=== PATIENT | female | born 1930 | race Caucasian/White ===

== ENCOUNTER 2016-12-21 14:38 | Inpatient (IN) | payer MEDICARE, BC ==
[2016-12-21] VITALS (8 sets, daily range): BP systolic 132–168; BP diastolic 68–88; PULSE 98–115; RESP 18–38; TEMP 98.6; O2SAT 89–97
[~2016-12-21] VITALS: Ht 168.9 cm; Wt 52.0 kg
[~2016-12-21 14:38] MED LIST: ACYC-1 PO; ADVI200T PO; ALBU0.086 INH; ALBU8I INH; ALPR.25 PO; ASPI81CH5 PO; BACT800T5 PO; CLIN1CAP5 PO; FURO20 PO; IPRAAER INH; KCL20 PO; PRED10 PO; PRED50TA PO; REST0.05 EACH EYE; VITA10002 PO
[2016-12-21] MEDS ORDERED: methylPREDNISolone SOD SUCC 125 MG/2 ML VIAL IVP ONE (15:00)
[2016-12-21] MEDS ORDERED: SODIUM CHLORIDE 0.9% FLUSH 5 ML FLUSH IVF PRN (15:00)
--- NOTE | 2016-12-21 15:12 | PD ---
HPI Chief Complaint: COPD Exacerbation Time Seen by Provider: 14:57 Travel History International Travel<30 days: No Contact w/Intl Traveler<30days: No History of Present Illness HPI Patient is an 86-year-old female with history of COPD who uses 2 L of oxygen at all times, since the emergency room with complaints of COPD exacerbation. Patient reports that for the past 2 days, she has had increased cough, congestion, wheezing. Patient reports that she cannot seem to catch her breath and has been using neb treatments without any relief of symptoms. Patient denies any sick contacts. She denies any fevers or chills. Patient denies any chest pain at this time. PFSH Past Medical History Arthritis: Yes (RHEUMATOID ARTHRITIS; HX KNEE EFFUSIONS) Asthma: Yes Atrial Fibrillation: Yes Blood Disorders: No Anxiety: Yes (R/T SOB) Depression: No Heart Rhythm Problems: Yes (HX A FIB) Cancer: Yes (RT BREAST CA;THROAT CA NON-HODGKINS LYMPHOMA STAGE III) Cardiovascular Problems: Yes (PACEMAKER) High Cholesterol: No Chemotherapy: No Chest Pain: No Congestive Heart Failure: No COPD: Yes Cerebrovascular Accident: No Diabetes: No Diminished Hearing: No Endocrine: Yes Gastrointestinal Disorders: Yes GERD: No Glaucoma: No Genitourinary: No Headaches: No Hepatitis: No Hiatal Hernia: No Hypertension: No Immune Disorder: Yes (NON-HODGKINS LYMPHOMA STAGE III) Kidney Stones: No Musculoskeletal: Yes (FELTY'S SYNDROME) Neurologic: No Psychiatric: No Reproductive: Yes (OVARIAN MASS) Respiratory: Yes Migraines: No Myocardial Infarction: No Radiation Therapy: No Renal Failure: No Seizures: No Sickle Cell Disease: No Sleep Apnea: No Thyroid Disease: Yes (THYROID NODULE) Ulcer: No Menopausal: Yes Past Surgical History Abdominal Surgery: Yes (SPLENECTOMY; CHOLECYSTECTOMY) AICD: No Appendectomy: No Arteriovenous Shunt: No Cardiac Surgery: No Cholecystectomy: Yes Ear Surgery: No Endocrine Surgery: Yes (PARTIAL THYROIDECTOMY) Eye Surgery: Yes (TREMAYNE LENS IMPLANTS) Genitourinary Surgery: No Gynecologic Surgery: Yes (HX OVARIAN MASS) Insulin Pump: No Joint Replacement: No Mastectomy: Yes (RT) Oral Surgery: No Pacemaker: Yes Thoracic Surgery: Yes (RT MASTECTOMY) Other Surgery: Yes (LYMPH NODE DISSECTION) Social History Alcohol Use: Yes (VODKA HELPS THE COUGHING) Tobacco Use: No Substance Use: No Allergies-Medications (Allergen,Severity, Reaction): Coded Allergies: Beef (Verified Allergy, Severe, 12/21/16) Benadryl (Verified Allergy, Severe, Rash and hot all over, 12/21/16) Biaxin (Verified Allergy, Severe, Rash, 12/21/16) Iodine (Verified Allergy, Severe, 12/21/16) Iopamidol (ISOVUE) (Verified Allergy, Severe, DO NOT PREMEDICATE-PT HAS ANAPHLYXIS, 12/21/16) Keflex (Verified Allergy, Severe, 12/21/16) Levaquin (Verified Allergy, Severe, SEVERE ITCHING, 12/21/16) Oxycontin (Verified Allergy, Severe, Itching, 12/21/16) Penicillin (Verified Allergy, Severe, 12/21/16) Pork (Verified Allergy, Severe, 12/21/16) Potassium Iodide (Verified Allergy, Severe, 12/21/16) Pulmicort (Verified Allergy, Severe, Anaphylaxis, 12/21/16) Symbicort (Verified Allergy, Severe, Anaphylaxis, 12/21/16) White Fish (Verified Allergy, Severe, 12/21/16) Advair (Verified Allergy, Intermediate, Edema-SPOKE TO YONATHAN HILLIARD SAID PT TAKE NO PROBLEM, 12/21/16) Zithromax (Verified Allergy, Unknown, 12/21/16) Uncoded Allergies: FISH, PORK, BEEF, SEAFOOD (Allergy, Unknown, 11/04/05) Reported Meds & Prescriptions Reported Meds & Active Scripts Active Reported Prednisone 10 Mg Tab 10 Mg PO DAILY Lasix (Furosemide) 20 Mg Tab 20 Mg PO BID Potassium Chloride ER (Potassium Chloride) 10 Meq Cap 10 Meq PO BID Review of Systems General / Constitutional: No: Fever Eyes: No: Visual changes HENT: No: Headaches Cardiovascular: Positive: Irregular Rhythm, No: Chest Pain or Discomfort Respiratory: Positive: Cough, Shortness of Breath, Wheezing Gastrointestinal: No: Abdominal Pain Genitourinary: No: Dysuria Musculoskeletal: No: Pain Skin: No Rash Neurologic: No: Weakness Psychiatric: No: Depression Endocrine: No: Polydipsia Hematologic/Lymphatic: No: Easy Bruising Physical Exam Narrative GENERAL: Moderate distress SKIN: Warm and dry. HEAD: Atraumatic. Normocephalic. EYES: Pupils equal and round. No scleral icterus. No injection or drainage. ENT: No nasal bleeding or discharge. Mucous membranes pink and moist. NECK: Trachea midline. No JVD. CARDIOVASCULAR: Tachycardic. No murmur appreciated. RESPIRATORY: Patient with accessory muscle use. Scattered wheezing throughout upper and lower lobes of lungs GASTROINTESTINAL: Abdomen soft, non-tender, nondistended. Hepatic and splenic margins not palpable. MUSCULOSKELETAL: No obvious deformities. No clubbing. No cyanosis. No edema. NEUROLOGICAL: Awake and alert. No obvious cranial nerve deficits. Motor grossly within normal limits. Normal speech. PSYCHIATRIC: Appropriate mood and affect; insight and judgment normal. Data Data Last Documented VS Vital Signs Date Time Temp Pulse Resp B/P Pulse Ox O2 Delivery O2 Flow Rate FiO2 12/21/16 17:00 98 30 132/70 97 BiPAP 40 12/21/16 15:00 15 12/21/16 14:50 98.6 Orders Complete Blood Count With Diff (12/21/16 14:59) Comprehensive Metabolic Panel (12/21/16 14:59) B-Type Natriuretic Peptide (12/21/16 14:59) Act Partial Throm Time (Ptt) (12/21/16 14:59) Prothrombin Time / Inr (Pt) (12/21/16 14:59) Magnesium (Mg) (12/21/16 14:59) Ckmb (Isoenzyme) Profile (12/21/16 14:59) Troponin I (12/21/16 14:59) Arterial Blood Gas (Abg) (12/21/16 14:59) Urinalysis - C+S If Indicated (12/21/16 14:59) Influenzae A/B Antigen (12/21/16 14:59) Blood Culture (12/21/16 14:59) Iv Access Insert/Monitor (12/21/16 14:59) Electrocardiogram (12/21/16 14:59) Ecg Monitoring (12/21/16 14:59) Oximetry (12/21/16 14:59) Oxygen Administration (12/21/16 14:59) Chest, Single Ap (12/21/16 14:59) Sodium Chloride 0.9% Flush (Ns Flush) (12/21/16 15:00) Methylprednisolone So Succ Inj (Solumedr (12/21/16 15:00) Albuterol-Ipratropium Neb (Duoneb Neb) (12/21/16 15:00) Magnesium Sulfate 1 Gm Premix (Magnesium (12/21/16 15:00) Admit Order (Ed Use Only) (12/21/16 17:08) Labs Laboratory Tests Test 12/21/16 12/21/16 15:00 15:30 Prothrombin Time 11.1 SEC Prothromb Time International 1.0 RATIO Ratio Activated Partial 22.9 SEC Thromboplast Time Sodium Level 145 MEQ/L Potassium Level 4.5 MEQ/L Chloride Level 106 MEQ/L Carbon Dioxide Level 30.3 MEQ/L Anion Gap 9 MEQ/L Blood Urea Nitrogen 19 MG/DL Creatinine 0.86 MG/DL Estimat Glomerular Filtration 63 ML/MIN Rate Random Glucose 86 MG/DL Calcium Level 8.8 MG/DL Magnesium Level 2.0 MG/DL Total Bilirubin 0.4 MG/DL Aspartate Amino Transf 39 U/L (AST/SGOT) Alanine Aminotransferase 24 U/L (ALT/SGPT) Alkaline Phosphatase 91 U/L Total Creatine Kinase 95 U/L Troponin I LESS THAN 0.02 NG/ML B-Type Natriuretic Peptide 170 PG/ML Total Protein 6.6 GM/DL Albumin 3.7 GM/DL White Blood Count 14.7 TH/MM3 Red Blood Count 4.51 MIL/MM3 Hemoglobin 14.6 GM/DL Hematocrit 44.1 % Mean Corpuscular Volume 97.9 FL Mean Corpuscular Hemoglobin 32.4 PG Mean Corpuscular Hemoglobin 33.1 % Concent Red Cell Distribution Width 17.0 % Platelet Count 178 TH/MM3 Mean Platelet Volume 8.9 FL Neutrophils (%) (Auto) 50.1 % Lymphocytes (%) (Auto) 28.2 % Monocytes (%) (Auto) 11.4 % Eosinophils (%) (Auto) 9.7 % Basophils (%) (Auto) 0.6 % Neutrophils # (Auto) 7.3 TH/MM3 Lymphocytes # (Auto) 4.1 TH/MM3 Monocytes # (Auto) 1.7 TH/MM3 Eosinophils # (Auto) 1.4 TH/MM3 Basophils # (Auto) 0.1 TH/MM3 CBC Comment DIFF FINAL Differential Comment Blood Gas Puncture Site LT RADIAL Blood Gas Patient Temperature 98.6 Blood Gas HCO3 30 mmol/L Blood Gas Base Excess 4.9 mmol/L Blood Gas Oxygen Saturation 97 % Arterial Blood pH 7.35 Arterial Blood Partial 57 mmHg Pressure CO2 Arterial Blood Partial 132 mmHg Pressure O2 Arterial Blood Oxygen Content 20.1 Vol % Arterial Blood 0.9 % Carboxyhemoglobin Arterial Blood Methemoglobin 0.8 % Blood Gas Hemoglobin 14.6 G/DL Oxygen Delivery Device BiPAP Blood Gas Ventilator Setting [id number] Blood Gas Inspired Oxygen 50 % MDM Medical Decision Making Medical Screen Exam Complete: Yes Emergency Medical Condition: Yes Interpretation(s) EKG at 1532: A. fib at 95 beats a minute, QT/QTc 350/402 Vital Signs Date Time Temp Pulse Resp B/P Pulse Ox O2 Delivery O2 Flow Rate FiO2 12/21/16 15:30 103 26 163/81 97 BiPAP 50 12/21/16 15:20 97 BiPAP 50 12/21/16 15:10 96 BiPAP 50 12/21/16 15:10 96 50 12/21/16 15:00 106 38 90 Room Air 15 12/21/16 14:50 98.6 115 38 168/87 89 CBC & BMP Diagram 12/21/16 15:00 Differential Diagnosis COPD exacerbation, A. fib with RVR, pneumonia, influenza, arrhythmia, pneumothorax Narrative Course Patient is an 86-year-old female who presents to emergency room with COPD exacerbation. Patient reports that she has been having increased cough, wheezing and shortness of breath for the past 2 days, reports that her symptoms have been unrelieved with neb treatments. As per EMS, pt was in afib with RVR with respiratory distress upon arrival to the emergency room. patient was given cardizem 10mg upon arrival to ER - reports from EMS was that her HR did improve with cardizem patient was not given steroids or nebs prior to arrival to ER Patient was placed on carbide tool die maker upon arrival to emergency room. Steroids as well as neb treatment ordered. Patient will be placed on BiPAP case reviewed with dr burch who accepts pt to service Diagnosis Primary Impression: COPD exacerbation Bridgette Atkinson DO Dec 21, 2016 15:12
[2016-12-21] MEDS: RESP: ALBUTEROL 2.5 MG/IPRATROPIUM 0.5 MG NEB (SCH) INH ×4 (15:15→18:45)
[2016-12-21] MEDS: MAGNESIUM SULFATE 1 GM PREMIX 100 ML IV SCH ×2 (15:27→16:54)
[2016-12-21 15:41] LABS: AUTOMATED NEUTROPHIL # 7.3 TH/MM3 (1.8-7.7); BASOPHIL # 0.1 TH/MM3 (0-0.2); BASOPHIL % 0.6 % (0.0-2.0); EOSINOPHIL # 1.4 TH/MM3 (0-0.4); EOSINOPHIL % 9.7 % (0.0-4.0); HEMATOCRIT 44.1 % (35.0-46.0); HEMO FLAGS DIFF FINAL; LYMPH % 28.2 % (9.0-44.0); LYMPHOCYTE # 4.1 TH/MM3 (1.0-4.8); MEAN CELL VOLUME 97.9 FL (80.0-100.0); MEAN CORPUSCULAR HEMOGLOBIN 32.4 PG (27.0-34.0); MEAN CORPUSCULAR HGB CONC 33.1 % (32.0-36.0); MONO % 11.4 % (0.0-8.0); NEUT % 50.1 % (16.0-70.0); PLATELET COUNT 178 TH/MM3 (150-450); RED BLOOD COUNT 4.51 MIL/MM3 (4.00-5.30); WHITE BLOOD COUNT 14.7 TH/MM3 (4.0-11.0)
[2016-12-21] MEDS ORDERED: FURO1TAB62 PO (15:41)
[2016-12-21] MEDS ORDERED: POTA10CA PO (15:41)
[2016-12-21] MEDS ORDERED: PRED10 PO (15:41)
[2016-12-21 15:43] LABS: APTT (PATIENT) 22.9 SEC (24.3-30.1); PROTHROMBIN TIME - PATIENT 11.1 SEC (9.8-11.6)
[2016-12-21 15:45] LABS: BLOOD GAS BASE EXCESS 4.9 mmol/L (-2-2); BLOOD GAS CARBOXYHEMOGLOBIN 0.9 % (0-4); BLOOD GAS HCO3 30 mmol/L (22-26); BLOOD GAS METHEMOGLOBIN 0.8 % (0-2); BLOOD GAS O2 HGB SATURATION 97 % (90-100); BLOOD GAS OXYGEN CONTENT 20.1 Vol % (12.0-20.0); BLOOD GAS PCO2 57 mmHg (38-42); BLOOD GAS PO2 132 mmHg (61-120); BLOOD GAS TOTAL HGB 14.6 G/DL (12.0-16.0); TEMP CORR TO 98.6
[2016-12-21 15:46] LABS: CRITICAL VALUE YES; DRAW SITE LT RADIAL; FIO2 50 %; NUMBER OF ARTERIAL PUNCTURES 1; OXYGEN DEVICE BiPAP; STAT YES; ULNAR PULSE PRESENT; VENT SETTINGS IPAP10EPAP5
[2016-12-21 15:57] LABS: ALKALINE PHOSPHATASE 91 U/L (45-117); ALT (GPT) 24 U/L (10-53); ANION GAP 9 MEQ/L (5-15); AST (GOT) 39 U/L (15-37); BICARBONATE 30.3 MEQ/L (21.0-32.0); BLOOD UREA NITROGEN 19 MG/DL (7-18); CHLORIDE 106 MEQ/L (98-107); GLOMERULAR FILTRATION RATE 63 ML/MIN (>89); SODIUM (NA) 145 MEQ/L (136-145); TOTAL BILIRUBIN ADULT 0.4 MG/DL (0.2-1.0)
[2016-12-21 15:58] LABS: CREATINE KINASE 95 U/L (26-192); POTASSIUM 4.5 MEQ/L (3.5-5.1)
--- NOTE | 2016-12-21 17:01 | RADRPT ---
EXAM DATE/TIME: 12/21/2016 16:53 [facility] COMPARISON: CHEST SINGLE AP, July 15, 2014, 10:13. INDICATIONS : Short of breath. MEDICAL HISTORY : Chronic obstructive pulmonary disease. Congestive heart failure. Myocardial infarction. Lymphoma. SURGICAL HISTORY : Pacemaker. CABG. ENCOUNTER: Initial ACUITY: 2 days PAIN SCORE: 0/10 LOCATION: Bilateral chest FINDINGS: The cardiac silhouette is enlarged in transverse diameter. There is prominence of the aortic knob is with calcification characteristic of atherosclerotic vascular disease. A bipolar pacemaker is in plac e via a left sided approach. The lungs are hyperinflated. The lungs are free of acute parenchymal opa city. No effusions are identified. CONCLUSION: 1. Cardiomegaly. No acute pulmonary disease. Driss Freitas MD on December 21, 2016 at 16:59 Board Certified Radiologist. This report was verified electronically.
--- NOTE | 2016-12-21 18:18 | HHI.HP ---
cc: Manjit Hook MD [facility] Manjit Hook MD Admission Diagnosis COPD Exacerbation on BIPAP Diagnoses: Chief Complaint: Shortness of breath, cough Travel History International Travel<30 Days: No Contact w/Intl Traveler <30 Da: No Traveled to Known Affected Are: No Sepsis Criteria SIRS Criteria (2 or more): Heart rate over 90, WBC > 28285, < 4000 or > 10% bands Sepsis Criteria (SIRS+source): Infect source susp/known Criteria Outcome: Meets SIRS criteria, Meets sepsis criteria History of Present Illness Patient is a pleasant 86-year-old white female with primary medical history of COPD O2 use at home, A. fib, rheumatoid arthritis, anxiety, non-Hodgkin's stage III who came in to the hospital with complaints of increasing shortness of breath worsening in 2-3 days and she feels that the medication is not helping her. She takes prednisone 10 mg daily and do nebulizer treatments 3 times a day. But in the last 2 days, she has been waking up at night choking, with difficulty breathing. Last night she woke up choking, and did her nebulization , coughs up what she described as "ball of white blob." She feels she is not getting better that she went to the hospital for further evaluation. PCP is Dr. Vizcarra, rod mill operator Dr. Victor. Patient is not seeing any barrer and tacker. Patient denies any sick contacts. Complaints of left shoulder pain started yesterday, intermittent, aggravated by cough, relieved with rest. Denies chest pain, palpitations, headaches, dizziness. Denies fevers, chills, n/ v/d. Patient was started on BiPAP in the ED, Solu-Medrol was given as well as nebulizer treatment. Patient states increased amount of prednisone caused her to have cancer. But spoke with patient's family member at the bedside and states that she's been getting prednisone without any adverse effect although she has multiple allergies to different medications. Labs reviewed WBC 14.7. CMP no acute abnormality elevated BUN 19, EGFR 63, AST 39. Troponin less than 0.02. BNP 170. ABG PCO2 57, PO2 132, HCO3 30 on BiPAP IPAP 10 EPAP 550% inspired Chest x-ray showed cardiomegaly. No acute pulmonary disease. Review of Systems Except as stated in HPI: all other systems reviewed are Neg Past Family Social History Past Medical History COPD - O2 dependent, use A. fib Rheumatoid arthritis Right breast cancer Anxiety Non-Hodgkin's stage III Thyroid nodule Past Surgical History PPM Splenectomy Cholecystectomy Partial thyroidectomy Bilateral lens implant Right mastectomy Lymph node resection Reported Medications Prednisone 10 Mg Tab 10 Mg PO DAILY Lasix (Furosemide) 20 Mg Tab 20 Mg PO BID Potassium Chloride ER (Potassium Chloride) 10 Meq Cap 10 Meq PO BID Allergies: Coded Allergies: Beef (Verified Allergy, Severe, 12/21/16) Benadryl (Verified Allergy, Severe, Rash and hot all over, 12/21/16) Biaxin (Verified Allergy, Severe, Rash, 12/21/16) Iodine (Verified Allergy, Severe, 12/21/16) Iopamidol (ISOVUE) (Verified Allergy, Severe, DO NOT PREMEDICATE-PT HAS ANAPHLYXIS, 12/21/16) Keflex (Verified Allergy, Severe, 12/21/16) Levaquin (Verified Allergy, Severe, SEVERE ITCHING, 12/21/16) Oxycontin (Verified Allergy, Severe, Itching, 12/21/16) Penicillin (Verified Allergy, Severe, 12/21/16) Pork (Verified Allergy, Severe, 12/21/16) Potassium Iodide (Verified Allergy, Severe, 12/21/16) Pulmicort (Verified Allergy, Severe, Anaphylaxis, 12/21/16) Symbicort (Verified Allergy, Severe, Anaphylaxis, 12/21/16) White Fish (Verified Allergy, Severe, 12/21/16) Advair (Verified Allergy, Intermediate, Edema-SPOKE TO YONATHAN HILLIARD SAID PT TAKE NO PROBLEM, 12/21/16) Zithromax (Verified Allergy, Unknown, 12/21/16) Uncoded Allergies: FISH, PORK, BEEF, SEAFOOD (Allergy, Unknown, 11/04/05) Active Ordered Medications Current Medications Medications (Trade) Dose Ordered Sig/Madeleine Route Start Time Stop Time Status Last Admin (NS Flush) 2 ml UNSCH PRN IVF 12/21/16 15:00 (NS Flush) 2 ml BID IVF 12/21/16 21:00 (NS Flush) 2 ml UNSCH PRN IVF 12/21/16 17:45 (SoluMEDROL INJ) 60 mg Q6H IVP 12/21/16 21:00 Family History Mother's side has heart problems, father side patient states no known significant medical history Social History Alcohol use vodka every day "helps to relieve her cough" Denies tobacco use Denies illicit drug use Physical Exam Vital Signs Vital Signs Date Time Temp Pulse Resp B/P Pulse Ox O2 Delivery O2 Flow Rate FiO2 12/21/16 17:00 98 30 132/70 97 BiPAP 40 12/21/16 15:30 103 26 163/81 97 BiPAP 50 12/21/16 15:20 97 BiPAP 50 12/21/16 15:10 96 BiPAP 50 12/21/16 15:10 96 50 12/21/16 15:00 106 38 90 Room Air 15 12/21/16 14:50 98.6 115 38 168/87 89 Physical Exam GENERAL: This is a thinly appearing, elderly patient, short of breath/ dyspneic. SKIN: Warm and dry. Bilateral lower extremities again is dry. HEAD: Atraumatic. Normocephalic. No temporal or scalp tenderness. EYES: Pupils equal round and reactive. Extraocular motions intact. No scleral icterus. No injection or drainage. ENT: Nose without bleeding. Throat without erythema. Uvula midline. Airway patent. Oral mucosa dry NECK: Trachea midline. No JVD. CARDIOVASCULAR: Regular rate and rhythm without murmurs, gallops, or rubs. RESPIRATORY: Distant lung sounds, minimal air movement. GASTROINTESTINAL: Abdomen soft, non-tender, nondistended. Bowel sounds active 4. MUSCULOSKELETAL: Extremities without clubbing, cyanosis, bilateral +1 pedal edema. Bilateral hand contractures. NEUROLOGICAL: Awake and alert. No focal neuro deficit. Motor and sensory grossly within normal limits. Normal speech. Hoarse voice. Laboratory Laboratory Tests Test 12/21/16 12/21/16 15:00 15:30 White Blood Count 14.7 Red Blood Count 4.51 Hemoglobin 14.6 Hematocrit 44.1 Mean Corpuscular Volume 97.9 Mean Corpuscular Hemoglobin 32.4 Mean Corpuscular Hemoglobin 33.1 Concent Red Cell Distribution Width 17.0 Platelet Count 178 Mean Platelet Volume 8.9 Neutrophils (%) (Auto) 50.1 Lymphocytes (%) (Auto) 28.2 Monocytes (%) (Auto) 11.4 Eosinophils (%) (Auto) 9.7 Basophils (%) (Auto) 0.6 Neutrophils # (Auto) 7.3 Lymphocytes # (Auto) 4.1 Monocytes # (Auto) 1.7 Eosinophils # (Auto) 1.4 Basophils # (Auto) 0.1 CBC Comment DIFF FINAL Differential Comment Prothrombin Time 11.1 Prothromb Time International 1.0 Ratio Activated Partial 22.9 Thromboplast Time Sodium Level 145 Potassium Level 4.5 Chloride Level 106 Carbon Dioxide Level 30.3 Anion Gap 9 Blood Urea Nitrogen 19 Creatinine 0.86 Estimat Glomerular Filtration 63 Rate Random Glucose 86 Calcium Level 8.8 Magnesium Level 2.0 Total Bilirubin 0.4 Aspartate Amino Transf 39 (AST/SGOT) Alanine Aminotransferase 24 (ALT/SGPT) Alkaline Phosphatase 91 Total Creatine Kinase 95 Troponin I LESS THAN 0.02 B-Type Natriuretic Peptide 170 Total Protein 6.6 Albumin 3.7 Blood Gas Puncture Site LT RADIAL Blood Gas Patient Temperature 98.6 Blood Gas HCO3 30 Blood Gas Base Excess 4.9 Blood Gas Oxygen Saturation 97 Arterial Blood pH 7.35 Arterial Blood Partial 57 Pressure CO2 Arterial Blood Partial 132 Pressure O2 Arterial Blood Oxygen Content 20.1 Arterial Blood 0.9 Carboxyhemoglobin Arterial Blood Methemoglobin 0.8 Blood Gas Hemoglobin 14.6 Oxygen Delivery Device BiPAP Blood Gas Ventilator Setting [id number] Blood Gas Inspired Oxygen 50 Date/Time Procedure Status Source Growth 12/21/16 15:13 Influenza Types A,B Antigen (DEBBIE) - Final Complete Nasal Aspirate NEGATIVE FOR FLU A AND B ANTIGEN.... 12/21/16 14:55 Aerobic Blood Culture Received Blood Peripheral Pending 12/21/16 14:55 Anaerobic Blood Culture Received Blood Peripheral Pending Result Diagram: 12/21/16 1500 12/21/16 1500 Imaging Last Impressions Chest X-Ray 12/21/16 1459 Signed Impressions: Service Date/Time: December 16:53 - CONCLUSION: 1. Cardiomegaly. No acute pulmonary disease. Driss Freitas MD Assessment and Plan Problem List: (1) COPD exacerbation ICD Code: J44.1 Status: Acute (2) Sepsis ICD Code: A41.9 Status: Acute (3) A-fib ICD Code: I48.91 Status: Chronic Assessment and Plan Patient is a pleasant 86-year-old white female with primary medical history of COPD O2 use at home, A. fib, rheumatoid arthritis, anxiety, non-Hodgkin's stage III who came in to the hospital with complaints of increasing shortness of breath worsening in 2-3 days and she feels that the medication is not helping her. She takes prednisone 10 mg daily and do nebulizer treatments 3 times a day. But in the last 2 days, she has been waking up at night choking, with difficulty breathing. Last night she woke up choking, and did her nebulization , coughs up what she described as "ball of white blob." She feels she is not getting better that she went to the hospital for further evaluation. PCP is Dr. Vizcarra, rod mill operator Dr. Victor. Patient is not seeing any barrer and tacker. Patient denies any sick contacts. Complaints of left shoulder pain started yesterday, intermittent, aggravated by cough, relieved with rest. Denies chest pain, palpitations, headaches, dizziness. Denies fevers, chills, n/ v/d. Patient was started on BiPAP in the ED, Solu-Medrol was given as well as nebulizer treatment. Sepsis - WBC 14.7, heart rate 115, respiratory rate 38 - suspect source pulmonary - Blood cultures will follow up results - Lactic acid follow-up results - Influenza negative COPD acute exacerbation - Patient was given Solu-Medrol in the ED. continue with Solu-Medrol IV - Continue BiPAP for now. Wean off if tolerated. - Nebulizer treatments scheduled, and when necessary - IV antibiotics - Consult pulmonology input appreciated Atrial fibrillation - not on any anticoagulants. [id number] score 3 (gender, age), 3.2% per year. - Patient was given diltiazem in the ED - Cardizem for rate control DVT prop SCDs, Written by Jackie Ferro, acting as scribe for Dr. Méndez on 12/21/16 at 18: 31. The documentation accurately reflects the work performed [id number] by me on at 1831. Code Status Full code Discussed Condition With Patient, family members, ED attending Physician Certification 2 Midnight Certification Type: Admission for Inpatient Services Order for Inpatient Services The services are ordered in accordance with Medicare regulations or non- Medicare payer requirements, as applicable. In the case of services not specified as inpatient-only, they are appropriately provided as inpatient services in accordance with the 2-midnight benchmark. Estimated LOS (days): 2 days is the estimated time the patient will need to remain in the hospital, assuming treatment plan goals are met and no additional complications. Post-Hospital Plan: Not yet determined Jackie Cid Dec 21, 2016 18:18 Sabas Méndez MD Dec 21, 2016 19:05
[2016-12-21] MEDS: SODIUM CHLORIDE 0.9% FLUSH 5 ML FLUSH IVF SCH (20:24)
[2016-12-21] MEDS ORDERED: methylPREDNISolone SOD SUCC 125 MG/2 ML VIAL IVP SCH (21:00)
[2016-12-22] VITALS (8 sets, daily range): BP systolic 122–164; BP diastolic 66–85; PULSE 84–136; RESP 20–31; TEMP 97.8–98.7; O2SAT 94–97
[2016-12-22] MEDS: RESP: ALBUTEROL 2.5 MG/3 ML NEB (PRN) INH (02:44)
[2016-12-22] MEDS: SODIUM CHLORIDE 0.9% FLUSH 5 ML FLUSH IVF SCH ×2 (07:23→20:06)
[2016-12-22 07:50] LABS: AUTOMATED NEUTROPHIL # 3.3 TH/MM3 (1.8-7.7); BASOPHIL % 0.4 % (0.0-2.0); HEMATOCRIT 41.3 % (35.0-46.0); LYMPHOCYTE # 0.7 TH/MM3 (1.0-4.8); MEAN CELL VOLUME 97.1 FL (80.0-100.0); MEAN CORPUSCULAR HEMOGLOBIN 32.9 PG (27.0-34.0); MEAN CORPUSCULAR HGB CONC 33.9 % (32.0-36.0); MONO % 3.1 % (0.0-8.0); NEUT % 80.5 % (16.0-70.0); PLATELET COUNT 176 TH/MM3 (150-450); RED BLOOD COUNT 4.25 MIL/MM3 (4.00-5.30); RED CELL DISTRIBUTION WIDTH 16.8 % (11.6-17.2); WHITE BLOOD COUNT 4.1 TH/MM3 (4.0-11.0)
[2016-12-22] MEDS: RESP: ALBUTEROL 2.5 MG/IPRATROPIUM 0.5 MG NEB (SCH) INH ×4 (07:50→19:32)
[2016-12-22 08:12] LABS: BICARBONATE 29.8 MEQ/L (21.0-32.0); POTASSIUM 3.8 MEQ/L (3.5-5.1)
[2016-12-22 08:40] LABS: HEMO FLAGS AUTO DIFF
[2016-12-22 08:42] LABS: PLATELET ESTIMATE SMEAR NORMAL (NORMAL); PLATELET MORPHOLOGY NORMAL (NORMAL); SCAN/DIFF AUTO DIFF CONFIRMED
[2016-12-22] MEDS ORDERED: LORazepam 2 MG TAB PO PRN (11:30)
[2016-12-22] MEDS ORDERED: LORazepam 2 MG/ML VIAL IV PUSH PRN ×4 (11:30)
[2016-12-22] MEDS ORDERED: FLUMAZENIL 0.5 MG/5 ML VIAL IV PUSH PRN (11:30)
[2016-12-22] MEDS ORDERED: LORazepam 1 MG TAB PO PRN (11:30)
[2016-12-22] MEDS: DILTIAZEM INJ 125 MG in SODIUM CHLORIDE 0.9% INJ 100 ML IV SCH (11:59)
--- NOTE | 2016-12-22 14:10 | HHI.PR ---
Subjective Remarks Follow-up respiratory failure, atrial fibrillation. The patient states that she is feeling better today. Less shortness of breath. No chest pain at this time. She did develop sustained tachycardia in the 120s to 130s. Control is better now that she is on Cardizem drip. Objective Vitals Vital Signs Date Time Temp Pulse Resp B/P Pulse Ox O2 Delivery O2 Flow Rate FiO2 12/22/16 12:00 98.4 136 24 127/77 96 12/22/16 08:00 97.9 108 24 135/83 97 12/22/16 07:51 96 Nasal Cannula 3.00 12/22/16 02:15 98.7 115 31 164/85 95 12/22/16 02:00 Nasal Cannula 3.00 12/22/16 01:37 104 18 149/66 97 Nasal Cannula 4 12/21/16 23:28 101 18 144/88 97 Nasal Cannula 12/21/16 19:44 110 22 140/68 95 Nasal Cannula 4 12/21/16 19:18 97 Nasal Cannula 4.00 12/21/16 18:45 96 40 12/21/16 17:00 98 30 132/70 97 BiPAP 40 12/21/16 15:30 103 26 163/81 97 BiPAP 50 12/21/16 15:20 97 BiPAP 50 12/21/16 15:10 96 BiPAP 50 12/21/16 15:10 96 50 12/21/16 15:00 106 38 90 Room Air 15 12/21/16 14:50 98.6 115 38 168/87 89 I/O 12/21/16 12/21/16 12/21/16 12/22/16 12/22/16 12/22/16 07:00 15:00 23:00 07:00 15:00 23:00 Intake Total 240 ml Balance 240 ml Intake Oral 240 ml # Voids 1 # Bowel Movements 1 Result Diagram: 12/22/16 0657 12/22/16 0657 Imaging Last Impressions Chest X-Ray 12/21/16 1459 Signed Impressions: Service Date/Time: December 16:53 - CONCLUSION: 1. Cardiomegaly. No acute pulmonary disease. Driss Freitas MD Objective Remarks General: Thin, elderly female in no acute distress. Heart: Tachycardic, irregular.. No murmur. Lungs: Scattered wheeze. Breathing is nonlabored. Abdomen: Soft, nontender, nondistended. Extremities: No lower extremity edema. Psych: Alert and oriented. Procedures None Urinary Catheter: No Vascular Central Line Catheter: No A/P Problem List: (1) COPD exacerbation ICD Code: J44.1 Status: Acute (2) Sepsis ICD Code: A41.9 Status: Acute (3) Acute respiratory failure ICD Code: J96.00 Status: Acute (4) Leukocytosis ICD Code: D72.829 Status: Acute (5) Alcohol withdrawal ICD Code: F10.239 Status: Acute (6) Atrial fibrillation with RVR ICD Code: I48.91 Status: Acute (7) Acute kidney injury ICD Code: N17.9 Status: Acute Assessment and Plan 1. Acute respiratory failure, COPD exacerbation: Has required BiPAP. Pulmonology consult pending. Continue supplemental oxygen, bronchodilators. Patient does not want steroids at this time. Continue IV antibiotics. Clinically improving. 2. Atrial fibrillation with RVR: On Cardizem drip. Not on anticoagulation. Cardiology consultation requested. Patient sees Dr. Victor. 3. Sepsis secondary to pulmonary source: Blood cultures are pending. Patient presented with leukocytosis, tachycardia, tachypnea. Continue antibiotics. Leukocytosis has resolved. 4. Acute kidney injury: BUN and creatinine are increasing. Start gentle IV fluid hydration. Recheck labs in the morning. 5. Alcohol use, withdrawal: Patient reported drinking 3 small vodka drinks per day, but her family states that she drinks considerably more than that on a regular basis. She appears to be experiencing some withdrawal symptoms, and this may be contributing to her tachycardia. Continue CIWA protocol. Supplement thiamine, folate, multiple vitamin. 6. DVT prophylaxis: SCDs. Sabas Méndez MD Dec 22, 2016 14:10
[2016-12-22] MEDS: MULTIVITAMIN TAB PO SCH (15:23)
[2016-12-22] MEDS: FOLIC ACID 1 MG TAB PO SCH (15:23)
[2016-12-22] MEDS: NS + KCL 20 MEQ INJ 1,000 ML IV SCH (16:16)
[2016-12-22] MEDS: THIAMINE INJ 100 MG in SODIUM CHLORIDE 0.9% INJ 100 ML IV SCH (17:46)
[2016-12-22] MEDS ORDERED: DILTIAZEM HCL 60 MG TAB PO ONE (19:00)
[2016-12-22] MEDS: ENOXAPARIN SODIUM 40 MG/0.4 ML SYRINGE SQ SCH (20:05)
--- NOTE | 2016-12-22 23:16 | MB ---
cc: CHRISTY VICTOR MD, RYAN R. M.D. MAREN,ASJRAF DATE OF CONSULTATION 12/22/[address] Victor. REASON FOR CONSULTATION Atrial fibrillation with rapid ventricular response. HISTORY OF PRESENT ILLNESS Ms. Blood is a pleasant 86-year-old lady with history of COPD on home O2, history of rheumatoid arthritis and anxiety, history of chronic atrial fibrillation, sick sinus syndrome, status post permanent pacemaker placement who comes in with progressive shortness of breath, wheezing and cough with productive whitish sputum over the past few days with PND relieved by nebulizer used. She sleeps on one pillow otherwise. She has had chronic lower extremity edema on and off and lately has been better with dietary restrictions and the use of diuretics. Denies chest pain per se. Admits to palpitations that happens more over the last 2-3 weeks. She has episodes of palpitations about two to three times a week. She used to be on Cardizem, but she ran out of her medications a few months ago and was not taking it. She also drinks two to three drinks of vodka on a daily basis because she feels it helps her breathing and her cough. She mixes that with honey. Denies dizziness or syncope. PAST MEDICAL AND SURGICAL HISTORY Dose as mentioned above. 1. History of hypertension. 2. Chronic atrial fibrillation not on anticoagulation because she has refused it in the past and still does. 3. History of breast cancer. 4. History of non-Hodgkin lymphoma stage III. FAMILY HISTORY There is no immediate family history of coronary artery disease, cancer, diabetes or hypertension according to her. SOCIAL HISTORY Drinks vodka as mentioned above. Denies history of smoking. She used to smoke up until she was 27 years old. However, she was exposed to secondhand smoking. Denies recreational drug use. PAST SURGICAL HISTORY 1. Permanent pacemaker. 2. Splenectomy. 3. Cholecystectomy. 4. Partial hysterectomy. 5. Lymph node resection 6. Right mastectomy. 7. Cataract surgery bilaterally. MEDICATIONS At home, 1. Prednisone 10 mg by mouth daily. 2. Lasix 20 mg by mouth b.i.d. 3. Lottie Ciel 10 mEq p.o. b.i.d. ALLERGIES She quotes multiple allergies including BENADRYL BIAXIN "BEEF" IODINE KEFLEX LEVAQUIN OXY CONTIN PENICILLIN PORK POTASSIUM IODINE PULMICORT SYMBICORT ADVAIR INHALERS ZITHROMAX CONTRAST ALLERGIES SEAFOOD ALLERGIES REVIEW OF SYSTEMS 12-point system review was unremarkable except what is mentioned in the history of present illness. She denies fever. She does not follow with pulmonary. PHYSICAL EXAMINATION GENERAL: An 86-year-old lady lying in bed not in distress, alert and oriented x3. Answers questions appropriately. VITAL SIGNS: Blood pressure is 143/67 mmHg, pulse of 102 beats per minute irregular irregular, respiration 20 per minute, afebrile. HEENT: Head is normocephalic. Pupils equal, reactive. Throat is within normal limits. NECK: Supple. No carotid bruit. No thyromegaly, borderline jugular venous distension at 45 degree angle. LUNGS: Diminished air entry bilaterally with occasional expiratory rhonchi and wheezing. Few creps at the bases. CARDIOVASCULAR: S1, S2 are variable in intensity with an S4 gallop. No rubs or murmurs. ABDOMEN: Lax, nontender. Normoactive bowel sounds. No organomegaly or masses felt. EXTREMITIES: Lower extremities shows trace indurated pitting edema lower ankles bilaterally. Pulses 2+ bilaterally. Dorsalis pedis pulse is barely felt. NEUROLOGIC: Grossly intact. RECTAL: Exam deferred. CARDIOLOGY STUDIES EKG shows atrial fibrillation with right bundle-branch block with ventricular response rate around 100 beats per minute. He right bundle is old. LABORATORY DATA Sodium 141, potassium 3.8, BUN of 23, creatinine 1.12, glucose of 142. Troponin I is normal and BNP nonspecific elevation of 170. Magnesium of 2.0. Coags were within normal limits. CBC shows initially she came with a white count of 14.7, is down to 4.1, hemoglobin of 14 and a platelet count of 176. IMAGING STUDIES Chest x-ray shows borderline cardiomegaly and no pulmonary congestion. ASSESSMENT 1. Atrial fibrillation with rapid ventricle response likely secondary to her COPD exacerbation and also noncompliance with medications. She used to be on Cardizem, but she is not taking it anymore and this will be introduced back at 60 mg q 6 hours to wean off IV Cardizem. Phosphorous level as well as a TSH and free T4 levels will be checked. She is refusing anticoagulation and understands the increased risks of CVA associated with atrial fibrillation (CHADS vas score of 3 based on age and hypertension). 2. Possible sepsis/COPD exacerbation per the medical team. 3. ETOH withdrawal. She is already on multivitamins and folic acid and thiamine which is a good idea. She is getting Ativan p.r.n. She has had cardiac workup with Dr. Victor and I will order no further workup at this point until we get her office records. She does seem to be stable from the cardiovascular standpoint with no clinical signs of congestive heart failure at present. She will be placed on low-dose Lovenox for DVT prophylaxis (refuses full dose anticoagulation). Thank you for the consultation. MD ALLY Sarkar/ /6:22 PM /10:48 PM
--- NOTE | 2016-12-22 23:30 | EKG ---
Date Performed: 12/21/2016 Time Performed: 15:32:19 PTAGE: 86 years EKG: ATRIAL FIBRILLATION RIGHT BUNDLE BRANCH BLOCK ABNORMAL ECG PREVIOUS TRACING : 07/15/2014 09.51 DOCTOR: Nadine Trevino Interpretating Date/Time 12/22/2016 23:27:38
[2016-12-23] VITALS (10 sets, daily range): BP systolic 130–156; BP diastolic 63–86; PULSE 69–94; RESP 18–24; TEMP 97.7–99.1; O2SAT 93–97
[2016-12-23] MEDS: DILTIAZEM HCL 60 MG TAB PO SCH ×4 (00:40→18:23)
[2016-12-23] MEDS: DILTIAZEM INJ 125 MG in SODIUM CHLORIDE 0.9% INJ 100 ML IV SCH (01:31)
[2016-12-23] MEDS: RESP: ALBUTEROL 2.5 MG/3 ML NEB (PRN) INH ×2 (03:37→06:30)
--- NOTE | 2016-12-23 06:52 | MB ---
cc: SRIKANTH DUKE M.D. DATE OF CONSULTATION: 12/22/2016 REASON FOR CONSULTATION: Chronic obstructive pulmonary disease exacerbation. HISTORY OF PRESENT ILLNESS Mrs. Blood is a 86-year-old female with severe end-stage COPD, chronic respiratory failure on oxygen therapy at home. Severe rheumatoid arthritis with x-ray with severe contractures of both hands. The patient has history of increasing shortness of breath [id number] days prior to her hospitalization, occasional she does have a cough, with expectoration of clear mucoid whitish secretion. No fevers, no chills, no hemoptysis. The patient comes to the emergency room after COPD exacerbation. She is noted to be in atrial fibrillation with rapid ventricular response. She was seen by cardiology and placed on a Cardizem drip, initial respiratory failure required BiPap therapy. Now she is off BiPap on oxygen by nasal cannula and seems to be improved. PAST MEDICAL HISTORY: 1. Past medical history is that of chronic obstructive pulmonary disease. 2. Chronic respiratory failure on oxygen therapy. 3. Atrial fibrillation 4. Severe rheumatoid arthritis. 5. History of breast cancer 6. Non-Hodgkin lymphoma, stage III. 7. History of thyroid nodule. PAST SURGICAL HISTORY: 1. Had a previous splenectomy 2. Cholecystectomy 3. partial thyroidectomy 4. cataract surgery 5. Right mastectomy MEDICATIONS medications at home include 1. Lasix. 2. Potassium. 3. Prednisone nebulized the cyst. 4. Albuterol. ALLERGIES ADVAIR SYMBICORT ZITHROMAX BENADRYL BIAXIN IODINE LIPIODOL KEFLEX LEVAQUIN OXYCONTIN PENICILLIN PORK BEES SEAFOOD FISH ALL ANIMAL PRODUCTS FAMILY HISTORY Noncontributory. REVIEW OF SYSTEMS 12-point review of systems as per HPI and past history otherwise negative. PHYSICAL EXAMINATION: VITAL SIGNS: On exam the patient is alert. Temperature 98.5, respirations 18, blood pressure 160/80, pulse is 98. HEAD, EYES, EARS, NOSE, AND THROAT: Exam unremarkable. Eyes without icterus. NECK: Without adenopathy. Thyroid enlargement. Central trachea. CHEST: Without dullness to percussion. Few scattered rhonchi auscultation. CARDIOVASCULAR SYSTEM: Cardiac exam PMI distant. S1-S2 audible. Cardiac exam PMI distant. Irregularity noted. ABDOMEN: Lax bowel sounds audible. EXTREMITIES: No clubbing, cyanosis or edema. LABORATORY DATA The white count 4.1, was 14 upon presentation, hemoglobin 14, hematocrit 41, platelets 176,000, sodium 141, potassium 3.8, BUN 23, creatinine 1.1, INR of 1.0. ABG pH 735, pCO2 57, pO2 132-150% inspired oxygen fraction. RADIOLOGIC: Chest x-ray Cardiomegaly, no acute infiltrate. IMPRESSION 1. COPD exacerbation 2. Chronic respiratory failure 3. Atrial fibrillation. 4. Severe rheumatoid arthritis. PLAN The patient will be maintained on oxygen therapy as needed. Bronchodilator therapy will be given. She has been given steroid therapy intravenously upon presentation now on steroids and she does not want to use any steroids. She believes she is allergic to them and have a lot of side effects. We will follow her course along with you and depending on progress proceed further. She is followed by rheumatology and has been on methotrexate in the past. I do thank you for asking me to partake in Mrs. Jeremi bentley. Srikanth Duke MD WWW/socorro /7:18 PM /6:34 AM
[2016-12-23 07:15] LABS: AUTOMATED NEUTROPHIL # 9.6 TH/MM3 (1.8-7.7); BASOPHIL # 0.1 TH/MM3 (0-0.2); BASOPHIL % 0.4 % (0.0-2.0); HEMATOCRIT 38.7 % (35.0-46.0); HEMO FLAGS DIFF FINAL; LYMPH % 12.1 % (9.0-44.0); LYMPHOCYTE # 1.5 TH/MM3 (1.0-4.8); MEAN CORPUSCULAR HEMOGLOBIN 32.2 PG (27.0-34.0); MEAN CORPUSCULAR HGB CONC 33.2 % (32.0-36.0); MONO % 11.6 % (0.0-8.0); NEUT % 75.9 % (16.0-70.0); PLATELET COUNT 173 TH/MM3 (150-450); RED BLOOD COUNT 3.99 MIL/MM3 (4.00-5.30); RED CELL DISTRIBUTION WIDTH 16.8 % (11.6-17.2); WHITE BLOOD COUNT 12.6 TH/MM3 (4.0-11.0)
[2016-12-23 07:18] LABS: BICARBONATE 28.7 MEQ/L (21.0-32.0); MAGNESIUM 2.1 MG/DL (1.5-2.5); POTASSIUM 4.2 MEQ/L (3.5-5.1)
[2016-12-23] MEDS: RESP: ALBUTEROL 2.5 MG/IPRATROPIUM 0.5 MG NEB (SCH) INH ×4 (08:07→21:20)
[2016-12-23] MEDS: FOLIC ACID 1 MG TAB PO SCH (08:08)
[2016-12-23] MEDS: MULTIVITAMIN TAB PO SCH (08:08)
[2016-12-23] MEDS: THIAMINE INJ 100 MG in SODIUM CHLORIDE 0.9% INJ 100 ML IV SCH (08:08)
[2016-12-23] MEDS: SODIUM CHLORIDE 0.9% FLUSH 5 ML FLUSH IVF SCH ×2 (08:08→20:46)
[2016-12-23 11:32] LABS: BACTERIA, URINE RARE /hpf; BLOOD, URINE NEG (NEG); GLUCOSE,URINE NEG (NEG); HYALINE CAST, URINE 4 /lpf (RARE); KETONE, URINE NEG (NEG); MUCUS URINE FEW /lpf (OCC); NITRITE,URINE NEG (NEG); PH, URINE 5.5 (5.0-8.5); TRANSITIONAL EPI CELLS, URINE <1 /hpf; URINE COLOR YELLOW (YELLW/STRAW)
[2016-12-23 11:33] LABS: COMMENT (UR) CULTURE INDICATED; CULTURE IF INDICATED CULTURE INDICATED
--- NOTE | 2016-12-23 13:11 | HHI.PR ---
Subjective Remarks Follow-up respiratory failure, atrial fibrillation. Patient reports ongoing shortness of breath and cough. States that she was up all night coughing last night. No chest pain. Objective Vitals Vital Signs Date Time Temp Pulse Resp B/P Pulse Ox O2 Delivery O2 Flow Rate FiO2 12/23/16 08:09 95 Nasal Cannula 3.00 12/23/16 08:00 98.4 75 20 148/86 97 12/23/16 04:00 97.7 73 24 130/63 96 12/23/16 03:58 85 12/23/16 03:37 Nasal Cannula 3.00 12/23/16 00:00 69 12/23/16 00:00 98.3 75 24 140/63 97 12/22/16 20:00 98.2 84 20 122/66 96 12/22/16 20:00 Nasal Cannula 3.00 12/22/16 16:00 97.8 105 20 143/67 97 12/22/16 15:15 94 Nasal Cannula 3.00 I/O 12/22/16 12/22/16 12/22/16 12/23/16 12/23/16 12/23/16 07:00 15:00 23:00 07:00 15:00 23:00 Intake Total 240 ml 240 ml Balance 240 ml 240 ml Intake Oral 240 ml 240 ml # Voids 1 2 # Bowel Movements 1 0 Result Diagram: 12/23/16 0605 12/23/16 0605 Imaging Last Impressions Chest X-Ray 12/21/16 1459 Signed Impressions: Service Date/Time: December 16:53 - CONCLUSION: 1. Cardiomegaly. No acute pulmonary disease. Driss Freitas MD Objective Remarks General: Thin, elderly female in no acute distress. Heart: Irregular rhythm. No murmur. Lungs: Scattered wheeze. Breathing is nonlabored. Abdomen: Soft, nontender, nondistended. Extremities: No lower extremity edema. Psych: Alert and oriented. Procedures None Urinary Catheter: No Vascular Central Line Catheter: No A/P Problem List: (1) COPD exacerbation ICD Code: J44.1 Status: Acute (2) Sepsis ICD Code: A41.9 Status: Acute (3) Acute respiratory failure ICD Code: J96.00 Status: Acute (4) Leukocytosis ICD Code: D72.829 Status: Acute (5) Alcohol withdrawal ICD Code: F10.239 Status: Acute (6) Atrial fibrillation with RVR ICD Code: I48.91 Status: Acute (7) Acute kidney injury ICD Code: N17.9 Status: Acute Assessment and Plan 1. Acute respiratory failure, COPD exacerbation: Did not require BiPAP overnight. Appreciate pulmonology recommendations. Continue supplemental oxygen , bronchodilators. Patient does not want steroids at this time. Continue IV antibiotics. 2. Atrial fibrillation with RVR: Wean off Cardizem drip. Not on anticoagulation. Appreciate cardiology recommendations. Discussed with Dr. Zaragoza. 3. Sepsis secondary to pulmonary source: Blood cultures are pending. Patient presented with leukocytosis, tachycardia, tachypnea. Continue antibiotics. Leukocytosis has resolved. 4. Acute kidney injury: BUN and creatinine are increasing. Continue gentle IV fluid hydration. Monitor labs. 5. Alcohol use, withdrawal: She has been counseled. Patient reported drinking 3 small vodka drinks per day, but her family states that she drinks considerably more than that on a regular basis. She appears to be experiencing some withdrawal symptoms, and this may be contributing to her tachycardia. Continue CIWA protocol. Supplement thiamine, folate, multivitamin. 6. DVT prophylaxis: SCDs. Sabas Méndez MD Dec 23, 2016 13:11
[2016-12-23] MEDS: ENOXAPARIN SODIUM 40 MG/0.4 ML SYRINGE SQ SCH (20:47)
[2016-12-23] MEDS: NS + KCL 20 MEQ INJ 1,000 ML IV SCH (20:50)
[2016-12-24] VITALS (11 sets, daily range): BP systolic 121–154; BP diastolic 60–78; PULSE 77–98; RESP 18–24; TEMP 97.3–98.7; O2SAT 92–97
[2016-12-24 00:10] LABS: FREE T4 0.83 NG/DL (0.76-1.46)
[2016-12-24] MEDS: DILTIAZEM HCL 60 MG TAB PO SCH ×4 (00:48→17:30)
[2016-12-24] MEDS: RESP: ALBUTEROL 2.5 MG/3 ML NEB (PRN) INH ×3 (00:58→23:20)
[2016-12-24] MEDS: FOLIC ACID 1 MG TAB PO SCH (08:45)
[2016-12-24] MEDS: MULTIVITAMIN TAB PO SCH (08:45)
[2016-12-24] MEDS: SODIUM CHLORIDE 0.9% FLUSH 5 ML FLUSH IVF SCH ×2 (08:46→20:41)
[2016-12-24] MEDS: THIAMINE HCL 100 MG TAB PO SCH (08:46)
[2016-12-24] MEDS: RESP: ALBUTEROL 2.5 MG/IPRATROPIUM 0.5 MG NEB (SCH) INH ×4 (08:51→19:42)
[2016-12-24 09:04] LABS: BASOPHIL # 0.1 TH/MM3 (0-0.2); BASOPHIL % 0.8 % (0.0-2.0); EOSINOPHIL # 0.1 TH/MM3 (0-0.4); EOSINOPHIL % 0.8 % (0.0-4.0); HEMATOCRIT 40.3 % (35.0-46.0); HEMO FLAGS DIFF FINAL; LYMPH % 17.2 % (9.0-44.0); MEAN CELL VOLUME 98.4 FL (80.0-100.0); MEAN CORPUSCULAR HEMOGLOBIN 32.2 PG (27.0-34.0); MEAN CORPUSCULAR HGB CONC 32.7 % (32.0-36.0); MONO % 12.4 % (0.0-8.0); NEUT % 68.8 % (16.0-70.0); PLATELET COUNT 153 TH/MM3 (150-450); RED BLOOD COUNT 4.09 MIL/MM3 (4.00-5.30); RED CELL DISTRIBUTION WIDTH 16.7 % (11.6-17.2); WHITE BLOOD COUNT 11.6 TH/MM3 (4.0-11.0)
[2016-12-24 09:17] LABS: BICARBONATE 27.7 MEQ/L (21.0-32.0)
[2016-12-24] MEDS ORDERED: guaiFENesin/DEXTROMETHORPHAN 200 MG/20 MG/10 ML CUP PO PRN (12:00)
--- NOTE | 2016-12-24 12:01 | HHI.PR ---
Subjective Remarks Follow-up respiratory failure, atrial fibrillation. Heart rate control has been good overnight. Patient reports that she was up all night coughing. She feels short of breath still. Objective Vitals Vital Signs Date Time Temp Pulse Resp B/P Pulse Ox O2 Delivery O2 Flow Rate FiO2 12/24/16 08:52 94 Nasal Cannula 3.00 12/24/16 08:40 Nasal Cannula 4.00 12/24/16 08:00 98.2 79 24 137/69 96 12/24/16 04:00 97.3 77 20 154/71 95 12/24/16 03:40 96 Nasal Cannula 3.00 12/24/16 00:59 97 Nasal Cannula 3.00 12/24/16 00:00 98.2 84 20 151/78 96 12/23/16 21:21 96 Nasal Cannula 3.00 12/23/16 20:24 94 12/23/16 20:00 97.7 85 18 150/70 97 12/23/16 19:30 Nasal Cannula 3.00 12/23/16 16:00 99.1 93 20 156/80 93 12/23/16 12:00 98.1 72 20 132/65 96 I/O 12/23/16 12/23/16 12/23/16 12/24/16 12/24/16 12/24/16 07:00 15:00 23:00 07:00 15:00 23:00 Intake Total 480 ml 800 ml 800 ml Balance 480 ml 800 ml 800 ml Intake Oral 480 ml 480 ml 480 ml IV Total 320 ml 320 ml # Voids 3 2 2 # Bowel Movements 0 0 Result Diagram: 12/24/16 0810 12/24/16 0810 Imaging Last Impressions Chest X-Ray 12/21/16 1459 Signed Impressions: Service Date/Time: December 16:53 - CONCLUSION: 1. Cardiomegaly. No acute pulmonary disease. Driss Freitas MD Objective Remarks General: Thin, elderly female in no acute distress. Heart: Irregular rhythm. No murmur. Lungs: Scattered wheeze. Breathing is somewhat labored when she is speaking, but nonlabored when she is at rest. Abdomen: Soft, nontender, nondistended. Extremities: No lower extremity edema. Psych: Alert and oriented. Procedures None Urinary Catheter: No Vascular Central Line Catheter: No A/P Problem List: (1) COPD exacerbation ICD Code: J44.1 Status: Acute (2) Sepsis ICD Code: A41.9 Status: Acute (3) Acute respiratory failure ICD Code: J96.00 Status: Acute (4) Leukocytosis ICD Code: D72.829 Status: Acute (5) Alcohol withdrawal ICD Code: F10.239 Status: Acute (6) Atrial fibrillation with RVR ICD Code: I48.91 Status: Acute (7) Acute kidney injury ICD Code: N17.9 Status: Acute Assessment and Plan 1. Acute respiratory failure, COPD exacerbation: Did not require BiPAP overnight. Appreciate pulmonology recommendations. Continue supplemental oxygen , bronchodilators. Patient does not want steroids at this time. Add Robitussin for cough. 2. Atrial fibrillation with RVR: Now off Cardizem drip. Continue oral Cardizem. Switch to long-acting. Not on anticoagulation. Appreciate cardiology recommendations. Discussed with Dr. Zaragoza. 3. Sepsis secondary to pulmonary source: Blood cultures are pending. Patient presented with leukocytosis, tachycardia, tachypnea. Continue antibiotics. Leukocytosis has resolved. 4. Acute kidney injury: BUN and creatinine are increasing. Continue gentle IV fluid hydration. Monitor labs. 5. Alcohol use, withdrawal: She has been counseled. Patient reported drinking 3 small vodka drinks per day, but her family states that she drinks considerably more than that on a regular basis. She appears to be experiencing some withdrawal symptoms, and this may be contributing to her tachycardia. Continue CIWA protocol. Supplement thiamine, folate, multivitamin. 6. DVT prophylaxis: SCDs. Sabas Méndez MD Dec 24, 2016 12:01
[2016-12-24] MEDS: methylPREDNISolone SOD SUCC 125 MG/2 ML VIAL IV PUSH SCH ×2 (12:46→20:44)
[2016-12-24] MEDS: RESP: ACETYLCYSTEINE 10% 30 ML NEB NEB SCH ×2 (16:09→19:42)
[2016-12-24] MEDS: guaiFENesin/DEXTROMETHORPHAN 200 MG/20 MG/10 ML CUP PO PRN (17:30)
[2016-12-24] MEDS: ENOXAPARIN SODIUM 40 MG/0.4 ML SYRINGE SQ SCH (20:41)
[2016-12-25] VITALS (10 sets, daily range): BP systolic 121–165; BP diastolic 62–70; PULSE 77–100; RESP 16–22; TEMP 97.7–98.8; O2SAT 94–98
[2016-12-25] MEDS: DILTIAZEM HCL 60 MG TAB PO SCH ×2 (00:19→05:46)
[2016-12-25] MEDS: RESP: ALBUTEROL 2.5 MG/IPRATROPIUM 0.5 MG NEB (SCH) INH ×5 (02:40→19:36)
[2016-12-25] MEDS: methylPREDNISolone SOD SUCC 125 MG/2 ML VIAL IV PUSH SCH ×3 (05:47→22:31)
[2016-12-25 07:40] LABS: BICARBONATE 27.4 MEQ/L (21.0-32.0); POTASSIUM 4.2 MEQ/L (3.5-5.1)
[2016-12-25] MEDS: MULTIVITAMIN TAB PO SCH (07:59)
[2016-12-25] MEDS: DILTIAZEM-CD 240 MG CAP ER PO SCH (07:59)
[2016-12-25] MEDS: THIAMINE HCL 100 MG TAB PO SCH (07:59)
[2016-12-25] MEDS: FOLIC ACID 1 MG TAB PO SCH (07:59)
[2016-12-25] MEDS: SODIUM CHLORIDE 0.9% FLUSH 5 ML FLUSH IVF SCH ×2 (08:00→22:31)
[2016-12-25] MEDS: RESP: ACETYLCYSTEINE 10% 30 ML NEB NEB SCH ×2 (08:04→16:10)
--- NOTE | 2016-12-25 12:47 | HHI.PR ---
Subjective Remarks Follow up COPD exacerbation, UTI. The patient states that the cough medicine did help. Still having dyspnea with exertion, even going to bedside commode. Objective Vitals Vital Signs Date Time Temp Pulse Resp B/P Pulse Ox O2 Delivery O2 Flow Rate FiO2 12/25/16 12:00 98.5 88 20 149/63 95 12/25/16 09:25 Nasal Cannula 4.00 12/25/16 08:06 96 Nasal Cannula 3.00 12/25/16 08:00 97.9 80 16 133/62 95 12/25/16 08:00 81 12/25/16 04:47 97.7 77 20 121/65 97 12/25/16 00:00 98.0 85 22 128/65 96 12/24/16 20:21 87 12/24/16 20:00 Nasal Cannula 3.00 12/24/16 20:00 98.1 88 18 121/60 96 12/24/16 19:42 95 Nasal Cannula 3.00 12/24/16 16:00 97.7 98 24 139/65 95 I/O 12/24/16 12/24/16 12/24/16 12/25/16 12/25/16 12/25/16 07:00 15:00 23:00 07:00 15:00 23:00 Intake Total 800 ml 600 ml 440 ml Output Total 625 ml Balance 800 ml -25 ml 440 ml Intake Oral 480 ml 600 ml 440 ml IV Total 320 ml Output Urine Total 625 ml # Voids 2 3 1 # Bowel Movements 0 0 0 Result Diagram: 12/24/16 0810 12/25/16 0619 Imaging Last Impressions Chest X-Ray 12/21/16 1459 Signed Impressions: Service Date/Time: December 16:53 - CONCLUSION: 1. Cardiomegaly. No acute pulmonary disease. Driss Freitas MD Objective Remarks General: Thin, elderly female in no acute distress. Heart: Irregular rhythm. No murmur. Lungs: Scattered wheeze. Breathing nonlabored. Abdomen: Soft, nontender, nondistended. Extremities: No lower extremity edema. Psych: Alert and oriented. Procedures None Urinary Catheter: No Vascular Central Line Catheter: No A/P Problem List: (1) COPD exacerbation ICD Code: J44.1 Status: Acute (2) Sepsis ICD Code: A41.9 Status: Acute (3) Acute respiratory failure ICD Code: J96.00 Status: Acute (4) Leukocytosis ICD Code: D72.829 Status: Acute (5) Alcohol withdrawal ICD Code: F10.239 Status: Acute (6) Atrial fibrillation with RVR ICD Code: I48.91 Status: Acute (7) Acute kidney injury ICD Code: N17.9 Status: Acute (8) UTI (urinary tract infection) ICD Code: N39.0 Status: Acute Assessment and Plan 1. Acute respiratory failure, COPD exacerbation: Did not require BiPAP overnight. Appreciate pulmonology recommendations. Continue supplemental oxygen , bronchodilators and Solu-Medrol. Continue Robitussin for cough. Patient feels some improvement since starting steroids. 2. Atrial fibrillation with RVR: Now off Cardizem drip. Continue oral Cardizem. Not on anticoagulation. Appreciate cardiology recommendations. 3. Sepsis secondary to pulmonary source: Blood cultures are pending. Patient presented with leukocytosis, tachycardia, tachypnea. Continue antibiotics. Leukocytosis has resolved. 4. Acute kidney injury: BUN and creatinine are improving. Monitor labs. 5. Alcohol use, withdrawal: She has been counseled. Patient reported drinking 3 small vodka drinks per day, but her family states that she drinks considerably more than that on a regular basis. Withdrawal symptoms improved. Continue CIWA protocol. Not currently requiring lorazepam. Supplement thiamine, folate, multivitamin. 6. DVT prophylaxis: SCDs. 7. UTI: Culture growing Escherichia coli. Add Bactrim. Patient has multiple reported antibiotic allergies. Sabas Méndez MD Dec 25, 2016 12:47
--- NOTE | 2016-12-25 16:34 | HHI.PR ---
Subjective Remarks on O2 LESS SOB COUGH , THICK WHITE SPUTUM Objective Vital Signs Date Time Temp Pulse Resp B/P Pulse Ox O2 Delivery O2 Flow Rate FiO2 12/25/16 12:00 98.5 88 20 149/63 95 12/25/16 09:25 Nasal Cannula 4.00 12/25/16 08:06 96 Nasal Cannula 3.00 12/25/16 08:00 97.9 80 16 133/62 95 12/25/16 08:00 81 12/25/16 04:47 97.7 77 20 121/65 97 12/25/16 00:00 98.0 85 22 128/65 96 12/24/16 20:21 87 12/24/16 20:00 Nasal Cannula 3.00 12/24/16 20:00 98.1 88 18 121/60 96 12/24/16 19:42 95 Nasal Cannula 3.00 I/O 12/24/16 12/24/16 12/24/16 12/25/16 12/25/16 12/25/16 07:00 15:00 23:00 07:00 15:00 23:00 Intake Total 800 ml 600 ml 440 ml Output Total 625 ml Balance 800 ml -25 ml 440 ml Intake Oral 480 ml 600 ml 440 ml IV Total 320 ml Output Urine Total 625 ml # Voids 2 3 1 # Bowel Movements 0 0 0 Result Diagram: 12/24/16 0810 12/25/16 0619 Assessment and Plan Assessment and Plan IMPRESSION : COPD EX. RESPIRATORY FAILURE PLAN O2 ANTIBIOTICS BRONCHODILATORS INCREASE ACTIVITY Srikanth Duke MD Dec 25, 2016 16:34
[2016-12-25] MEDS: guaiFENesin/DEXTROMETHORPHAN 200 MG/20 MG/10 ML CUP PO PRN (18:53)
[2016-12-25] MEDS: ENOXAPARIN SODIUM 40 MG/0.4 ML SYRINGE SQ SCH (22:31)
[2016-12-25] MEDS: SULFAMETHOXAZOLE-TRIMETHOPRIM DS 800-160 MG TAB PO SCH (22:31)
[2016-12-26] VITALS (11 sets, daily range): BP systolic 109–164; BP diastolic 54–70; PULSE 82–96; RESP 18–24; TEMP 97.6–98.5; O2SAT 93–98
[2016-12-26] MEDS: RESP: ALBUTEROL 2.5 MG/IPRATROPIUM 0.5 MG NEB (SCH) INH ×5 (00:08→15:51)
[2016-12-26] MEDS: RESP: ACETYLCYSTEINE 10% 30 ML NEB NEB SCH ×3 (00:09→15:51)
[2016-12-26] MEDS: SODIUM CHLORIDE 0.9% FLUSH 5 ML FLUSH IVF PRN (06:08)
[2016-12-26] MEDS: methylPREDNISolone SOD SUCC 125 MG/2 ML VIAL IV PUSH SCH ×3 (06:08→22:31)
[2016-12-26] MEDS: SULFAMETHOXAZOLE-TRIMETHOPRIM DS 800-160 MG TAB PO SCH ×2 (08:21→22:29)
[2016-12-26] MEDS: MULTIVITAMIN TAB PO SCH (08:21)
[2016-12-26] MEDS: FOLIC ACID 1 MG TAB PO SCH (08:21)
[2016-12-26] MEDS: DILTIAZEM-CD 240 MG CAP ER PO SCH (08:21)
[2016-12-26] MEDS: THIAMINE HCL 100 MG TAB PO SCH (08:21)
[2016-12-26] MEDS: SODIUM CHLORIDE 0.9% FLUSH 5 ML FLUSH IVF SCH ×2 (08:22→22:29)
--- NOTE | 2016-12-26 12:50 | HHI.PR ---
Subjective Remarks Follow-up COPD exacerbation, UTI. The patient states that she feels slightly better today. Still with significant shortness of breath. Still coughing. States that she is still not getting much sleep, but had a little bit better night last night. Objective Vitals Vital Signs Date Time Temp Pulse Resp B/P Pulse Ox O2 Delivery O2 Flow Rate FiO2 12/26/16 11:37 97.6 82 18 148/70 96 12/26/16 09:11 Nasal Cannula 3.00 40 12/26/16 08:32 97 Nasal Cannula 3.00 12/26/16 08:00 98.4 94 24 151/67 95 12/26/16 03:57 98.5 92 22 109/54 96 12/26/16 03:38 95 Nasal Cannula 3.00 12/26/16 01:00 152/70 12/26/16 00:11 98 Nasal Cannula 3.00 12/25/16 23:25 98.8 93 20 162/69 95 12/25/16 21:25 98.5 97 18 165/70 97 12/25/16 21:00 95 12/25/16 20:00 Nasal Cannula 4.00 12/25/16 19:36 98 Nasal Cannula 3.00 12/25/16 16:00 97.9 100 20 152/62 94 I/O 12/25/16 12/25/16 12/25/16 12/26/16 12/26/16 12/26/16 07:00 15:00 23:00 07:00 15:00 23:00 Intake Total 480 ml 2403 ml 240 ml Output Total 900 ml Balance -420 ml 2403 ml 240 ml Intake Oral 480 ml 2403 ml 240 ml Output Urine Total 900 ml # Voids 1 1 1 # Bowel Movements 0 0 0 1 Result Diagram: 12/24/16 0810 12/25/16 0619 Imaging Last Impressions Chest X-Ray 12/21/16 1459 Signed Impressions: Service Date/Time: December 16:53 - CONCLUSION: 1. Cardiomegaly. No acute pulmonary disease. Driss Freitas MD Objective Remarks General: Thin, elderly female in no acute distress. Heart: Irregular rhythm. No murmur. Lungs: Diffuse wheeze. Breathing nonlabored. Abdomen: Soft, nontender, nondistended. Extremities: No lower extremity edema. Psych: Alert and oriented. Procedures None Urinary Catheter: No Vascular Central Line Catheter: No A/P Problem List: (1) COPD exacerbation ICD Code: J44.1 Status: Acute (2) Sepsis ICD Code: A41.9 Status: Acute (3) Acute respiratory failure ICD Code: J96.00 Status: Acute (4) Leukocytosis ICD Code: D72.829 Status: Acute (5) Alcohol withdrawal ICD Code: F10.239 Status: Acute (6) Atrial fibrillation with RVR ICD Code: I48.91 Status: Acute (7) Acute kidney injury ICD Code: N17.9 Status: Acute (8) UTI (urinary tract infection) ICD Code: N39.0 Status: Acute Assessment and Plan 1. Acute respiratory failure, COPD exacerbation: Did not require BiPAP overnight. Appreciate pulmonology recommendations. Continue supplemental oxygen , bronchodilators and Solu-Medrol. Continue Robitussin for cough. Improving clinically. Still requiring 3 L of oxygen per nasal cannula. 2. Atrial fibrillation with RVR: Now off Cardizem drip. Continue oral Cardizem. Not on anticoagulation. Appreciate cardiology recommendations. 3. Sepsis secondary to pulmonary source: Blood cultures are growing staph epidermidis in one bottle. Possibly contaminant. Patient presented with leukocytosis, tachycardia, tachypnea. Continue antibiotics. Leukocytosis has resolved. Consult infectious disease. 4. Acute kidney injury: BUN and creatinine are improving. Monitor labs. 5. Alcohol use, withdrawal: She has been counseled. Patient reported drinking 3 small vodka drinks per day, but her family states that she drinks considerably more than that on a regular basis. Withdrawal symptoms improved. Continue CIWA protocol. Not currently requiring lorazepam. Supplement thiamine, folate, multivitamin. 6. DVT prophylaxis: SCDs. 7. UTI: Culture growing Escherichia coli. Continue Bactrim. Patient has multiple reported antibiotic allergies. Sabas Méndez MD Dec 26, 2016 12:50
--- NOTE | 2016-12-26 14:02 | RSPPFT ---
DATE OF PROCEDURE: 12/25/16 COMMENTS: Spirometry with FVC of 0.6, FEV1 of 0.3, and FEV1/FVC ratio at 55%. Non-significant response to acutely inhaled bronchodilator. IMPRESSION: 1. Very severe airways obstruction. 2. Non-significant response to acutely inhaled bronchodilator.
--- NOTE | 2016-12-26 15:52 | HHI.PR ---
Subjective Remarks on O2 LESS SOB COUGH , THICK WHITE SPUTUM Objective Vital Signs Date Time Temp Pulse Resp B/P Pulse Ox O2 Delivery O2 Flow Rate FiO2 12/26/16 11:37 97.6 82 18 148/70 96 12/26/16 09:11 Nasal Cannula 3.00 40 12/26/16 08:32 97 Nasal Cannula 3.00 12/26/16 08:00 98.4 94 24 151/67 95 12/26/16 03:57 98.5 92 22 109/54 96 12/26/16 03:38 95 Nasal Cannula 3.00 12/26/16 01:00 152/70 12/26/16 00:11 98 Nasal Cannula 3.00 12/25/16 23:25 98.8 93 20 162/69 95 12/25/16 21:25 98.5 97 18 165/70 97 12/25/16 21:00 95 12/25/16 20:00 Nasal Cannula 4.00 12/25/16 19:36 98 Nasal Cannula 3.00 12/25/16 16:00 97.9 100 20 152/62 94 I/O 12/25/16 12/25/16 12/25/16 12/26/16 12/26/16 12/26/16 07:00 15:00 23:00 07:00 15:00 23:00 Intake Total 480 ml 2403 ml 240 ml Output Total 900 ml Balance -420 ml 2403 ml 240 ml Intake Oral 480 ml 2403 ml 240 ml Output Urine Total 900 ml # Voids 1 1 1 # Bowel Movements 0 0 0 1 Result Diagram: 12/24/16 0810 12/25/16 0619 Objective Remarks GENERAL: SKIN: Warm and dry. HEAD: Atraumatic. Normocephalic. EYES: Pupils equal and round. No scleral icterus. No injection or drainage. ENT: No nasal bleeding or discharge. Mucous membranes pink and moist. NECK: Trachea midline. No JVD. CARDIOVASCULAR: Regular rate and rhythm. RESPIRATORY: No accessory muscle use. Clear to auscultation. Breath sounds equal bilaterally. GASTROINTESTINAL: Abdomen soft, non-tender, nondistended. Hepatic and splenic margins not palpable. MUSCULOSKELETAL: Extremities without clubbing, cyanosis, or edema. No obvious deformities. NEUROLOGICAL: Awake and alert. No obvious cranial nerve deficits. Motor grossly within normal limits. Five out of 5 muscle strength in the arms and legs. Normal speech. PSYCHIATRIC: Appropriate mood and affect; insight and judgment normal. Assessment and Plan Assessment and Plan IMPRESSION : COPD EX. RESPIRATORY FAILURE PLAN O2 ANTIBIOTICS BRONCHODILATORS INCREASE ACTIVITY Srikanth Duke MD Dec 26, 2016 15:52
--- NOTE | 2016-12-26 18:52 | PD.CONS ---
History of Present Illness Service Infectious disease Consult Requested By Dr Cathy Méndez Reason for Consult Evaluate patient with bacteremia Primary Care Physician Manjit Hook MD Diagnoses: History of Present Illness Patient seen and examined. Records reviewed. Patient is an 86-year-old female, lives at home, oxygen dependent COPD, admitted to the hospital complaining of 2-3 day history of worsening shortness of breath. He has some coughing and occasionally will bring up some phlegm. She's had some choking spells is how she describes it when her shortness of breath gets really bad. No fever or chills. She has not had any nausea or vomiting. He was brought into the hospital, and since admission she has not had any fever. Her chest x-ray is normal. Cultures done in the emergency room , and one blood culture had staph epidermidis. The urinalysis showed some very mild pyuria, and urine culture had Escherichia coli. She denies any dysuria, incontinence, or any urgency or hesitancy. Her WBC is mildly elevated. Pulmonary has been following the patient. She is on steroids for her COPD exacerbation. Pulmonary function tests show severe airway obstruction with no improvement after bronchodilator treatment. On admission she also had atrial fibrillation with rapid ventricular response. Her rate is in better control. Infectious disease consultation has been requested to make recommendation regarding the poitive blood culture. Review of Systems Constitutional: COMPLAINS OF: Fatigue, Change in appetite, DENIES: Fever, Chills Eyes: DENIES: Eye pain Ears, nose, mouth, throat: DENIES: Nasal discharge, Oral lesions, Throat pain, Ear Pain, Sinus Pain Respiratory: COMPLAINS OF: Cough, Wheezing, Sputum production, Shortness of breath Cardiovascular: COMPLAINS OF: Palpitations, Dyspnea on Exertion, DENIES: Chest pain, Syncope Gastrointestinal: COMPLAINS OF: Constipation, DENIES: Abdominal pain, Diarrhea , Nausea, Vomiting, Difficulty Swallowing Genitourinary: DENIES: Urinary frequency, Urinary incontinence, Urgency, Dysuria Musculoskeletal: COMPLAINS OF: Joint pain Integumentary: DENIES: Rash Immunologic/allergic: DENIES: Urticaria Neurologic: DENIES: Headache Psychiatric: DENIES: Confusion, Hallucinations Past Family Social History Allergies: Coded Allergies: Beef (Verified Allergy, Severe, 12/21/16) Benadryl (Verified Allergy, Severe, Rash and hot all over, 12/21/16) Biaxin (Verified Allergy, Severe, Rash, 12/21/16) Iodine (Verified Allergy, Severe, 12/21/16) Iopamidol (ISOVUE) (Verified Allergy, Severe, DO NOT PREMEDICATE-PT HAS ANAPHLYXIS, 12/21/16) Keflex (Verified Allergy, Severe, 12/21/16) Levaquin (Verified Allergy, Severe, SEVERE ITCHING, 12/21/16) Oxycontin (Verified Allergy, Severe, Itching, 12/21/16) Penicillin (Verified Allergy, Severe, 12/21/16) Pork (Verified Allergy, Severe, 12/21/16) Potassium Iodide (Verified Allergy, Severe, 12/21/16) Pulmicort (Verified Allergy, Severe, Anaphylaxis, 12/21/16) Symbicort (Verified Allergy, Severe, Anaphylaxis, 12/21/16) White Fish (Verified Allergy, Severe, 12/21/16) Advair (Verified Allergy, Intermediate, Edema-SPOKE TO YONATHAN HILLIARD SAID PT TAKE NO PROBLEM, 12/21/16) Zithromax (Verified Allergy, Unknown, 12/21/16) Uncoded Allergies: FISH, PORK, BEEF, SEAFOOD (Allergy, Unknown, 11/04/05) Past Medical History COPD - O2 dependent, use A. fib Rheumatoid arthritis Right breast cancer Anxiety Non-Hodgkin's stage III Thyroid nodule Past Surgical History PPM Splenectomy Cholecystectomy Partial thyroidectomy Bilateral lens implant Right mastectomy Lymph node resection Active Ordered Medications Mucomyst Albuterol Cardizem Lovenox Romazicon Folic acid Robitussin-DM Ativan Solu-Medrol MVI Thiamine Bactrim Social History Alcohol use vodka every day "helps to relieve her cough" Denies tobacco use Denies illicit drug use Physical Exam Vital Signs Vital Signs Date Time Temp Pulse Resp B/P Pulse Ox O2 Delivery O2 Flow Rate FiO2 12/26/16 16:00 97.7 94 20 137/64 94 12/26/16 11:37 97.6 82 18 148/70 96 12/26/16 09:11 Nasal Cannula 3.00 40 12/26/16 08:32 97 Nasal Cannula 3.00 12/26/16 08:00 98.4 94 24 151/67 95 12/26/16 03:57 98.5 92 22 109/54 96 12/26/16 03:38 95 Nasal Cannula 3.00 12/26/16 01:00 152/70 12/26/16 00:11 98 Nasal Cannula 3.00 12/25/16 23:25 98.8 93 20 162/69 95 12/25/16 21:25 98.5 97 18 165/70 97 12/25/16 21:00 95 12/25/16 20:00 Nasal Cannula 4.00 12/25/16 19:36 98 Nasal Cannula 3.00 Physical Exam GENERAL: This is a thin, elderly, well-developed female, awake and alert, she looks dyspneic at rest SKIN: Cool and dry, has decreased turgor, no generalized rash or ecchymosis. HEAD: Atraumatic. Normocephalic. No temporal or scalp tenderness. EYES: Yonah conjunctivae. Pupils equal round and reactive. Extraocular motions intact. No scleral icterus. No injection or drainage. ENT: Nose without bleeding, or purulent drainage. Moist oral mucosa. No oral thrush. Throat without erythema, or exudate. Uvula midline. Airway patent. NECK: Trachea midline. No JVD or lymphadenopathy. Supple, nontender, no meningeal signs. CARDIOVASCULAR: Irregular rate and rhythm without murmurs, gallops, or rubs. RESPIRATORY: Decreased breath sounds throughout both lung alba, with some wheezing in the upper lung alba. GASTROINTESTINAL: Abdomen soft, non-tender, mildly distended. Bowel sounds are present. No organomegaly. No guarding. MUSCULOSKELETAL: Extremities without clubbing, cyanosis, or edema. Has deformities of all her fingers in both hands. No calf tenderness. No calf tenderness. Negative Homans sign bilaterally. NEUROLOGICAL: Awake and alert. Cranial nerves II through XII intact. Motor and sensory grossly within normal limits. Five out of 5 muscle strength in all muscle groups. Normal speech. PSYCH: Appropriate affect, calm and cooperative LINE: PIV no evidence of infection Laboratory Date/Time Procedure Status Source Growth 12/26/16 14:20 Aerobic Blood Culture Received Blood Peripheral Pending 12/26/16 14:20 Anaerobic Blood Culture Received Blood Peripheral Pending 12/23/16 11:10 Urine Culture - Final Complete Urine Clean Catch Escherichia Coli Result Diagram: 12/24/16 0810 12/25/16 0619 Imaging RADIOLOGY STUDIES/FILMS REVIEWED Last Impressions Chest X-Ray 12/21/16 7535 Signed Impressions: Service Date/Time: December 16:53 - CONCLUSION: 1. Cardiomegaly. No acute pulmonary disease. Driss Freitas MD Assessment and Plan Assessment and Plan IMPRESSION One (+) BC with Staph epi C/W contamination COPD exacerbation, patient O2 dependent (+) UC, no symptoms, C/W asymptomatic bacteriuria RA Multiple Abx allergy RECOMMENDATION 3 days Bactrim No need to Rx the (+) BC Pulmonary managing her COPD exacerbation I will be available prn Please reconsult if with any new ID issue or question Thank you for this consultation Discussed Condition With Explained recommendation to the patient Peggy Infante MD Dec 26, 2016 18:52
[2016-12-26] MEDS: RESP: ALBUTEROL 2.5 MG/3 ML NEB (PRN) INH (19:15)
[2016-12-26] MEDS: ENOXAPARIN SODIUM 40 MG/0.4 ML SYRINGE SQ SCH (22:31)
[2016-12-27] VITALS (8 sets, daily range): BP systolic 121–168; BP diastolic 63–89; PULSE 95–105; RESP 20–22; TEMP 97.4–98.6; O2SAT 93–96
[2016-12-27] MEDS: RESP: ALBUTEROL 2.5 MG/IPRATROPIUM 0.5 MG NEB (SCH) INH ×6 (00:44→19:45)
[2016-12-27] MEDS: RESP: ACETYLCYSTEINE 10% 30 ML NEB NEB SCH ×3 (00:44→15:14)
[2016-12-27] MEDS: guaiFENesin/DEXTROMETHORPHAN 200 MG/20 MG/10 ML CUP PO PRN (04:33)
[2016-12-27] MEDS: methylPREDNISolone SOD SUCC 125 MG/2 ML VIAL IV PUSH SCH ×3 (04:35→22:03)
[2016-12-27] MEDS: SODIUM CHLORIDE 0.9% FLUSH 5 ML FLUSH IVF PRN (04:35)
[2016-12-27 07:35] LABS: AUTOMATED NEUTROPHIL # 11.2 TH/MM3 (1.8-7.7); BASOPHIL % 0.4 % (0.0-2.0); HEMATOCRIT 37.5 % (35.0-46.0); HEMO FLAGS DIFF FINAL; LYMPH % 1.8 % (9.0-44.0); LYMPHOCYTE # 0.2 TH/MM3 (1.0-4.8); MEAN CELL VOLUME 96.5 FL (80.0-100.0); MEAN CORPUSCULAR HEMOGLOBIN 32.5 PG (27.0-34.0); MEAN CORPUSCULAR HGB CONC 33.6 % (32.0-36.0); MONO % 6.2 % (0.0-8.0); NEUT % 91.6 % (16.0-70.0); PLATELET COUNT 192 TH/MM3 (150-450); RED BLOOD COUNT 3.89 MIL/MM3 (4.00-5.30); WHITE BLOOD COUNT 12.3 TH/MM3 (4.0-11.0)
[2016-12-27 07:58] LABS: BICARBONATE 29.4 MEQ/L (21.0-32.0); POTASSIUM 4.3 MEQ/L (3.5-5.1)
[2016-12-27] MEDS: FOLIC ACID 1 MG TAB PO SCH (08:32)
[2016-12-27] MEDS: DILTIAZEM-CD 240 MG CAP ER PO SCH (08:32)
[2016-12-27] MEDS: MULTIVITAMIN TAB PO SCH (08:32)
[2016-12-27] MEDS: THIAMINE HCL 100 MG TAB PO SCH (08:32)
[2016-12-27] MEDS: SULFAMETHOXAZOLE-TRIMETHOPRIM DS 800-160 MG TAB PO SCH ×2 (08:32→22:02)
[2016-12-27] MEDS: SODIUM CHLORIDE 0.9% FLUSH 5 ML FLUSH IVF SCH ×2 (08:33→22:03)
--- NOTE | 2016-12-27 12:44 | HHI.PR ---
Subjective Remarks feels better baseline- short of breath with minimal exertion caregiver-"do everything with her" telemetry- a fib- rate 90s to low 100s Objective Vitals Vital Signs Date Time Temp Pulse Resp B/P Pulse Ox O2 Delivery O2 Flow Rate FiO2 12/27/16 09:03 Nasal Cannula 3.00 40 12/27/16 08:05 93 Nasal Cannula 3.00 12/27/16 08:00 97.4 100 22 161/76 93 12/27/16 04:00 98.6 102 20 141/63 95 12/27/16 00:27 97.9 105 21 121/66 95 12/26/16 20:30 92 12/26/16 20:00 Nasal Cannula 4.00 12/26/16 20:00 97.9 96 22 164/66 94 12/26/16 19:15 93 Nasal Cannula 3.00 12/26/16 16:00 97.7 94 20 137/64 94 I/O 12/26/16 12/26/16 12/26/16 12/27/16 12/27/16 12/27/16 07:00 15:00 23:00 07:00 15:00 23:00 Intake Total 240 ml 360 ml 360 ml 1100 ml Output Total 1200 ml Balance 240 ml 360 ml 360 ml -100 ml Intake Oral 240 ml 360 ml 360 ml 1100 ml Output Urine Total 1200 ml # Voids 1 2 2 # Bowel Movements 1 0 0 0 Result Diagram: 12/27/16 0645 12/27/16 0645 Imaging Last Impressions Chest X-Ray 12/21/16 1459 Signed Impressions: Service Date/Time: December 16:53 - CONCLUSION: 1. Cardiomegaly. No acute pulmonary disease. Driss Freitas MD Objective Remarks awake alert anicteric lungs decreased breath sounds, no rales irregularly irregular rhyth, abdomen soft, nontender extremities no edema neuro exam- unremarkable Procedures None A/P Problem List: (1) COPD exacerbation ICD Code: J44.1 Status: Acute (2) Sepsis ICD Code: A41.9 Status: Acute (3) Acute respiratory failure ICD Code: J96.00 Status: Acute (4) Leukocytosis ICD Code: D72.829 Status: Acute (5) Alcohol withdrawal ICD Code: F10.239 Status: Acute (6) Atrial fibrillation with RVR ICD Code: I48.91 Status: Acute (7) Acute kidney injury ICD Code: N17.9 Status: Acute (8) UTI (urinary tract infection) ICD Code: N39.0 Status: Acute Assessment and Plan 86 years old female 1. Acute respiratory failure, COPD exacerbation: Bi PAP at hs. Appreciate pulmonology recommendations. Continue supplemental oxygen, bronchodilators and Solu-Medrol. Continue Robitussin for cough. Improving clinically. Still requiring 3 L of oxygen per nasal cannula. 2. Atrial fibrillation- rate 80s - 106. off Cardizem drip.on po CArdizem CD 240 mg daily. . Monitor - consider increase to 360 as BP tolerates. Appreciate cardiology recommendations. refused anticoagulation 3. Sepsis secondary to pulmonary source: Blood cultures are growing staph epidermidis in one bottle. Possibly contaminant. Patient presented with leukocytosis, tachycardia, tachypnea. Continue antibiotics. Leukocytosis has resolved. Infectious disease consulted 4. Acute kidney injury: BUN and creatinine are improving. Monitor labs. 5. Alcohol use, withdrawal: She has been counseled. Patient reported drinking 3 small vodka drinks per day, but her family states that she drinks considerably more than that on a regular basis. Withdrawal symptoms improved. Continue CIWA protocol. Not currently requiring lorazepam. Supplement thiamine, folate, multivitamin. 6. DVT prophylaxis: Lovenox 40 mg SQ daily 7. E coli UTI: on Bactrim. Patient has multiple reported antibiotic allergies. Rakesh Ulloa MD Dec 27, 2016 12:44
--- NOTE | 2016-12-27 18:24 | HHI.PR ---
Subjective Remarks on O2 LESS SOB COUGH , THICK WHITE SPUTUM Objective Vital Signs Date Time Temp Pulse Resp B/P Pulse Ox O2 Delivery O2 Flow Rate FiO2 12/27/16 15:13 96 Nasal Cannula 3.00 12/27/16 12:00 97.6 95 20 156/70 96 12/27/16 09:03 Nasal Cannula 3.00 40 12/27/16 08:05 93 Nasal Cannula 3.00 12/27/16 08:00 97.4 100 22 161/76 93 12/27/16 04:00 98.6 102 20 141/63 95 12/27/16 00:27 97.9 105 21 121/66 95 12/26/16 20:30 92 12/26/16 20:00 Nasal Cannula 4.00 12/26/16 20:00 97.9 96 22 164/66 94 12/26/16 19:15 93 Nasal Cannula 3.00 I/O 12/26/16 12/26/16 12/26/16 12/27/16 12/27/16 12/27/16 07:00 15:00 23:00 07:00 15:00 23:00 Intake Total 240 ml 360 ml 360 ml 1100 ml Output Total 1200 ml Balance 240 ml 360 ml 360 ml -100 ml Intake Oral 240 ml 360 ml 360 ml 1100 ml Output Urine Total 1200 ml # Voids 1 2 2 # Bowel Movements 1 0 0 0 Result Diagram: 12/27/16 0645 12/27/16 0645 Objective Remarks GENERAL: SKIN: Warm and dry. HEAD: Atraumatic. Normocephalic. EYES: Pupils equal and round. No scleral icterus. No injection or drainage. ENT: No nasal bleeding or discharge. Mucous membranes pink and moist. NECK: Trachea midline. No JVD. CARDIOVASCULAR: Regular rate and rhythm. RESPIRATORY: No accessory muscle use. Clear to auscultation. Breath sounds equal bilaterally. GASTROINTESTINAL: Abdomen soft, non-tender, nondistended. Hepatic and splenic margins not palpable. MUSCULOSKELETAL: Extremities without clubbing, cyanosis, or edema. No obvious deformities. NEUROLOGICAL: Awake and alert. No obvious cranial nerve deficits. Motor grossly within normal limits. Five out of 5 muscle strength in the arms and legs. Normal speech. PSYCHIATRIC: Appropriate mood and affect; insight and judgment normal. Assessment and Plan Assessment and Plan IMPRESSION : COPD EX. RESPIRATORY FAILURE improved PLAN O2 ANTIBIOTICS BRONCHODILATORS INCREASE ACTIVITY Srikanth,Srikanth Wadie MD Dec 27, 2016 18:24
[2016-12-27] MEDS: ENOXAPARIN SODIUM 40 MG/0.4 ML SYRINGE SQ SCH (22:02)
[2016-12-28] VITALS (11 sets, daily range): BP systolic 152–185; BP diastolic 72–92; PULSE 88–107; RESP 16–22; TEMP 97.5–98.7; O2SAT 93–97
[2016-12-28] MEDS: RESP: ACETYLCYSTEINE 10% 30 ML NEB NEB SCH ×2 (00:45→07:59)
[2016-12-28] MEDS: RESP: ALBUTEROL 2.5 MG/IPRATROPIUM 0.5 MG NEB (SCH) INH ×4 (00:46→12:00)
[2016-12-28] MEDS: methylPREDNISolone SOD SUCC 125 MG/2 ML VIAL IV PUSH SCH ×2 (05:03→21:01)
[2016-12-28] MEDS: SODIUM CHLORIDE 0.9% FLUSH 5 ML FLUSH IVF SCH ×2 (08:57→21:01)
[2016-12-28] MEDS: THIAMINE HCL 100 MG TAB PO SCH (08:58)
[2016-12-28] MEDS: MULTIVITAMIN TAB PO SCH (08:58)
[2016-12-28] MEDS: FOLIC ACID 1 MG TAB PO SCH (08:58)
[2016-12-28] MEDS: DILTIAZEM-CD 240 MG CAP ER PO SCH (08:58)
--- NOTE | 2016-12-28 13:02 | HHI.PR ---
Subjective Remarks cough dry feels less short of breath feels abdominal distention Objective Vitals Vital Signs Date Time Temp Pulse Resp B/P Pulse Ox O2 Delivery O2 Flow Rate FiO2 12/28/16 12:08 97.5 107 16 161/74 95 12/28/16 08:50 Nasal Cannula 3.00 40 12/28/16 08:10 106 12/28/16 08:08 98.1 101 16 161/72 95 12/28/16 08:02 93 Nasal Cannula 3.00 12/28/16 04:01 95 Nasal Cannula 3.00 12/28/16 04:00 98.7 100 22 162/75 97 12/28/16 00:50 97.6 95 20 152/73 95 12/28/16 00:47 96 Nasal Cannula 3.00 12/27/16 20:15 Nasal Cannula 3.00 12/27/16 20:00 98.4 105 20 166/89 95 12/27/16 20:00 105 12/27/16 16:00 98.3 99 22 168/74 94 12/27/16 15:13 96 Nasal Cannula 3.00 I/O 12/27/16 12/27/16 12/27/16 12/28/16 12/28/16 12/28/16 07:00 15:00 23:00 07:00 15:00 23:00 Intake Total 1100 ml 480 ml 800 ml 650 ml Output Total 1200 ml 450 ml Balance -100 ml 480 ml 800 ml 200 ml Intake Oral 1100 ml 480 ml 800 ml 650 ml IV Total 0 ml Output Urine Total 1200 ml 450 ml # Voids 4 6 # Bowel Movements 0 0 1 Result Diagram: 12/27/16 0645 12/27/16 0645 Imaging Last Impressions Chest X-Ray 12/21/16 1459 Signed Impressions: Service Date/Time: December 16:53 - CONCLUSION: 1. Cardiomegaly. No acute pulmonary disease. Driss Freitas MD Objective Remarks awake alert anicteric lungs decreased breath sounds, no rales irregularly irregular rhythm abdomen soft, nontender, slight distended ? fluid extremities no edema neuro exam- unremarkable Procedures None A/P Problem List: (1) COPD exacerbation ICD Code: J44.1 Status: Acute (2) Sepsis ICD Code: A41.9 Status: Acute (3) Acute respiratory failure ICD Code: J96.00 Status: Acute (4) Leukocytosis ICD Code: D72.829 Status: Acute (5) Alcohol withdrawal ICD Code: F10.239 Status: Acute (6) Atrial fibrillation with RVR ICD Code: I48.91 Status: Acute (7) Acute kidney injury ICD Code: N17.9 Status: Acute (8) UTI (urinary tract infection) ICD Code: N39.0 Status: Acute Assessment and Plan 86 years old female 1. Acute respiratory failure, COPD exacerbation: Bi PAP at hs. Appreciate pulmonology recommendations. Continue supplemental oxygen, bronchodilators decrease - Solu-Medrol to q 12. Continue Robitussin for cough. Improving clinically. Still requiring 3 L of oxygen per nasal cannula. 2. Atrial fibrillation- rate variable low 100s.Increase CArdizem CD 360 mg daily. Appreciate cardiology recommendations. Hypertension- CCB increase. Restart Lasix at 20 mg po daily- at home on bid 3. Sepsis secondary to pulmonary source: Blood cultures are growing staph epidermidis in one bottle. Possibly contaminant. Patient presented with leukocytosis, tachycardia, tachypnea. Continue antibiotics. Leukocytosis has resolvedLikely contaminant 4. Acute kidney injury: BUN and creatinine are improving. Monitor labs. 5. Alcohol use, withdrawal: She has been counseled. Patient reported drinking 3 small vodka drinks per day, but her family states that she drinks considerably more than that on a regular basis. Withdrawal symptoms improved. Continue CIWA protocol. Not currently requiring lorazepam. Supplement thiamine, folate, multivitamin. get US of abdomen- check for ascites- 6. DVT prophylaxis: Lovenox 40 mg SQ daily 7. E coli UTI: S/P Bactrim course today. Patient has multiple reported antibiotic allergies. PT daily CM DC planning Rakesh Ulloa MD Dec 28, 2016 13:02
[2016-12-28] MEDS ORDERED: DILTIAZEM-CD 120 MG CAP ER PO ONE (13:45)
--- NOTE | 2016-12-28 16:52 | HHI.PR ---
Subjective Remarks on O2 LESS SOB COUGH , THICK WHITE SPUTUM Objective Vital Signs Date Time Temp Pulse Resp B/P Pulse Ox O2 Delivery O2 Flow Rate FiO2 12/28/16 12:08 97.5 107 16 161/74 95 12/28/16 08:50 Nasal Cannula 3.00 40 12/28/16 08:10 106 12/28/16 08:08 98.1 101 16 161/72 95 12/28/16 08:02 93 Nasal Cannula 3.00 12/28/16 04:01 95 Nasal Cannula 3.00 12/28/16 04:00 98.7 100 22 162/75 97 12/28/16 00:50 97.6 95 20 152/73 95 12/28/16 00:47 96 Nasal Cannula 3.00 12/27/16 20:15 Nasal Cannula 3.00 12/27/16 20:00 98.4 105 20 166/89 95 12/27/16 20:00 105 I/O 12/27/16 12/27/16 12/27/16 12/28/16 12/28/16 12/28/16 07:00 15:00 23:00 07:00 15:00 23:00 Intake Total 1100 ml 480 ml 800 ml 650 ml 2 ml Output Total 1200 ml 450 ml Balance -100 ml 480 ml 800 ml 200 ml 2 ml Intake Oral 1100 ml 480 ml 800 ml 650 ml IV Total 0 ml 2 ml Output Urine Total 1200 ml 450 ml # Voids 4 6 # Bowel Movements 0 0 1 Result Diagram: 12/27/16 0645 12/27/16 0645 Objective Remarks GENERAL: SKIN: Warm and dry. HEAD: Atraumatic. Normocephalic. EYES: Pupils equal and round. No scleral icterus. No injection or drainage. ENT: No nasal bleeding or discharge. Mucous membranes pink and moist. NECK: Trachea midline. No JVD. CARDIOVASCULAR: Regular rate and rhythm. RESPIRATORY: No accessory muscle use. Clear to auscultation. Breath sounds equal bilaterally. GASTROINTESTINAL: Abdomen soft, non-tender, nondistended. Hepatic and splenic margins not palpable. MUSCULOSKELETAL: Extremities without clubbing, cyanosis, or edema. No obvious deformities. NEUROLOGICAL: Awake and alert. No obvious cranial nerve deficits. Motor grossly within normal limits. Five out of 5 muscle strength in the arms and legs. Normal speech. PSYCHIATRIC: Appropriate mood and affect; insight and judgment normal. Assessment and Plan Assessment and Plan IMPRESSION : COPD EX. RESPIRATORY FAILURE improved PLAN O2 ANTIBIOTICS BRONCHODILATORS INCREASE ACTIVITY home am if stable Srikanth Duke MD Dec 28, 2016 16:52
--- NOTE | 2016-12-28 17:34 | RADRPT ---
EXAM DATE/TIME: 12/28/2016 14:18 [place] COMPARISON: CT ABDOMEN & PELVIS W/O CONTRAST, July 15, 2014, 12:06. INDICATIONS : Ascites. MEDICAL HISTORY : Emphysema. Rheumatoid arthritis. Carcinoma, breast. Thyroid nodule. Afib. COPD. Asthma. Dyspnea. Ovar brandi mass. Felty's syndrome. knee effustions. kyphoscoliosis. anxiety. non-hodgkins lymphoma stage iii . SURGICAL HISTORY : Pacemaker. Mastectomy, right. Cholecystectomy. Bilateral cataract surgery with lens implants. Splenec jewell. Partial thyroidectomy. Lymph node dissection. Blood transfusions. ENCOUNTER: Initial ACUITY: 1 day PAIN SCORE: 0/10 LOCATION: Bilateral Abdomen. AREA EVALUATED: Quadrants. FINDINGS: Imaging of the abdomen and pelvis was performed to evaluate for ascites for possible paracentesis. N o free fluid is identified within the abdomen or pelvis. CONCLUSION: No ascites is visualized. Kirt Anderson MD on December 28, 2016 at 17:31 Board Certified Radiologist. This report was verified electronically.
[2016-12-28] MEDS: ENOXAPARIN SODIUM 40 MG/0.4 ML SYRINGE SQ SCH (21:01)
[2016-12-28 21:36] LABS: BICARBONATE 26.7 MEQ/L (21.0-32.0)
[2016-12-29] VITALS (8 sets, daily range): BP systolic 156–182; BP diastolic 74–85; PULSE 71–88; RESP 18–20; TEMP 97.3–97.9; O2SAT 94–97
[2016-12-29] MEDS: RESP: ALBUTEROL 2.5 MG/3 ML NEB (PRN) INH (05:52)
[2016-12-29] MEDS: FUROSEMIDE 20 MG TAB PO SCH ×2 (06:11→08:55)
[2016-12-29] MEDS: methylPREDNISolone SOD SUCC 125 MG/2 ML VIAL IV PUSH SCH ×2 (08:54→20:33)
[2016-12-29] MEDS: THIAMINE HCL 100 MG TAB PO SCH (08:55)
[2016-12-29] MEDS: SODIUM CHLORIDE 0.9% FLUSH 5 ML FLUSH IVF SCH ×2 (08:55→20:34)
[2016-12-29] MEDS: FOLIC ACID 1 MG TAB PO SCH (08:55)
[2016-12-29] MEDS: DILTIAZEM-CD 180 MG CAP ER PO SCH (08:55)
[2016-12-29] MEDS: MULTIVITAMIN TAB PO SCH (08:55)
[2016-12-29] MEDS ORDERED: FUROSEMIDE 20 MG TAB PO SCH (09:00)
--- NOTE | 2016-12-29 13:39 | HHI.PR ---
Subjective Remarks complains of shortness of breath with minimal activity- discussed with her that she should pace herself cough minimal Objective Vitals Vital Signs Date Time Temp Pulse Resp B/P Pulse Ox O2 Delivery O2 Flow Rate FiO2 12/29/16 12:00 97.6 88 18 162/77 95 12/29/16 08:00 97.4 81 18 156/74 95 12/29/16 07:52 96 Nasal Cannula 2.00 12/29/16 07:15 Nasal Cannula 4.00 12/29/16 04:00 97.8 86 18 182/85 97 12/29/16 00:00 97.7 88 18 177/76 94 12/28/16 20:01 96 Nasal Cannula 3.00 12/28/16 20:00 98 12/28/16 20:00 98.5 88 20 185/86 96 12/28/16 19:30 Nasal Cannula 3.00 12/28/16 16:07 97.9 95 16 167/92 93 I/O 12/28/16 12/28/16 12/28/16 12/29/16 12/29/16 12/29/16 07:00 15:00 23:00 07:00 15:00 23:00 Intake Total 650 ml 722 ml 240 ml 240 ml Output Total 450 ml Balance 200 ml 722 ml 240 ml 240 ml Intake Oral 650 ml 720 ml 240 ml 240 ml IV Total 2 ml 0 ml Output Urine Total 450 ml # Voids 5 5 1 # Bowel Movements 0 0 2 Result Diagram: 12/27/16 0645 12/28/16 1727 Imaging Last Impressions Abdomen Ultrasound 12/28/16 0000 Signed Impressions: Service Date/Time: December 14:18 - CONCLUSION: No ascites is visualized. Kirt Anderson MD Chest X-Ray 12/21/16 1459 Signed Impressions: Service Date/Time: December 16:53 - CONCLUSION: 1. Cardiomegaly. No acute pulmonary disease. Driss Freitas MD Objective Remarks awake alert anicteric lungs decreased breath sounds, no rales irregularly irregular rhythm abdomen soft, nontender, good bowel sounds extremities no edema neuro exam- unremarkable Procedures None A/P Problem List: (1) COPD exacerbation ICD Code: J44.1 Status: Acute (2) Sepsis ICD Code: A41.9 Status: Acute (3) Acute respiratory failure ICD Code: J96.00 Status: Acute (4) Leukocytosis ICD Code: D72.829 Status: Acute (5) Alcohol withdrawal ICD Code: F10.239 Status: Acute (6) Atrial fibrillation with RVR ICD Code: I48.91 Status: Acute (7) Acute kidney injury ICD Code: N17.9 Status: Acute (8) UTI (urinary tract infection) ICD Code: N39.0 Status: Acute Assessment and Plan 86 years old female 1. Acute respiratory failure, COPD exacerbation:- baseline 02 requiring. Bi PAP at hs. Appreciate pulmonology recommendations. Continue supplemental oxygen , bronchodilators decrease- gradual taper - Solu-Medrol to q 12. Continue Robitussin for cough. requiring 3 L of oxygen per nasal cannula.- patient states she has home 02 2. Atrial fibrillation- rate variable low 100s.Increase CArdizem CD 360 mg daily. Appreciate cardiology recommendations. check Echo- EF. ? CMP from alcohol Hypertension- CCB increase. Restart Lasix at 20 mg po daily- at home on bid FF BMP. start Hydralazine 10 mg po q 8 3. Sepsis secondary to pulmonary source: Blood cultures are growing staph epidermidis in one bottle. Possibly contaminant. Patient presented with leukocytosis, tachycardia, tachypnea. Continue antibiotics. Leukocytosis has resolved. Likely contaminant 4. Acute kidney injury: BUN and creatinine are improving. Monitor labs. 5. Alcohol use, withdrawal: She has been counseled. Patient reported drinking 3 small vodka drinks per day, but her family states that she drinks considerably more than that on a regular basis. Withdrawal symptoms improved. Continue CIWA protocol. Not currently requiring lorazepam. Supplement thiamine, folate, multivitamin. US negative for ascites 6. DVT prophylaxis: Lovenox 40 mg SQ daily 7. E coli UTI: S/P Bactrim course . Patient has multiple reported antibiotic allergies. PT daily CM DC planning will benefit from [facility] Rakesh Ulloa MD Dec 29, 2016 13:39
[2016-12-29] MEDS: hydrALAZINE HCL 10 MG TAB PO SCH ×2 (14:45→20:34)
--- NOTE | 2016-12-29 15:51 | HHI.PR ---
Subjective Remarks on O2 LESS SOB COUGH , THICK WHITE SPUTUM Objective Vital Signs Date Time Temp Pulse Resp B/P Pulse Ox O2 Delivery O2 Flow Rate FiO2 12/29/16 12:00 97.6 88 18 162/77 95 12/29/16 08:15 77 12/29/16 08:00 97.4 81 18 156/74 95 12/29/16 07:52 96 Nasal Cannula 2.00 12/29/16 07:15 Nasal Cannula 4.00 12/29/16 04:00 97.8 86 18 182/85 97 12/29/16 00:00 97.7 88 18 177/76 94 12/28/16 20:01 96 Nasal Cannula 3.00 12/28/16 20:00 98 12/28/16 20:00 98.5 88 20 185/86 96 12/28/16 19:30 Nasal Cannula 3.00 12/28/16 16:07 97.9 95 16 167/92 93 I/O 12/28/16 12/28/16 12/28/16 12/29/16 12/29/16 12/29/16 07:00 15:00 23:00 07:00 15:00 23:00 Intake Total 650 ml 722 ml 240 ml 240 ml Output Total 450 ml Balance 200 ml 722 ml 240 ml 240 ml Intake Oral 650 ml 720 ml 240 ml 240 ml IV Total 2 ml 0 ml Output Urine Total 450 ml # Voids 5 5 1 # Bowel Movements 0 0 2 Result Diagram: 12/27/16 0645 12/28/16 1727 Objective Remarks GENERAL: SKIN: Warm and dry. HEAD: Atraumatic. Normocephalic. EYES: Pupils equal and round. No scleral icterus. No injection or drainage. ENT: No nasal bleeding or discharge. Mucous membranes pink and moist. NECK: Trachea midline. No JVD. CARDIOVASCULAR: Regular rate and rhythm. RESPIRATORY: No accessory muscle use. Clear to auscultation. Breath sounds equal bilaterally. GASTROINTESTINAL: Abdomen soft, non-tender, nondistended. Hepatic and splenic margins not palpable. MUSCULOSKELETAL: Extremities without clubbing, cyanosis, or edema. No obvious deformities. NEUROLOGICAL: Awake and alert. No obvious cranial nerve deficits. Motor grossly within normal limits. Five out of 5 muscle strength in the arms and legs. Normal speech. PSYCHIATRIC: Appropriate mood and affect; insight and judgment normal. Assessment and Plan Assessment and Plan IMPRESSION : COPD EX. RESPIRATORY FAILURE improved PLAN O2 ANTIBIOTICS BRONCHODILATORS INCREASE ACTIVITY home am if stable Srikanth Duke MD Dec 29, 2016 15:51
[2016-12-29] MEDS: cloNIDine HCL 0.1 MG TAB PO PRN (17:50)
--- NOTE | 2016-12-29 19:01 | EC ---
Study Study Date:12/29/2016 STUDY CONCLUSIONS SUMMARY - Left ventricle: The cavity size was normal. Wall thickness was normal. Systolic function was normal. The estimated ejection fraction was in the range of 50% to 55%. Wall motion was normal; there were no regional wall motion abnormalities. - Aortic valve: Valve area: 2.29cm^2 (Vmax). - Left atrium: The atrium was mildly dilated. - Pulmonary arteries: PA peak pressure: 49mm Hg (S). If LV function is below 40, please consider prescribing an ACEI or ARB or document rationale for non-use. PROCEDURE DATA STUDY STATUS: Elective. Procedure: Transthoracic echocardiography. Image quality was good. Scanning was performed from the parasternal, apical, and subcostal acoustic windows. Study completion: The patient tolerated the procedure well. Transthoracic echocardiography. M-mode, complete 2D, complete spectral Doppler, and color Doppler. Height: Height: 66in. Weight: Weight: 110.8lb. Body mass index: BMI: 17.9kg/m^2. Body surface area: BSA: 1.56m^2. Patient status: Inpatient. CARDIAC ANATOMY LEFT VENTRICLE: The cavity size was normal. Wall thickness was normal. Systolic function was normal. The estimated ejection fraction was in the range of 50% to 55%. Wall motion was normal; there were no regional wall motion abnormalities. AORTIC VALVE: Trileaflet; normal thickness leaflets. Doppler: Transvalvular velocity was within the normal range. There was no stenosis. No regurgitation. Valve area: 2.29cm^2 (Vmax). Indexed valve area: 1.47cm^2/m^2 (Vmax). AORTA: Aortic root: The aortic root was normal in size. MITRAL VALVE: Structurally normal valve. Doppler: Transvalvular velocity was within the normal range. There was no evidence for stenosis. No regurgitation. LEFT ATRIUM: The atrium was mildly dilated. RIGHT VENTRICLE: The cavity size was normal. Wall thickness was normal. PULMONIC VALVE: Doppler: Transvalvular velocity was within the normal range. There was no evidence for stenosis. No regurgitation. TRICUSPID VALVE: Structurally normal valve. Doppler: Transvalvular velocity was within the normal range. No regurgitation. PULMONARY ARTERY: The main pulmonary artery was normal-sized. Systolic pressure was within the normal range. RIGHT ATRIUM: The atrium was normal in size. PERICARDIUM: There was no pericardial effusion. SYSTEMIC VEINS: Inferior vena cava: The vessel was normal in size. Patient weight: 110.8lb _Ejection fraction:_ 65-75% _Fractional shortening:_ 32% up to 5Kg 5-11.5Kg 11.6-22.9Kg 23-45Kg 45-57Kg Aortic Root 7-13 <17 13-22 17-27 17-27 LA diam 6-13 <23 24-38 33-47 37-40 RVID 10-17 7-15 7-15 7-18 8-17 LVIDd 12-22 <32 24-38 33-47 37-40 LVPW 2-4 3-6 5-7 6-8 7-8 IVS 2-4 3-6 5-7 6-8 7-8 BASIC MEASUREMENTS ADULT NORMAL Left ventricle LV internal dimension, ED, chordal *36.3 mm 43-52 level, PLAX LV internal dimension, ES, chordal 28.8 mm 23-38 level, PLAX Fractional shortening, chordal level, *21 % >29 PLAX LV posterior wall thickness, ED 7.38 mm IVS/LVPW ratio, ED 1.12 <1.3 Ventricular septum Septal thickness, ED 8.3 mm Aortic valve Leaflet separation 20 mm 15-26 Left atrium Anterior-posterior dimension 46 mm Anterior-posterior dimension index *2.95 cm/m^2 <2.2 BASIC MEASUREMENTS ADULT NORMAL Aortic valve Leaflet separation 20 mm 15-26 Aorta Root diameter, ED 24 mm 20-37 Left atrium Anterior-posterior dimension, ES *43 mm 19-40 Anterior-posterior dimension index, ES *2.76 cm/m^2 <2.2 LA/aortic root ratio 1.79 DOPPLER MEASUREMENTS ADULT NORMAL Main pulmonary artery Pressure, S *49 mm Hg =30 Aortic valve Peak velocity, S 120 cm/s Valve area, Vmax 2.29 cm^2 Valve area index, Vmax 1.47 cm^2/m^2 Mitral valve Maximal regurgitant velocity 454 cm/s Tricuspid valve Regurgitant peak velocity 322 cm/s Peak RV-RA gradient, S 41 mm Hg Maximal regurgitant velocity 322 cm/s Systemic veins Estimated CVP 10 mm Hg Right ventricle RV pressure, S *51 mm Hg <30 Pulmonic valve Peak velocity, S 68.5 cm/s LEGEND: Mean values are shown as u=mean value. Asterisk (*) hinton values outside specified normal range. Prepared and signed by Feliciano Yin [id number]
[2016-12-29] MEDS: ENOXAPARIN SODIUM 40 MG/0.4 ML SYRINGE SQ SCH ×2 (20:00→20:33)
[2016-12-30] VITALS (9 sets, daily range): BP systolic 145–174; BP diastolic 68–79; PULSE 74–92; RESP 20–24; TEMP 97.1–97.9; O2SAT 93–98
[2016-12-30] MEDS: cloNIDine HCL 0.1 MG TAB PO PRN (04:16)
[2016-12-30] MEDS: hydrALAZINE HCL 10 MG TAB PO SCH ×3 (05:58→22:34)
[2016-12-30] MEDS: methylPREDNISolone SOD SUCC 125 MG/2 ML VIAL IV PUSH SCH (08:48)
[2016-12-30] MEDS: SODIUM CHLORIDE 0.9% FLUSH 5 ML FLUSH IVF SCH ×2 (08:48→22:34)
[2016-12-30] MEDS: DILTIAZEM-CD 180 MG CAP ER PO SCH (08:48)
[2016-12-30] MEDS: THIAMINE HCL 100 MG TAB PO SCH (08:49)
[2016-12-30] MEDS: FUROSEMIDE 20 MG TAB PO SCH (08:49)
[2016-12-30] MEDS: MULTIVITAMIN TAB PO SCH (08:49)
[2016-12-30] MEDS: FOLIC ACID 1 MG TAB PO SCH (08:49)
--- NOTE | 2016-12-30 10:56 | HHI.PR ---
Subjective Remarks liquid stools- frequent in small amounts- brown - no hematochezia or melena no abdominal pain, nausea or vomiting states high dose steroids- makes her feel loopy Objective Vitals Vital Signs Date Time Temp Pulse Resp B/P Pulse Ox O2 Delivery O2 Flow Rate FiO2 12/30/16 10:03 94 Nasal Cannula 2.00 12/30/16 09:00 74 12/30/16 08:00 97.5 81 24 157/74 96 12/30/16 08:00 Nasal Cannula 4.00 12/30/16 05:30 163/74 12/30/16 04:00 97.7 87 20 174/79 98 12/30/16 00:14 97.5 92 20 145/69 93 12/29/16 20:00 97.9 79 20 166/76 94 12/29/16 20:00 82 12/29/16 20:00 Nasal Cannula 4.00 12/29/16 16:00 97.3 71 19 170/84 94 12/29/16 12:00 97.6 88 18 162/77 95 I/O 12/29/16 12/29/16 12/29/16 12/30/16 12/30/16 12/30/16 07:00 15:00 23:00 07:00 15:00 23:00 Intake Total 240 ml 720 ml 240 ml 360 ml Output Total 850 ml Balance 240 ml -130 ml 240 ml 360 ml Intake Oral 240 ml 720 ml 240 ml 360 ml Output Urine Total 850 ml # Voids 1 1 7 # Bowel Movements 2 1 1 7 Result Diagram: 12/27/16 0645 12/28/16 1727 Imaging Last Impressions Abdomen Ultrasound 12/28/16 0000 Signed Impressions: Service Date/Time: December 14:18 - CONCLUSION: No ascites is visualized. Kirt Anderson MD Chest X-Ray 12/21/16 1459 Signed Impressions: Service Date/Time: December 16:53 - CONCLUSION: 1. Cardiomegaly. No acute pulmonary disease. Driss Freitas MD Objective Remarks awake alert anicteric lungs decreased breath sounds, no rales irregularly irregular rhythm abdomen soft, nontender, good bowel sounds extremities no edema neuro exam- unremarkable Procedures None A/P Problem List: (1) COPD exacerbation ICD Code: J44.1 Status: Acute (2) Sepsis ICD Code: A41.9 Status: Acute (3) Acute respiratory failure ICD Code: J96.00 Status: Acute (4) Leukocytosis ICD Code: D72.829 Status: Acute (5) Alcohol withdrawal ICD Code: F10.239 Status: Acute (6) Atrial fibrillation with RVR ICD Code: I48.91 Status: Acute (7) Acute kidney injury ICD Code: N17.9 Status: Acute (8) UTI (urinary tract infection) ICD Code: N39.0 Status: Acute Assessment and Plan 86 years old female 1. Acute respiratory failure, COPD exacerbation:- baseline 02 dependent Bi PAP at hs. Appreciate pulmonology recommendations. Continue supplemental oxygen , bronchodilators decrease- gradual taper - change to po Prednisone requiring 3 L of oxygen per nasal cannula.- patient states she has home 02 2. Atrial fibrillation- CArdizem CD 360 mg daily 12/29 - better controlled . Appreciate cardiology recommendations. check Echo- EF. 55-60%. refused anticoagulation Hypertension- better readings Lasix at 20 mg po daily- at home on bid FF BMP- hold with pre renal injury- from diarrhea- gentle hydration. Hydralazine 10 mg po q 8 continue to monitor and adjust 3. Sepsis secondary to pulmonary source: Blood cultures are growing staph epidermidis in one bottle. Possibly contaminant. Patient presented with leukocytosis, tachycardia, tachypnea. Continue antibiotics. Leukocytosis has resolved. Likely contaminant 4. Acute kidney injury: BUN and creatinine- pre renal with diarrhea gentle hydration. HOld lasix. Monitor labs. 5. Alcohol use, withdrawal: She has been counseled. Patient reported drinking 3 small vodka drinks per day, but her family states that she drinks considerably more than that on a regular basis. Withdrawal symptoms improved. Continue CIWA protocol. Not currently requiring lorazepam. Supplement thiamine, folate, multivitamin. US negative for ascites 6. DVT prophylaxis: Lovenox 40 mg SQ daily 7. E coli UTI: S/P Bactrim course . Patient has multiple reported antibiotic allergies. 8. Glucose intolerance- steroid induced- steroid change to po bid lower dose will check BS bid and record for now- with sliding scale . check hemoglobin A1C. change to ADA diet Diarrhea- all night check stool studies check BMP today PT daily CM DC planning will benefit from [facility] Rakesh Ulloa MD Dec 30, 2016 10:56
[2016-12-30 13:01] LABS: AUTOMATED NEUTROPHIL # 9.7 TH/MM3 (1.8-7.7); BASOPHIL % 0.5 % (0.0-2.0); HEMATOCRIT 41.8 % (35.0-46.0); HEMO FLAGS DIFF FINAL; LYMPHOCYTE # 0.1 TH/MM3 (1.0-4.8); MEAN CELL VOLUME 97.8 FL (80.0-100.0); MEAN CORPUSCULAR HEMOGLOBIN 32.3 PG (27.0-34.0); MONO % 4.7 % (0.0-8.0); NEUT % 93.8 % (16.0-70.0); PLATELET COUNT 191 TH/MM3 (150-450); RED BLOOD COUNT 4.27 MIL/MM3 (4.00-5.30); RED CELL DISTRIBUTION WIDTH 16.9 % (11.6-17.2); WHITE BLOOD COUNT 10.4 TH/MM3 (4.0-11.0)
[2016-12-30 13:35] LABS: BICARBONATE 31.9 MEQ/L (21.0-32.0); POTASSIUM 4.4 MEQ/L (3.5-5.1)
[2016-12-30] MEDS: RESP: ALBUTEROL 2.5 MG/3 ML NEB (PRN) INH (13:45)
[2016-12-30] MEDS ORDERED: GLUCAGON 1 MG/ML VIAL OTHER PRN (14:45)
[2016-12-30] MEDS ORDERED: DEXTROSE 50% IN WATER 50 ML VIAL(D50) IV PUSH PRN (14:45)
[2016-12-30] MEDS: SODIUM CHLOR 0.9% 1000 ML INJ 1,000 ML IV SCH (16:54)
[2016-12-30] MEDS: INSULIN NovoLIN REGULAR SUPPLEMENTAL SCALE SQ SCH ×2 (16:55→22:35)
[2016-12-30] MEDS: ENOXAPARIN SODIUM 40 MG/0.4 ML SYRINGE SQ SCH (20:00)
[2016-12-30] MEDS: predniSONE 20 MG TAB PO SCH (22:34)
[2016-12-31] VITALS (9 sets, daily range): BP systolic 130–180; BP diastolic 59–77; PULSE 79–88; RESP 16–28; TEMP 97.4–98.2; O2SAT 94–97
[2016-12-31] MEDS: SODIUM CHLOR 0.9% 1000 ML INJ 1,000 ML IV SCH ×2 (05:18→15:24)
[2016-12-31] MEDS: INSULIN NovoLIN REGULAR SUPPLEMENTAL SCALE SQ SCH ×4 (06:01→21:04)
[2016-12-31] MEDS: hydrALAZINE HCL 10 MG TAB PO SCH ×3 (06:01→21:02)
[2016-12-31] MEDS: SODIUM CHLORIDE 0.9% FLUSH 5 ML FLUSH IVF SCH ×2 (09:00→21:02)
[2016-12-31] MEDS: MULTIVITAMIN TAB PO SCH (09:43)
[2016-12-31] MEDS: THIAMINE HCL 100 MG TAB PO SCH (09:43)
[2016-12-31] MEDS: DILTIAZEM-CD 180 MG CAP ER PO SCH (09:44)
[2016-12-31] MEDS: predniSONE 20 MG TAB PO SCH ×2 (09:44→21:02)
[2016-12-31] MEDS: FOLIC ACID 1 MG TAB PO SCH (09:44)
[2016-12-31 10:15] LABS: BICARBONATE 33.1 MEQ/L (21.0-32.0); POTASSIUM 4.4 MEQ/L (3.5-5.1)
[2016-12-31 10:21] LABS: HEMOGLOBIN A1a 1.3 %; HEMOGLOBIN A1b 2.6 %; HEMOGLOBIN Ao 78.5 %; HEMOGLOBIN LA1C 4.7 %; HEMOGLOBIN P3 7.5 %
--- NOTE | 2016-12-31 11:23 | HHI.PR ---
Subjective Remarks diarrhea stopped likes ensure short of breath with minimal exertion no nausea or vomiting cough minima Objective Vitals Vital Signs Date Time Temp Pulse Resp B/P Pulse Ox O2 Delivery O2 Flow Rate FiO2 12/31/16 10:46 95 Nasal Cannula 2.00 12/31/16 09:00 79 12/31/16 08:00 98.2 83 28 159/72 95 12/31/16 08:00 Nasal Cannula 4.00 12/31/16 04:00 97.5 82 20 130/59 96 12/31/16 00:00 97.9 83 20 180/77 96 12/30/16 20:00 Nasal Cannula 4.00 12/30/16 20:00 97.9 83 20 165/68 94 12/30/16 16:00 97.1 84 20 160/69 96 12/30/16 12:00 97.4 86 24 174/77 95 I/O 12/30/16 12/30/16 12/30/16 12/31/16 12/31/16 12/31/16 07:00 15:00 23:00 07:00 15:00 23:00 Intake Total 360 ml 240 ml 822 ml Balance 360 ml 240 ml 822 ml Intake Oral 360 ml 240 ml 120 ml IV Total 0 ml 702 ml # Voids 7 2 2 3 # Bowel Movements 7 2 1 Result Diagram: 12/30/16 1250 12/31/16 0935 Imaging Last Impressions Abdomen Ultrasound 12/28/16 0000 Signed Impressions: Service Date/Time: December 14:18 - CONCLUSION: No ascites is visualized. Kirt Anderson MD Chest X-Ray 12/21/16 1459 Signed Impressions: Service Date/Time: December 16:53 - CONCLUSION: 1. Cardiomegaly. No acute pulmonary disease. Driss Freitas MD Objective Remarks awake alert anicteric lungs decreased breath sounds, no rales irregularly irregular rhythm abdomen soft, nontender, good bowel sounds extremities no edema neuro exam- unremarkable Procedures None A/P Problem List: (1) COPD exacerbation ICD Code: J44.1 Status: Acute (2) Sepsis ICD Code: A41.9 Status: Acute (3) Acute respiratory failure ICD Code: J96.00 Status: Acute (4) Leukocytosis ICD Code: D72.829 Status: Acute (5) Alcohol withdrawal ICD Code: F10.239 Status: Acute (6) Atrial fibrillation with RVR ICD Code: I48.91 Status: Acute (7) Acute kidney injury ICD Code: N17.9 Status: Acute (8) UTI (urinary tract infection) ICD Code: N39.0 Status: Acute Assessment and Plan 86 years old female 1. Acute respiratory failure, COPD exacerbation:- baseline 02 dependent Bi PAP at hs. Appreciate pulmonology recommendations. Continue supplemental oxygen , bronchodilators decrease- gradual taper - changed to Prednisone requiring 3 L of oxygen per nasal cannula.- patient states she has home 02 only at night- discussed with her she needs it 24 hours 2. Atrial fibrillation- CArdizem CD 360 mg daily 12/29 - better controlled . Appreciate cardiology recommendations. check Echo- EF. 55-60%. refused anticoagulation Hypertension- better readings Lasix at 20 mg po daily- at home on bid FF BMP- hold with pre renal injury- from diarrhea- gentle hydration. Hydralazine 10 mg po q 8 continue to monitor and adjust 3. Sepsis secondary to pulmonary source: Blood cultures are growing staph epidermidis in one bottle. Possibly contaminant. Patient presented with leukocytosis, tachycardia, tachypnea. Continue antibiotics. Leukocytosis has resolved. Likely contaminant 4. Acute kidney injury: BUN and creatinine- pre renal with diarrhea gentle hydration. HOld lasix. Monitor labs. 5. Alcohol use, withdrawal: She has been counseled. Patient reported drinking 3 small vodka drinks per day, but her family states that she drinks considerably more than that on a regular basis. Withdrawal symptoms improved. Continue CIWA protocol. Not currently requiring lorazepam. Supplement thiamine, folate, multivitamin. US negative for ascites 6. DVT prophylaxis: Lovenox 40 mg SQ daily 7. E coli UTI: S/P Bactrim course . Patient has multiple reported antibiotic allergies. 8. Glucose intolerance- steroid induced- steroid change to po bid lower dose- gradual taper. A1C 6.4 change back to regular diet will check BS bid and record for now- with sliding scale .change to ADA diet PT daily CM DC planning will benefit from [facility] Rakesh Ulloa MD Dec 31, 2016 11:23
[2016-12-31] MEDS: RESP: ALBUTEROL 2.5 MG/3 ML NEB (PRN) INH ×2 (13:30→16:06)
[2016-12-31] MEDS: ENOXAPARIN SODIUM 40 MG/0.4 ML SYRINGE SQ SCH (20:00)
[2017-01-01] VITALS (8 sets, daily range): BP systolic 122–179; BP diastolic 67–79; PULSE 79–102; RESP 18–22; TEMP 96–98.4; O2SAT 94–97
[2017-01-01] MEDS: hydrALAZINE HCL 10 MG TAB PO SCH (05:32)
[2017-01-01] MEDS: INSULIN NovoLIN REGULAR SUPPLEMENTAL SCALE SQ SCH ×4 (05:33→21:17)
[2017-01-01] MEDS: DILTIAZEM-CD 180 MG CAP ER PO SCH (08:49)
[2017-01-01] MEDS: predniSONE 20 MG TAB PO SCH (08:49)
[2017-01-01] MEDS: SODIUM CHLORIDE 0.9% FLUSH 5 ML FLUSH IVF SCH ×2 (08:50→21:16)
[2017-01-01] MEDS: MULTIVITAMIN TAB PO SCH (08:50)
[2017-01-01] MEDS: THIAMINE HCL 100 MG TAB PO SCH (08:50)
[2017-01-01] MEDS: FOLIC ACID 1 MG TAB PO SCH (08:50)
--- NOTE | 2017-01-01 12:56 | HHI.PR ---
Subjective Remarks baseline shortness of breath minimal dry cough Objective Vitals Vital Signs Date Time Temp Pulse Resp B/P Pulse Ox O2 Delivery O2 Flow Rate FiO2 01/01/17 12:00 98.4 85 18 179/78 96 01/01/17 08:00 79 01/01/17 08:00 98.2 79 20 150/67 95 01/01/17 08:00 95 Nasal Cannula 4.00 01/01/17 04:00 98.0 80 18 156/73 96 01/01/17 00:00 96.0 80 20 122/79 97 12/31/16 20:35 97 Nasal Cannula 2.00 12/31/16 20:00 97.6 88 16 151/65 95 12/31/16 20:00 84 12/31/16 20:00 Nasal Cannula 4.00 12/31/16 16:00 98.0 79 24 149/66 95 I/O 12/31/16 12/31/16 12/31/16 01/01/17 01/01/17 01/01/17 07:00 15:00 23:00 07:00 15:00 23:00 Intake Total 822 ml 563 ml 626 ml Balance 822 ml 563 ml 626 ml Intake Oral 120 ml 240 ml IV Total 702 ml 323 ml 626 ml # Voids 3 2 # Bowel Movements 0 Result Diagram: 12/30/16 1250 12/31/16 0935 Imaging Last Impressions Abdomen Ultrasound 12/28/16 0000 Signed Impressions: Service Date/Time: December 14:18 - CONCLUSION: No ascites is visualized. Kirt Anderson MD Chest X-Ray 12/21/16 1459 Signed Impressions: Service Date/Time: December 16:53 - CONCLUSION: 1. Cardiomegaly. No acute pulmonary disease. Driss Freitas MD Objective Remarks awake alert anicteric lungs decreased breath sounds, no rales irregularly irregular rhythm abdomen soft, nontender, good bowel sounds extremities no edema neuro exam- unremarkable Procedures None A/P Problem List: (1) COPD exacerbation ICD Code: J44.1 Status: Acute (2) Sepsis ICD Code: A41.9 Status: Acute (3) Acute respiratory failure ICD Code: J96.00 Status: Acute (4) Leukocytosis ICD Code: D72.829 Status: Acute (5) Alcohol withdrawal ICD Code: F10.239 Status: Acute (6) Atrial fibrillation with RVR ICD Code: I48.91 Status: Acute (7) Acute kidney injury ICD Code: N17.9 Status: Acute (8) UTI (urinary tract infection) ICD Code: N39.0 Status: Acute Assessment and Plan 86 years old female 1. Acute on chronic respiratory failure, COPD exacerbation:- baseline 02 dependent Bi PAP at hs. steroid dependent. Appreciate pulmonology recommendations. Continue supplemental oxygen, bronchodilators gradual taper -Prednisone requiring 3 L of oxygen per nasal cannula.- patient states she has home 02 only at night- discussed with her she needs it 24 hours 2. Atrial fibrillation- CArdizem CD 360 mg daily 12/29 - better controlled . Appreciate cardiology recommendations. check Echo- EF. 55-60%. refused anticoagulation Hypertension Lasix at 20 mg po daily- at home on bid FF BMP- hold with pre renal injury- from diarrhea- gentle hydration. Hydralazine 10 mg po q 8- increase to 25 mg po q8 continue to monitor and adjust 3. Sepsis secondary to pulmonary source: Blood cultures are growing staph epidermidis in one bottle. Possibly contaminant. Patient presented with leukocytosis, tachycardia, tachypnea. Continue antibiotics. Leukocytosis has resolved. Likely contaminant 4. Acute kidney injury: BUN and creatinine- pre renal with diarrhea- improved HOld lasix. Monitor labs. 5. Alcohol use, withdrawal: She has been counseled. Patient reported drinking 3 small vodka drinks per day, but her family states that she drinks considerably more than that on a regular basis. Withdrawal symptoms improved. Continue CIWA protocol. Not currently requiring lorazepam. Supplement thiamine, folate, multivitamin. US negative for ascites 6. DVT prophylaxis: Lovenox 40 mg SQ daily 7. E coli UTI: S/P Bactrim course . Patient has multiple reported antibiotic allergies. 8. Glucose intolerance- steroid induced- steroid change to po bid lower dose- gradual taper. A1C 6.4 change back to regular diet- refused ADA diet will check BS bid and record for now- with sliding scale .change to ADA diet PT daily CM DC planning will benefit from SNF but states she takes care of her who had a stroke Rakesh Ulloa MD Jan 01, 2017 12:56
[2017-01-01] MEDS: RESP: ALBUTEROL 2.5 MG/3 ML NEB (PRN) INH ×3 (14:00→19:11)
[2017-01-01] MEDS ORDERED: TIOTROPIUM BROMIDE 18 MCG INH INH SCH (14:00)
[2017-01-01] MEDS: hydrALAZINE HCL 25 MG TAB PO SCH ×2 (14:00→21:14)
--- NOTE | 2017-01-01 15:36 | HHI.PR ---
Subjective Remarks on O2 LESS SOB Less cough , Objective Vital Signs Date Time Temp Pulse Resp B/P Pulse Ox O2 Delivery O2 Flow Rate FiO2 01/01/17 12:00 98.4 85 18 179/78 96 01/01/17 08:00 79 01/01/17 08:00 98.2 79 20 150/67 95 01/01/17 08:00 95 Nasal Cannula 4.00 01/01/17 04:00 98.0 80 18 156/73 96 01/01/17 00:00 96.0 80 20 122/79 97 12/31/16 20:35 97 Nasal Cannula 2.00 12/31/16 20:00 97.6 88 16 151/65 95 12/31/16 20:00 84 12/31/16 20:00 Nasal Cannula 4.00 12/31/16 16:00 98.0 79 24 149/66 95 I/O 12/31/16 12/31/16 12/31/16 01/01/17 01/01/17 01/01/17 07:00 15:00 23:00 07:00 15:00 23:00 Intake Total 822 ml 563 ml 626 ml 690 ml Output Total 1025 ml Balance 822 ml 563 ml 626 ml -335 ml Intake Oral 120 ml 240 ml 690 ml IV Total 702 ml 323 ml 626 ml Output Urine Total 1025 ml # Voids 3 2 # Bowel Movements 0 0 Result Diagram: 12/30/16 1250 12/31/16 0935 Objective Remarks GENERAL: SKIN: Warm and dry. HEAD: Atraumatic. Normocephalic. EYES: Pupils equal and round. No scleral icterus. No injection or drainage. ENT: No nasal bleeding or discharge. Mucous membranes pink and moist. NECK: Trachea midline. No JVD. CARDIOVASCULAR: Regular rate and rhythm. RESPIRATORY: No accessory muscle use. Clear to auscultation. Breath sounds equal bilaterally. GASTROINTESTINAL: Abdomen soft, non-tender, nondistended. Hepatic and splenic margins not palpable. MUSCULOSKELETAL: Extremities without clubbing, cyanosis, or edema. No obvious deformities. NEUROLOGICAL: Awake and alert. No obvious cranial nerve deficits. Motor grossly within normal limits. Five out of 5 muscle strength in the arms and legs. Normal speech. PSYCHIATRIC: Appropriate mood and affect; insight and judgment normal. Assessment and Plan Assessment and Plan IMPRESSION : COPD EX. RESPIRATORY FAILURE improved PLAN O2 ANTIBIOTICS BRONCHODILATORS INCREASE ACTIVITY will probably need to go to rehab home am if stable Srikanth Duke MD Jan 01, 2017 15:36
[2017-01-01] MEDS: ENOXAPARIN SODIUM 40 MG/0.4 ML SYRINGE SQ SCH (20:00)
[2017-01-01] MEDS: ALBUTEROL SULFATE 90 MCG/ACT HFA 8 GM INHALER INH SCH (21:14)
[2017-01-02] VITALS: BP 164/71; PULSE 87; RESP 18; TEMP 98.5; O2SAT 96
[2017-01-02] MEDS: ALBUTEROL SULFATE 90 MCG/ACT HFA 8 GM INHALER INH SCH ×2 (02:08→09:16)
[2017-01-02 04:00] VITALS: BP 153/63; PULSE 84; RESP 20; TEMP 97.6; O2SAT 96
[2017-01-02] MEDS: hydrALAZINE HCL 25 MG TAB PO SCH (05:28)
[2017-01-02] MEDS: INSULIN NovoLIN REGULAR SUPPLEMENTAL SCALE SQ SCH (05:28)
[2017-01-02 08:00] VITALS: BP 144/70; PULSE 81; RESP 22; TEMP 97.5; O2SAT 96
[2017-01-02] MEDS: SODIUM CHLORIDE 0.9% FLUSH 5 ML FLUSH IVF SCH (09:00)
[2017-01-02] MEDS ORDERED: predniSONE 20 MG TAB PO SCH (09:00)
[2017-01-02] MEDS: MULTIVITAMIN TAB PO SCH (09:16)
[2017-01-02] MEDS: THIAMINE HCL 100 MG TAB PO SCH (09:16)
[2017-01-02] MEDS: DILTIAZEM-CD 180 MG CAP ER PO SCH (09:16)
[2017-01-02] MEDS: FOLIC ACID 1 MG TAB PO SCH (09:17)
--- NOTE | 2017-01-02 11:18 | HHI.PR ---
Subjective Remarks cough- improved, no sputum baseline - pulmonary status no fever Objective Vitals Vital Signs Date Time Temp Pulse Resp B/P Pulse Ox O2 Delivery O2 Flow Rate FiO2 01/02/17 08:00 97.5 81 22 144/70 96 01/02/17 08:00 97 Nasal Cannula 4.00 01/02/17 04:00 97.6 84 20 153/63 96 01/02/17 00:00 98.5 87 18 164/71 96 01/01/17 20:00 102 01/01/17 20:00 97.8 95 18 163/70 97 01/01/17 20:00 Nasal Cannula 4.00 01/01/17 16:03 94 Nasal Cannula 2.00 01/01/17 16:00 97.7 87 22 154/71 94 01/01/17 14:00 96 Nasal Cannula 2.00 01/01/17 12:00 98.4 85 18 179/78 96 I/O 01/01/17 01/01/17 01/01/17 01/02/17 01/02/17 01/02/17 07:00 15:00 23:00 07:00 15:00 23:00 Intake Total 626 ml 690 ml 240 ml 480 ml Output Total 1025 ml 200 ml 450 ml Balance 626 ml -335 ml 40 ml 30 ml Intake Oral 690 ml 240 ml 480 ml IV Total 626 ml Output Urine Total 1025 ml 200 ml 450 ml # Voids 1 # Bowel Movements 0 1 0 Result Diagram: 12/30/16 1250 12/31/16 0935 Imaging Last Impressions Abdomen Ultrasound 12/28/16 0000 Signed Impressions: Service Date/Time: December 14:18 - CONCLUSION: No ascites is visualized. Kirt Anderson MD Chest X-Ray 12/21/16 1459 Signed Impressions: Service Date/Time: December 16:53 - CONCLUSION: 1. Cardiomegaly. No acute pulmonary disease. Driss Freitas MD Objective Remarks awake alert anicteric lungs decreased breath sounds, no rales irregularly irregular rhythm abdomen soft, nontender, good bowel sounds extremities no edema neuro exam- unremarkable Procedures None A/P Problem List: (1) COPD exacerbation ICD Code: J44.1 Status: Acute (2) Sepsis ICD Code: A41.9 Status: Acute (3) Acute respiratory failure ICD Code: J96.00 Status: Acute (4) Leukocytosis ICD Code: D72.829 Status: Acute (5) Alcohol withdrawal ICD Code: F10.239 Status: Acute (6) Atrial fibrillation with RVR ICD Code: I48.91 Status: Acute (7) Acute kidney injury ICD Code: N17.9 Status: Acute (8) UTI (urinary tract infection) ICD Code: N39.0 Status: Acute Assessment and Plan 86 years old female 1. Acute respiratory failure, COPD exacerbation:- 02 dependent, steroid dependent. Appreciate pulmonology recommendations. Continue supplemental oxygen , bronchodilators. at baseline tolerance of 2 L of oxygen per nasal cannula. .continue Steroid taper. At home - on maintenance 10 mg of Prednisone daily. 2. Atrial fibrillation- rate 80s on po CArdizem CD 240 mg daily. . Monitor - consider increase to 360 as BP tolerates. Appreciate cardiology recommendations. refused anticoagulation 3. Sepsis secondary to pulmonary source: Blood cultures are growing staph epidermidis in one bottle. Possibly contaminant. Patient presented with leukocytosis, tachycardia, tachypnea. Continue antibiotics. Leukocytosis has resolved. Infectious disease consulted 4. Acute kidney injury: BUN and creatinine are improving. 5. Alcohol use, withdrawal: She has been counseled. Patient reported drinking 3 small vodka drinks per day, but her family states that she drinks considerably more than that on a regular basis. Withdrawal symptoms improved. Continue CIWA protocol. Not currently requiring lorazepam. Supplement thiamine, folate, multivitamin. 6. DVT prophylaxis: Lovenox 40 mg SQ daily 7. E coli UTI: on Bactrim. Patient has multiple reported antibiotic allergies. DC to SNF today Rakesh Ulloa MD Jan 02, 2017 11:18
--- NOTE | 2017-01-02 11:22 | HHI.DS ---
Discharge Summary Admission Date Dec 21, 2016 at 17:10 Discharge Date: Jan 02, 2017 Admitting Diagnosis COPD Exacerbation on BIPAP (1) Acute respiratory failure ICD Code: J96.00 Diagnosis: Principal (2) COPD exacerbation ICD Code: J44.1 Diagnosis: Principal (3) Sepsis ICD Code: A41.9 Diagnosis: Secondary (4) Leukocytosis ICD Code: D72.829 Diagnosis: Secondary (5) Alcohol withdrawal ICD Code: F10.239 Diagnosis: Secondary (6) Atrial fibrillation with RVR ICD Code: I48.91 Diagnosis: Principal (7) Acute kidney injury ICD Code: N17.9 Diagnosis: Secondary (8) UTI (urinary tract infection) ICD Code: N39.0 Diagnosis: Secondary Procedures None Brief History - From Admission Patient is a pleasant 86-year-old white female with primary medical history of COPD O2 use at home, A. fib, rheumatoid arthritis, anxiety, non-Hodgkin's stage III who came in to the hospital with complaints of increasing shortness of breath worsening in 2-3 days and she feels that the medication is not helping her. She takes prednisone 10 mg daily and do nebulizer treatments 3 times a day. But in the last 2 days, she has been waking up at night choking, with difficulty breathing. Last night she woke up choking, and did her nebulization , coughs up what she described as "ball of white blob." She feels she is not getting better that she went to the hospital for further evaluation. PCP is Dr. Vizcarra, scaffold worker Dr. Victor. 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 Patient denies any sick contacts. Complaints of left shoulder pain started yesterday, intermittent, aggravated by cough, relieved with rest. Denies chest pain, palpitations, headaches, dizziness. Denies fevers, chills, n/ v/d. Patient was started on BiPAP in the ED, Solu-Medrol was given as well as nebulizer treatment. Patient states increased amount of prednisone caused her to have cancer. But spoke with patient's family member at the bedside and states that she's been getting prednisone without any adverse effect although she has multiple allergies to different medications. Labs reviewed WBC 14.7. CMP no acute abnormality elevated BUN 19, EGFR 63, AST 39. Troponin less than 0.02. BNP 170. ABG PCO2 57, PO2 132, HCO3 30 on BiPAP IPAP 10 EPAP 550% inspired Chest x-ray showed cardiomegaly. No acute pulmonary disease. CBC/BMP: 12/30/16 1250 12/31/16 0935 Significant Findings Laboratory Tests Test 12/30/16 12/31/16 12:50 09:35 Neutrophils (%) (Auto) 93.8 % (16.0-70.0) Lymphocytes (%) (Auto) 1.0 % (9.0-44.0) Neutrophils # (Auto) 9.7 TH/MM3 (1.8-7.7) Lymphocytes # (Auto) 0.1 TH/MM3 (1.0-4.8) Blood Urea Nitrogen 41 MG/DL (7-18) 40 MG/DL (7-18) Creatinine 1.16 MG/DL (0.50-1.00) Estimat Glomerular Filtration 45 ML/MIN (>89) 53 ML/MIN (>89) Rate Random Glucose 479 MG/DL 198 MG/DL (74-106) (74-106) Hemoglobin A1c 6.4 % (4.3-6.0) Carbon Dioxide Level 33.1 MEQ/L (21.0-32.0) Imaging Last Impressions Abdomen Ultrasound 12/28/16 0000 Signed Impressions: Service Date/Time: December 14:18 - CONCLUSION: No ascites is visualized. Kirt Anderson MD Chest X-Ray 12/21/16 1459 Signed Impressions: Service Date/Time: December 16:53 - CONCLUSION: 1. Cardiomegaly. No acute pulmonary disease. Driss Freitas MD PE at Discharge awake alert anicteric lungs decreased breath sounds, no rales irregularly irregular rhythm abdomen soft, nontender, good bowel sounds extremities no edema neuro exam- unremarkable Pt update on day of discharge awake and alert, feeling better she knwos that she has to pace herself with any activity she is willing to go to rehab short term she is the primary care take of her and states she has neighbors who chekcs on them regularly and willing to help them anytime her Blood sugar with some elevation - likely from steroids- monitor with gradual taper- she is on maintenance Prednisone 10 mg daily chronically Hospital Course 86 years old female 1. Acute respiratory failure, COPD exacerbation:- 02 dependent, steroid dependent. Appreciate pulmonology recommendations. Continue supplemental oxygen , bronchodilators. Still requiring 3 L of oxygen per nasal cannula. .Steroid taper. At home - on maintenance 10 mg of Prednisone daily. 2. Atrial fibrillation- rate 80s - 106. po CArdizem CD 360 mg daily. . Monitor - consider increase to 360 as BP tolerates. Appreciate cardiology recommendations. refused anticoagulation 3. Sepsis secondary to pulmonary source: Blood cultures are growing staph epidermidis in one bottle. Possibly contaminant. Patient presented with leukocytosis, tachycardia, tachypnea. Continue antibiotics. Leukocytosis has resolved. Infectious disease consulted 4. Acute kidney injury: BUN and creatinine are improving. Monitor labs. 5. Alcohol use, withdrawal: She has been counseled. Patient reported drinking 3 small vodka drinks per day, but her family states that she drinks considerably more than that on a regular basis. Withdrawal symptoms improved. Continue CIWA protocol. Not currently requiring lorazepam. Supplement thiamine, folate, multivitamin. 6. DVT prophylaxis: Lovenox 40 mg SQ daily 7. E coli UTI: S/P Bactrim. Patient has multiple reported antibiotic allergies. DC to SNF today FF up with OPCP, Pulmonary,. Cardiology Pt Condition on Discharge: Stable Discharge Disposition: Discharge to SNF Discharge Time: <= 30 minutes Discharge Instructions DIET: Follow Instructions for: As Tolerated, No Restrictions, Heart Healthy Diet, Diabetic Diet Speech Therapy-Diet Recommends: Regular Activities you can perform: Weight Bearing as Brianne Activities to Avoid: Strenuous Activity Follow up Referrals: Cardiology - 10 Days with Candace Zaragoza MD PCP Follow-up - 01/05/17 with [facility] - 01/08/17 with Srikanth Duke MD New Medications: Prednisone (Prednisone) 5 Mg Tab 5 MG PO DAILY 4 tablets (20 mg) daily x 3 days then 3 tabs (15 mg) daily x 3 days then 10 mg daily- maintenance dose COPD Days 30 Ref 0 TAB Albuterol 18 GM Inh (Ventolin Hfa 18 GM Inh) 90 Mcg/Act Aer 2 PUFF INH Q6H COPD Days 30 INHALER Albuterol Neb (Albuterol Neb) 2.5 Mg/3 Ml Neb 2.5 MG INH Q2HR NEB PRN SHORTNESS OF BREATH Days 10 NEBULE Diltiazem CD 24 HR (Cardizem CD 24 HR) 180 Mg Caper 360 MG PO DAILY AFIB Days 30 CAP Folic Acid (Folate) 1 Mg Tab 1 MG PO DAILY SUPP Days 30 TAB Hydralazine (Hydralazine) 25 Mg Tab 25 MG PO Q8HR HTN Days 30 TAB Tiotropium Inh (Spiriva Handihaler) 18 Mcg Cap 18 MCG INH DAILY COPD Days 30 CAP Rakesh Ulloa MD Jan 02, 2017 11:22
[2017-01-02] MEDS ORDERED: HYDR25TA35 PO (11:26)
[2017-01-02] MEDS ORDERED: CARD180C5 PO (11:26)
[2017-01-02] MEDS ORDERED: FOLI1TAB4 PO (11:26)
[2017-01-02] MEDS ORDERED: SPIRCAP INH (11:26)
[2017-01-02] MEDS ORDERED: ALBU0.08 INH (11:26)
[2017-01-02] MEDS ORDERED: VENTAER INH (11:26)
[2017-01-02] MEDS ORDERED: PRED5TAB PO (11:30)
[2017-01-02] MEDS ORDERED: PANT20 PO (11:37)
[2017-01-02] MEDS ORDERED: OXYGENTANK NAS.CANULA (11:39)
[2017-01-02 12:00] VITALS: BP 149/75; PULSE 87; RESP 22; TEMP 97.5; O2SAT 97
[2017-01-02] MEDS ORDERED: PANTOPRAZOLE SOD 20 MG DELAYED RELEASE TAB PO SCH (12:00)
[2017-01-02 15:13] VITALS: O2SAT 97
[2017-01-02] MEDS: RESP: ALBUTEROL 2.5 MG/3 ML NEB (PRN) INH (15:13)
== END 2017-01-02 15:37 | DRG 871 ==
LOC: NEPC 14:38 → NEDA 17:10 → NEDH 21:22 → N04B 12-22 01:57
PROVIDERS: ADMIT Internal Medicine; ATTEND Internal Medicine
PROC: 5A09357 Assistance with Respiratory Ventilation, Less than 24 Consecutive Hours, Continuous Positive Airway Pressure (ICD-10-PCS; principal; 2016-12-21)
DX: A41.9 Sepsis, unspecified organism (principal); J96.20 Acute and chronic respiratory failure, unspecified whether with hypoxia or hypercapnia; N17.9 Acute kidney failure, unspecified; J44.1 Chronic obstructive pulmonary disease with (acute) exacerbation; F10.239 Alcohol dependence with withdrawal, unspecified; N39.0 Urinary tract infection, site not specified; Z99.81 Dependence on supplemental oxygen; M25.512 Pain in left shoulder; M24.541 Contracture, right hand; M24.542 Contracture, left hand; B96.20 Unspecified Escherichia coli [E. coli] as the cause of diseases classified elsewhere; J45.909 Unspecified asthma, uncomplicated; E04.1 Nontoxic single thyroid nodule; I48.2 Chronic atrial fibrillation; R60.0 Localized edema; I11.9 Hypertensive heart disease without heart failure; R19.7 Diarrhea, unspecified; T38.0X5A Adverse effect of glucocorticoids and synthetic analogues, initial encounter; M06.9 Rheumatoid arthritis, unspecified; F41.9 Anxiety disorder, unspecified; E74.39 Other disorders of intestinal carbohydrate absorption; Z77.22 Contact with and (suspected) exposure to environmental tobacco smoke (acute) (chronic); Z85.3 Personal history of malignant neoplasm of breast; Z85.72 Personal history of non-Hodgkin lymphomas; Z85.819 Personal history of malignant neoplasm of unspecified site of lip, oral cavity, and pharynx; Z87.891 Personal history of nicotine dependence; Z88.0 Allergy status to penicillin; Z88.1 Allergy status to other antibiotic agents; Z88.5 Allergy status to narcotic agent; Z90.11 Acquired absence of right breast and nipple; Z90.81 Acquired absence of spleen; Z91.013 Allergy to seafood; Z91.018 Allergy to other foods; Z91.14 Patient's other noncompliance with medication regimen; Z95.0 Presence of cardiac pacemaker
CPT/HCPCS: 36600; 71010; 76705; 76937; 80048; 80053; 81001; 82550; 82805; 82948; 83036; 83735; 83880; 84100; 84439; 84443; 84484; 85025; 85610; 85730; 87040; 87077; 87086; 87186; 87205; 87804; 93005; 93306; 94002; 94060; 94640; 94664; 96374; 96375; 96376; J1650; J2930; J3411; J3475; J3480; J7030; J7512; J7608; J7613

== ENCOUNTER 2017-10-30 10:27 | Inpatient (IN) | payer MEDICARE, BC ==
[2017-10-30] VITALS (7 sets, daily range): BP systolic 98–124; BP diastolic 54–64; PULSE 76–101; RESP 16–23; TEMP 97–100.5; O2SAT 90–100
[~2017-10-30] VITALS: Ht 167.6 cm; Wt 61.0 kg
[~2017-10-30 10:27] MED LIST changes: -ACYC-1 PO; -ADVI200T PO; +ALBU0.08 INH; -ALBU0.086 INH; -ALBU8I INH; -ALPR.25 PO; -ASPI81CH5 PO; -BACT800T5 PO; +CARD180C5 PO; -CLIN1CAP5 PO; +FOLI1TAB4 PO; +FURO1TAB62 PO; -FURO20 PO; +HYDR25TA35 PO; -IPRAAER INH; -KCL20 PO; +OXYGENTANK NAS.CANULA; +PANT20 PO; +POTA10CA PO; -PRED50TA PO; +PRED5TAB PO; -REST0.05 EACH EYE; +SPIRCAP INH; +VENTAER INH; -VITA10002 PO
--- NOTE | 2017-10-30 11:28 | PD ---
HPI Chief Complaint: Abdominal Pain Time Seen by Provider: 11:18 Travel History International Travel<30 days: No Contact w/Intl Traveler<30days: No Traveled to known affect area: No History of Present Illness HPI 87-year-old female presents to the emergency department for evaluation of lower abdominal pain that has been ongoing for approximately one week. Patient states she had an ovarian cyst rupture in the pain has been worsening since then. She states that she has "tissue coming out in my urine" for the past 5-6 days. Patient is unsure if she has run any fevers. She denies any chest pain or shortness of breath. Patient reports nausea the past, but no vomiting. No diarrhea or constipation. 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 She reports generalized weakness, but this appears to be an ongoing issue for her. She denies any dizziness, syncope. Patient's primary care physician is Dr. Vizcarra. She reports history of COPD, O2 use at home, atrial fibrillation, rheumatoid arthritis, anxiety, non-Hodgkin's stage III. She reports being on Lasix, prednisone 10 mg daily. Patient is a poor historian. Of note, she is noted to have a temperature of 100.5 on arrival to the ED. Patient states her current pain is 1/10. However, movement will exacerbate the pain and will be, 10/10. Alleviating factor is rest. The pain is sharp and in the lower abdomen without radiation. Moderate severity. PFSH Past Medical History Arthritis: Yes (RHEUMATOID ARTHRITIS; HX KNEE EFFUSIONS) Asthma: Yes Atrial Fibrillation: Yes Autoimmune Disease: Yes (RA) Blood Disorders: No Anxiety: Yes (R/T SOB) Depression: No Heart Rhythm Problems: Yes (HX A FIB) Cancer: Yes (RT BREAST CA;THROAT CA NON-HODGKINS LYMPHOMA STAGE III) Cardiovascular Problems: Yes (PACEMAKER) High Cholesterol: No Chemotherapy: No Chest Pain: No Congestive Heart Failure: Yes COPD: Yes Cerebrovascular Accident: No Coronary Artery Disease: No Diabetes: No Diminished Hearing: No Endocrine: Yes Gastrointestinal Disorders: Yes GERD: No Glaucoma: No Genitourinary: No Headaches: No Hepatitis: No Hiatal Hernia: No Hypertension: No Immune Disorder: Yes (NON-HODGKINS LYMPHOMA STAGE III) Kidney Stones: No Musculoskeletal: Yes (FELTY'S SYNDROME) Neurologic: No Psychiatric: No Reproductive: Yes (OVARIAN MASS) Respiratory: Yes Migraines: No Myocardial Infarction: No Radiation Therapy: No Renal Failure: No Seizures: No Sickle Cell Disease: No Sleep Apnea: No Thyroid Disease: Yes (THYROID NODULE) Ulcer: No Menopausal: Yes Past Surgical History Abdominal Surgery: Yes (SPLENECTOMY; CHOLECYSTECTOMY) AICD: No Appendectomy: No Arteriovenous Shunt: No Cardiac Surgery: No Cholecystectomy: Yes Ear Surgery: No Endocrine Surgery: Yes (PARTIAL THYROIDECTOMY) Eye Surgery: Yes (TREMAYNE LENS IMPLANTS) Genitourinary Surgery: No Gynecologic Surgery: Yes (HX OVARIAN MASS) Insulin Pump: No Joint Replacement: No Mastectomy: Yes (RT) Oral Surgery: No Pacemaker: Yes Thoracic Surgery: Yes (RT MASTECTOMY) Other Surgery: Yes (LYMPH NODE DISSECTION) Social History Alcohol Use: Yes (VODKA HELPS THE COUGHING) Tobacco Use: No Substance Use: No Allergies-Medications (Allergen,Severity, Reaction): Coded Allergies: budesonide (Unverified Allergy, Severe, Anaphylaxis, 10/30/17) cephalexin (Unverified Allergy, Severe, 10/30/17) clarithromycin (Unverified Allergy, Severe, Rash, 10/30/17) diphenhydramine (Unverified Allergy, Severe, Rash and hot all over, 10/30/17 ) formoterol (Unverified Allergy, Severe, Anaphylaxis, 10/30/17) iodine (Unverified Allergy, Severe, 10/30/17) iopamidol (Unverified Allergy, Severe, DO NOT PREMEDICATE-PT HAS ANAPHLYXIS, 10/30/17) levofloxacin (Unverified Allergy, Severe, SEVERE ITCHING, 10/30/17) oxycodone (Unverified Allergy, Severe, Itching, 10/30/17) penicillin G (Unverified Allergy, Severe, 10/30/17) potassium iodide (Unverified Allergy, Severe, 10/30/17) povidone-iodine (Unverified Allergy, Severe, 10/30/17) sodium iodide (Unverified Allergy, Severe, 10/30/17) fluticasone (Unverified Allergy, Intermediate, Edema-SPOKE TO YONATHAN HILLIARD SAID PT TAKE NO PROBLEM, 10/30/17) fluticasone furoate (Unverified Allergy, Intermediate, Edema-SPOKE TO YONATHAN HILLIARD SAID PT TAKE NO PROBLEM, 10/30/17) salmeterol (Unverified Allergy, Intermediate, Edema-SPOKE TO YONATHAN HILLIARD SAID PT TAKE NO PROBLEM, 10/30/17) azithromycin (Unverified Allergy, Unknown, 10/30/17) Uncoded Allergies: beef,pork,seafood (Adverse Reaction, Unknown, 10/30/17) Reported Meds & Prescriptions Reported Meds & Active Scripts Active Oxygen tank (Oxygen) 1 Ea Tank 2 Liter SHARMAINE.CANULA CONTINUOUS Oxygen Concentrator Portable Gaseous 2 L/min via Nasal Cannula Continuous For 99 months Protonix (Pantoprazole Sodium) 20 Mg Tab 20 Mg PO DAILY PRN Prednisone 5 Mg Tab 5 Mg PO DAILY 30 Days 4 tablets (20 mg) daily x 3 days then 3 tabs (15 mg) daily x 3 days then 10 mg daily- maintenance dose Spiriva Handihaler (Tiotropium Inh) 18 Mcg Cap 18 Mcg INH DAILY 30 Days Cardizem CD 24 HR (Diltiazem CD 24 HR) 180 Mg Caper 360 Mg PO DAILY 30 Days Albuterol Neb (Albuterol Sulfate) 2.5 Mg/3 Ml Neb 2.5 Mg INH Q2HR NEB PRN 10 Days Ventolin Hfa 18 GM Inh (Albuterol Sulfate) 90 Mcg/Act Aer 2 Puff INH Q6H 30 Days Reported Hydralazine HCl 25 Mg Tablet 25 Mg PO Q8HR Prednisone 10 Mg Tab 10 Mg PO DAILY Lasix (Furosemide) 20 Mg Tab 20 Mg PO BID Potassium Chloride ER (Potassium Chloride) 10 Meq Cap 10 Meq PO BID Review of Systems Except as stated in HPI: all other systems reviewed are Neg Physical Exam Narrative GENERAL: Well-nourished, well-developed elderly female patient, temp 100.5. SKIN: Focused skin assessment warm/dry. Patient has erythema to the bilateral lower extremities with scaling noted. She states this has been ongoing for "a long time". Scab noted to right forearm. HEAD: Normocephalic. Atraumatic. EYES: No scleral icterus. No injection or drainage. NECK: Supple, trachea midline. No JVD or lymphadenopathy. CARDIOVASCULAR: Regular rate and rhythm without murmurs, gallops, or rubs. Bilateral radial and pedal pulses are 2+. RESPIRATORY: Breath sounds equal bilaterally. No accessory muscle use. Lungs sounds are clear to auscultation GASTROINTESTINAL: Abdomen soft, non-tender, nondistended. No abdominal tenderness to palpation. MUSCULOSKELETAL: No cyanosis, or edema. Patient has chronic contractures of the bilateral hands. BACK: Nontender without obvious deformity. No CVA tenderness. Data Data Last Documented VS Vital Signs Date Time Temp Pulse Resp B/P (MAP) Pulse Ox O2 Delivery O2 Flow Rate FiO2 10/30/17 13:05 101 23 101/56 (71) 94 Nasal Cannula 2.00 10/30/17 10:44 100.5 Orders Orders Complete Blood Count With Diff (10/30/17 10:57) Comprehensive Metabolic Panel (10/30/17 10:57) Urinalysis - C+S If Indicated (10/30/17 10:57) Iv Access Insert/Monitor (10/30/17 10:57) Oxygen Administration (10/30/17 10:57) Oximetry (10/30/17 10:57) Lipase (10/30/17 10:57) Electrocardiogram (10/30/17 11:19) Lactic Acid Sepsis Protocol (10/30/17 11:19) Blood Culture (10/30/17 11:19) Chest, Single Ap (10/30/17 ) Act Partial Throm Time (Ptt) (10/30/17 11:19) Prothrombin Time / Inr (Pt) (10/30/17 11:19) Ct Abd/Pel W/O Iv Contrast (10/30/17 ) B-Type Natriuretic Peptide (10/30/17 12:51) Aztreonam Inj (Azactam Inj) (10/30/17 12:51) Cath For Specimen (10/30/17 12:54) Acetaminophen (Tylenol) (10/30/17 13:00) Influenzae A/B Antigen (10/30/17 13:09) Admit Order (Ed Use Only) (10/30/17 14:28) Labs Laboratory Tests Test 10/30/17 11:40 10/30/17 11:45 10/30/17 11:55 10/30/17 13:15 White Blood Count 15.3 TH/MM3 Red Blood Count 3.63 MIL/MM3 Hemoglobin 11.2 GM/DL Hematocrit 33.3 % Mean Corpuscular Volume 91.7 FL Mean Corpuscular Hemoglobin 30.8 PG Mean Corpuscular Hemoglobin Concent 33.6 % Red Cell Distribution Width 18.6 % Platelet Count 366 TH/MM3 Mean Platelet Volume 8.2 FL Neutrophils (%) (Auto) 87.3 % Lymphocytes (%) (Auto) 9.9 % Monocytes (%) (Auto) 1.9 % Eosinophils (%) (Auto) 0.0 % Basophils (%) (Auto) 0.9 % Neutrophils # (Auto) 13.4 TH/MM3 Lymphocytes # (Auto) 1.5 TH/MM3 Monocytes # (Auto) 0.3 TH/MM3 Eosinophils # (Auto) 0.0 TH/MM3 Basophils # (Auto) 0.1 TH/MM3 CBC Comment DIFF FINAL Differential Comment Blood Urea Nitrogen 16 MG/DL Creatinine 1.02 MG/DL Random Glucose 96 MG/DL Total Protein 4.8 GM/DL Albumin 2.1 GM/DL Calcium Level 8.3 MG/DL Alkaline Phosphatase 124 U/L Aspartate Amino Transf (AST/SGOT) 24 U/L Alanine Aminotransferase (ALT/SGPT) 10 U/L Total Bilirubin 0.6 MG/DL Sodium Level 138 MEQ/L Potassium Level 4.0 MEQ/L Chloride Level 103 MEQ/L Carbon Dioxide Level 28.5 MEQ/L Anion Gap 7 MEQ/L Estimat Glomerular Filtration Rate 52 ML/MIN B-Type Natriuretic Peptide 362 PG/ML Lipase 39 U/L Prothrombin Time 13.0 SEC Prothromb Time International Ratio 1.3 RATIO Activated Partial Thromboplast Time 25.0 SEC Lactic Acid Level 1.2 mmol/L Urine Color YELLOW Urine Turbidity HAZY Urine pH 5.5 Urine Specific Zephyr 1.015 Urine Protein 30 mg/dL Urine Glucose (UA) NEG mg/dL Urine Ketones NEG mg/dL Urine Occult Blood NEG Urine Nitrite NEG Urine Bilirubin NEG Urine Urobilinogen LESS THAN 2.0 MG/DL Urine Leukocyte Esterase MOD Urine RBC 1 /hpf Urine WBC 4 /hpf Urine Squamous Epithelial Cells <1 /hpf Urine Hyaline Casts 3 /lpf Urine Mucus FEW /lpf Microscopic Urinalysis Comment CULT NOT INDICATED MDM Medical Decision Making Medical Screen Exam Complete: Yes Emergency Medical Condition: Yes Medical Record Reviewed: Yes Differential Diagnosis UTI versus sepsis versus diverticulitis versus ovarian cyst versus cellulitis Narrative Course 87-year-old elderly female presents to the emergency department for lower abdominal pain that has been ongoing for 1 week after "my ovarian cyst ruptured ". She is found to be febrile to temperature of 100.5 and erythema to bilateral lower extremities as well. EKG, CBC, CMP, lipase, lactic acid, PTT, PT/INR, UA, blood cultures 2 are ordered and pending. Chest x-ray and CT abdomen/pelvis without contrast (patient has iodine allergy) are ordered and pending. Workup is initiated in the ambulance helmet. Patient was transferred to medical bed for further evaluation and disposition. Mirella Luna Oct 30, 2017 11:28
--- NOTE | 2017-10-30 12:05 | RADRPT ---
EXAM DATE/TIME: 10/30/2017 11:46 [facility] COMPARISON: CHEST SINGLE AP, December 21, 2016, 16:53. INDICATIONS : Fever. MEDICAL HISTORY : Emphysema. Carcinoma, breast. rheumatoid arthritis, thyroid nodule, a-fib, ovarian mass, felty's syndrome, non- Hodgkin's lymphoma SURGICAL HISTORY : Pacemaker. mastectomy rt breast, lymph node dissection, partial thyroidectomy ENCOUNTER: Initial ACUITY: 1 day PAIN SCORE: 0/10 LOCATION: Bilateral chest FINDINGS: There is cardiomegaly with small bilateral pleural effusions. Mild basilar air space disease present. Differential diagnosis includes mild pulmonary edema. Pacer leads in right atrium and right ventricl e. No pneumothorax. CONCLUSION: 1. Mild basilar air space disease bilaterally. Differential diagnosis includes infection and mild miguelangel ma. There is also cardiomegaly and bilateral effusions that could be characteristic of mild congestiv e heart failure. Dat Whiteside MD on October 30, 2017 at 12:01 Board Certified Radiologist. This report was verified electronically.
[2017-10-30 12:12] LABS: AUTOMATED NEUTROPHIL # 13.4 TH/MM3 (1.8-7.7); BASOPHIL # 0.1 TH/MM3 (0-0.2); BASOPHIL % 0.9 % (0.0-2.0); HEMATOCRIT 33.3 % (35.0-46.0); HEMOGLOBIN 11.2 GM/DL (11.6-15.3); LYMPH % 9.9 % (9.0-44.0); LYMPHOCYTE # 1.5 TH/MM3 (1.0-4.8); MEAN CELL VOLUME 91.7 FL (80.0-100.0); MEAN CORPUSCULAR HEMOGLOBIN 30.8 PG (27.0-34.0); MEAN CORPUSCULAR HGB CONC 33.6 % (32.0-36.0); MEAN PLATELET VOLUME 8.2 FL (7.0-11.0); MONO % 1.9 % (0.0-8.0); MONOCYTE # 0.3 TH/MM3 (0-0.9); NEUT % 87.3 % (16.0-70.0); PLATELET COUNT 366 TH/MM3 (150-450); RED BLOOD COUNT 3.63 MIL/MM3 (4.00-5.30); RED CELL DISTRIBUTION WIDTH 18.6 % (11.6-17.2); WHITE BLOOD COUNT 15.3 TH/MM3 (4.0-11.0)
--- NOTE | 2017-10-30 12:13 | RADRPT ---
EXAM DATE/TIME: 10/30/2017 11:57 [place] COMPARISON: CT ABDOMEN & PELVIS W/O CONTRAST, July 15, 2014, 12:06. INDICATIONS : Abdominal pain, complains of sediment in urine. ORAL CONTRAST: No oral contrast ingested. RADIATION DOSE: 5.81 CTDIvol (mGy) MEDICAL HISTORY : Chronic obstructive pulmonary disease. Emphysema. Carcinoma, breast.ovarian cysts SURGICAL HISTORY : None. ENCOUNTER: Initial ACUITY: 1 week PAIN SCALE: 5/10 LOCATION: Bilateral lower quadrant TECHNIQUE: Volumetric scanning of the abdomen and pelvis was performed. Using automated exposure control and ad justment of the mA and/or kV according to patient size, radiation dose was kept as low as reasonably achievable to obtain optimal diagnostic quality images. DICOM format image data is available electro nically for review and comparison. FINDINGS: New small loculated pleural effusions bilaterally. There is cardiomegaly with pacer leads in right at rium and right ventricle. Heart size enlarged. No effusion. No acute findings in the liver, spleen, adrenals, kidneys or pancreas. Trace free fluid in the pelvis. No free air. No bowel obstruction. No bladder calculi. There is mild anasarca. Mild scoliosis. CONCLUSION: 1. Small loculated bilateral pleural effusions with basilar atelectasis. 2. Cardiomegaly. Mild anasarca. Trace free fluid in the abdomen and pelvis. 3. No bowel obstruction. Colonic diverticulosis without diverticulitis. Dat Whiteside MD on October 30, 2017 at 12:06 Board Certified Radiologist. This report was verified electronically.
[2017-10-30 12:22] LABS: ALKALINE PHOSPHATASE 124 U/L (45-117); TOTAL BILIRUBIN ADULT 0.6 MG/DL (0.2-1.0); TOTAL PROTEIN 4.8 GM/DL (6.4-8.2)
[2017-10-30 12:24] LABS: INTERNATIONAL NORMALIZED RATIO 1.3 RATIO
[2017-10-30 12:26] LABS: ALBUMIN 2.1 GM/DL (3.4-5.0); ALT (GPT) 10 U/L (10-53); AST (GOT) 24 U/L (15-37); BICARBONATE 28.5 MEQ/L (21.0-32.0); BLOOD UREA NITROGEN 16 MG/DL (7-18); CALCIUM 8.3 MG/DL (8.5-10.1); CHLORIDE 103 MEQ/L (98-107); CREATININE 1.02 MG/DL (0.50-1.00); GLOMERULAR FILTRATION RATE 52 ML/MIN (>89); GLUCOSE,RANDOM 96 MG/DL (74-106); LIPASE 39 U/L (73-393); SODIUM (NA) 138 MEQ/L (136-145)
[2017-10-30] MEDS ORDERED: AZTREONAM INJ 2,000 MG in SODIUM CHLORIDE 0.9% INJ 100 ML IV STA (12:51)
[2017-10-30] MEDS ORDERED: ACETAMINOPHEN 325 MG TAB PO ONE (13:00)
--- NOTE | 2017-10-30 13:15 | PD ---
Physical Exam Narrative GENERAL: Well-nourished, well-developed patient. SKIN: Warm and dry. HEAD: Normocephalic and atraumatic. EYES: No injection or drainage. ENT: No nasal drainage noted. NECK: Supple, trachea midline. CARDIOVASCULAR: irregular rate and rhythm RESPIRATORY: no increased effort. No accessory muscle use. GASTROINTESTINAL: Abdomen nondistended. NEUROLOGICAL: Awake. Moves all extremities and sensory grossly within normal limits. Normal speech. Data Data Last Documented VS Vital Signs Date Time Temp Pulse Resp B/P (MAP) Pulse Ox O2 Delivery O2 Flow Rate FiO2 10/30/17 13:05 101 23 101/56 (71) 94 Nasal Cannula 2.00 10/30/17 10:44 100.5 Orders Orders Complete Blood Count With Diff (10/30/17 10:57) Comprehensive Metabolic Panel (10/30/17 10:57) Urinalysis - C+S If Indicated (10/30/17 10:57) Iv Access Insert/Monitor (10/30/17 10:57) Oxygen Administration (10/30/17 10:57) Oximetry (10/30/17 10:57) Lipase (10/30/17 10:57) Electrocardiogram (10/30/17 11:19) Lactic Acid Sepsis Protocol (10/30/17 11:19) Blood Culture (10/30/17 11:19) Chest, Single Ap (10/30/17 ) Act Partial Throm Time (Ptt) (10/30/17 11:19) Prothrombin Time / Inr (Pt) (10/30/17 11:19) Ct Abd/Pel W/O Iv Contrast (10/30/17 ) B-Type Natriuretic Peptide (10/30/17 12:51) Aztreonam Inj (Azactam Inj) (10/30/17 12:51) Cath For Specimen (10/30/17 12:54) Acetaminophen (Tylenol) (10/30/17 13:00) Influenzae A/B Antigen (10/30/17 13:09) Admit Order (Ed Use Only) (10/30/17 14:28) Labs Laboratory Tests Test 10/30/17 11:40 10/30/17 11:45 10/30/17 11:55 10/30/17 13:15 White Blood Count 15.3 TH/MM3 Red Blood Count 3.63 MIL/MM3 Hemoglobin 11.2 GM/DL Hematocrit 33.3 % Mean Corpuscular Volume 91.7 FL Mean Corpuscular Hemoglobin 30.8 PG Mean Corpuscular Hemoglobin Concent 33.6 % Red Cell Distribution Width 18.6 % Platelet Count 366 TH/MM3 Mean Platelet Volume 8.2 FL Neutrophils (%) (Auto) 87.3 % Lymphocytes (%) (Auto) 9.9 % Monocytes (%) (Auto) 1.9 % Eosinophils (%) (Auto) 0.0 % Basophils (%) (Auto) 0.9 % Neutrophils # (Auto) 13.4 TH/MM3 Lymphocytes # (Auto) 1.5 TH/MM3 Monocytes # (Auto) 0.3 TH/MM3 Eosinophils # (Auto) 0.0 TH/MM3 Basophils # (Auto) 0.1 TH/MM3 CBC Comment DIFF FINAL Differential Comment Blood Urea Nitrogen 16 MG/DL Creatinine 1.02 MG/DL Random Glucose 96 MG/DL Total Protein 4.8 GM/DL Albumin 2.1 GM/DL Calcium Level 8.3 MG/DL Alkaline Phosphatase 124 U/L Aspartate Amino Transf (AST/SGOT) 24 U/L Alanine Aminotransferase (ALT/SGPT) 10 U/L Total Bilirubin 0.6 MG/DL Sodium Level 138 MEQ/L Potassium Level 4.0 MEQ/L Chloride Level 103 MEQ/L Carbon Dioxide Level 28.5 MEQ/L Anion Gap 7 MEQ/L Estimat Glomerular Filtration Rate 52 ML/MIN B-Type Natriuretic Peptide 362 PG/ML Lipase 39 U/L Prothrombin Time 13.0 SEC Prothromb Time International Ratio 1.3 RATIO Activated Partial Thromboplast Time 25.0 SEC Lactic Acid Level 1.2 mmol/L Urine Color YELLOW Urine Turbidity HAZY Urine pH 5.5 Urine Specific [place] 1.015 Urine Protein 30 mg/dL Urine Glucose (UA) NEG mg/dL Urine Ketones NEG mg/dL Urine Occult Blood NEG Urine Nitrite NEG Urine Bilirubin NEG Urine Urobilinogen LESS THAN 2.0 MG/DL Urine Leukocyte Esterase MOD Urine RBC 1 /hpf Urine WBC 4 /hpf Urine Squamous Epithelial Cells <1 /hpf Urine Hyaline Casts 3 /lpf Urine Mucus FEW /lpf Microscopic Urinalysis Comment CULT NOT INDICATED MDM Supervised Visit with COTY: No Interpretation(s) CBC & BMP Diagram 10/30/17 11:40 Total Protein 4.8 L, Albumin 2.1 L, Calcium Level 8.3 L, Alkaline Phosphatase 124 H, Aspartate Amino Transf (AST/SGOT) 24, Alanine Aminotransferase (ALT/SGPT ) 10, Total Bilirubin 0.6 Last 24 hours Impressions Chest X-Ray 10/30/17 0000 Signed Impressions: Service Date/Time: Monday, October 30, 2017 11:46 - CONCLUSION: 1. Mild basilar air space disease bilaterally. Differential diagnosis includes infection and mild edema. There is also cardiomegaly and bilateral effusions that could be characteristic of mild congestive heart failure. Dat Whiteside MD Abdomen/Pelvis CT 10/30/17 Signed Impressions: Service Date/Time: Monday, October 30, 2017 11:57 - CONCLUSION: 1. Small loculated bilateral pleural effusions with basilar atelectasis. 2. Cardiomegaly. Mild anasarca. Trace free fluid in the abdomen and pelvis. 3. No bowel obstruction. Colonic diverticulosis without diverticulitis. Dat Whiteside MD Narrative Course Patient arrived from ambulance hallway. Initial workup shows findings of pneumonia versus CHF. BNP added on. Given allergies was given aztreonam and she will need admission to the hospital for further care. Report was her oxygen level would dip into the 80s on room air and she has been stable in nasal cannula. Sepsis Criteria SIRS Criteria (2 or more): Heart rate over 90, RR > 20 or PaCO2 < 32, WBC > 59891, < 4000 or > 10% bands Sepsis Criteria (SIRS+source): Infect source susp/known Criteria Outcome: Meets sepsis criteria Physician Communication Physician Communication dr guerin agrees to admit Diagnosis Primary Impression: Sepsis Qualified Codes: A41.9 - Sepsis, unspecified organism Additional Impressions: Bilateral pleural effusion Pneumonia Qualified Codes: J18.9 - Pneumonia, unspecified organism Rochelle Mackay MD Oct 30, 2017 13:15
[2017-10-30 13:52] LABS: BILIRUBIN, URINE NEG (NEG); BLOOD, URINE NEG (NEG); GLUCOSE,URINE NEG (NEG); HYALINE CAST, URINE 3 /lpf (RARE); KETONE, URINE NEG (NEG); MUCUS URINE FEW /lpf (OCC); NITRITE,URINE NEG (NEG); PH, URINE 5.5 (5.0-8.5); SQUAMOUS EPITHELIAL CELL URINE <1 /hpf (0-5); URINE COLOR YELLOW (YELLW/STRAW); URINE LEUKOCYTE ESTERASE MOD (NEG)
[2017-10-30] MEDS ORDERED: NALOXONE HCL 0.4 MG/ML AMP IV PUSH PRN (14:30)
[2017-10-30] MEDS ORDERED: MAGNESIUM HYDROXIDE SUSP 30 ML CUP PO PRN (14:30)
[2017-10-30] MEDS ORDERED: SODIUM CHLORIDE 0.9% FLUSH 10 ML FLUSH IV FLUSH PRN (14:30)
[2017-10-30] MEDS ORDERED: ONDANSETRON HCL 4 MG/2 ML VIAL IVP PRN (14:30)
[2017-10-30] MEDS ORDERED: BISACODYL 10 MG SUPP RECTAL PRN (14:30)
[2017-10-30] MEDS ORDERED: LACTULOSE SYRUP 20 GM/30 ML CUP PO PRN (14:30)
[2017-10-30] MEDS ORDERED: SENNOSIDES 8.6 MG TAB PO PRN (14:30)
[2017-10-30] MEDS ORDERED: HYDR-3799 PO (14:36)
[2017-10-30] MEDS: HEPARIN SODIUM - SQ 10,000 UNITS/ML VIAL SQ SCH (15:31)
--- NOTE | 2017-10-30 16:10 | EKG ---
Date Performed: 10/30/2017 Time Performed: 13:16:40 PTAGE: 87 years EKG: ATRIAL FIBRILLATION WITH RAPID VENTRICULAR RESPONSE BORDERLINE RIGHT AXIS DEVIATION INTRAVE NTRICULAR CONDUCTION DELAY SEPTAL Q WAVES ABNORMAL ECG PREVIOUS TRACING : 12/21/2016 15.32 Compared to prior tracing no significant change DOCTOR: Owen Geiger Interpretating Date/Time 10/30/2017 16:09:05
[2017-10-30] MEDS: AZTREONAM INJ 1,000 MG in SODIUM CHLORIDE 0.9% INJ 100 ML IV SCH ×2 (17:49→22:41)
[2017-10-30] MEDS: SODIUM CHLORIDE 0.9% FLUSH 10 ML FLUSH IV FLUSH SCH (20:04)
--- NOTE | 2017-10-30 20:37 | HHI.HP ---
HPI Service [facility] Primary Care Physician Manjit Hook MD Admission Diagnosis sepsis, pleural effusions Diagnoses: Travel History International Travel<30 Days: No Contact w/Intl Traveler <30 Da: No Traveled to Known Affected Are: No History of Present Illness Patient reporting vague abdominal distention and constant generalized abdominal discomfort for the past 10 days, also reporting decreased appetite, subjective weight loss over the past few months. Denies constipation or diarrhea. Denies any chest pain. She also reports progressive worsening of fatigue over the past month, now to the point where she cannot walk. She reports history of lymphoma which she says apparently cannot be treated, however is unsure of her oncologist's name. She reports many years ago having an ovarian cyst rupture with discomfort, , says feels similar. Review of Systems performed and negative except for HPI and past medical history. Past Family Social History Past Medical History Rheumatoid arthritis Atrial fibrillation Asthma Right breast cancer throat cancer. Reportedly non-Hodgkin's lymphoma Congestive heart failure Thyroid nodule Felty syndrome COPD Past Surgical History Right mastectomy Lymph node dissection History of ovarian mass resection Partial thyroidectomy Cholecystectomy Splenectomy. Pacemaker placement Reported Medications Reported Meds & Active Scripts Active Oxygen tank (Oxygen) 1 Ea Tank 2 Liter SHARMAINE.CANULA CONTINUOUS Oxygen Concentrator Portable Gaseous 2 L/min via Nasal Cannula Continuous For 99 months Protonix (Pantoprazole Sodium) 20 Mg Tab 20 Mg PO DAILY PRN Prednisone 5 Mg Tab 5 Mg PO DAILY 30 Days 4 tablets (20 mg) daily x 3 days then 3 tabs (15 mg) daily x 3 days then 10 mg daily- maintenance dose Spiriva Handihaler (Tiotropium Inh) 18 Mcg Cap 18 Mcg INH DAILY 30 Days Cardizem CD 24 HR (Diltiazem CD 24 HR) 180 Mg Caper 360 Mg PO DAILY 30 Days Albuterol Neb (Albuterol Sulfate) 2.5 Mg/3 Ml Neb 2.5 Mg INH Q2HR NEB PRN 10 Days Ventolin Hfa 18 GM Inh (Albuterol Sulfate) 90 Mcg/Act Aer 2 Puff INH Q6H 30 Days Reported Hydralazine HCl 25 Mg Tablet 25 Mg PO Q8HR Prednisone 10 Mg Tab 10 Mg PO DAILY Lasix (Furosemide) 20 Mg Tab 20 Mg PO BID Potassium Chloride ER (Potassium Chloride) 10 Meq Cap 10 Meq PO BID Allergies: Coded Allergies: budesonide (Unverified Allergy, Severe, Anaphylaxis, 10/30/17) cephalexin (Unverified Allergy, Severe, 10/30/17) clarithromycin (Unverified Allergy, Severe, Rash, 10/30/17) diphenhydramine (Unverified Allergy, Severe, Rash and hot all over, 10/30/17 ) formoterol (Unverified Allergy, Severe, Anaphylaxis, 10/30/17) iodine (Unverified Allergy, Severe, 10/30/17) iopamidol (Unverified Allergy, Severe, DO NOT PREMEDICATE-PT HAS ANAPHLYXIS, 10/30/17) levofloxacin (Unverified Allergy, Severe, SEVERE ITCHING, 10/30/17) oxycodone (Unverified Allergy, Severe, Itching, 10/30/17) penicillin G (Unverified Allergy, Severe, 10/30/17) potassium iodide (Unverified Allergy, Severe, 10/30/17) povidone-iodine (Unverified Allergy, Severe, 10/30/17) sodium iodide (Unverified Allergy, Severe, 10/30/17) fluticasone (Unverified Allergy, Intermediate, Edema-SPOKE TO YONATHAN HILLIARD SAID PT TAKE NO PROBLEM, 10/30/17) fluticasone furoate (Unverified Allergy, Intermediate, Edema-SPOKE TO YONATHAN HILLIARD SAID PT TAKE NO PROBLEM, 10/30/17) salmeterol (Unverified Allergy, Intermediate, Edema-SPOKE TO YONATHAN HILLIARD SAID PT TAKE NO PROBLEM, 10/30/17) azithromycin (Unverified Allergy, Unknown, 10/30/17) Uncoded Allergies: beef,pork,seafood (Adverse Reaction, Unknown, 10/30/17) Family History Reviewed with the patient and found to be currently noncontributory Social History Nonsmoker. Patient reports that 2 tablespoons of vodka with honey helps treat pain; she uses on average every 3 days. Denies any illicit drug use. She says she lives with . Physical Exam Vital Signs Vital Signs Date Time Temp Pulse Resp B/P (MAP) Pulse Ox O2 Delivery O2 Flow Rate FiO2 10/30/17 17:15 10/30/17 17:11 97.0 92 16 98/56 (70) 90 10/30/17 13:05 101 23 101/56 (71) 94 Nasal Cannula 2.00 10/30/17 12:31 76 20 108/54 (72) 96 Nasal Cannula 2.00 10/30/17 10:44 100.5 80 16 104/58 (73) 96 Physical Exam GENERAL: This is a well-nourished, well-developed patient, in no apparent distress. SKIN: No rashes, ecchymoses or lesions. Cool and dry. HEAD: Atraumatic. Normocephalic. No temporal or scalp tenderness. EYES: Pupils equal round and reactive. Extraocular motions intact. No scleral icterus. No injection or drainage. ENT: Nose without bleeding, purulent drainage or septal hematoma. Throat without erythema, tonsillar hypertrophy or exudate. Uvula midline. Airway patent. NECK: Trachea midline. No JVD or lymphadenopathy. Supple, nontender, no meningeal signs. CARDIOVASCULAR: Regular rate and rhythm without murmurs, gallops, or rubs. RESPIRATORY: Clear to auscultation. Breath sounds equal bilaterally. No wheezes , rales, or rhonchi. GASTROINTESTINAL: Abdomen soft, non-tender, nondistended. No hepato-splenomegaly , or palpable masses. No guarding. MUSCULOSKELETAL: Extremities without clubbing, cyanosis, or edema. No joint tenderness, effusion, or edema noted. No calf tenderness. Negative Homans sign bilaterally. NEUROLOGICAL: Awake and alert. Cranial nerves II through XII intact. Motor and sensory grossly within normal limits. Five out of 5 muscle strength in all muscle groups. Normal speech. Laboratory Laboratory Tests Test 10/30/17 11:40 10/30/17 11:45 10/30/17 11:55 10/30/17 13:15 White Blood Count 15.3 Red Blood Count 3.63 Hemoglobin 11.2 Hematocrit 33.3 Mean Corpuscular Volume 91.7 Mean Corpuscular Hemoglobin 30.8 Mean Corpuscular Hemoglobin Concent 33.6 Red Cell Distribution Width 18.6 Platelet Count 366 Mean Platelet Volume 8.2 Neutrophils (%) (Auto) 87.3 Lymphocytes (%) (Auto) 9.9 Monocytes (%) (Auto) 1.9 Eosinophils (%) (Auto) 0.0 Basophils (%) (Auto) 0.9 Neutrophils # (Auto) 13.4 Lymphocytes # (Auto) 1.5 Monocytes # (Auto) 0.3 Eosinophils # (Auto) 0.0 Basophils # (Auto) 0.1 CBC Comment DIFF FINAL Differential Comment Blood Urea Nitrogen 16 Creatinine 1.02 Random Glucose 96 Total Protein 4.8 Albumin 2.1 Calcium Level 8.3 Alkaline Phosphatase 124 Aspartate Amino Transf (AST/SGOT) 24 Alanine Aminotransferase (ALT/SGPT) 10 Total Bilirubin 0.6 Sodium Level 138 Potassium Level 4.0 Chloride Level 103 Carbon Dioxide Level 28.5 Anion Gap 7 Estimat Glomerular Filtration Rate 52 B-Type Natriuretic Peptide 362 Lipase 39 Prothrombin Time 13.0 Prothromb Time International Ratio 1.3 Activated Partial Thromboplast Time 25.0 Lactic Acid Level 1.2 Urine Color YELLOW Urine Turbidity HAZY Urine pH 5.5 Urine Specific [place] 1.015 Urine Protein 30 Urine Glucose (UA) NEG Urine Ketones NEG Urine Occult Blood NEG Urine Nitrite NEG Urine Bilirubin NEG Urine Urobilinogen LESS THAN 2.0 Urine Leukocyte Esterase MOD Urine RBC 1 Urine WBC 4 Urine Squamous Epithelial Cells <1 Urine Hyaline Casts 3 Urine Mucus FEW Microscopic Urinalysis Comment CULT NOT INDICATED Date/Time Source Procedure Growth Status 10/30/17 11:45 Blood Peripheral Aerobic Blood Culture Pending Received 10/30/17 11:45 Blood Peripheral Anaerobic Blood Culture Pending Received 10/30/17 13:40 Nasal Aspirate Influenza Types A,B Antigen (DEBBIE) - Final NEGATIVE FOR FLU A AND B ANTIGEN.... Complete Result Diagram: 10/30/17 1140 10/30/17 1140 Imaging Last Impressions Chest X-Ray 10/30/17 0000 Signed Impressions: Service Date/Time: Monday, October 30, 2017 11:46 - CONCLUSION: 1. Mild basilar air space disease bilaterally. Differential diagnosis includes infection and mild edema. There is also cardiomegaly and bilateral effusions that could be characteristic of mild congestive heart failure. Dat Whiteside MD Abdomen/Pelvis CT 10/30/17 0000 Signed Impressions: Service Date/Time: Monday, October 30, 2017 11:57 - CONCLUSION: 1. Small loculated bilateral pleural effusions with basilar atelectasis. 2. Cardiomegaly. Mild anasarca. Trace free fluid in the abdomen and pelvis. 3. No bowel obstruction. Colonic diverticulosis without diverticulitis. Dat Whiteside MD Caprini VTE Risk Assessment Caprini VTE Risk Assessment: Mod/High Risk (score >= 2) Caprini Risk Assessment Model Point Value = 1 Point Value = 2 Point Value = 3 Point Value = 5 Age 41-60 Minor surgery BMI > 25 kg/m2 Swollen legs Varicose veins or History of unexplained or recurrent spontaneous Oral contraceptives or hormone replacement Sepsis (< 1 month) Serious lung disease, including pneumonia (< 1 month) Abnormal pulmonary function Acute myocardial infarction Congestive heart failure (< 1 month) History of inflammatory bowel disease Medical patient at bed rest Age 61-74 Arthroscopic surgery Major open surgery (> 45 min) Laparoscopic surgery (> 45 min) Malignancy Confined to bed (> 72 hours) Immobilizing plaster cast Central venous access Age >= 75 History of VTE Family history of VTE Factor V Leiden Prothrombin [id number] Lupus anticoagulant Anticardiolipin antibodies Elevated serum homocysteine Heparin-induced thrombocytopenia Other congenital or acquired thrombophilia Stroke (< 1 month) Elective arthroplasty Hip, pelvis, or leg fracture Acute spinal cord injury (< 1 month) Prophylaxis Regimen Total Risk Factor Score Risk Level Prophylaxis Regimen 0-1 Low Early ambulation 2 Moderate Order ONE of the following: *Sequential Compression Device (SCD) *Heparin 5000 units SQ BID 3-4 Higher Order ONE of the following medications: *Heparin 5000 units SQ TID *Enoxaparin/Lovenox 40 mg SQ daily (WT < 150 kg, CrCl > 30 mL/min) *Enoxaparin/Lovenox 30 mg SQ daily (WT < 150 kg, CrCl > 10-29 mL/min) *Enoxaparin/Lovenox 30 mg SQ BID (WT < 150 kg, CrCl > 30 mL/min) AND/OR *Sequential Compression Device (SCD) 5 or more Highest Order ONE of the following medications: *Heparin 5000 units SQ TID (Preferred with Epidurals) *Enoxaparin/Lovenox 40 mg SQ daily (WT < 150 kg, CrCl > 30 mL/min) *Enoxaparin/Lovenox 30 mg SQ daily (WT < 150 kg, CrCl > 10-29 mL/min) *Enoxaparin/Lovenox 30 mg SQ BID (WT < 150 kg, CrCl > 30 mL/min) AND *Sequential Compression Device (SCD) Assessment and Plan Assessment and Plan /Sepsis -With leukocytosis and tachycardia. -Possibly secondary to pneumonia. Continue aztreonam. //Bilateral loculated pleural effusions. Antibiotics as above Consult pulmonology. //Suspected lymphoma due to weight loss, patient reporting previous diagnosis. Consult oncology. Also check CA 125 //Weight loss. Consult oncology as above. Check TSH, free T4, total T3. Discussed Condition With patient, nurse, ED physician. Physician Certification 2 Midnight Certification Type: Admission for Inpatient Services Order for Inpatient Services The services are ordered in accordance with Medicare regulations or non- Medicare payer requirements, as applicable. In the case of services not specified as inpatient-only, they are appropriately provided as inpatient services in accordance with the 2-midnight benchmark. Estimated LOS (days): 3 days is the estimated time the patient will need to remain in the hospital, assuming treatment plan goals are met and no additional complications. Post-Hospital Plan: Not yet determined John Ojeda MD Oct 30, 2017 20:37
[2017-10-30 23:01] LABS: FREE T4 0.89 NG/DL (0.76-1.46)
[2017-10-31] VITALS (12 sets, daily range): BP systolic 99–124; BP diastolic 55–77; PULSE 62–100; RESP 16–18; TEMP 97.2–98.1; O2SAT 94–100
[2017-10-31] MEDS ORDERED: PANTOPRAZOLE SOD 20 MG DELAYED RELEASE TAB PO PRN (00:45)
[2017-10-31] MEDS: HEPARIN SODIUM - SQ 10,000 UNITS/ML VIAL SQ SCH ×2 (03:05→15:58)
[2017-10-31] MEDS: AZTREONAM INJ 1,000 MG in SODIUM CHLORIDE 0.9% INJ 100 ML IV SCH ×4 (05:02→21:47)
[2017-10-31] MEDS: SODIUM CHLORIDE 0.9% FLUSH 10 ML FLUSH IV FLUSH SCH ×2 (09:00→21:00)
[2017-10-31] MEDS ORDERED: FUROSEMIDE 20 MG TAB PO SCH (09:00)
[2017-10-31] MEDS: predniSONE 10 MG TAB PO SCH (09:29)
[2017-10-31] MEDS: POTASSIUM CHLORIDE 10 MEQ CAP PO SCH ×2 (09:29→21:46)
[2017-10-31] MEDS: TIOTROPIUM BROMIDE 18 MCG INH INH SCH (09:29)
[2017-10-31] MEDS: DILTIAZEM-CD 180 MG CAP ER PO SCH (09:29)
--- NOTE | 2017-10-31 10:10 | MB ---
cc: SRIKANTH DUKE M.D. DATE OF CONSULTATION 10/31/2017 REASON FOR CONSULTATION Bilateral pleural effusion. HISTORY OF PRESENT ILLNESS The patient is an 87-year-old female who was admitted with generalized weakness and abdominal discomfort to the point that she had difficulty ambulating. The patient relates a history of lymphoma years ago. Treatment was not advised. The patient has not see an oncologist for it. She denies a history of fever or chills. She has no cough or expectoration. No hemoptysis. No TB, no previous industrial exposure. PAST MEDICAL HISTORY Her past medical history is that of: 1. Lymphoma as above non-Hodgkin's in type 2. Rheumatoid arthritis 3. Atrial fibrillation 4. COPD and/or bronchial asthma 5. Congestive heart failure 6. History of thyroid nodule. 7. Chronic respiratory failure PAST SURGICAL HISTORY 1. Previous right mastectomy. 2. Splenectomy 3. Cholecystectomy 4. Partial thyroidectomy 5. Ovarian mass removal MEDICATIONS Medications at home include: 1. Albuterol p.r.n. 2. Spiriva once a day 3. Oxygen 2 liters nasal cannula 4. Cardizem 5. Protonix 6. Prednisone ALLERGIES NUMEROUS, KIND REVIEW ADMISSION RECORD FOR FULL DETAIL. FAMILY HISTORY Noncontributory SOCIAL HISTORY Does not smoke, drinks alcohol socially. Does not use drugs. Lives with . SYSTEMS REVIEW A 12-point review of systems as per HPI and past history, otherwise negative. PHYSICAL EXAM On exam, the patient is alert, states that she is feeling less short of breath, temperature 98, pulse 90, respiration 20, blood pressure 106/54, oxygen saturation 96% on two liters oxygen nasal cannula. HEENT: Exam unremarkable. Eyes without icterus. NECK: Without adenopathy, thyroid enlargement, central trachea. CHEST: Decreased breath sounds at the bases. CARDIAC: PMI distant, S1-S2 audible. A 1/6 ejection systolic murmur left sternal border. ABDOMEN: Lax, bowel sounds audible. EXTREMITIES: 1+ edema. LABORATORY DATA White count 16,000, hemoglobin 11, hematocrit 33, platelets 366,000. Sodium 138, potassium 4.0, BUN 16, creatinine 1.20, glucose 96. Chest x-ray, bibasilar atelectatic change by cardiomegaly and small bibasilar effusions. CT scan of the abdomen with loculated bibasilar effusions which are small in size. There is free fluid in the abdomen and pelvis. No evidence of bowel obstruction. Diverticular disease noted without inflammation. IMPRESSION 1. COPD on bronchodilators as described above. 2. Chronic respiratory failure on oxygen therapy. 3. Abdominal discomfort, significance unclear. 4. Sepsis, leukocytosis, question pneumonia. 5. Loculated pleural effusions. 6. History of non-Hodgkin's lymphoma. PLAN The patient has been started on antibiotic therapy and appropriately so. The pleural effusions are small and loculated which indicates chronicity. The patient is clinically better. Would observe at the present time. Do a CT scan of the chest in a few days and if the effusion seems worse or changing, then would consider drainage or even surgical intervention. However at this point as mentioned, the patient is stable improving and she is on antibiotic therapy. She is continue oxygen therapy, bronchodilator therapy. We will follow her course along with you and depending on progress, proceed further. I do thank you for asking me to partake in Mrs. Blood' care. Srikanth Duke MD WWW/GUIDO /8:58 AM /9:32 AM
[2017-10-31 10:23] LABS: BASOPHIL # 0.1 TH/MM3 (0-0.2); BASOPHIL % 1.3 % (0.0-2.0); EOSINOPHIL # 0.1 TH/MM3 (0-0.4); EOSINOPHIL % 1.4 % (0.0-4.0); HEMATOCRIT 34.1 % (35.0-46.0); HEMOGLOBIN 11.5 GM/DL (11.6-15.3); LYMPH % 46.3 % (9.0-44.0); LYMPHOCYTE # 4.8 TH/MM3 (1.0-4.8); MEAN CELL VOLUME 90.6 FL (80.0-100.0); MEAN CORPUSCULAR HEMOGLOBIN 30.5 PG (27.0-34.0); MEAN CORPUSCULAR HGB CONC 33.7 % (32.0-36.0); MEAN PLATELET VOLUME 8.1 FL (7.0-11.0); MONO % 12.8 % (0.0-8.0); MONOCYTE # 1.3 TH/MM3 (0-0.9); NEUT % 38.2 % (16.0-70.0); PLATELET COUNT 313 TH/MM3 (150-450); RED BLOOD COUNT 3.77 MIL/MM3 (4.00-5.30); WHITE BLOOD COUNT 10.4 TH/MM3 (4.0-11.0)
[2017-10-31 10:40] LABS: ALBUMIN 1.8 GM/DL (3.4-5.0); AST (GOT) 33 U/L (15-37); BICARBONATE 20.4 MEQ/L (21.0-32.0); BLOOD UREA NITROGEN 23 MG/DL (7-18); CALCIUM 8.2 MG/DL (8.5-10.1); CHLORIDE 102 MEQ/L (98-107); CREATININE 1.12 MG/DL (0.50-1.00); GLOMERULAR FILTRATION RATE 46 ML/MIN (>89); GLUCOSE,RANDOM 73 MG/DL (74-106); SODIUM (NA) 134 MEQ/L (136-145)
[2017-10-31 10:42] LABS: ALKALINE PHOSPHATASE 136 U/L (45-117); ALT (GPT) 15 U/L (10-53); TOTAL BILIRUBIN ADULT 0.5 MG/DL (0.2-1.0); TOTAL PROTEIN 5.9 GM/DL (6.4-8.2)
[2017-10-31 11:13] LABS: BANDS 2 % (0-6); BASOPHILS 2 % (0-2); LYMPHOCYTES 42 % (9-44); MONOCYTES 5 % (0-8); NEUTROPHIL # MANUAL DIFF 5.2 TH/MM3 (1.8-7.7); POLYS (SEG NEUTROPHILS) 48 % (16-70)
[2017-10-31] MEDS ORDERED: VANCOMYCIN INJ 1,000 MG in SODIUM CHLOR 0.9% 250 ML INJ 250 ML IV ONE (18:15)
[2017-10-31] MEDS ORDERED: Vancomycin Consult Pharmacy 1 EA OTHER SCH (18:15)
--- NOTE | 2017-10-31 19:52 | HHI.PR ---
Subjective Remarks c/o red spots on thighs and legs. Sunny cp/sob Patient still on 4 liters nasal canula Objective Vitals Vital Signs Date Time Temp Pulse Resp B/P (MAP) Pulse Ox O2 Delivery O2 Flow Rate FiO2 10/31/17 18:09 98.0 84 16 120/66 (84) 95 10/31/17 16:00 69 10/31/17 12:09 97.3 82 16 119/55 (76) 95 10/31/17 12:00 81 10/31/17 08:09 98.1 97 16 124/72 (89) 94 10/31/17 08:00 84 10/31/17 07:15 Nasal Cannula 4.00 10/31/17 04:39 Nasal Cannula 4.00 10/31/17 04:00 97.2 100 18 123/77 (92) 100 10/31/17 03:47 89 10/31/17 00:00 Nasal Cannula 4.00 10/31/17 00:00 97.2 87 16 111/55 (73) 98 10/30/17 23:46 84 10/30/17 21:00 Nasal Cannula 4.00 10/30/17 20:00 97.3 87 16 124/64 (84) 100 I/O 10/30/17 10/30/17 10/30/17 10/31/17 10/31/17 10/31/17 07:00 15:00 23:00 07:00 15:00 23:00 Intake Total 200 ml 100 ml 520 ml Balance 200 ml 100 ml 520 ml Intake Oral 420 ml IV Total 200 ml 100 ml 100 ml # Voids 3 4 # Bowel Movements 2 Result Diagram: 10/31/1715 10/31/17 0915 Imaging Last Impressions Chest X-Ray 10/30/17 0000 Signed Impressions: Service Date/Time: Monday, October 30, 2017 11:46 - CONCLUSION: 1. Mild basilar air space disease bilaterally. Differential diagnosis includes infection and mild edema. There is also cardiomegaly and bilateral effusions that could be characteristic of mild congestive heart failure. Dat Whiteside MD Abdomen/Pelvis CT 10/30/17 0000 Signed Impressions: Service Date/Time: Monday, October 30, 2017 11:57 - CONCLUSION: 1. Small loculated bilateral pleural effusions with basilar atelectasis. 2. Cardiomegaly. Mild anasarca. Trace free fluid in the abdomen and pelvis. 3. No bowel obstruction. Colonic diverticulosis without diverticulitis. Dat Whiteside MD Objective Remarks GENERAL: This is a well-nourished, well-developed patient, in no apparent distress. SKIN: No rashes, ecchymoses or lesions. Cool and dry. HEAD: Atraumatic. Normocephalic. No temporal or scalp tenderness. EYES: Pupils equal round and reactive. Extraocular motions intact. No scleral icterus. No injection or drainage. ENT: Nose without bleeding, purulent drainage or septal hematoma. Throat without erythema, tonsillar hypertrophy or exudate. Uvula midline. Airway patent. NECK: Trachea midline. No JVD or lymphadenopathy. Supple, nontender, no meningeal signs. CARDIOVASCULAR: Regular rate and rhythm without murmurs, gallops, or rubs. RESPIRATORY: Clear to auscultation. Breath sounds equal bilaterally. No wheezes , rales, or rhonchi. GASTROINTESTINAL: Abdomen soft, non-tender, nondistended. No hepato-splenomegaly , or palpable masses. No guarding. MUSCULOSKELETAL: Extremities without clubbing, cyanosis, or edema. No joint tenderness, effusion, or edema noted. No calf tenderness. Negative Homans sign bilaterally. NEUROLOGICAL: Awake and alert. Cranial nerves II through XII intact. Motor and sensory grossly within normal limits. Five out of 5 muscle strength in all muscle groups. Normal speech A/P Assessment and Plan 1. Sepsis Present on admission. Patient with leukocytosis and tachycardia. Chest x-ray on admission reviewed by me showed mild basilar airspace disease bilaterally. Started on IV Aztreonam due to multiple allergies. Continue. I will start the patient IV vancomycin.. 2. Bilateral loculated pleural effusions. Antibiotics as above Consult pulmonology. 10/31 neurology consulted, appreciate recommendations. Loculated pleural effusions likely chronic. Recommendations are to observe at the present time. Pulmonology recommended to do it CT of the chest in a few days and if the effusions seem to be worsening or changing then we'll consider drainage or even surgical intervention. 3. Suspected lymphoma due to weight loss, patient reporting previous diagnosis. Consult oncology. Also check CA 125 10/31 Oncology consult pending. 4. Weight loss. Consult oncology as above. Check TSH, free T4, total T3. 1/10 TSH elevated but with normal free T3 and free T4. 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 5. CKD stage III. Upon review of records the patient has a patent creatinine ranging from 1.0- 1.2. Creatinine likely has baseline. Continue to monitor BUN/creatinine, strict I's and O's and avoid nephrotoxins. Discharge Planning Continue to monitor in the medical floor. Adonay Vásquez MD Oct 31, 2017 19:52
--- NOTE | 2017-10-31 22:46 | MB ---
cc: ROSALEE LAO M.D. DATE OF CONSULTATION 10/31/[address] Ojeda REASON FOR CONSULTATION Oncology consulted to render an opinion regarding patient with history of lymphoma. HISTORY OF PRESENT ILLNESS The patient is a very pleasant 87-year-old female presented to the hospital with complaint of abdominal pain, decreased appetite and increased weakness. She stated that recently she has ruptured ovarian cyst and she has had abdominal pain. She is a rather poor historian. Stated that she was diagnosed with lymphoma, but she cannot provide me with any specific details. She stated that she had a biopsy of left axillary lymph node and was diagnosed with lymphoma. However, she has been observed and did not receive any treatment. She could not recall the name of her oncologist. She also has a history of right breast cancer and had a right mastectomy more than 10 years ago. She stated she was too frail and to receive any other treatment. She also has a history of rheumatoid arthritis with Felty syndrome. She denies any fever or chills. She denies any chest pressure. She has chronic shortness of breath. She is on oxygen at home as needed. She denies significant cough. She denies any nausea, vomiting. Denies any change in urinary habits. Denies any headache, focal weakness. She has diffuse joint pain. PAST MEDICAL HISTORY 1. Follicular lymphoma, stage III. 2. Rheumatoid arthritis. 3. Felty syndrome. 4. Chronic atrial fibrillation. 5. Right breast cancer. 6. Asthma. 7. Congestive heart failure. 8. Chronic obstructive pulmonary disease. 9. Shingles. PAST SURGICAL HISTORY 1. Right mastectomy. 2. Biopsy left axillary lymph node. 3. Splenectomy. 4. Partial thyroidectomy, removal of benign nodule. 5. Pacemaker placement. 6. Resection ovarian mass. 7. Cholecystectomy. 8. No history of malignancy. Had a sister who of HIV. SOCIAL HISTORY Denies tobacco use. Minimal alcohol use. ALLERGIES MULTIPLE ALLERGIES DOCUMENTED ON HER MEDICAL RECORDS, REVIEWED. MEDICATIONS 1. Diltiazem. 2. Lasix. 3. Potassium. 4. Prednisone. 5. Spiriva. 6. Aztreonam. 7. Heparin. REVIEW OF SYSTEMS CONSTITUTIONAL: As above. EYES: Negative. EARS, NOSE, AND THROAT: Negative. CARDIOVASCULAR: No chest pressure, palpitations. RESPIRATORY: Has chronic shortness of breath. As above. GASTROINTESTINAL: As above. GENITOURINARY: As above. MUSCULOSKELETAL: Chronic joint pain. HEMATOLOGIC: As above. ENDOCRINE: Negative. DERMATOLOGIC: Negative. PSYCHIATRIC: Negative. NEUROLOGIC: Negative. PHYSICAL EXAMINATION VITAL SIGNS: Temperature 97.3, blood pressure 119/55, O2 saturation 95%. GENERAL: She is alert and oriented times three in no acute distress. HEENT: Atraumatic, normocephalic. Pupils equal, round and reactive to light. Extraocular muscles intact. No scleral icterus. Oropharynx dry mucosa. No lesion. NECK: No thyromegaly. No palpable mass. LYMPHATICS: She has a small lymph node bilateral axillary area, a little tender. She also has small bilateral inguinal lymph node. CARDIOVASCULAR: Regular S1-S2. No murmur. LUNGS: Slight decreased breath sounds lung bases. ABDOMEN: Soft, a little tender in the lower abdomen. Could not palpate any mass. No rebound. No rigidity. Positive bowel sounds. EXTREMITIES: Arthritic changes. Chronic dermatitis. Lower extremity noted 1+ edema. SKIN: As above. NEUROLOGIC: Exam nonfocal. LABORATORY DATA WBC 10.4, hemoglobin 11.5, platelet count 313. Creatinine 1.12. ASSESSMENT 1. Follicular lymphoma. I have reviewed her medical record and the patient was seen by Dr. Singleton in 2005. She had a biopsy of right axillary lymph node which showed a follicular lymphoma. She was diagnosed with grade 1, stage III follicular lymphoma. She had been observed. The patient apparently did not follow up Dr. Singleton, it is unclear if she had a followup with another oncologist. She did mention she saw another oncologist probably about 3 years ago but she is a very poor historian. On presentation she mainly is complaining of abdominal pain and generalized weakness. CT of the abdomen, pelvis did not show any mass or adenopathy. However, this was done without contrast. 2. History of right breast cancer status post mastectomy more than 10 years ago. She has no recurrent disease. 3. 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 4. Chronic atrial fibrillation. 5. Congestive heart failure. 6. Chronic obstructive pulmonary disease. 7. Loculated pleural effusion, unknown chronicity. RECOMMENDATIONS Patient admitted with possible pneumonia and constitutional symptoms. Lymphoma certainly could cause constitutional symptoms. However, I could not palpate significant adenopathy and she does not seem to have bulky disease. Her symptoms may not be related to the lymphoma. I would recommend that she follow up with her oncologist once discharged from hospital. She possibly could have a PET scan done as an outpatient and if she has progression of disease then could consider treatment. In the meantime we will continue treatment for possible pneumonia and sepsis. I am going to be out of the office until next week. Cross cover is available if any other question arises. Thank you Dr. Ojeda for asking me to see this patient. MD COLEEN Guerrier/FARZANEH /5:28 PM /10:19 PM TALAT
[2017-11-01] VITALS (10 sets, daily range): BP systolic 103–121; BP diastolic 55–61; PULSE 69–74; RESP 16–24; TEMP 97.3–98.2; O2SAT 96–100
[2017-11-01] MEDS: HEPARIN SODIUM - SQ 10,000 UNITS/ML VIAL SQ SCH ×2 (02:33→14:39)
[2017-11-01] MEDS: RESP: ALBUTEROL 2.5 MG/IPRATROPIUM 0.5 MG NEB (PRN) NEB ×2 (04:18→23:18)
[2017-11-01] MEDS: AZTREONAM INJ 1,000 MG in SODIUM CHLORIDE 0.9% INJ 100 ML IV SCH ×4 (04:57→23:00)
[2017-11-01] MEDS: SODIUM CHLORIDE 0.9% FLUSH 10 ML FLUSH IV FLUSH SCH ×2 (08:28→23:02)
[2017-11-01] MEDS: DILTIAZEM-CD 180 MG CAP ER PO SCH (08:28)
[2017-11-01] MEDS: predniSONE 10 MG TAB PO SCH (08:28)
[2017-11-01] MEDS: POTASSIUM CHLORIDE 10 MEQ CAP PO SCH ×2 (08:28→23:01)
[2017-11-01] MEDS: TIOTROPIUM BROMIDE 18 MCG INH INH SCH (08:29)
[2017-11-01] MEDS ORDERED: VANCOMYCIN INJ 900 MG in SODIUM CHLOR 0.9% 250 ML INJ 250 ML IV SCH (12:00)
[2017-11-01] MEDS ORDERED: diphenhydrAMINE HCL 25 MG CAP PO ONE (16:45)
[2017-11-01] MEDS ORDERED: ARTIFICIAL TEARS OPTH SOLN 15 ML BTL EACH EYE PRN (16:45)
--- NOTE | 2017-11-01 17:07 | HHI.PR ---
Subjective Remarks alert no sob at rest , positive with minimal exertion Objective Vital Signs Date Time Temp Pulse Resp B/P (MAP) Pulse Ox O2 Delivery O2 Flow Rate FiO2 11/01/17 16:00 97.3 70 20 115/57 (76) 99 11/01/17 12:00 98.1 70 20 118/57 (77) 100 11/01/17 08:00 97.8 70 20 121/59 (79) 99 11/01/17 08:00 Nasal Cannula 4.00 11/01/17 08:00 69 11/01/17 04:38 Nasal Cannula 4.00 11/01/17 04:20 99 Nasal Cannula 4.00 11/01/17 04:00 97.9 70 24 120/61 (80) 99 11/01/17 03:47 69 11/01/17 02:29 Nasal Cannula 4.00 11/01/17 00:00 97.9 70 16 103/55 (71) 98 11/01/17 00:00 Nasal Cannula 4.00 10/31/17 23:49 78 10/31/17 20:00 Nasal Cannula 4.00 10/31/17 20:00 97.9 70 16 99/58 (72) 99 10/31/17 19:44 62 10/31/17 18:09 98.0 84 16 120/66 (84) 95 I/O 10/31/17 10/31/17 10/31/17 11/01/17 11/01/17 11/01/17 07:00 15:00 23:00 07:00 15:00 23:00 Intake Total 200 ml 100 ml 620 ml 460 ml Output Total 400 ml Balance 200 ml 100 ml 620 ml 60 ml Intake Oral 420 ml 360 ml IV Total 200 ml 100 ml 200 ml 100 ml Output Urine Total 400 ml # Voids 3 4 3 # Bowel Movements 2 Result Diagram: 10/31/1791410/31/17914 Objective Remarks GENERAL: SKIN: Warm and dry. HEAD: Atraumatic. Normocephalic. EYES: Pupils equal and round. No scleral icterus. No injection or drainage. ENT: No nasal bleeding or discharge. Mucous membranes pink and moist. NECK: Trachea midline. No JVD. CARDIOVASCULAR: Regular rate and rhythm. RESPIRATORY: No accessory muscle use. Clear to auscultation. Breath sounds equal bilaterally. GASTROINTESTINAL: Abdomen soft, non-tender, nondistended. Hepatic and splenic margins not palpable. MUSCULOSKELETAL: Extremities without clubbing, cyanosis, or edema. No obvious deformities. NEUROLOGICAL: Awake and alert. No obvious cranial nerve deficits. Motor grossly within normal limits. Five out of 5 muscle strength in the arms and legs. Normal speech. PSYCHIATRIC: Appropriate mood and affect; insight and judgment normal. Assessment and Plan Assessment and Plan ass respiratory failure copd loculated effusions, small plan o2 as needed bronchodilators F/U CXRAY Srikanth Duke MD Nov 01, 2017 17:07
[2017-11-01] MEDS: FUROSEMIDE 20 MG TAB PO SCH (17:58)
--- NOTE | 2017-11-01 20:19 | HHI.PR ---
Subjective Remarks deferred entry - patient seen earlier at 16:20 hrs Patient c/o itchiness in the back also c/o dry eyes and states gets eye drops as an outpatient. Sating 100% on 4 liters nasal canula Objective Vitals Vital Signs Date Time Temp Pulse Resp B/P (MAP) Pulse Ox O2 Delivery O2 Flow Rate FiO2 11/01/17 19:59 98.2 69 18 104/56 (72) 96 11/01/17 16:00 97.3 70 20 115/57 (76) 99 11/01/17 12:00 98.1 70 20 118/57 (77) 100 11/01/17 08:00 97.8 70 20 121/59 (79) 99 11/01/17 08:00 Nasal Cannula 4.00 11/01/17 08:00 69 11/01/17 04:38 Nasal Cannula 4.00 11/01/17 04:20 99 Nasal Cannula 4.00 11/01/17 04:00 97.9 70 24 120/61 (80) 99 11/01/17 03:47 69 11/01/17 02:29 Nasal Cannula 4.00 11/01/17 00:00 97.9 70 16 103/55 (71) 98 11/01/17 00:00 Nasal Cannula 4.00 10/31/17 23:49 78 I/O 10/31/17 10/31/17 10/31/17 11/01/17 11/01/17 11/01/17 07:00 15:00 23:00 07:00 15:00 23:00 Intake Total 200 ml 100 ml 620 ml 460 ml Output Total 400 ml Balance 200 ml 100 ml 620 ml 60 ml Intake Oral 420 ml 360 ml IV Total 200 ml 100 ml 200 ml 100 ml Output Urine Total 400 ml # Voids 3 4 3 # Bowel Movements 2 Result Diagram: 10/31/1715 10/31/1715 Imaging Last Impressions Chest X-Ray 10/30/17 0000 Signed Impressions: Service Date/Time: Monday, October 30, 2017 11:46 - CONCLUSION: 1. Mild basilar air space disease bilaterally. Differential diagnosis includes infection and mild edema. There is also cardiomegaly and bilateral effusions that could be characteristic of mild congestive heart failure. Dat Whiteside MD Abdomen/Pelvis CT 10/30/17 0000 Signed Impressions: Service Date/Time: Monday, October 30, 2017 11:57 - CONCLUSION: 1. Small loculated bilateral pleural effusions with basilar atelectasis. 2. Cardiomegaly. Mild anasarca. Trace free fluid in the abdomen and pelvis. 3. No bowel obstruction. Colonic diverticulosis without diverticulitis. Dat Whiteside MD Objective Remarks GENERAL: This is a well-nourished, well-developed patient, in no apparent distress. SKIN: No rashes, ecchymoses or lesions. Cool and dry. HEAD: Atraumatic. Normocephalic. No temporal or scalp tenderness. EYES: Pupils equal round and reactive. Extraocular motions intact. No scleral icterus. No injection or drainage. ENT: Nose without bleeding, purulent drainage or septal hematoma. Throat without erythema, tonsillar hypertrophy or exudate. Uvula midline. Airway patent. NECK: Trachea midline. No JVD or lymphadenopathy. Supple, nontender, no meningeal signs. CARDIOVASCULAR: Regular rate and rhythm without murmurs, gallops, or rubs. RESPIRATORY: Clear to auscultation. Breath sounds equal bilaterally. No wheezes , rales, or rhonchi. GASTROINTESTINAL: Abdomen soft, non-tender, nondistended. No hepato-splenomegaly , or palpable masses. No guarding. MUSCULOSKELETAL: Extremities without clubbing, cyanosis, or edema. No joint tenderness, effusion, or edema noted. No calf tenderness. Negative Homans sign bilaterally. NEUROLOGICAL: Awake and alert. Cranial nerves II through XII intact. Motor and sensory grossly within normal limits. Five out of 5 muscle strength in all muscle groups. Normal speech Medications and IVs Current Medications Medications (Trade) Dose Ordered Sig/Madeleine Route Start Time Stop Time Status Last Admin (NS Flush) 2 ml UNSCH PRN IV FLUSH 10/30/17 14:30 (NS Flush) 2 ml BID IV FLUSH 10/30/17 21:00 11/01/17 08:28 (Zofran Inj) 4 mg Q6H PRN IVP 10/30/17 14:30 (Heparin Inj) 5,000 units Q12H SQ 10/30/17 15:00 11/01/17 14:39 (Narcan Inj) 0.4 mg UNSCH PRN IV PUSH 10/30/17 14:30 (Milk Of Magnesia Liq) 30 ml Q12H PRN PO 10/30/17 14:30 (Senokot) 17.2 mg Q12H PRN PO 10/30/17 14:30 (Dulcolax Supp) 10 mg DAILY PRN RECTAL 10/30/17 14:30 (Lactulose Liq) 30 ml DAILY PRN PO 10/30/17 14:30 Aztreonam 1000 mg/ Sodium Chloride 100 ml @ 200 mls/hr Q6H IV 10/30/17 17:00 11/01/17 17:58 (Cardizem Cd) 360 mg DAILY PO 10/31/17 09:00 11/01/17 08:28 (Protonix) 20 mg DAILY PRN PO 10/31/17 00:45 (KCl) 10 meq BID PO 10/31/17 09:00 11/01/17 08:28 (Deltasone) 10 mg DAILY PO 10/31/17 09:00 10/31/17 09:29 (Spiriva Inh) 18 mcg DAILY INH 10/31/17 09:00 11/01/17 08:29 (Duoneb Neb) 1 ampule Q4HR NEB PRN NEB 10/31/17 00:45 11/01/17 04:18 Pharmacy Profile Note 0 ml @ 0 mls/hr UNSCH OTHER 10/31/17 18:15 (Lasix) 20 mg BID@09,18 PO 11/01/17 18:00 11/01/17 17:58 Vancomycin HCl 900 mg/Sodium Chloride 259 ml @ 250 mls/hr Q24H IV 11/01/17 12:00 11/01/17 14:39 Miscellaneous Information SPECIFIC LAB TO BE DRAWN:VANCOMY... ONCE ONCE .XX 11/03/17 11:45 11/03/17 11:46 (Tears Naturale Opth Soln) 1 drop Q4H PRN EACH EYE 11/01/17 16:45 (Benadryl) 25 mg Q6H PRN PO 11/01/17 16:45 A/P Assessment and Plan 1. Sepsis Present on admission. likely 2/2 to suspected PNA. Patient with leukocytosis and tachycardia. Chest x-ray on admission reviewed by me showed mild basilar airspace disease bilaterally. Started on IV Aztreonam due to multiple allergies. Continue. I will start the patient IV vancomycin. 2. Bilateral loculated pleural effusions. Antibiotics as above Consult pulmonology. 10/31 neurology consulted, appreciate recommendations. Loculated pleural effusions likely chronic. Recommendations are to observe at the present time. Pulmonology recommended to do it CT of the chest in a few days and if the effusions seem to be worsening or changing then we'll consider drainage or even surgical intervention. 3. Suspected lymphoma due to weight loss, patient reporting previous diagnosis. Consult oncology. Also check CA 125 10/31 Oncology consult pending. 11/01 appreciate oncology consultation. Patient seen by Dr. Aj. Patient has follicular lymphoma diagnosed in 2005. As per oncology the patient was lost to follow-up. As per oncology recommendations there is no significant adenopathy and patient does not seem to have bulky disease. Oncology recommends follow-up as an outpatient once discharged. Patient will likely need a PET scan as an outpatient. 4. Weight loss. Consult oncology as above. Check TSH, free T4, total T3. 10/31 TSH elevated but with normal free T3 and free T4. 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 5. CKD stage III. Upon review of records the patient has a patent creatinine ranging from 1.0- 1.2. Creatinine likely has baseline. Continue to monitor BUN/creatinine, strict I's and O's and avoid nephrotoxins. 6. PNA - CAP As above. Wean o2 Cotntinue supplemental o2 to keep o2 sat >92%. Discharge Planning Continue to monitor in the medical floor. Adonay Vásquez MD Nov 01, 2017 20:18
[2017-11-02] VITALS (9 sets, daily range): BP systolic 93–110; BP diastolic 51–62; PULSE 68–85; RESP 18–23; TEMP 97.2–97.8; O2SAT 92–98
[2017-11-02] MEDS: diphenhydrAMINE HCL 25 MG CAP PO PRN (02:29)
[2017-11-02] MEDS: HEPARIN SODIUM - SQ 10,000 UNITS/ML VIAL SQ SCH ×2 (02:29→16:56)
[2017-11-02] MEDS: AZTREONAM INJ 1,000 MG in SODIUM CHLORIDE 0.9% INJ 100 ML IV SCH ×3 (06:19→16:56)
--- NOTE | 2017-11-02 07:00 | ECHRPT ---
Indication: CONCLUSIONS Normal left ventricular size. Wall thickness is normal. The left ventricular systolic function is mildly reduced with an estimated ejection fraction in the range of 45- 50%. The left atrial size is moderately dilated. The right atrial size is [id number]-meniooig dilated. Mild mitral valve regurgitation. Mitral annular calcification is present. Moderate thickening of the tricuspid valve leaflets. There is estimated mild pulmonary hypertension present (43 mmHg). BP: / HR: Rhythm: MEASUREMENTS (Male / Female) Normal Values Technical Quality: 2D ECHO LV Diastolic Diameter PLAX 3.2 cm 4.2 - 5.9 / 3.9 - 5.3 cm LV Systolic Diameter PLAX 2.6 cm IVS Diastolic Thickness 0.8 cm 0.6 - 1.0 / 0.6 - 0.9 cm LVPW Diastolic Thickness 0.6 cm 0.6 - 1.0 / 0.6 - 0.9 cm LV Relative Wall Thickness 0.4 RV Internal Dim ED PLAX 2.4 cm LA Systolic Diameter LX 3.8 cm 3.0 - 4.0 / 2.7 - 3.8 cm M-MODE Aortic Root Diameter MM 3.0 cm AV Cusp Separation MM 2.1 cm DOPPLER MR Peak Velocity 434.0 cm/s MR Peak Gradient 75.3 mmHg Mitral E Point Velocity 99.3 cm/s TR Peak Velocity 288.0 cm/s TR Peak Gradient 33.2 mmHg Right Atrial Pressure 10.0 mmHg Pulmonary Artery Systolic Pressu 43.2 mmHg Right Ventricular Systolic Press 43.2 mmHg FINDINGS LEFT VENTRICLE Normal left ventricular size. Wall thickness is normal. The left ventricular systolic function is mildly reduced with an estimated ejection fraction in the range of 45- 50%. RIGHT VENTRICLE Normal right ventricular size and systolic function. LEFT ATRIUM The left atrial size is moderately dilated. RIGHT ATRIUM The right atrial size is oinsxskn-fo-mddkfrnb dilated. ATRIAL SEPTUM Normal atrial septal thickness without atrial level shunting by limited color doppler interrogation. AORTA The aortic root and proximal ascending aorta are normal in size on limited imaging. MITRAL VALVE Mild mitral valve regurgitation. Mitral annular calcification is present. AORTIC VALVE Trileaflet aortic valve. No aortic valve stenosis or regurgitation. TRICUSPID VALVE Moderate thickening of the tricuspid valve leaflets. There is estimated mild pulmonary hypertension present (43 mmHg). PULMONARY VALVE No pulmonary valve regurgitation or stenosis. VESSELS The inferior vena cava is normal in size. PERICARDIUM No pericardial effusion. Feliciano Yin MD (Electronically Signed) Final Date:02 November 2017 07:00
[2017-11-02 08:18] LABS: AUTOMATED NEUTROPHIL # 11.5 TH/MM3 (1.8-7.7); BASOPHIL # 0.1 TH/MM3 (0-0.2); BASOPHIL % 0.8 % (0.0-2.0); EOSINOPHIL # 0.2 TH/MM3 (0-0.4); EOSINOPHIL % 0.9 % (0.0-4.0); HEMATOCRIT 33.7 % (35.0-46.0); HEMOGLOBIN 11.2 GM/DL (11.6-15.3); LYMPH % 22.5 % (9.0-44.0); LYMPHOCYTE # 3.9 TH/MM3 (1.0-4.8); MEAN CELL VOLUME 91.6 FL (80.0-100.0); MEAN CORPUSCULAR HEMOGLOBIN 30.5 PG (27.0-34.0); MEAN CORPUSCULAR HGB CONC 33.3 % (32.0-36.0); MEAN PLATELET VOLUME 8.1 FL (7.0-11.0); MONO % 10.1 % (0.0-8.0); MONOCYTE # 1.8 TH/MM3 (0-0.9); NEUT % 65.7 % (16.0-70.0); PLATELET COUNT 358 TH/MM3 (150-450); RED BLOOD COUNT 3.68 MIL/MM3 (4.00-5.30); RED CELL DISTRIBUTION WIDTH 18.7 % (11.6-17.2); WHITE BLOOD COUNT 17.5 TH/MM3 (4.0-11.0)
[2017-11-02 08:53] LABS: ALBUMIN 2.6 GM/DL (3.4-5.0); ALKALINE PHOSPHATASE 120 U/L (45-117); ALT (GPT) 16 U/L (10-53); AST (GOT) 36 U/L (15-37); BLOOD UREA NITROGEN 41 MG/DL (7-18); CALCIUM 8.5 MG/DL (8.5-10.1); CHLORIDE 101 MEQ/L (98-107); GLOMERULAR FILTRATION RATE 33 ML/MIN (>89); GLUCOSE,RANDOM 82 MG/DL (74-106); MAGNESIUM 1.9 MG/DL (1.5-2.5); PHOSPHORUS 2.6 MG/DL (2.5-4.9); SODIUM (NA) 136 MEQ/L (136-145); TOTAL BILIRUBIN ADULT 0.3 MG/DL (0.2-1.0); TOTAL PROTEIN 5.4 GM/DL (6.4-8.2)
[2017-11-02] MEDS: TIOTROPIUM BROMIDE 18 MCG INH INH SCH (08:53)
[2017-11-02] MEDS: POTASSIUM CHLORIDE 10 MEQ CAP PO SCH (08:54)
[2017-11-02] MEDS: DILTIAZEM-CD 180 MG CAP ER PO SCH (08:55)
[2017-11-02] MEDS: predniSONE 10 MG TAB PO SCH ×2 (08:55→08:57)
[2017-11-02] MEDS: SODIUM CHLORIDE 0.9% FLUSH 10 ML FLUSH IV FLUSH SCH ×2 (08:55→21:14)
[2017-11-02] MEDS: FUROSEMIDE 20 MG TAB PO SCH (08:55)
--- NOTE | 2017-11-02 09:34 | RADRPT ---
EXAM DATE/TIME: 11/02/2017 09:18 [facility] COMPARISON: CHEST SINGLE AP, October 30, 2017, 11:46. INDICATIONS : Chronic Obstructive Pulmonary Disease. Patient complains of shortness of breath and congestion. MEDICAL HISTORY : Chronic obstructive pulmonary disease. Emphysema. Carcinoma, breast.ovarian cysts SURGICAL HISTORY : None. ENCOUNTER: Subsequent ACUITY: 4 - 6 days PAIN SCORE: 0/10 LOCATION: Bilateral chest FINDINGS: Pacemaker on the left. Cardiomegaly with mild interstitial edema. Bibasilar consolidative changes w ith small bilateral pleural effusions larger on the right. There is no pneumothorax. CONCLUSION: Deterioration with increasing bibasilar parenchymal changes and effusion on the right . Jarad Valdivia MD FACR on November 02, 2017 at 9:29 Board Certified Radiologist. This report was verified electronically.
[2017-11-02] MEDS: RESP: ALBUTEROL 2.5 MG/IPRATROPIUM 0.5 MG NEB (PRN) NEB ×3 (09:42→21:32)
[2017-11-02] MEDS ORDERED: SODIUM CHLOR 0.9% 1000 ML INJ 1,000 ML IV SCH (10:15)
--- NOTE | 2017-11-02 11:51 | RADRPT ---
EXAM DATE/TIME: 11/02/2017 10:20 [facility] COMPARISON: No previous studies available for comparison. INDICATIONS : Right pleural effusion. MEDICAL HISTORY : Chronic obstructive pulmonary disease. Congestive heart failure. Dizziness. Emphysema. Afib. Rhruma toid arthritis. Ovarian mass. Anxiety. Right breast cancer. Throat cancer. Non Hodgkins Lymphoma. Daphne sles. Felty's syndrome. blood transfusion. SURGICAL HISTORY : Splenectomy. Cholecystectomy. Mastectomy, right. Bilateral lens replacement. Pacemaker. Partial thyro idectomy. Lymph node dissection. ENCOUNTER: Initial ACUITY: 1 day PAIN SCORE: 0/10 LOCATION: Right chest MEASUREMENTS: SKIN TO PARIETAL PLEURA: 1.8 cm SKIN TO MAX SAFE DEPTH: 2.2 cm ESTIMATED FLUID VOLUME: 151 cc FLUID COMPOSITION: complex FINDINGS: No marking was performed. Volume of pleural fluid insufficient to allow safe bedside thoracentesis CONCLUSION: Small volume right pleural effusion Kirt Hale MD on November 02, 2017 at 11:48 Board Certified Radiologist. This report was verified electronically.
--- NOTE | 2017-11-02 11:52 | RADRPT ---
EXAM DATE/TIME: 11/02/2017 10:22 [facility] COMPARISON: No previous studies available for comparison. INDICATIONS : Left pleural effusion. MEDICAL HISTORY : Chronic obstructive pulmonary disease. Congestive heart failure. Dizziness. Emphysema. Afib. Rhruma toid arthritis. Ovarian mass. Anxiety. Right breast cancer. Throat cancer. Non Hodgkins Lymphoma. Daphne sles. Felty's syndrome. blood transfusion. SURGICAL HISTORY : Splenectomy. Cholecystectomy. Mastectomy, right. Bilateral lens replacement. Pacemaker. Partial thyro idectomy. Lymph node dissection. ENCOUNTER: Initial ACUITY: 1 day PAIN SCORE: 0/10 LOCATION: Left chest MEASUREMENTS: SKIN TO PARIETAL PLEURA: 1.7 cm SKIN TO MAX SAFE DEPTH: 2.6 cm ESTIMATED FLUID VOLUME: 154 cc FLUID COMPOSITION: complex FINDINGS: No marking was performed. Fluid volume insufficient to allow safe bedside thoracentesis. CONCLUSION: Low volume left pleural effusion Kirt Hale MD on November 02, 2017 at 11:49 Board Certified Radiologist. This report was verified electronically.
--- NOTE | 2017-11-02 13:39 | PD.CONS ---
[facility] Service Nephrology Consult Requested By Dr. Dougherty Reason for Consult ARG/CKD Primary Care Physician Manjit Hook MD History of Present Illness Patient is a 87-year-old white female with history of rheumatoid arthritis, chronic kidney disease stage III. 1.1-1.2, congestive heart failure, pacemaker , she was admitted with increasing shortness of breath and treated for pneumonia , she was on Lasix if creatinine is 1.5 now patient is passing urine she does get peripheral edema she has disability due to her rheumatoid arthritis. She denies any dysuria burning, she has a low-grade lymphoma which has been also and currently has been under observation. Review of Systems Constitutional: COMPLAINS OF: Fatigue Respiratory: COMPLAINS OF: Cough, Shortness of breath Cardiovascular: COMPLAINS OF: Lower Extremity Edema, Orthopnea Musculoskeletal: COMPLAINS OF: Joint pain, Muscle aches, Joint Swelling, Back pain Neurologic: COMPLAINS OF: Abnormal gait Past Family Social History Allergies: Coded Allergies: budesonide (Unverified Allergy, Severe, Anaphylaxis, 10/30/17) cephalexin (Unverified Allergy, Severe, 10/30/17) clarithromycin (Unverified Allergy, Severe, Rash, 10/30/17) diphenhydramine (Unverified Allergy, Severe, Rash and hot all over, 10/30/17 ) formoterol (Unverified Allergy, Severe, Anaphylaxis, 10/30/17) iodine (Unverified Allergy, Severe, 10/30/17) iopamidol (Unverified Allergy, Severe, DO NOT PREMEDICATE-PT HAS ANAPHLYXIS, 10/30/17) levofloxacin (Unverified Allergy, Severe, SEVERE ITCHING, 10/30/17) oxycodone (Unverified Allergy, Severe, Itching, 10/30/17) penicillin G (Unverified Allergy, Severe, 10/30/17) potassium iodide (Unverified Allergy, Severe, 10/30/17) povidone-iodine (Unverified Allergy, Severe, 10/30/17) sodium iodide (Unverified Allergy, Severe, 10/30/17) fluticasone (Unverified Allergy, Intermediate, Edema-SPOKE TO YONATHAN HILLIARD SAID PT TAKE NO PROBLEM, 10/30/17) fluticasone furoate (Unverified Allergy, Intermediate, Edema-SPOKE TO YONATHAN HILLIARD SAID PT TAKE NO PROBLEM, 10/30/17) salmeterol (Unverified Allergy, Intermediate, Edema-SPOKE TO YONATHAN HILLIARD SAID PT TAKE NO PROBLEM, 10/30/17) azithromycin (Unverified Allergy, Unknown, 10/30/17) Uncoded Allergies: beef,pork,seafood (Adverse Reaction, Unknown, 10/30/17) Past Medical History Rheumatoid arthritis Atrial fibrillation Asthma Right breast cancer throat cancer. Reportedly non-Hodgkin's lymphoma Congestive heart failure Thyroid nodule Felty syndrome COPD Past Surgical History Right mastectomy Lymph node dissection History of ovarian mass resection Partial thyroidectomy Cholecystectomy Splenectomy. Pacemaker placement Reported Medications Reported Meds & Active Scripts Active Oxygen tank (Oxygen) 1 Ea Tank 2 Liter SHARMAINE.CANULA CONTINUOUS Oxygen Concentrator Portable Gaseous 2 L/min via Nasal Cannula Continuous For 99 months Protonix (Pantoprazole Sodium) 20 Mg Tab 20 Mg PO DAILY PRN Prednisone 5 Mg Tab 5 Mg PO DAILY 30 Days 4 tablets (20 mg) daily x 3 days then 3 tabs (15 mg) daily x 3 days then 10 mg daily- maintenance dose Spiriva Handihaler (Tiotropium Inh) 18 Mcg Cap 18 Mcg INH DAILY 30 Days Cardizem CD 24 HR (Diltiazem CD 24 HR) 180 Mg Caper 360 Mg PO DAILY 30 Days Albuterol Neb (Albuterol Sulfate) 2.5 Mg/3 Ml Neb 2.5 Mg INH Q2HR NEB PRN 10 Days Ventolin Hfa 18 GM Inh (Albuterol Sulfate) 90 Mcg/Act Aer 2 Puff INH Q6H 30 Days Reported Hydralazine HCl 25 Mg Tablet 25 Mg PO Q8HR Prednisone 10 Mg Tab 10 Mg PO DAILY Lasix (Furosemide) 20 Mg Tab 20 Mg PO BID Potassium Chloride ER (Potassium Chloride) 10 Meq Cap 10 Meq PO BID Active Ordered Medications Current Medications Medications (Trade) Dose Ordered Sig/Madeleine Route Start Time Stop Time Status Last Admin (NS Flush) 2 ml UNSCH PRN IV FLUSH 10/30/17 14:30 (NS Flush) 2 ml BID IV FLUSH 10/30/17 21:00 11/02/17 08:55 (Zofran Inj) 4 mg Q6H PRN IVP 10/30/17 14:30 (Heparin Inj) 5,000 units Q12H SQ 10/30/17 15:00 11/02/17 02:29 (Narcan Inj) 0.4 mg UNSCH PRN IV PUSH 10/30/17 14:30 (Milk Of Magnesia Liq) 30 ml Q12H PRN PO 10/30/17 14:30 (Senokot) 17.2 mg Q12H PRN PO 10/30/17 14:30 (Dulcolax Supp) 10 mg DAILY PRN RECTAL 10/30/17 14:30 (Lactulose Liq) 30 ml DAILY PRN PO 10/30/17 14:30 Aztreonam 1000 mg/ Sodium Chloride 100 ml @ 200 mls/hr Q6H IV 10/30/17 17:00 11/02/17 10:58 (Cardizem Cd) 360 mg DAILY PO 10/31/17 09:00 11/02/17 08:55 (Protonix) 20 mg DAILY PRN PO 10/31/17 00:45 (KCl) 10 meq BID PO 10/31/17 09:00 11/02/17 08:54 (Deltasone) 10 mg DAILY PO 10/31/17 09:00 10/31/17 09:29 (Spiriva Inh) 18 mcg DAILY INH 10/31/17 09:00 11/02/17 08:53 (Duoneb Neb) 1 ampule Q4HR NEB PRN NEB 10/31/17 00:45 11/02/17 09:42 (Tears Naturale Opth Soln) 1 drop Q4H PRN EACH EYE 11/01/17 16:45 11/02/17 11:28 (Benadryl) 25 mg Q6H PRN PO 11/01/17 16:45 11/02/17 02:29 Sodium Chloride 1,000 ml @ 42 mls/hr [id number] IV 11/02/17 10:15 11/02/17 10:58 Family History Noncontributory Social History Denies smoking or alcohol use Physical Exam Vital Signs Vital Signs Date Time Temp Pulse Resp B/P (MAP) Pulse Ox O2 Delivery O2 Flow Rate FiO2 11/02/17 08:00 97.2 73 18 103/55 (71) 98 11/02/17 04:04 85 11/02/17 04:00 Nasal Cannula 3.00 11/02/17 04:00 97.8 77 22 96/62 (73) 97 11/02/17 00:09 70 11/02/17 00:00 Nasal Cannula 3.00 11/02/17 00:00 97.4 68 23 103/52 (69) 93 11/01/17 23:20 96 Nasal Cannula 3.00 11/01/17 20:27 74 11/01/17 20:00 Nasal Cannula 3.00 11/01/17 19:59 98.2 69 18 104/56 (72) 96 11/01/17 16:00 97.3 70 20 115/57 (76) 99 Physical Exam GENERAL: Well-nourished, well-developed patient. SKIN: Warm and dry. HEAD: Normocephalic. EYES: No scleral icterus. No injection or drainage. NECK: Supple, trachea midline. No JVD or lymphadenopathy. CARDIOVASCULAR: History of pacemaker rhythm irregular edema 1+ RESPIRATORY: Breath sounds diminished at bases GASTROINTESTINAL: Abdomen soft, non-tender, nondistended. EXTREMITIES: No cyanosis, 1+ edema. Has arthritis in both hands NEUROLOGICAL: Awake, alert, and oriented x 3. Non-focal. Laboratory Laboratory Tests Test 11/02/17 07:25 White Blood Count 17.5 Red Blood Count 3.68 Hemoglobin 11.2 Hematocrit 33.7 Mean Corpuscular Volume 91.6 Mean Corpuscular Hemoglobin 30.5 Mean Corpuscular Hemoglobin Concent 33.3 Red Cell Distribution Width 18.7 Platelet Count 358 Mean Platelet Volume 8.1 Neutrophils (%) (Auto) 65.7 Lymphocytes (%) (Auto) 22.5 Monocytes (%) (Auto) 10.1 Eosinophils (%) (Auto) 0.9 Basophils (%) (Auto) 0.8 Neutrophils # (Auto) 11.5 Lymphocytes # (Auto) 3.9 Monocytes # (Auto) 1.8 Eosinophils # (Auto) 0.2 Basophils # (Auto) 0.1 CBC Comment DIFF FINAL Differential Comment Blood Urea Nitrogen 41 Creatinine 1.50 Random Glucose 82 Total Protein 5.4 Albumin 2.6 Calcium Level 8.5 Phosphorus Level 2.6 Magnesium Level 1.9 Alkaline Phosphatase 120 Aspartate Amino Transf (AST/SGOT) 36 Alanine Aminotransferase (ALT/SGPT) 16 Total Bilirubin 0.3 Sodium Level 136 Potassium Level 4.1 Chloride Level 101 Carbon Dioxide Level 28.0 Anion Gap 7 Estimat Glomerular Filtration Rate 33 Date/Time Source Procedure Growth Status 10/30/17 11:45 Blood Peripheral Aerobic Blood Culture - Preliminary NO GROWTH IN 3 DAYS Resulted 10/30/17 11:45 Blood Peripheral Anaerobic Blood Culture - Preliminary NO GROWTH IN 3 DAYS Resulted 10/30/17 13:40 Nasal Aspirate Influenza Types A,B Antigen (DEBBIE) - Final NEGATIVE FOR FLU A AND B ANTIGEN.... Complete Result Diagram: 11/02/17 0725 11/02/17 0725 Imaging Last Impressions Chest X-Ray 11/02/17 0000 Signed Impressions: Service Date/Time: Thursday, November 02, 2017 09:18 - CONCLUSION: Deterioration with increasing bibasilar parenchymal changes and effusion on the right. Jarad Valdivia MD FACR Chest Ultrasound 11/02/17 0000 Signed Impressions: Service Date/Time: Thursday, November 02, 2017 10:20 - CONCLUSION: Small volume right pleural effusion Kirt Hale MD Abdomen/Pelvis CT 10/30/17 0000 Signed Impressions: Service Date/Time: Monday, October 30, 2017 11:57 - CONCLUSION: 1. Small loculated bilateral pleural effusions with basilar atelectasis. 2. Cardiomegaly. Mild anasarca. Trace free fluid in the abdomen and pelvis. 3. No bowel obstruction. Colonic diverticulosis without diverticulitis. Dat Whiteside MD Assessment and Plan Problem List: (1) Acute kidney injury ICD Codes: N17.9 - Acute kidney failure, unspecified Status: Acute Plan: Patient has been on diuretics this was stopped today she is on NS at 42 cc/hr she is passing urine she had severe decompensated congestive heart failure and this was treated the Will monitor renal functions stop K supplements Baseline kidney ultrasound has been ordered Follow BMP Avoid nephrotoxins (2) Atrial fibrillation with RVR ICD Codes: I48.91 - Unspecified atrial fibrillation Status: Acute Plan: Patient has pacemaker (3) COPD exacerbation ICD Codes: J44.1 - Chronic obstructive pulmonary disease with (acute) exacerbation Status: Acute Plan: On antibiotics and steroids (4) Pneumonia ICD Codes: J18.9 - Pneumonia, unspecified organism Status: Acute Plan: Patient is on aztreonam Problem Qualifiers (1) Pneumonia: Qualified Codes: J18.9 - Pneumonia, unspecified organism Shakir Gurrola MD Nov 02, 2017 13:39
--- NOTE | 2017-11-02 14:30 | MB ---
cc: INOCENCIA CABRERA MD DATE OF CONSULTATION: 11/02/[address] Dougherty. REASON FOR CONSULTATION: 1. Worsening infiltrates and leukocytosis. 2. Multiple antibiotic allergies. 3. Possible allergic reaction to antibiotic. HISTORY OF PRESENT ILLNESS This is a 87-year-old white female who came to emergency department on 10/30. The patient was experiencing abdominal pain. She states that she had abdominal pain for about 5 days before. She states that she felt like she had a broken ovarian cyst. After couple of days she noted some tissue which looked like thin skin coming through her urine. She continued to have lower abdominal pain up until the time she was admitted which was 5 days after she felt the initial abdominal pain from what she describes as ovarian cyst rupture. The patient states that she was taking aspirin up to 313 every 4 hours for about 5 days because of the pain. She denied chest pain or shortness of breath in the emergency department but she states that she was having some itching on the back and the neck and her head. She also notes that she was having profound fatigue. She has a history of rheumatoid arthritis and has been on prednisone. In the emergency department the temperature was 100.5 degrees and heart rate was 101 and white count was 15.3. Lactic acid level was 1.2. Urinalysis was performed and was unremarkable. Chest x-ray was performed and it showed mild bilateral airspace disease, possibly from infection versus mild edema. There is also cardiomegaly noted and bilateral pleural effusions. The patient states that she gets cold but that is not new for her. Blood cultures taken on admission has no growth. Influenza test is negative. White count went up to 10.4 on 07/22 and then is back up to 17.5 today. She is sitting upright in bed and does not appear to be in any acute distress but she has oxygen in place via nasal cannula and she tells me that she gets dyspnea whenever she exerts herself such as getting out of bed to go to the bedside commode and then getting back into bed. She denies backache or pain. She has no diarrhea. She states that she coughs and bring up thick mucous and sputum in the morning but after that she does not have any significant cough or sputum production. PAST MEDICAL HISTORY 1. Rheumatoid arthritis. 2. There is non-Hodgkin's lymphoma 3. Atrial fibrillation Asthma 4. COPD 5. History of congestive heart failure. 6. Thyroid nodule 7. Felty syndrome 8. Right mastectomy 9. History of ovarian mass resection. 10. Partial thyroidectomy. 11. Cholecystectomy. 12. Splenectomy. 13. Pacemaker placement 8 years ago. ALLERGIES CEPHALEXIN CLARITHROMYCIN PENICILLIN G AZITHROMYCIN SALMETEROL FLUTICASONE SODIUM IODIDE POTASSIUM IODIDE OXYCODONE LEVAQUIN IOPAMIDOL IODINE FORMOTEROL DIPHENHYDRAMINE BUDESONIDE REVIEW OF SYSTEMS No tobacco, occasional alcohol. No illicit drugs. FAMILY HISTORY Noncontributory. REVIEW OF SYSTEMS CONSTITUTIONAL: Significant for fever. HEAD, EYES, EARS, NOSE, AND THROAT: significant for visual blurring. No diplopia. No nasal drainage or bleeding. No short no difficulty swallowing. CARDIOVASCULAR SYSTEM: Denies palpitations or chest pain. RESPIRATORY: Significant for shortness of breath. GASTROINTESTINAL: Positive for abdominal pain. Denies diarrhea. Denies nausea or vomiting. GENITOURINARY: Denies urgency, frequency or dysuria. HEMATOPOETIC: Significant for easy bruising. MUSCULOSKELETAL: reports swelling of the legs. INTEGUMENTARY: Significant for itching of the skin. Patient reports flaking of the skin of the lower extremities also weeping of the skin of the lower extremities. NEUROLOGIC: No problems with coordination. PSYCHIATRIC: Denies depression. PHYSICAL EXAMINATION IN GENERAL: This is a frail elderly female who is in no acute distress. She looks chronically ill. VITAL SIGNS: Temperature 97.2, BP 1-55, respirations 18, heart rate 73. HEAD, EYES, EARS, NOSE, AND THROAT: The Head is atraumatic. Extraocular movements grossly intact, pupils reactive to light. No icterus. The oropharynx has moist mucosa without thrush or lesions. NECK: The neck is supple without adenopathy. LUNGS: Slight rhonchi at the bases. HEART: Regular rate and rhythm without murmurs, rubs or gallops. ABDOMEN: Bowel sounds present, soft, no tenderness appreciated. RECTAL: Not performed. EXTREMITIES: The lower extremities have erythema and there is flaky skin at the legs. The both legs are approximately 1+ swelling. No drainage visible at the legs. The upper extremities have a few ecchymosis and but no edema. SKIN: Erythematous areas including the legs at the tibias and also the upper back and posterior aspect of the neck. No diffuse rash. NEUROLOGIC: No gross focal findings. PSYCHIATRIC: The patient is calm and cooperative. LABORATORY DATA WBC 17.5, 55% neutrophils, 22% lymphocytes, 10% monocytes, hemoglobin 11.2, platelet count 358, creatinine 1.50, BUN 41, estimated GFR 33. Liver function tests normal. Ultrasound of the chest showed small volume bilateral pleural effusions A chest x-ray showed increased bibasilar parenchymal changes. IMPRESSION 1. Leukocytosis 2. Bilateral lung infiltrates / effusion. 3. Patient with history of COPD and also history of CHF. The patient very likely has elevated white blood cell count of on the basis of steroids. The differential on the CBC is not remarkable. She also has no fever currently. She does have bilateral lung infiltrates but it appears that she has effusions as well. She has itching of the back and the back of the neck and has multiple antibiotic allergies. She has not received any antibiotic that should cause severe allergic reaction. However, she did receive aztreonam which is a Spink lactam and sometimes there can be a cross reaction with beta lactamase antibiotics. RECOMMENDATIONS 1. Discontinue aztreonam. 2. Try to obtain a sputum culture for evaluation. 3. Follow the patient without antibiotics for now unless she has fever or white blood cell count continues to increase and left shift becomes apparent. Because of absence of the spleen she can be started on linezolid at least until further evaluation is done. The progress will be monitored and further recommendations will be made on followup if necessary. Thank you for this consultation. Inocencia Cabrera MD FD/socorro /1:05 PM /1:36 PM TALAT
--- NOTE | 2017-11-02 15:41 | RADRPT ---
EXAM DATE/TIME: 11/02/2017 14:38 [facility] COMPARISON: No previous studies available for comparison. INDICATIONS : Increased BUN/Creatinine. MEDICAL HISTORY : Chronic obstructive pulmonary disease. Congestive heart failure. Dizziness. Right breast cancer. Thr oat cancer. Non Hodgkins Lymphoma. Measles. Felty's syndrome. blood transfusion. SURGICAL HISTORY : Splenectomy. Cholecystectomy. Mastectomy, right. Bilateral lens replacement. Pacemaker. Partial thyro idectomy. Lymph node dissection. ENCOUNTER: Initial ACUITY: 1 day PAIN SCORE: 0/10 LOCATION: Bilateral neck MEASUREMENTS: RIGHT KIDNEY: 9.7 x 4.4 x 3.9 cm LEFT KIDNEY: 10.0 x 4.9 x 4.1 cm FINDINGS: RIGHT KIDNEY: Diffuse increase in renal cortical echogenicity. No evidence of hydronephrosis. No stone or mass. Tin y cyst present in the lower pole cortex. LEFT KIDNEY: Diffuse increase in renal cortical echogenicity. No evidence of hydronephrosis. No stones. A couple o f cysts present, largest a slightly greater than 3 cm cyst in the midpole cortex. BLADDER: Within normal limits given the degree of distension. CONCLUSION: Increased renal cortical echogenicity consistent with medical renal disease. No evidence of hydroneph rosis. Kirt Hale MD on November 02, 2017 at 15:32 Board Certified Radiologist. This report was verified electronically.
--- NOTE | 2017-11-02 19:03 | HHI.PR ---
Subjective Remarks worsening creatinine. Denies cp, states she still feels sick and gets very sob with minimal exertion. Denies fevers or chills. Objective Vitals Vital Signs Date Time Temp Pulse Resp B/P (MAP) Pulse Ox O2 Delivery O2 Flow Rate FiO2 11/02/17 17:06 92 Nasal Cannula 3.00 11/02/17 12:00 97.5 72 22 104/59 (74) 97 11/02/17 08:00 76 11/02/17 08:00 Nasal Cannula 4.00 11/02/17 08:00 97.2 73 18 103/55 (71) 98 11/02/17 04:04 85 11/02/17 04:00 Nasal Cannula 3.00 11/02/17 04:00 97.8 77 22 96/62 (73) 97 11/02/17 00:09 70 11/02/17 00:00 Nasal Cannula 3.00 11/02/17 00:00 97.4 68 23 103/52 (69) 93 11/01/17 23:20 96 Nasal Cannula 3.00 11/01/17 20:27 74 11/01/17 20:00 Nasal Cannula 3.00 11/01/17 19:59 98.2 69 18 104/56 (72) 96 I/O 11/01/17 11/01/17 11/01/17 11/02/17 11/02/17 11/02/17 07:00 15:00 23:00 07:00 15:00 23:00 Intake Total 460 ml 280 ml Output Total 400 ml 500 ml Balance 60 ml -220 ml Intake Oral 360 ml 280 ml IV Total 100 ml Output Urine Total 400 ml 500 ml # Voids 3 # Bowel Movements 1 Result Diagram: 11/02/17 0725 11/02/17 0725 Imaging Last Impressions Renal Ultrasound 11/02/17 0000 Signed Impressions: Service Date/Time: Thursday, November 02, 2017 14:38 - CONCLUSION: Increased renal cortical echogenicity consistent with medical renal disease. No evidence of hydronephrosis. Kirt Hale MD Chest X-Ray 11/02/17 0000 Signed Impressions: Service Date/Time: Thursday, November 02, 2017 09:18 - CONCLUSION: Deterioration with increasing bibasilar parenchymal changes and effusion on the right. Jarad Valdivia MD FACR Chest Ultrasound 11/02/17 0000 Signed Impressions: Service Date/Time: Thursday, November 02, 2017 10:20 - CONCLUSION: Small volume right pleural effusion Kirt Hale MD Abdomen/Pelvis CT 10/30/17 0000 Signed Impressions: Service Date/Time: Monday, October 30, 2017 11:57 - CONCLUSION: 1. Small loculated bilateral pleural effusions with basilar atelectasis. 2. Cardiomegaly. Mild anasarca. Trace free fluid in the abdomen and pelvis. 3. No bowel obstruction. Colonic diverticulosis without diverticulitis. Dat Whiteside MD Objective Remarks GENERAL: This is a well-nourished, well-developed patient, in mild respiratory distress. SKIN: No rashes, ecchymoses or lesions. Cool and dry. HEAD: Atraumatic. Normocephalic. No temporal or scalp tenderness. EYES: Pupils equal round and reactive. Extraocular motions intact. No scleral icterus. No injection or drainage. ENT: Nose without bleeding, purulent drainage or septal hematoma. Throat without erythema, tonsillar hypertrophy or exudate. Uvula midline. Airway patent. NECK: Trachea midline. No JVD or lymphadenopathy. Supple, nontender, no meningeal signs. CARDIOVASCULAR: Regular rate and rhythm without murmurs, gallops, or rubs. RESPIRATORY: Clear to auscultation. Breath sounds equal bilaterally. No wheezes , rales, or rhonchi. GASTROINTESTINAL: Abdomen soft, non-tender, nondistended. No hepato-splenomegaly , or palpable masses. No guarding. MUSCULOSKELETAL: Extremities without clubbing, cyanosis, or edema. No joint tenderness, effusion, or edema noted. No calf tenderness. Negative Homans sign bilaterally. NEUROLOGICAL: Awake and alert. Cranial nerves II through XII intact. Motor and sensory grossly within normal limits. Five out of 5 muscle strength in all muscle groups. Normal speech Medications and IVs Current Medications Medications (Trade) Dose Ordered Sig/Madeleine Route Start Time Stop Time Status Last Admin (NS Flush) 2 ml UNSCH PRN IV FLUSH 10/30/17 14:30 (NS Flush) 2 ml BID IV FLUSH 10/30/17 21:00 11/02/17 08:55 (Zofran Inj) 4 mg Q6H PRN IVP 10/30/17 14:30 (Heparin Inj) 5,000 units Q12H SQ 10/30/17 15:00 11/02/17 16:56 (Narcan Inj) 0.4 mg UNSCH PRN IV PUSH 10/30/17 14:30 (Milk Of Magnesia Liq) 30 ml Q12H PRN PO 10/30/17 14:30 (Senokot) 17.2 mg Q12H PRN PO 10/30/17 14:30 (Dulcolax Supp) 10 mg DAILY PRN RECTAL 10/30/17 14:30 (Lactulose Liq) 30 ml DAILY PRN PO 10/30/17 14:30 Aztreonam 1000 mg/ Sodium Chloride 100 ml @ 200 mls/hr Q6H IV 10/30/17 17:00 11/02/17 16:56 (Cardizem Cd) 360 mg DAILY PO 10/31/17 09:00 11/02/17 08:55 (Protonix) 20 mg DAILY PRN PO 10/31/17 00:45 (Deltasone) 10 mg DAILY PO 10/31/17 09:00 10/31/17 09:29 (Spiriva Inh) 18 mcg DAILY INH 10/31/17 09:00 11/02/17 08:53 (Duoneb Neb) 1 ampule Q4HR NEB PRN NEB 10/31/17 00:45 11/02/17 17:06 (Tears Naturale Opth Soln) 1 drop Q4H PRN EACH EYE 11/01/17 16:45 11/02/17 11:28 (Benadryl) 25 mg Q6H PRN PO 11/01/17 16:45 11/02/17 02:29 Sodium Chloride 1,000 ml @ 42 mls/hr [id number] IV 11/02/17 10:15 11/02/17 10:58 A/P Problem List: (1) Sepsis ICD Code: A41.9 - Sepsis, unspecified organism Status: Acute (2) Bilateral pleural effusion ICD Code: J90 - Pleural effusion, not elsewhere classified Status: Acute (3) CKD (chronic kidney disease), stage III ICD Code: N18.3 - Chronic kidney disease, stage 3 (moderate) (4) Acute kidney injury ICD Code: N17.9 - Acute kidney failure, unspecified Status: Acute (5) Pneumonia ICD Code: J18.9 - Pneumonia, unspecified organism Status: Acute (6) Itching ICD Code: L29.9 - Pruritus, unspecified Status: Acute Plan: I ordered Benadryl. Patient has history of multiple allergies. There is a macular rash on the patient's back. Patient is not receiving however any of the medications that could potentially cause a severe allergic reaction. Assessment and Plan 1. Sepsis Present on admission. likely 2/2 to suspected PNA. Patient with leukocytosis and tachycardia. Chest x-ray on admission reviewed by me showed mild basilar airspace disease bilaterally. Started on IV Aztreonam due to multiple allergies and on IV Vancomycin on 11/01. 11/02 Consult infectious disease. Repeat chest x-ray obtained on 05/02/18 shows deterioration with increasing bibasilar parenchymal changes and effusion on the right. I will order a chest ultrasound to assess pleural effusions bilaterally. Patient also has worsening leukocytosis with worsening image on x- ray. I will order an infectious disease consultation for further recommendations on antibiotic management given that there are multiple allergies present. 2. Bilateral loculated pleural effusions. Antibiotics as above Consult pulmonology. 10/31 pulmonology consulted, appreciate recommendations. Loculated pleural effusions likely chronic. Recommendations are to observe at the present time. Pulmonology recommended to do it CT of the chest in a few days and if the effusions seem to be worsening or changing then we'll consider drainage or even surgical intervention. 3. Suspected lymphoma due to weight loss, patient reporting previous diagnosis. Consult oncology. Also check CA 125 10/31 Oncology consult pending. 11/01 appreciate oncology consultation. Patient seen by Dr. Aj. Patient has follicular lymphoma diagnosed in 2005. As per oncology the patient was lost to follow-up. As per oncology recommendations there is no significant adenopathy and patient does not seem to have bulky disease. Oncology recommends follow-up as an outpatient once discharged. Patient will likely need a PET scan as an outpatient. 4. Weight loss. Consult oncology as above. Check TSH, free T4, total T3. 10/31 TSH elevated but with normal free T3 and free T4. 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 5. CKD stage III. Upon review of records the patient has a patent creatinine ranging from 1.0- 1.2. Creatinine likely has baseline. Continue to monitor BUN/creatinine, strict I's and O's and avoid nephrotoxins. 6. PNA - CAP As above. Wean o2 Cotntinue supplemental o2 to keep o2 sat >92%. 7. TEDDY Creatinine trending up from 1.0 and admission to 1.5 on 04/10. I will consult nephrology. Discharge Planning Continue to monitor in the medical floor. Problem Qualifiers (1) Sepsis: Qualified Codes: A41.9 - Sepsis, unspecified organism (2) Pneumonia: Qualified Codes: J18.9 - Pneumonia, unspecified organism Adonay Vásquez MD Nov 02, 2017 19:03
--- NOTE | 2017-11-02 19:26 | HHI.PR ---
Subjective Remarks alert no sob at rest , positive with minimal exertion Objective Vital Signs Date Time Temp Pulse Resp B/P (MAP) Pulse Ox O2 Delivery O2 Flow Rate FiO2 11/02/17 17:06 92 Nasal Cannula 3.00 11/02/17 12:00 97.5 72 22 104/59 (74) 97 11/02/17 08:00 76 11/02/17 08:00 Nasal Cannula 4.00 11/02/17 08:00 97.2 73 18 103/55 (71) 98 11/02/17 04:04 85 11/02/17 04:00 Nasal Cannula 3.00 11/02/17 04:00 97.8 77 22 96/62 (73) 97 11/02/17 00:09 70 11/02/17 00:00 Nasal Cannula 3.00 11/02/17 00:00 97.4 68 23 103/52 (69) 93 11/01/17 23:20 96 Nasal Cannula 3.00 11/01/17 20:27 74 11/01/17 20:00 Nasal Cannula 3.00 11/01/17 19:59 98.2 69 18 104/56 (72) 96 I/O 11/01/17 11/01/17 11/01/17 11/02/17 11/02/17 11/02/17 07:00 15:00 23:00 07:00 15:00 23:00 Intake Total 460 ml 280 ml Output Total 400 ml 500 ml Balance 60 ml -220 ml Intake Oral 360 ml 280 ml IV Total 100 ml Output Urine Total 400 ml 500 ml # Voids 3 # Bowel Movements 1 Result Diagram: 11/02/1772411/02/17 0725 Objective Remarks GENERAL: SKIN: Warm and dry. HEAD: Atraumatic. Normocephalic. EYES: Pupils equal and round. No scleral icterus. No injection or drainage. ENT: No nasal bleeding or discharge. Mucous membranes pink and moist. NECK: Trachea midline. No JVD. CARDIOVASCULAR: Regular rate and rhythm. RESPIRATORY: No accessory muscle use. DECREASE BREATH SOUNDS AT BASIS to auscultation. Breath sounds equal bilaterally. GASTROINTESTINAL: Abdomen soft, non-tender, nondistended. Hepatic and splenic margins not palpable. MUSCULOSKELETAL: Extremities without clubbing, cyanosis, or edema. No obvious deformities. NEUROLOGICAL: Awake and alert. No obvious cranial nerve deficits. Motor grossly within normal limits. Five out of 5 muscle strength in the arms and legs. Normal speech. PSYCHIATRIC: Appropriate mood and affect; insight and judgment normal. Assessment and Plan Assessment and Plan ass respiratory failure copd loculated effusions, small BILATERAL CHEST YS = SMALL BIBASILAR EFFUSIONS plan o2 as needed bronchodilators INCREASE ACTIVITY Srikanth Duke MD Nov 02, 2017 19:26
[2017-11-03] VITALS (10 sets, daily range): BP systolic 97–133; BP diastolic 54–58; PULSE 62–79; RESP 20–21; TEMP 97.4–97.9; O2SAT 91–96
[2017-11-03] MEDS: AZTREONAM INJ 1,000 MG in SODIUM CHLORIDE 0.9% INJ 100 ML IV SCH ×2 (00:20→05:50)
[2017-11-03] MEDS: diphenhydrAMINE HCL 25 MG CAP PO PRN (00:21)
[2017-11-03] MEDS: RESP: ALBUTEROL 2.5 MG/IPRATROPIUM 0.5 MG NEB (PRN) NEB ×2 (02:49→16:40)
[2017-11-03] MEDS: HEPARIN SODIUM - SQ 10,000 UNITS/ML VIAL SQ SCH ×2 (03:38→15:00)
[2017-11-03 07:38] LABS: AUTOMATED NEUTROPHIL # 8.8 TH/MM3 (1.8-7.7); BASOPHIL # 0.3 TH/MM3 (0-0.2); BASOPHIL % 2.1 % (0.0-2.0); EOSINOPHIL # 0.2 TH/MM3 (0-0.4); EOSINOPHIL % 1.2 % (0.0-4.0); HEMATOCRIT 32.2 % (35.0-46.0); HEMOGLOBIN 10.9 GM/DL (11.6-15.3); LYMPH % 26.3 % (9.0-44.0); LYMPHOCYTE # 3.9 TH/MM3 (1.0-4.8); MEAN CELL VOLUME 92.2 FL (80.0-100.0); MEAN CORPUSCULAR HGB CONC 33.7 % (32.0-36.0); MEAN PLATELET VOLUME 8.4 FL (7.0-11.0); MONO % 10.8 % (0.0-8.0); MONOCYTE # 1.6 TH/MM3 (0-0.9); NEUT % 59.6 % (16.0-70.0); PLATELET COUNT 338 TH/MM3 (150-450); WHITE BLOOD COUNT 14.7 TH/MM3 (4.0-11.0)
[2017-11-03 07:55] LABS: BICARBONATE 24.2 MEQ/L (21.0-32.0); CALCIUM 8.5 MG/DL (8.5-10.1); CREATININE 1.42 MG/DL (0.50-1.00)
[2017-11-03] MEDS: predniSONE 10 MG TAB PO SCH (09:00)
[2017-11-03] MEDS: TIOTROPIUM BROMIDE 18 MCG INH INH SCH (09:55)
[2017-11-03] MEDS: DILTIAZEM-CD 180 MG CAP ER PO SCH (09:56)
[2017-11-03] MEDS: SODIUM CHLORIDE 0.9% FLUSH 10 ML FLUSH IV FLUSH SCH ×2 (09:56→20:53)
--- NOTE | 2017-11-03 10:02 | HHI.NPPN ---
Subjective Interval History renal function is better. Notes were reviewed. Being treated for pneumonia. Has loculated pleural effusions, cardiomyopathy, weight loss. ID stopped Aztreonam. Review of Systems General Constitutional: Fatigue Objective Data Data Vital Signs Date Time Temp Pulse Resp B/P (MAP) Pulse Ox O2 Delivery O2 Flow Rate FiO2 11/03/17 04:00 62 11/03/17 04:00 97.6 70 20 133/56 (81) 96 11/03/17 02:58 94 Nasal Cannula 3.00 11/03/17 00:00 69 11/03/17 00:00 97.5 79 21 97/56 (70) 95 11/02/17 20:00 Nasal Cannula 4.00 11/02/17 20:00 69 11/02/17 20:00 97.8 69 21 110/60 (77) 96 11/02/17 17:06 92 Nasal Cannula 3.00 11/02/17 16:00 97.5 74 20 93/51 (65) 95 11/02/17 12:00 97.5 72 22 104/59 (74) 97 -: 11/03/17 0700 11/03/17 0700 Microbiology 11/03/17 Gram Stain - Final, Resulted 11/03/17 Sputum Culture, Resulted Pending Physical Exam Eyes Eye Exam: Pupils Equal Neck Neck Exam: Neck Supple Pulmonary Resp Exam: Rhonchi, Decreased Bases Cardiology CV Exam: Regular Gastrointestinal/Abdomen GI Exam: Soft, Non-Tender Musculoskeletal MS Exam: Joints Intact Assessment/Plan Problem List: (1) Acute kidney injury ICD Codes: N17.9 - Acute kidney failure, unspecified Status: Acute Plan: Renal function has improved. IVF stopped. Encourage oral intake. Avoid nephrotoxins. (2) Atrial fibrillation with RVR ICD Codes: I48.91 - Unspecified atrial fibrillation Status: Acute Plan: Patient has pacemaker (3) COPD exacerbation ICD Codes: J44.1 - Chronic obstructive pulmonary disease with (acute) exacerbation Status: Acute Plan: Pulmonary following. Bronchodilators. (4) Pneumonia ICD Codes: J18.9 - Pneumonia, unspecified organism Status: Acute Plan: ID note was reviewed. Off antibiotics. Problem Qualifiers (1) Pneumonia: Qualified Codes: J18.9 - Pneumonia, unspecified organism Dereck George MD Nov 03, 2017 10:02
[2017-11-03] MEDS ORDERED: PHARMACY ORDERED LAB ONE (11:45)
--- NOTE | 2017-11-03 14:23 | HHI.PR ---
Subjective Remarks Patient is sitting up in bed in NAD. On 3L home oxygen. Afebrile. Objective Vital Signs Vital Signs Date Time Temp Pulse Resp B/P (MAP) Pulse Ox O2 Delivery O2 Flow Rate FiO2 11/03/17 10:51 96 Nasal Cannula 3.00 11/03/17 04:00 62 11/03/17 04:00 97.6 70 20 133/56 (81) 96 11/03/17 02:58 94 Nasal Cannula 3.00 11/03/17 00:00 69 11/03/17 00:00 97.5 79 21 97/56 (70) 95 11/02/17 20:00 Nasal Cannula 4.00 11/02/17 20:00 69 11/02/17 20:00 97.8 69 21 110/60 (77) 96 11/02/17 17:06 92 Nasal Cannula 3.00 11/02/17 16:00 97.5 74 20 93/51 (65) 95 I/O 11/02/17 11/02/17 11/02/17 11/03/17 11/03/17 11/03/17 07:00 15:00 23:00 07:00 15:00 23:00 Intake Total 280 ml 480 ml Output Total 500 ml 650 ml Balance -220 ml -170 ml Intake Oral 280 ml 280 ml IV Total 200 ml Output Urine Total 500 ml 650 ml # Bowel Movements 1 1 Result Diagram: 11/03/17 0700 11/03/17 0700 Other Results Last Impressions Renal Ultrasound 11/02/17 0000 Signed Impressions: Service Date/Time: Thursday, November 02, 2017 14:38 - CONCLUSION: Increased renal cortical echogenicity consistent with medical renal disease. No evidence of hydronephrosis. Kirt Hale MD Chest X-Ray 11/02/17 0000 Signed Impressions: Service Date/Time: Thursday, November 02, 2017 09:18 - CONCLUSION: Deterioration with increasing bibasilar parenchymal changes and effusion on the right. Jarad Valdivia MD FACR Chest Ultrasound 11/02/17 0000 Signed Impressions: Service Date/Time: Thursday, November 02, 2017 10:20 - CONCLUSION: Small volume right pleural effusion Kirt Hale MD Abdomen/Pelvis CT 10/30/17 0000 Signed Impressions: Service Date/Time: Monday, October 30, 2017 11:57 - CONCLUSION: 1. Small loculated bilateral pleural effusions with basilar atelectasis. 2. Cardiomegaly. Mild anasarca. Trace free fluid in the abdomen and pelvis. 3. No bowel obstruction. Colonic diverticulosis without diverticulitis. Dat Whiteside MD Objective Remarks GENERAL: Patient is 87 yo sitting up in bed in NAD SKIN: Warm and dry. HEAD: Normocephalic. EYES: No scleral icterus. No injection or drainage. NECK: Supple, trachea midline. No JVD or lymphadenopathy. CARDIOVASCULAR: Regular rate and rhythm without murmurs, gallops, or rubs. RESPIRATORY: Breath sounds equal bilaterally. Diminished, coarse BS GASTROINTESTINAL: Abdomen soft, non-tender, nondistended. MUSCULOSKELETAL: No cyanosis, or edema. BACK: Nontender without obvious deformity. No CVA tenderness. Neuro: Awake and alert. A/P Assessment and Plan 1)Resp Insuff 2)COPD exac 3)loculated effusions, small 4)TEDDY 5)Leukocytosis 6)Anemia Plan Continue with oxygen keep sats >92% Bronchodilators, prednisone 10mg daily, Spiriva NIPPV PRN for resp distress Abx per ID. Monitor for signs of infections ( fever, WBC) Follow up on sputum cx. Check strep pneumonia and Legionella urinary Ag Nasal aspirate negative for influenza on 10/30 Echo showed EF 45-50%. GI/DVT prophylaxis- per primary team Check CXR in am Continue treatment plan Darline Zuluaga MD Nov 03, 2017 14:23
--- NOTE | 2017-11-03 19:14 | HHI.PR ---
Subjective Remarks Deferred entry - Patient seen earlier at 10:15 am Patient states feels sob but this is better than previous days. c/o edema in lower extremities denies chest pain Objective Vitals Vital Signs Date Time Temp Pulse Resp B/P (MAP) Pulse Ox O2 Delivery O2 Flow Rate FiO2 11/03/17 16:00 64 11/03/17 12:00 78 11/03/17 10:51 96 Nasal Cannula 3.00 11/03/17 08:00 63 11/03/17 04:00 62 11/03/17 04:00 97.6 70 20 133/56 (81) 96 11/03/17 02:58 94 Nasal Cannula 3.00 11/03/17 00:00 69 11/03/17 00:00 97.5 79 21 97/56 (70) 95 11/02/17 20:00 Nasal Cannula 4.00 11/02/17 20:00 69 11/02/17 20:00 97.8 69 21 110/60 (77) 96 I/O 11/02/17 11/02/17 11/02/17 11/03/17 11/03/17 11/03/17 07:00 15:00 23:00 07:00 15:00 23:00 Intake Total 280 ml 480 ml Output Total 500 ml 650 ml Balance -220 ml -170 ml Intake Oral 280 ml 280 ml IV Total 200 ml Output Urine Total 500 ml 650 ml # Bowel Movements 1 1 Result Diagram: 11/03/17 0700 11/03/17 0700 Imaging Last Impressions Renal Ultrasound 11/02/17 0000 Signed Impressions: Service Date/Time: Thursday, November 02, 2017 14:38 - CONCLUSION: Increased renal cortical echogenicity consistent with medical renal disease. No evidence of hydronephrosis. Kirt Hale MD Chest X-Ray 11/02/17 0000 Signed Impressions: Service Date/Time: Thursday, November 02, 2017 09:18 - CONCLUSION: Deterioration with increasing bibasilar parenchymal changes and effusion on the right. Jarad Valdivia MD FACR Chest Ultrasound 11/02/17 0000 Signed Impressions: Service Date/Time: Thursday, November 02, 2017 10:20 - CONCLUSION: Small volume right pleural effusion Kirt Hale MD Abdomen/Pelvis CT 10/30/17 0000 Signed Impressions: Service Date/Time: Monday, October 30, 2017 11:57 - CONCLUSION: 1. Small loculated bilateral pleural effusions with basilar atelectasis. 2. Cardiomegaly. Mild anasarca. Trace free fluid in the abdomen and pelvis. 3. No bowel obstruction. Colonic diverticulosis without diverticulitis. Dat Whiteside MD Objective Remarks GENERAL: This is a well-nourished, well-developed patient, in mild respiratory distress. SKIN: No rashes, ecchymoses or lesions. Cool and dry. HEAD: Atraumatic. Normocephalic. No temporal or scalp tenderness. EYES: Pupils equal round and reactive. Extraocular motions intact. No scleral icterus. No injection or drainage. ENT: Nose without bleeding, purulent drainage or septal hematoma. Throat without erythema, tonsillar hypertrophy or exudate. Uvula midline. Airway patent. NECK: Trachea midline. No JVD or lymphadenopathy. Supple, nontender, no meningeal signs. CARDIOVASCULAR: Regular rate and rhythm without murmurs, gallops, or rubs. RESPIRATORY: Clear to auscultation. Breath sounds equal bilaterally. No wheezes , rales, or rhonchi. GASTROINTESTINAL: Abdomen soft, non-tender, nondistended. No hepato-splenomegaly , or palpable masses. No guarding. MUSCULOSKELETAL: Extremities without clubbing, cyanosis, or edema. No joint tenderness, effusion, or edema noted. No calf tenderness. Negative Homans sign bilaterally. NEUROLOGICAL: Awake and alert. Cranial nerves II through XII intact. Motor and sensory grossly within normal limits. Five out of 5 muscle strength in all muscle groups. Normal speech Medications and IVs Current Medications Medications (Trade) Dose Ordered Sig/Madeleine Route Start Time Stop Time Status Last Admin (NS Flush) 2 ml UNSCH PRN IV FLUSH 10/30/17 14:30 (NS Flush) 2 ml BID IV FLUSH 10/30/17 21:00 11/03/17 09:56 (Zofran Inj) 4 mg Q6H PRN IVP 10/30/17 14:30 (Heparin Inj) 5,000 units Q12H SQ 10/30/17 15:00 11/03/17 03:38 (Narcan Inj) 0.4 mg UNSCH PRN IV PUSH 10/30/17 14:30 (Milk Of Magnesia Liq) 30 ml Q12H PRN PO 10/30/17 14:30 (Senokot) 17.2 mg Q12H PRN PO 10/30/17 14:30 (Dulcolax Supp) 10 mg DAILY PRN RECTAL 10/30/17 14:30 (Lactulose Liq) 30 ml DAILY PRN PO 10/30/17 14:30 (Cardizem Cd) 360 mg DAILY PO 10/31/17 09:00 11/03/17 09:56 (Protonix) 20 mg DAILY PRN PO 10/31/17 00:45 (Deltasone) 10 mg DAILY PO 10/31/17 09:00 10/31/17 09:29 (Spiriva Inh) 18 mcg DAILY INH 10/31/17 09:00 11/03/17 09:55 (Duoneb Neb) 1 ampule Q4HR NEB PRN NEB 10/31/17 00:45 11/03/17 16:40 (Tears Naturale Opth Soln) 1 drop Q4H PRN EACH EYE 11/01/17 16:45 11/02/17 11:28 (Benadryl) 25 mg Q6H PRN PO 11/01/17 16:45 11/03/17 00:21 A/P Problem List: (1) Sepsis ICD Code: A41.9 - Sepsis, unspecified organism Status: Resolved (2) Bilateral pleural effusion ICD Code: J90 - Pleural effusion, not elsewhere classified Status: Acute (3) CKD (chronic kidney disease), stage III ICD Code: N18.3 - Chronic kidney disease, stage 3 (moderate) (4) Acute kidney injury ICD Code: N17.9 - Acute kidney failure, unspecified Status: Acute (5) Pneumonia ICD Code: J18.9 - Pneumonia, unspecified organism Status: Acute (6) Itching ICD Code: L29.9 - Pruritus, unspecified Status: Acute Plan: I ordered Benadryl. Patient has history of multiple allergies. There is a macular rash on the patient's back. Patient is not receiving however any of the medications that could potentially cause a severe allergic reaction. 11/03 Resolved. Assessment and Plan 1. Sepsis Present on admission. likely 2/2 to suspected PNA. Patient with leukocytosis and tachycardia. Chest x-ray on admission reviewed by me showed mild basilar airspace disease bilaterally. Started on IV Aztreonam due to multiple allergies and on IV Vancomycin on 11/01. . Repeat chest x-ray obtained on 05/02/18 shows deterioration with increasing bibasilar parenchymal changes and effusion on the right. Chest ultrasound ordered to assess pleural effusions bilaterally. Chest ultrasound showed small volume right and left pleural effusion. 11/03 ID consulted, appreciate recommendations. Aztreonam discontinued. Monitor off antibiotics for now. Sputum culture ordered and pending. 2. Bilateral loculated pleural effusions. Antibiotics as above Consult pulmonology. 10/31 pulmonology consulted, appreciate recommendations. Loculated pleural effusions likely chronic. Recommendations are to observe at the present time. Pulmonology recommended to do it CT of the chest in a few days and if the effusions seem to be worsening or changing then we'll consider drainage or even surgical intervention. 3. Suspected lymphoma due to weight loss, patient reporting previous diagnosis. Consult oncology. Also check CA 125 10/31 Oncology consult pending. 11/01 appreciate oncology consultation. Patient seen by Dr. Aj. Patient has follicular lymphoma diagnosed in 2005. As per oncology the patient was lost to follow-up. As per oncology recommendations there is no significant adenopathy and patient does not seem to have bulky disease. Oncology recommends follow-up as an outpatient once discharged. Patient will likely need a PET scan as an outpatient. 4. Weight loss. Consult oncology as above. Check TSH, free T4, total T3. 10/31 TSH elevated but with normal free T3 and free T4. 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 5. CKD stage III. Upon review of records the patient has a patent creatinine ranging from 1.0- 1.2. Creatinine likely has baseline. Continue to monitor BUN/creatinine, strict I's and O's and avoid nephrotoxins. 6. PNA - CAP As above. Wean o2 Cotntinue supplemental o2 to keep o2 sat >92%. 11/03 antibiotics discontinued. 7. TEDDY Creatinine trending up from 1.0 and admission to 1.5 on 04/10. I will consult nephrology. 11/03 appreciate nephrology recommendations. DC IV fluids. I will resume patient's home Lasix. Renal ultrasound shows signs of medical renal disease. No hydronephrosis observed. 8. Atrial fibrillation with RVR. Rate controlled now. Continue Cardizem CD. Discharge Planning Continue to monitor in the medical floor. Problem Qualifiers (1) Sepsis: Qualified Codes: A41.9 - Sepsis, unspecified organism (2) Pneumonia: Qualified Codes: J18.9 - Pneumonia, unspecified organism Adonay Vásquez MD Nov 03, 2017 19:14
[2017-11-04] VITALS (10 sets, daily range): BP systolic 104–116; BP diastolic 52–70; PULSE 62–91; RESP 20; TEMP 97.6–98.7; O2SAT 93–98
[2017-11-04] MEDS: diphenhydrAMINE HCL 25 MG CAP PO PRN (02:19)
[2017-11-04] MEDS: HEPARIN SODIUM - SQ 10,000 UNITS/ML VIAL SQ SCH ×2 (02:20→14:06)
[2017-11-04 06:28] LABS: CREATININE 1.24 MG/DL (0.50-1.00)
[2017-11-04] MEDS: RESP: ALBUTEROL 2.5 MG/IPRATROPIUM 0.5 MG NEB (PRN) NEB (08:30)
[2017-11-04] MEDS: predniSONE 10 MG TAB PO SCH (09:00)
--- NOTE | 2017-11-04 09:54 | HHI.PR ---
Subjective Remarks Patient is sitting up in bed in mild resp distress, on 4L oxygen. Afebrile.Gets SOB with minimal exertion. Objective Vital Signs Vital Signs Date Time Temp Pulse Resp B/P (MAP) Pulse Ox O2 Delivery O2 Flow Rate FiO2 11/04/17 08:32 98 Nasal Cannula 4.00 11/04/17 04:00 97.6 69 20 104/52 (69) 94 11/04/17 03:47 68 11/04/17 00:00 97.6 81 20 112/70 (84) 98 11/04/17 00:00 Nasal Cannula 4.00 11/03/17 23:45 73 11/03/17 20:00 97.9 70 20 110/55 (73) 91 11/03/17 20:00 Nasal Cannula 4.00 11/03/17 19:47 79 11/03/17 16:00 64 11/03/17 16:00 97.9 74 20 116/56 (76) 91 11/03/17 12:00 78 11/03/17 12:00 97.4 71 20 108/54 (72) 94 11/03/17 10:51 96 Nasal Cannula 3.00 I/O 11/03/17 11/03/17 11/03/17 11/04/17 11/04/17 11/04/17 07:00 15:00 23:00 07:00 15:00 23:00 Intake Total 480 ml 120 ml Output Total 650 ml Balance -170 ml 120 ml Intake Oral 280 ml 120 ml IV Total 200 ml Output Urine Total 650 ml # Voids 2 4 # Bowel Movements 1 2 Result Diagram: 11/03/17 0700 11/04/17 0510 Other Results Last Impressions Renal Ultrasound 11/02/17 0000 Signed Impressions: Service Date/Time: Thursday, November 02, 2017 14:38 - CONCLUSION: Increased renal cortical echogenicity consistent with medical renal disease. No evidence of hydronephrosis. Kirt Hale MD Chest X-Ray 11/02/17 0000 Signed Impressions: Service Date/Time: Thursday, November 02, 2017 09:18 - CONCLUSION: Deterioration with increasing bibasilar parenchymal changes and effusion on the right. Jarad Valdivia MD FACR Chest Ultrasound 11/02/17 0000 Signed Impressions: Service Date/Time: Thursday, November 02, 2017 10:20 - CONCLUSION: Small volume right pleural effusion Kirt Hale MD Abdomen/Pelvis CT 10/30/17 0000 Signed Impressions: Service Date/Time: Monday, October 30, 2017 11:57 - CONCLUSION: 1. Small loculated bilateral pleural effusions with basilar atelectasis. 2. Cardiomegaly. Mild anasarca. Trace free fluid in the abdomen and pelvis. 3. No bowel obstruction. Colonic diverticulosis without diverticulitis. Dat Whiteside MD Objective Remarks GENERAL: Patient is 87 yo sitting up in bed in mild resp distress SKIN: Warm and dry. HEAD: Normocephalic. EYES: No scleral icterus. No injection or drainage. NECK: Supple, trachea midline. No JVD or lymphadenopathy. CARDIOVASCULAR: Regular rate and rhythm without murmurs, gallops, or rubs. RESPIRATORY: Breath sounds equal bilaterally. Diminished, coarse BS GASTROINTESTINAL: Abdomen soft, non-tender, nondistended. MUSCULOSKELETAL: No cyanosis, or edema. BACK: Nontender without obvious deformity. No CVA tenderness. Neuro: Awake and alert. A/P Assessment and Plan 1)Resp Insuff 2)COPD exac 3)loculated effusions, small 4)TEDDY 5)Leukocytosis 6)Anemia Plan Continue with oxygen keep sats >92% Bronchodilators, prednisone 10mg daily, Spiriva NIPPV PRN for resp distress. Check CXR Abx per ID. Monitor for signs of infections ( fever, WBC) Follow up on sputum cx. Check strep pneumonia and Legionella urinary Ag Nasal aspirate negative for influenza on 10/30 Echo showed EF 45-50%. GI/DVT prophylaxis- per primary team Continue treatment plan Darline Zuluaga MD Nov 04, 2017 09:54
[2017-11-04] MEDS ORDERED: RESP: ALBUTEROL 2.5 MG/IPRATROPIUM 0.5 MG NEB (PRN) NEB (10:00)
[2017-11-04] MEDS: FUROSEMIDE 20 MG TAB PO SCH ×2 (10:08→17:21)
[2017-11-04] MEDS: SODIUM CHLORIDE 0.9% FLUSH 10 ML FLUSH IV FLUSH SCH ×2 (10:08→20:42)
[2017-11-04] MEDS: DILTIAZEM-CD 180 MG CAP ER PO SCH (10:08)
[2017-11-04] MEDS: TIOTROPIUM BROMIDE 18 MCG INH INH SCH (10:09)
--- NOTE | 2017-11-04 10:11 | RADRPT ---
EXAM DATE/TIME: 11/04/2017 09:55 [facility] COMPARISON: CHEST PA & LAT, November 02, 2017, 9:18. CHEST SINGLE AP, October 30, 2017, 11:46. INDICATIONS : Short of breath MEDICAL HISTORY : Chronic obstructive pulmonary disease. Congestive heart failure. Dizziness, Right breast cancer. Thro at cancer. Non Hodgkins Lymphoma. Measles. Felty's syndrome. blood transfusion SURGICAL HISTORY : Splenectomy. Cholecystectomy. Mastectomy, right. Bilateral lens replacement. Pacemaker. Partial thyro idectomy. Lymph node dissection ENCOUNTER: Subsequent ACUITY: 3 days PAIN SCORE: 0/10 LOCATION: Bilateral chest FINDINGS: Single AP view of the chest. Dual-lead cardiac pacemaker in place. Cardiac silhouette enlargement aga in seen. Slight increase in right sided mid to lower lung opacity indicating a combination of atelect asis/consolidation and pleural effusion. Left sided pleural effusion and basilar atelectasis/consolid ation unchanged. No evidence of pneumothorax. CONCLUSION: Bilateral pleural effusions and lower lobe atelectasis/consolidation again seen. Slight increase on t he right. No change in left Thiago Combs MD on November 04, 2017 at 10:06 Board Certified Radiologist. This report was verified electronically.
[2017-11-04] MEDS: RESP: ALBUTEROL 2.5 MG/IPRATROPIUM 0.5 MG NEB (SCH) NEB ×2 (16:07→21:14)
--- NOTE | 2017-11-04 17:56 | HHI.PR ---
Subjective Remarks still c/o sob, denies cp. still on 4 liters nasal canula states that lower extremities are swollen and very tender. Objective Vitals Vital Signs Date Time Temp Pulse Resp B/P (MAP) Pulse Ox O2 Delivery O2 Flow Rate FiO2 11/04/17 12:00 69 11/04/17 08:50 Nasal Cannula 4.00 11/04/17 08:32 98 Nasal Cannula 4.00 11/04/17 08:00 74 11/04/17 04:00 97.6 69 20 104/52 (69) 94 11/04/17 03:47 68 11/04/17 00:00 97.6 81 20 112/70 (84) 98 11/04/17 00:00 Nasal Cannula 4.00 11/03/17 23:45 73 11/03/17 20:00 97.9 70 20 110/55 (73) 91 11/03/17 20:00 Nasal Cannula 4.00 11/03/17 19:47 79 I/O 11/03/17 11/03/17 11/03/17 11/04/17 11/04/17 11/04/17 06:59 14:59 22:59 06:59 14:59 22:59 Intake Total 480 ml 120 ml Output Total 650 ml Balance -170 ml 120 ml Intake Oral 280 ml 120 ml IV Total 200 ml Output Urine Total 650 ml # Voids 2 4 # Bowel Movements 1 2 Result Diagram: 11/03/17 0700 11/04/17 0510 Imaging Last Impressions Chest X-Ray 11/04/17 0000 Signed Impressions: Service Date/Time: Saturday, November 04, 2017 09:55 - CONCLUSION: Bilateral pleural effusions and lower lobe atelectasis/consolidation again seen. Slight increase on the right. No change in left Thiago Combs MD Renal Ultrasound 11/02/17 0000 Signed Impressions: Service Date/Time: Thursday, November 02, 2017 14:38 - CONCLUSION: Increased renal cortical echogenicity consistent with medical renal disease. No evidence of hydronephrosis. Kirt Hale MD Chest Ultrasound 11/02/17 0000 Signed Impressions: Service Date/Time: Thursday, November 02, 2017 10:20 - CONCLUSION: Small volume right pleural effusion Kirt Hale MD Abdomen/Pelvis CT 10/30/17 0000 Signed Impressions: Service Date/Time: Monday, October 30, 2017 11:57 - CONCLUSION: 1. Small loculated bilateral pleural effusions with basilar atelectasis. 2. Cardiomegaly. Mild anasarca. Trace free fluid in the abdomen and pelvis. 3. No bowel obstruction. Colonic diverticulosis without diverticulitis. Dat Whiteside MD Objective Remarks GENERAL: This is 87-year-old frail, cachectic and thin female. SKIN: No rashes, ecchymoses or lesions. Cool and dry. HEAD: Atraumatic. Normocephalic. No temporal or scalp tenderness. EYES: Pupils equal round and reactive. Extraocular motions intact. No scleral icterus. No injection or drainage. ENT: Nose without bleeding, purulent drainage or septal hematoma. Throat without erythema, tonsillar hypertrophy or exudate. Uvula midline. Airway patent. NECK: Trachea midline. No JVD or lymphadenopathy. Supple, nontender, no meningeal signs. CARDIOVASCULAR: Regular rate and rhythm without murmurs, gallops, or rubs. RESPIRATORY:Decreased air entry at BL bases. NO whezing, rales or rhonchi GASTROINTESTINAL: Abdomen soft, non-tender, nondistended. No hepato-splenomegaly , or palpable masses. No guarding. MUSCULOSKELETAL: Extremities without clubbing, cyanosis, (+) 2 edema in BL lower extremities. No joint tenderness, effusion, or edema noted. No calf tenderness. Negative Homans sign bilaterally. NEUROLOGICAL: Awake and alert. Cranial nerves II through XII intact. Motor and sensory grossly within normal limits. Five out of 5 muscle strength in all muscle groups. Normal speech Medications and IVs Current Medications Medications (Trade) Dose Ordered Sig/Madeleine Route Start Time Stop Time Status Last Admin (NS Flush) 2 ml UNSCH PRN IV FLUSH 10/30/17 14:30 (NS Flush) 2 ml BID IV FLUSH 10/30/17 21:00 11/04/17 10:08 (Zofran Inj) 4 mg Q6H PRN IVP 10/30/17 14:30 (Heparin Inj) 5,000 units Q12H SQ 10/30/17 15:00 11/03/17 03:38 (Narcan Inj) 0.4 mg UNSCH PRN IV PUSH 10/30/17 14:30 (Milk Of Magnesia Liq) 30 ml Q12H PRN PO 10/30/17 14:30 (Senokot) 17.2 mg Q12H PRN PO 10/30/17 14:30 (Dulcolax Supp) 10 mg DAILY PRN RECTAL 10/30/17 14:30 (Lactulose Liq) 30 ml DAILY PRN PO 10/30/17 14:30 (Cardizem Cd) 360 mg DAILY PO 10/31/17 09:00 11/04/17 10:08 (Protonix) 20 mg DAILY PRN PO 10/31/17 00:45 (Deltasone) 10 mg DAILY PO 10/31/17 09:00 10/31/17 09:29 (Spiriva Inh) 18 mcg DAILY INH 10/31/17 09:00 11/04/17 10:09 (Tears Naturale Opth Soln) 1 drop Q4H PRN EACH EYE 11/01/17 16:45 11/02/17 11:28 (Benadryl) 25 mg Q6H PRN PO 11/01/17 16:45 11/04/17 02:19 (Lasix) 20 mg BID@ PO 11/04/17 09:00 11/04/17 17:21 (Duoneb Neb) 1 ampule Q4HR NEB NEB 11/04/17 12:00 11/04/17 16:07 (Duoneb Neb) 1 ampule Q2HR NEB PRN NEB 11/04/17 10:00 A/P Problem List: (1) Sepsis ICD Code: A41.9 - Sepsis, unspecified organism Status: Resolved (2) Bilateral pleural effusion ICD Code: J90 - Pleural effusion, not elsewhere classified Status: Acute (3) CKD (chronic kidney disease), stage III ICD Code: N18.3 - Chronic kidney disease, stage 3 (moderate) (4) Acute kidney injury ICD Code: N17.9 - Acute kidney failure, unspecified Status: Acute (5) Pneumonia ICD Code: J18.9 - Pneumonia, unspecified organism Status: Acute (6) Itching ICD Code: L29.9 - Pruritus, unspecified Status: Acute Assessment and Plan 1. Sepsis Present on admission. likely 2/2 to suspected PNA. Patient with leukocytosis and tachycardia. Chest x-ray on admission reviewed by me showed mild basilar airspace disease bilaterally. Started on IV Aztreonam due to multiple allergies and on IV Vancomycin on 11/01. . Repeat chest x-ray obtained on 05/02/18 shows deterioration with increasing bibasilar parenchymal changes and effusion on the right. Chest ultrasound ordered to assess pleural effusions bilaterally. Chest ultrasound showed small volume right and left pleural effusion. 11/03 ID consulted, appreciate recommendations. Aztreonam discontinued. Monitor off antibiotics for now. Sputum culture ordered and pending. 11/04 Sputum culture with heavy growth of normal repiratory dipti. 2. Bilateral loculated pleural effusions. Antibiotics as above Consult pulmonology. 10/31 pulmonology consulted, appreciate recommendations. Loculated pleural effusions likely chronic. Recommendations are to observe at the present time. Pulmonology recommended to do it CT of the chest in a few days and if the effusions seem to be worsening or changing then we'll consider drainage or even surgical intervention. 3. Suspected lymphoma due to weight loss, patient reporting previous diagnosis. Consult oncology. Also check CA 125 10/31 Oncology consult pending. 11/01 appreciate oncology consultation. Patient seen by Dr. Aj. Patient has follicular lymphoma diagnosed in 2005. As per oncology the patient was lost to follow-up. As per oncology recommendations there is no significant adenopathy and patient does not seem to have bulky disease. Oncology recommends follow-up as an outpatient once discharged. Patient will likely need a PET scan as an outpatient. 4. Weight loss. Consult oncology as above. Check TSH, free T4, total T3. 10/31 TSH elevated but with normal free T3 and free T4. 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 5. CKD stage III. Upon review of records the patient has a baseline creatinine ranging from 1.0- 1.2. Creatinine likely has baseline. Continue to monitor BUN/creatinine, strict I's and O's and avoid nephrotoxins. 6. PNA - CAP As above. Wean o2 Cotntinue supplemental o2 to keep o2 sat >92%. 11/03 antibiotics discontinued. 7. TEDDY Creatinine trending up from 1.0 and admission to 1.5 on 04/10. I will consult nephrology. 11/03 appreciate nephrology recommendations. DC IV fluids. I will resume patient's home Lasix. Renal ultrasound shows signs of medical renal disease. No hydronephrosis observed. 11/04 creatinine continues to trend down. Continue to monitor BUN/creatinine, monitor strict I's and O's, avoid nephrotoxins. 8. Atrial fibrillation with RVR. Rate controlled now. Continue Cardizem CD. 9. Acute on chronic systolic heart failure. Echocardiogram shows a systolic function which is mildly reduced and estimated ejection fraction the range of 45-50%. Continue diuretics. I will switch oral Lasix to IV Lasix. Discharge Planning Continue to monitor in the medical floor. Patient stayed on elevated levels of oxygen. Problem Qualifiers (1) Sepsis: Qualified Codes: A41.9 - Sepsis, unspecified organism (2) Pneumonia: Qualified Codes: J18.9 - Pneumonia, unspecified organism Adonay Vásquez MD Nov 04, 2017 17:56
[2017-11-05] VITALS (11 sets, daily range): BP systolic 102–122; BP diastolic 51–63; PULSE 71–85; RESP 18–22; TEMP 97.3–97.9; O2SAT 91–100
[2017-11-05] MEDS: RESP: ALBUTEROL 2.5 MG/IPRATROPIUM 0.5 MG NEB (SCH) NEB ×6 (01:00→20:46)
[2017-11-05] MEDS: HEPARIN SODIUM - SQ 10,000 UNITS/ML VIAL SQ SCH ×2 (02:47→15:00)
[2017-11-05 07:19] LABS: AUTOMATED NEUTROPHIL # 11.6 TH/MM3 (1.8-7.7); BASOPHIL # 0.2 TH/MM3 (0-0.2); EOSINOPHIL # 0.2 TH/MM3 (0-0.4); EOSINOPHIL % 1.2 % (0.0-4.0); HEMATOCRIT 33.8 % (35.0-46.0); HEMOGLOBIN 11.4 GM/DL (11.6-15.3); LYMPH % 27.1 % (9.0-44.0); LYMPHOCYTE # 5.4 TH/MM3 (1.0-4.8); MEAN CELL VOLUME 92.7 FL (80.0-100.0); MEAN CORPUSCULAR HEMOGLOBIN 31.4 PG (27.0-34.0); MEAN CORPUSCULAR HGB CONC 33.8 % (32.0-36.0); MEAN PLATELET VOLUME 8.8 FL (7.0-11.0); MONO % 12.3 % (0.0-8.0); MONOCYTE # 2.5 TH/MM3 (0-0.9); NEUT % 58.4 % (16.0-70.0); PLATELET COUNT 313 TH/MM3 (150-450); RED BLOOD COUNT 3.65 MIL/MM3 (4.00-5.30); RED CELL DISTRIBUTION WIDTH 18.9 % (11.6-17.2); WHITE BLOOD COUNT 19.9 TH/MM3 (4.0-11.0)
--- NOTE | 2017-11-05 07:45 | RADRPT ---
EXAM DATE/TIME: 11/05/2017 06:11 [facility] COMPARISON: CHEST SINGLE AP, November 04, 2017, 9:55. INDICATIONS : Short of breath, weakness, evaluate effusions MEDICAL HISTORY : Chronic obstructive pulmonary disease. Congestive heart failure. Carcinoma, breast. carcinoma thr oat, NonHodgkins lymphoma SURGICAL HISTORY : Splenectomy. Cholecystectomy. Mastectomy, right. pacemaker, thyroid surgery ENCOUNTER: Subsequent ACUITY: 4 - 6 days PAIN SCORE: 0/10 LOCATION: Bilateral chest FINDINGS: Portable AP view of the chest demonstrate stable mild enlargement of the cardiac silhouette. Left roni st wall cardiac pacing device is present. There are bibasilar pleural-parenchymal opacities, stable f rom the prior study. No pneumothorax is identified. There is biapical scar. Bones demonstrate no acut e finding. CONCLUSION: 1. Stable chest x-ray with bilateral pleural effusions with associated volume loss and/or airspace co nsolidation. 2. Stable mildly enlarged cardiac silhouette. Kirt Anderson MD on November 05, 2017 at 7:41 Board Certified Radiologist. This report was verified electronically.
[2017-11-05 08:54] LABS: BICARBONATE 28.8 MEQ/L (21.0-32.0); CALCIUM 9.1 MG/DL (8.5-10.1); CREATININE 1.15 MG/DL (0.50-1.00); MAGNESIUM 2.1 MG/DL (1.5-2.5)
[2017-11-05 08:56] LABS: PHOSPHORUS 2.8 MG/DL (2.5-4.9)
[2017-11-05 09:22] LABS: BANDS 7 % (0-6); LYMPHOCYTES 24 % (9-44); METAMYELOCYTES 1 % (0-1); MONOCYTES 8 % (0-8); NEUTROPHIL # MANUAL DIFF 13.5 TH/MM3 (1.8-7.7); POLYS (SEG NEUTROPHILS) 60 % (16-70)
[2017-11-05 09:23] LABS: ACANTHOCYTES OCC (NORMAL); OVALOCYTES 1+ (NORMAL); TARGET CELLS 1+ (NORMAL)
[2017-11-05] MEDS: predniSONE 10 MG TAB PO SCH (11:23)
[2017-11-05] MEDS: FUROSEMIDE 20 MG TAB PO SCH ×2 (11:24→18:38)
[2017-11-05] MEDS: DILTIAZEM-CD 180 MG CAP ER PO SCH (11:24)
[2017-11-05] MEDS: TIOTROPIUM BROMIDE 18 MCG INH INH SCH (11:24)
[2017-11-05] MEDS: SODIUM CHLORIDE 0.9% FLUSH 10 ML FLUSH IV FLUSH SCH ×2 (11:27→22:02)
--- NOTE | 2017-11-05 13:15 | HHI.IDPN ---
Note Infectious Disease Note Patient says she feels the same. Her only complaint is difficulty breathing. Sitting on side of bed eating lunch. Afebrile. No abdominal pain. Sputum culture has normal dipti. 87-year-old white female who came to emergency department on 10/30. The patient was experiencing abdominal pain. She states that she had abdominal pain for about 5 days before. She states that she felt like she had a broken ovarian cyst. After couple of days she noted some tissue which looked like thin skin coming through her urine. She continued to have lower abdominal pain up until the time she was admitted which was 5 days after she felt the initial abdominal pain from what she describes as ovarian cyst rupture. PAST MEDICAL HISTORY 1. Rheumatoid arthritis. 2. There is non-Hodgkin's lymphoma 3. Atrial fibrillation Asthma 4. COPD 5. History of congestive heart failure. 6. Thyroid nodule 7. Felty syndrome 8. Right mastectomy 9. History of ovarian mass resection. 10. Partial thyroidectomy. 11. Cholecystectomy. 12. Splenectomy. 13. Pacemaker placement 8 years ago. ALLERGIES CEPHALEXIN CLARITHROMYCIN PENICILLIN G AZITHROMYCIN SALMETEROL FLUTICASONE SODIUM IODIDE POTASSIUM IODIDE OXYCODONE LEVAQUIN IOPAMIDOL IODINE FORMOTEROL DIPHENHYDRAMINE BUDESONIDE OBJECTIVE: Vital Signs Date Time Temp Pulse Resp B/P (MAP) Pulse Ox O2 Delivery O2 Flow Rate FiO2 11/05/17 08:43 93 Nasal Cannula 4.00 11/05/17 08:00 97.4 80 19 114/56 (75) 93 11/05/17 04:00 Nasal Cannula 4.00 11/05/17 04:00 97.9 84 22 117/56 (76) 100 11/05/17 03:42 77 11/05/17 00:02 73 11/05/17 00:00 97.3 73 20 111/59 (76) 91 11/05/17 00:00 Nasal Cannula 4.00 11/04/17 21:14 93 Nasal Cannula 4.00 11/04/17 20:00 Nasal Cannula 4.00 11/04/17 20:00 98.7 89 20 111/59 (76) 93 11/04/17 19:48 62 11/04/17 16:00 97.8 91 20 113/68 (83) 93 Laboratory Tests Test 11/05/17 05:55 White Blood Count 19.9 TH/MM3 Red Blood Count 3.65 MIL/MM3 Hemoglobin 11.4 GM/DL Hematocrit 33.8 % Mean Corpuscular Volume 92.7 FL Mean Corpuscular Hemoglobin 31.4 PG Mean Corpuscular Hemoglobin Concent 33.8 % Red Cell Distribution Width 18.9 % Platelet Count 313 TH/MM3 Mean Platelet Volume 8.8 FL Neutrophils (%) (Auto) 58.4 % Lymphocytes (%) (Auto) 27.1 % Monocytes (%) (Auto) 12.3 % Eosinophils (%) (Auto) 1.2 % Basophils (%) (Auto) 1.0 % Neutrophils # (Auto) 11.6 TH/MM3 Lymphocytes # (Auto) 5.4 TH/MM3 Monocytes # (Auto) 2.5 TH/MM3 Eosinophils # (Auto) 0.2 TH/MM3 Basophils # (Auto) 0.2 TH/MM3 CBC Comment AUTO DIFF Differential Total Cells Counted 100 Neutrophils % (Manual) 60 % Band Neutrophils % 7 % Lymphocytes % 24 % Monocytes % 8 % Neutrophils # (Manual) 13.5 TH/MM3 Metamyelocytes 1 % Differential Comment FINAL DIFF MANUAL Platelet Estimate NORMAL Platelet Morphology Comment NORMAL Target Cells 1+ Ovalocytes 1+ Acanthocytes OCC Laboratory Tests Test 11/04/17 05:10 11/05/17 08:16 Creatinine 1.24 MG/DL 1.15 MG/DL Estimat Glomerular Filtration Rate 41 ML/MIN 45 ML/MIN Blood Urea Nitrogen 33 MG/DL Random Glucose 99 MG/DL Calcium Level 9.1 MG/DL Phosphorus Level 2.8 MG/DL Magnesium Level 2.1 MG/DL Sodium Level 138 MEQ/L Potassium Level 4.6 MEQ/L Chloride Level 103 MEQ/L Carbon Dioxide Level 28.8 MEQ/L Anion Gap 6 MEQ/L Microbiology Date/Time Source Procedure Growth Status 11/03/17 00:00 Sputum Expectorated Sputum Gram Stain - Final Complete 11/03/17 00:00 Sputum Expectorated Sputum Sputum Culture - Final HEAVY GROWTH NORMAL RESPIRATORY DIPTI Complete 11/04/17 13:10 Urine Catheterized Urine Legionella Antigen - Final PRESUMPTIVE NEGATIVE FOR LEGIONELLA P... Complete 11/04/17 13:10 Urine Catheterized Urine Streptococcus pneumoniae Antigen (M - Final PRESUMPTIVE NEGATIVE FOR STREPTOCOCCU... Complete PHYSICAL EXAMINATION IN GENERAL: No acute distress. She looks chronically ill. HEAD, EYES, EARS, NOSE, AND THROAT: The Head is atraumatic. Extraocular movements grossly intact, pupils reactive to light. No icterus. The oropharynx has moist mucosa without thrush or lesions. NECK: Supple, No adenopathy. LUNGS: Slight rhonchi at the bases. HEART: Regular rate and rhythm without murmurs, rubs or gallops. ABDOMEN: Bowel sounds present, soft, no tenderness. EXTREMITIES: The both legs are approximately 1+ swelling. No drainage visible at the legs. The upper extremities have a few ecchymosis and but no edema. SKIN: Erythematous areas including the legs at the tibias and also the upper back and posterior aspect of the neck. No diffuse rash. NEUROLOGIC: No gross focal findings. PSYCHIATRIC: Calm and cooperative. IMPRESSION 1. Leukocytosis probably reactive. 2. Bilateral lung infiltrates / effusion. 3. Patient with history of COPD and also history of CHF. RECOMMENDATIONS Follow the WBC without antibiotics. for now unless she has fever or white blood cell count continues to increase and left shift becomes apparent. Because of absence of the spleen she can be started on linezolid at least until further evaluation is done. The progress will be monitored and further recommendations will be made on followup if necessary. Thank you for this consultation. Yo Britt MD Nov 05, 2017 13:15
--- NOTE | 2017-11-05 14:19 | PD.CONS ---
Consult Service Palliative Care Consult Requested By Dr. Dougherty . Primary Care Physician Manjit Hook MD . Reason for Consultation a. To assist with evaluation and management of symptoms including: Dyspnea , weakness, debility b. To assist medical decision maker(s) with: better understanding of current medical conditions; weighing benefits/burdens of medical treatment options; making medical treatment decisions. . HPI History of Present Illness This 87-year-old female, with a past history of end-stage COPD, CHF, CKD, cachexia, and a low-grade lymphoma, has had multiple hospitalizations here, most of them for exacerbations of COPD. She has had hypoxic respiratory failure for quite some time, and has been on home oxygen the past few years. She has required BiPAP treatment when here in the hospital on multiple occasions. She now presented to the emergency department on 10/30/17 with complaints of abdominal pain and dyspnea that were getting worse for about a week. In the emergency department, findings included: * Moderate dyspnea * Temp 100.5, pulse 101, respirations 23, blood pressure 101/56, oxygen saturation 94% on 2 L * White count 15.3, hemoglobin 11.2 * Sodium 138, creatinine 1.02, albumin 2.1 * Chest x-ray with cardiomegaly and bilateral effusions * CT abdomen/pelvis reveals anasarca and some diverticulosis Cultures were obtained, antibiotics were started, diuretics were provided, and the patient was admitted. Her chest x-ray actually appeared worse over the first couple days, consistent with pneumonia. An echocardiogram revealed an ejection fraction of 40-45%. She continued to have leukocytosis, with current white count 19.9, but she has remained afebrile since the fever that she had at the time of arrival in the emergency department. The patient has refused steroids, as she feels that prior steroids that she was on for both rheumatoid arthritis and COPD somehow contributed to her development of a follicular lymphoma in 2005. She remains mildly dyspneic at rest, but says she gets "all out of breath" if she is just gets up to the bedside commode and back to bed. Palliative Care was consulted to assist with symptom management, and to enter into discussions with the patient and family regarding her illnesses, the prognosis, and the benefits and burdens of the various treatment choices. . Function/Cognitive Trajectory The patient has significant debility and weakness, but is able to get around her house using a walker part of the time or a cane part of the time. She is on continuous home oxygen. 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 . Review of Systems Constitutional: COMPLAINS OF: Fatigue (chronic), Fever (on arrival), Weight loss (over the past few years) Endocrine: DENIES: Polyuria Eyes: DENIES: Eye inflammation Ears, nose, mouth, throat: DENIES: Epistaxis Respiratory: COMPLAINS OF: Cough, Shortness of breath Cardiovascular: COMPLAINS OF: Dyspnea on Exertion, DENIES: Chest pain Gastrointestinal: DENIES: Black stools, Bloody stools, Constipation, Diarrhea, Vomiting blood Genitourinary: DENIES: Hematuria Musculoskeletal: COMPLAINS OF: Joint pain (attributed to her rheumatoid arthritis) Integumentary: DENIES: Rash Hematologic/Lymphatics: COMPLAINS OF: Lymphadenopathy (posterior cervical, 2 months ago, but cleared with antibiotics) Immunologic/Allergic: DENIES: Urticaria Neurologic: DENIES: Abnormal gait, Localized weakness, Seizures Psychiatric: DENIES: Confusion, Hallucinations, Agitation Past Family Social History Coded Allergies: budesonide (Unverified Allergy, Severe, Anaphylaxis, 10/30/17) cephalexin (Unverified Allergy, Severe, 10/30/17) clarithromycin (Unverified Allergy, Severe, Rash, 10/30/17) diphenhydramine (Unverified Allergy, Severe, Rash and hot all over, 10/30/17 ) formoterol (Unverified Allergy, Severe, Anaphylaxis, 10/30/17) iodine (Unverified Allergy, Severe, 10/30/17) iopamidol (Unverified Allergy, Severe, DO NOT PREMEDICATE-PT HAS ANAPHLYXIS, 10/30/17) levofloxacin (Unverified Allergy, Severe, SEVERE ITCHING, 10/30/17) oxycodone (Unverified Allergy, Severe, Itching, 10/30/17) penicillin G (Unverified Allergy, Severe, 10/30/17) potassium iodide (Unverified Allergy, Severe, 10/30/17) povidone-iodine (Unverified Allergy, Severe, 10/30/17) sodium iodide (Unverified Allergy, Severe, 10/30/17) fluticasone (Unverified Allergy, Intermediate, Edema-SPOKE TO YONATHAN HILLIARD SAID PT TAKE NO PROBLEM, 10/30/17) fluticasone furoate (Unverified Allergy, Intermediate, Edema-SPOKE TO YONATHAN HILLIARD SAID PT TAKE NO PROBLEM, 10/30/17) salmeterol (Unverified Allergy, Intermediate, Edema-SPOKE TO YONATHAN HILLIARD SAID PT TAKE NO PROBLEM, 10/30/17) azithromycin (Unverified Allergy, Unknown, 10/30/17) Uncoded Allergies: beef,pork,seafood (Adverse Reaction, Unknown, 10/30/17) Past Medical History * End-stage COPD * Chronic hypoxic respiratory failure * Debility/cachexia * Rheumatoid arthritis * Atrial fibrillation * Congestive heart failure * Thyroid nodule * Felty syndrome * History of ovarian cyst * History of herpes zoster * History of breast cancer and mastectomy, no residual disease * Chronic kidney disease stage III . Past Surgical History Right mastectomy Lymph node biopsy right adnexa 2005 f ovarian mass resection Partial thyroidectomy Cholecystectomy Splenectomy for Felty's syndrome. Pacemaker placement Tendon releases for RA contractures Cataracts Reported Medications Reported Meds & Active Scripts Active Oxygen tank (Oxygen) 1 Ea Tank 2 Liter [employer] CONTINUOUS Oxygen Concentrator Portable Gaseous 2 L/min via Nasal Cannula Continuous For 99 months Protonix (Pantoprazole Sodium) 20 Mg Tab 20 Mg PO DAILY PRN Prednisone 5 Mg Tab 5 Mg PO DAILY 30 Days 4 tablets (20 mg) daily x 3 days then 3 tabs (15 mg) daily x 3 days then 10 mg daily- maintenance dose Spiriva Handihaler (Tiotropium Inh) 18 Mcg Cap 18 Mcg INH DAILY 30 Days Cardizem CD 24 HR (Diltiazem CD 24 HR) 180 Mg Caper 360 Mg PO DAILY 30 Days Albuterol Neb (Albuterol Sulfate) 2.5 Mg/3 Ml Neb 2.5 Mg INH Q2HR NEB PRN 10 Days Ventolin Hfa 18 GM Inh (Albuterol Sulfate) 90 Mcg/Act Aer 2 Puff INH Q6H 30 Days Reported Hydralazine HCl 25 Mg Tablet 25 Mg PO Q8HR Prednisone 10 Mg Tab 10 Mg PO DAILY Lasix (Furosemide) 20 Mg Tab 20 Mg PO BID Potassium Chloride ER (Potassium Chloride) 10 Meq Cap 10 Meq PO BID . Current Medications Medications (Trade) Dose Ordered Sig/Madeleine Route Start Time Stop Time Status Last Admin (NS Flush) 2 ml UNSCH PRN IV FLUSH 10/30/17 14:30 (NS Flush) 2 ml BID IV FLUSH 10/30/17 21:00 11/05/17 11:27 (Zofran Inj) 4 mg Q6H PRN IVP 10/30/17 14:30 (Heparin Inj) 5,000 units Q12H SQ 10/30/17 15:00 11/03/17 03:38 (Narcan Inj) 0.4 mg UNSCH PRN IV PUSH 10/30/17 14:30 (Milk Of Magnesia Liq) 30 ml Q12H PRN PO 10/30/17 14:30 (Senokot) 17.2 mg Q12H PRN PO 10/30/17 14:30 (Dulcolax Supp) 10 mg DAILY PRN RECTAL 10/30/17 14:30 (Lactulose Liq) 30 ml DAILY PRN PO 10/30/17 14:30 (Cardizem Cd) 360 mg DAILY PO 10/31/17 09:00 11/05/17 11:24 (Protonix) 20 mg DAILY PRN PO 10/31/17 00:45 (Deltasone) 10 mg DAILY PO 10/31/17 09:00 11/05/17 11:23 (Spiriva Inh) 18 mcg DAILY INH 10/31/17 09:00 11/05/17 11:24 (Tears Naturale Opth Soln) 1 drop Q4H PRN EACH EYE 11/01/17 16:45 11/02/17 11:28 (Benadryl) 25 mg Q6H PRN PO 11/01/17 16:45 11/04/17 02:19 (Lasix) 20 mg BID@ PO 11/04/17 09:00 11/05/17 11:24 (Duoneb Neb) 1 ampule Q4HR NEB NEB 11/04/17 12:00 11/05/17 13:12 (Duoneb Neb) 1 ampule Q2HR NEB PRN NEB 11/04/17 10:00 Family History The patient's mother at age 78 of heart disease, and her father at age 90 of prostate cancer. One of her sons at age 56 of a brain tumor. Multiple maternal uncles have of heart failure. . Substance Use Tobacco: Smoked for a few years but quit at age 29 Alcohol: None Prescription med abuse: None Illicits: None . Psychosocial History The patient was born in [place], but moved here at the age of 21 with her fianc /. They have now been 66 years. The patient had 2 sons. One is of a brain tumor, and the other son has been estranged for several years and lives in [place]. She says she has no contact with that son. She is also estranged from a couple granddaughters, but has one granddaughter living locally that is somewhat close with the patient. 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 . Spiritual/Cultural Factors The patient is [employer], but has been too ill last 4 years to attend [facility]. Clergy has visited her during this hospitalization from her [employer] restoration, and she does not desire medical aides teacher visits. . Living Will: Never completed Health Care Surrogate: Never completed Durable Power of Drop Hammer Operator Helper: Never completed Today's verbally stated goals: The patient says "I want to keep living in my wants me to keep living." When we discussed life support, she said "that would be okay for a while." At this point in time, her main goal is to get back home so she can help her . . Ethical and Legal Issues There are no ethical issues that would impact her care or decision-making at this time. The patient has capacity for decision-making. She would want her to make her decisions when she loses that capacity. . Physical Exam Vital Signs Date Time Temp Pulse Resp B/P (MAP) Pulse Ox O2 Delivery O2 Flow Rate FiO2 11/05/17 12:00 97.9 71 18 122/58 (79) 92 11/05/17 08:43 93 Nasal Cannula 4.00 11/05/17 08:00 97.4 80 19 114/56 (75) 93 11/05/17 04:00 Nasal Cannula 4.00 11/05/17 04:00 97.9 84 22 117/56 (76) 100 11/05/17 03:42 77 11/05/17 00:02 73 11/05/17 00:00 97.3 73 20 111/59 (76) 91 11/05/17 00:00 Nasal Cannula 4.00 11/04/17 21:14 93 Nasal Cannula 4.00 11/04/17 20:00 Nasal Cannula 4.00 11/04/17 20:00 98.7 89 20 111/59 (76) 93 11/04/17 19:48 62 11/04/17 16:00 97.8 91 20 113/68 (83) 93 Exam CONSTITUTIONAL/GENERAL: This is a weak, somewhat cachectic patient, in mild distress while at rest in the bed. TUBES/LINES/DRAINS: Nasal oxygen, left shoulder IV SKIN: No jaundice, rashes, or lesions, but has some scaly venous insufficiency changes of the lower legs. Ecchymoses on upper extremities. No wounds seen anteriorly. Skin temperature appropriate. Not diaphoretic. HEAD: Atraumatic. Normocephalic. EYES: Pupils equal and round and reactive. Extraocular motions intact. No scleral icterus. No injection or drainage. Fundi not examined. ENT: Hearing seems to be mildly diminished. Nose without bleeding or purulent drainage. Throat without visible erythema, exudates, masses, or lesions. NECK: Trachea midline. Supple, nontender. No palpable thyroid enlargement or nodularity. CARDIOVASCULAR: Irregular rhythm without murmurs, gallops, or rubs. No JVD. Unable to palpate posterior tibial pulses. RESPIRATORY/CHEST: Symmetric, mildly labored respirations. Diminished breath sounds bilateral, a couple rhonchi. GASTROINTESTINAL: Abdomen soft, non-tender, nondistended. No hepato-splenomegaly , or palpable masses. No guarding. Bowel sounds present. GENITOURINARY: Without palpable bladder distension. MUSCULOSKELETAL: Extremities without clubbing or cyanosis, but she has 2+ pitting edema below the knees. Marked changes of rheumatoid arthritis in both hands. No mottling or clubbing. LYMPHATICS: No palpable cervical or supraclavicular adenopathy. NEUROLOGICAL: Awake and alert. Motor and sensory grossly within normal limits, but globally weak. Follows commands. Cognitively sharp. Moves all extremities. PSYCHIATRIC: No obvious anxiety/depression. no apparent hallucinations or other psychotic thought process. . Diagnostic Tests Laboratory Laboratory Tests Test 11/03/17 07:00 11/04/17 05:10 11/05/17 05:55 11/05/17 08:16 White Blood Count 14.7 TH/MM3 (4.0-11.0) 19.9 TH/MM3 (4.0-11.0) Red Blood Count 3.50 MIL/MM3 (4.00-5.30) 3.65 MIL/MM3 (4.00-5.30) Hemoglobin 10.9 GM/DL (11.6-15.3) 11.4 GM/DL (11.6-15.3) Hematocrit 32.2 % (35.0-46.0) 33.8 % (35.0-46.0) Mean Corpuscular Volume 92.2 FL (80.0-100.0) 92.7 FL (80.0-100.0) Mean Corpuscular Hemoglobin 31.0 PG (27.0-34.0) 31.4 PG (27.0-34.0) Mean Corpuscular Hemoglobin Concent 33.7 % (32.0-36.0) 33.8 % (32.0-36.0) Red Cell Distribution Width 19.0 % (11.6-17.2) 18.9 % (11.6-17.2) Platelet Count 338 TH/MM3 (150-450) 313 TH/MM3 (150-450) Mean Platelet Volume 8.4 FL (7.0-11.0) 8.8 FL (7.0-11.0) Neutrophils (%) (Auto) 59.6 % (16.0-70.0) 58.4 % (16.0-70.0) Lymphocytes (%) (Auto) 26.3 % (9.0-44.0) 27.1 % (9.0-44.0) Monocytes (%) (Auto) 10.8 % (0.0-8.0) 12.3 % (0.0-8.0) Eosinophils (%) (Auto) 1.2 % (0.0-4.0) 1.2 % (0.0-4.0) Basophils (%) (Auto) 2.1 % (0.0-2.0) 1.0 % (0.0-2.0) Neutrophils # (Auto) 8.8 TH/MM3 (1.8-7.7) 11.6 TH/MM3 (1.8-7.7) Lymphocytes # (Auto) 3.9 TH/MM3 (1.0-4.8) 5.4 TH/MM3 (1.0-4.8) Monocytes # (Auto) 1.6 TH/MM3 (0-0.9) 2.5 TH/MM3 (0-0.9) Eosinophils # (Auto) 0.2 TH/MM3 (0-0.4) 0.2 TH/MM3 (0-0.4) Basophils # (Auto) 0.3 TH/MM3 (0-0.2) 0.2 TH/MM3 (0-0.2) CBC Comment DIFF FINAL AUTO DIFF Differential Comment FINAL DIFF MANUAL Blood Urea Nitrogen 40 MG/DL (7-18) 33 MG/DL (7-18) Creatinine 1.42 MG/DL (0.50-1.00) 1.24 MG/DL (0.50-1.00) 1.15 MG/DL (0.50-1.00) Random Glucose 102 MG/DL (74-106) 99 MG/DL (74-106) Calcium Level 8.5 MG/DL (8.5-10.1) 9.1 MG/DL (8.5-10.1) Sodium Level 135 MEQ/L (136-145) 138 MEQ/L (136-145) Potassium Level 4.8 MEQ/L (3.5-5.1) 4.6 MEQ/L (3.5-5.1) Chloride Level 103 MEQ/L (98-107) 103 MEQ/L (98-107) Carbon Dioxide Level 24.2 MEQ/L (21.0-32.0) 28.8 MEQ/L (21.0-32.0) Anion Gap 8 MEQ/L (5-15) 6 MEQ/L (5-15) Estimat Glomerular Filtration Rate 35 ML/MIN (>89) 41 ML/MIN (>89) 45 ML/MIN (>89) Differential Total Cells Counted 100 Neutrophils % (Manual) 60 % (16-70) Band Neutrophils % 7 % (0-6) Lymphocytes % 24 % (9-44) Monocytes % 8 % (0-8) Neutrophils # (Manual) 13.5 TH/MM3 (1.8-7.7) Metamyelocytes 1 % (0-1) Platelet Estimate NORMAL (NORMAL) Platelet Morphology Comment NORMAL (NORMAL) Target Cells 1+ (NORMAL) Ovalocytes 1+ (NORMAL) Acanthocytes OCC (NORMAL) Phosphorus Level 2.8 MG/DL (2.5-4.9) Magnesium Level 2.1 MG/DL (1.5-2.5) Result Diagram: 11/05/17 0555 11/05/17 0816 Microbiology Microbiology Date/Time Source Procedure Growth Status 11/03/17 00:00 Sputum Expectorated Sputum Gram Stain - Final Complete 11/03/17 00:00 Sputum Expectorated Sputum Sputum Culture - Final HEAVY GROWTH NORMAL RESPIRATORY TRAN Complete 11/04/17 13:10 Urine Catheterized Urine Legionella Antigen - Final PRESUMPTIVE NEGATIVE FOR LEGIONELLA P... Complete 11/04/17 13:10 Urine Catheterized Urine Streptococcus pneumoniae Antigen (M - Final PRESUMPTIVE NEGATIVE FOR STREPTOCOCCU... Complete . Imaging Last Impressions Chest X-Ray 11/05/17 0600 Signed Impressions: Service Date/Time: Sunday, November 05, 2017 06:11 - CONCLUSION: 1. Stable chest x-ray with bilateral pleural effusions with associated volume loss and/ or airspace consolidation. 2. Stable mildly enlarged cardiac silhouette. Kirt Anderson MD Renal Ultrasound 11/02/17 0000 Signed Impressions: Service Date/Time: Thursday, November 02, 2017 14:38 - CONCLUSION: Increased renal cortical echogenicity consistent with medical renal disease. No evidence of hydronephrosis. Kirt Hale MD Chest Ultrasound 11/02/17 0000 Signed Impressions: Service Date/Time: Thursday, November 02, 2017 10:20 - CONCLUSION: Small volume right pleural effusion Kirt Hale MD Abdomen/Pelvis CT 10/30/17 0000 Signed Impressions: Service Date/Time: Monday, October 30, 2017 11:57 - CONCLUSION: 1. Small loculated bilateral pleural effusions with basilar atelectasis. 2. Cardiomegaly. Mild anasarca. Trace free fluid in the abdomen and pelvis. 3. No bowel obstruction. Colonic diverticulosis without diverticulitis. Dat Whiteside MD Patient/Family Conference Present at Family Conference: The patient and me . Family Conference Time (mins): 49 Family Conference Location: Bedside Issues Discussed: * Palliative care role, purpose, approach * Additional medical, psychosocial, and spiritual history * Patients general health, functional status, and cognitive changes in the months leading up to the current hospitalization * Patient/family understanding of the current medical problems * Patient/family understanding of prognosis * Patients goals of care as best understood from advance directives and/or conversations and/or values * Current medical treatment options and benefits/burdens of those options * Likely scenarios comparing ongoing aggressive care with a transition to comfort measures only * Questions answered to the best of my ability * Palliative care contact information provided . 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 2 sons (1 and one estranged). 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 Spiritual: The patient is [employer], but has been too ill last 4 years to attend [facility]. Clergy has visited her during this hospitalization from her [employer] restoration, and she does not desire medical aides teacher visits. Legal: The patient has capacity for decision-making. She would want her to make her decisions when she loses that capacity. Ethical issues impacting care: None . Important Contacts Granddaughter: Eduarda Blood Reportedly lives in [place] . Prognosis This patient has end-stage COPD with pronounced debility, and also has CHF. Her overall prognosis is poor, and she would be appropriate for hospice services if the goals became comfort oriented. . Code Status: Full Code Plan * FULL CODE, patient says "I want to keep living and my wants me to keep living" * DECISION-MAKING: The patient has capacity for decision-making. She would want her to make her decisions when she loses that capacity. * GOALS: The patient does want to continue aggressive care, and her main goal is to get back home so she can help her debilitated . I have made her aware that her disease is end-stage, and that complete respiratory and/or cardiac failure could occur any day; she wants to "continue fighting to live, maybe 5 more years." * SYMPTOMS: Her dyspnea is fairly pronounced, but she does not want steroids and does not want to try opiates or benzos. Her arthritic pain is chronic and unchanged. I have no additional medication recommendations at this time. * She is willing to discuss resuscitation status and prognosis further in upcoming days. * Palliative Care will continue to follow the patient during this hospitalization. . Time Spent Total Floor Time (mins): 76 Face to Face Time (mins): 52 >50% Counseling/Coord of Care: Yes Thank you for the opportunity to participate in the care of Ms. Blood. Attestation To help prompt me to consider important information that might be impacting today's encounter and assessment, information from prior notes written by myself or my colleagues may have been "brought forward" into today's note. My signature on this note, however, is an attestation that I personally performed the exam, history, and/or decision-making noted today, and, unless otherwise indicated, the interactions with patient, family, and staff as well as the review of records all occurred today. I also attest that the listed assessment and stated plan reflect my best clinical judgment today based on the combination of historical information, prior notes, and today's exam/ interactions. When time spent is documented, it refers only to time spent today by the signer, or if indicated, combined time spent today by collaborating physician/nurse practitioner. Usha Whalen MD Nov 05, 2017 14:19
--- NOTE | 2017-11-05 18:11 | HHI.PR ---
Subjective Remarks Deferred entry - patient seen at 10 am Patient states sob feels the same. Denies fevers or chills. Denies cp Objective Vitals Vital Signs Date Time Temp Pulse Resp B/P (MAP) Pulse Ox O2 Delivery O2 Flow Rate FiO2 11/05/17 16:00 97.9 85 19 110/63 (79) 91 11/05/17 12:00 97.9 71 18 122/58 (79) 92 11/05/17 08:43 93 Nasal Cannula 4.00 11/05/17 08:00 97.4 80 19 114/56 (75) 93 11/05/17 08:00 96 Nasal Cannula 4.00 11/05/17 04:00 Nasal Cannula 4.00 11/05/17 04:00 97.9 84 22 117/56 (76) 100 11/05/17 03:42 77 11/05/17 00:02 73 11/05/17 00:00 97.3 73 20 111/59 (76) 91 11/05/17 00:00 Nasal Cannula 4.00 11/04/17 21:14 93 Nasal Cannula 4.00 11/04/17 20:00 Nasal Cannula 4.00 11/04/17 20:00 98.7 89 20 111/59 (76) 93 11/04/17 19:48 62 I/O 11/04/17 11/04/17 11/04/17 11/05/17 11/05/17 11/05/17 07:00 15:00 23:00 07:00 15:00 23:00 Intake Total 600 ml 120 ml Balance 600 ml 120 ml Intake Oral 600 ml 120 ml # Voids 4 3 3 # Bowel Movements 0 1 Result Diagram: 11/05/17 0555 11/05/17 0816 Imaging Last Impressions Chest X-Ray 11/05/17 0600 Signed Impressions: Service Date/Time: Sunday, November 05, 2017 06:11 - CONCLUSION: 1. Stable chest x-ray with bilateral pleural effusions with associated volume loss and/ or airspace consolidation. 2. Stable mildly enlarged cardiac silhouette. Kirt Anderson MD Renal Ultrasound 11/02/17 0000 Signed Impressions: Service Date/Time: Thursday, November 02, 2017 14:38 - CONCLUSION: Increased renal cortical echogenicity consistent with medical renal disease. No evidence of hydronephrosis. Kirt Hale MD Chest Ultrasound 11/02/17 0000 Signed Impressions: Service Date/Time: Thursday, November 02, 2017 10:20 - CONCLUSION: Small volume right pleural effusion Kirt Hale MD Abdomen/Pelvis CT 10/30/17 0000 Signed Impressions: Service Date/Time: Monday, October 30, 2017 11:57 - CONCLUSION: 1. Small loculated bilateral pleural effusions with basilar atelectasis. 2. Cardiomegaly. Mild anasarca. Trace free fluid in the abdomen and pelvis. 3. No bowel obstruction. Colonic diverticulosis without diverticulitis. Dat Whiteside MD Objective Remarks GENERAL: This is 87-year-old frail, cachectic and thin female. SKIN: No rashes, ecchymoses or lesions. Cool and dry. HEAD: Atraumatic. Normocephalic. No temporal or scalp tenderness. EYES: Pupils equal round and reactive. Extraocular motions intact. No scleral icterus. No injection or drainage. ENT: Nose without bleeding, purulent drainage or septal hematoma. Throat without erythema, tonsillar hypertrophy or exudate. Uvula midline. Airway patent. NECK: Trachea midline. No JVD or lymphadenopathy. Supple, nontender, no meningeal signs. CARDIOVASCULAR: Regular rate and rhythm without murmurs, gallops, or rubs. RESPIRATORY:Decreased air entry at BL bases. NO whezing, rales or rhonchi GASTROINTESTINAL: Abdomen soft, non-tender, nondistended. No hepato-splenomegaly , or palpable masses. No guarding. MUSCULOSKELETAL: Extremities without clubbing, cyanosis, (+) 2 edema in BL lower extremities. No joint tenderness, effusion, or edema noted. No calf tenderness. Negative Homans sign bilaterally. NEUROLOGICAL: Awake and alert. Cranial nerves II through XII intact. Motor and sensory grossly within normal limits. Five out of 5 muscle strength in all muscle groups. Normal speech Medications and IVs Current Medications Medications (Trade) Dose Ordered Sig/Madeleine Route Start Time Stop Time Status Last Admin (NS Flush) 2 ml UNSCH PRN IV FLUSH 10/30/17 14:30 (NS Flush) 2 ml BID IV FLUSH 10/30/17 21:00 11/05/17 11:27 (Zofran Inj) 4 mg Q6H PRN IVP 10/30/17 14:30 (Heparin Inj) 5,000 units Q12H SQ 10/30/17 15:00 11/03/17 03:38 (Narcan Inj) 0.4 mg UNSCH PRN IV PUSH 10/30/17 14:30 (Milk Of Magnesia Liq) 30 ml Q12H PRN PO 10/30/17 14:30 (Senokot) 17.2 mg Q12H PRN PO 10/30/17 14:30 (Dulcolax Supp) 10 mg DAILY PRN RECTAL 10/30/17 14:30 (Lactulose Liq) 30 ml DAILY PRN PO 10/30/17 14:30 (Cardizem Cd) 360 mg DAILY PO 10/31/17 09:00 11/05/17 11:24 (Protonix) 20 mg DAILY PRN PO 10/31/17 00:45 (Deltasone) 10 mg DAILY PO 10/31/17 09:00 11/05/17 11:23 (Spiriva Inh) 18 mcg DAILY INH 10/31/17 09:00 11/05/17 11:24 (Tears Naturale Opth Soln) 1 drop Q4H PRN EACH EYE 11/01/17 16:45 11/02/17 11:28 (Benadryl) 25 mg Q6H PRN PO 11/01/17 16:45 11/04/17 02:19 (Lasix) 20 mg BID@ PO 11/04/17 09:00 11/05/17 11:24 (Duoneb Neb) 1 ampule Q4HR NEB NEB 11/04/17 12:00 11/05/17 16:57 (Duoneb Neb) 1 ampule Q2HR NEB PRN NEB 11/04/17 10:00 A/P Problem List: (1) Sepsis ICD Code: A41.9 - Sepsis, unspecified organism Status: Resolved (2) Bilateral pleural effusion ICD Code: J90 - Pleural effusion, not elsewhere classified Status: Acute (3) CKD (chronic kidney disease), stage III ICD Code: N18.3 - Chronic kidney disease, stage 3 (moderate) (4) Acute kidney injury ICD Code: N17.9 - Acute kidney failure, unspecified Status: Acute (5) Pneumonia ICD Code: J18.9 - Pneumonia, unspecified organism Status: Acute (6) Itching ICD Code: L29.9 - Pruritus, unspecified Status: Acute Assessment and Plan 1. Sepsis Present on admission. likely 2/2 to suspected PNA. Patient with leukocytosis and tachycardia. Chest x-ray on admission reviewed by me showed mild basilar airspace disease bilaterally. Started on IV Aztreonam due to multiple allergies and on IV Vancomycin on 11/01. . Repeat chest x-ray obtained on 05/02/18 shows deterioration with increasing bibasilar parenchymal changes and effusion on the right. Chest ultrasound ordered to assess pleural effusions bilaterally. Chest ultrasound showed small volume right and left pleural effusion. 11/03 ID consulted, appreciate recommendations. Aztreonam discontinued. Monitor off antibiotics for now. Sputum culture ordered and pending. 11/04 Sputum culture with heavy growth of normal respiratory dipti. 2. Bilateral loculated pleural effusions. Antibiotics as above Consult pulmonology. 10/31 pulmonology consulted, appreciate recommendations. Loculated pleural effusions likely chronic. Recommendations are to observe at the present time. Pulmonology recommended to do it CT of the chest in a few days and if the effusions seem to be worsening or changing then we'll consider drainage or even surgical intervention. 3. Suspected lymphoma due to weight loss, patient reporting previous diagnosis. Consult oncology. Also check CA 125 10/31 Oncology consult pending. 11/01 appreciate oncology consultation. Patient seen by Dr. Aj. Patient has follicular lymphoma diagnosed in 2005. As per oncology the patient was lost to follow-up. As per oncology recommendations there is no significant adenopathy and patient does not seem to have bulky disease. Oncology recommends follow-up as an outpatient once discharged. Patient will likely need a PET scan as an outpatient. 4. Weight loss. Consult oncology as above. Check TSH, free T4, total T3. 10/31 TSH elevated but with normal free T3 and free T4. 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 5. CKD stage III. Upon review of records the patient has a baseline creatinine ranging from 1.0- 1.2. Creatinine likely has baseline. Continue to monitor BUN/creatinine, strict I's and O's and avoid nephrotoxins. 6. PNA - CAP As above. Wean o2 Cotntinue supplemental o2 to keep o2 sat >92%. 11/03 antibiotics discontinued. 7. TEDDY Creatinine trending up from 1.0 and admission to 1.5 on 04/10. I will consult nephrology. 11/03 appreciate nephrology recommendations. DC IV fluids. I will resume patient's home Lasix. Renal ultrasound shows signs of medical renal disease. No hydronephrosis observed. 11/04 creatinine continues to trend down. Continue to monitor BUN/creatinine, monitor strict I's and O's, avoid nephrotoxins. 8. Atrial fibrillation with RVR. Rate controlled now. Continue Cardizem CD. 9. Acute on chronic systolic heart failure. Echocardiogram shows a systolic function which is mildly reduced and estimated ejection fraction the range of 45-50%. Continue diuretics. I will switch oral Lasix to IV Lasix. 10. Leukocytosis: Likely reactive. The following. Recommends following the patient off antibiotics and to start antibiotics only if the patient has a fever or leukocytosis continues and left shift becomes apparent on CBC. Continue to monitor CBC with differential. Palliative care consulted. Discharge Planning Continue to monitor in the medical floor. Patient stayed on elevated levels of oxygen. Problem Qualifiers (1) Sepsis: Qualified Codes: A41.9 - Sepsis, unspecified organism (2) Pneumonia: Qualified Codes: J18.9 - Pneumonia, unspecified organism Adonay Vásquez MD Nov 05, 2017 18:11
--- NOTE | 2017-11-05 18:39 | HHI.PR ---
Subjective Remarks alert no sob at rest , positive with minimal exertion Objective Vital Signs Date Time Temp Pulse Resp B/P (MAP) Pulse Ox O2 Delivery O2 Flow Rate FiO2 11/05/17 16:00 97.9 85 19 110/63 (79) 91 11/05/17 12:00 97.9 71 18 122/58 (79) 92 11/05/17 08:43 93 Nasal Cannula 4.00 11/05/17 08:00 97.4 80 19 114/56 (75) 93 11/05/17 08:00 96 Nasal Cannula 4.00 11/05/17 04:00 Nasal Cannula 4.00 11/05/17 04:00 97.9 84 22 117/56 (76) 100 11/05/17 03:42 77 11/05/17 00:02 73 11/05/17 00:00 97.3 73 20 111/59 (76) 91 11/05/17 00:00 Nasal Cannula 4.00 11/04/17 21:14 93 Nasal Cannula 4.00 11/04/17 20:00 Nasal Cannula 4.00 11/04/17 20:00 98.7 89 20 111/59 (76) 93 11/04/17 19:48 62 I/O 11/04/17 11/04/17 11/04/17 11/05/17 11/05/17 11/05/17 07:00 15:00 23:00 07:00 15:00 23:00 Intake Total 600 ml 120 ml 960 ml Balance 600 ml 120 ml 960 ml Intake Oral 600 ml 120 ml 960 ml # Voids 4 3 3 3 # Bowel Movements 0 1 2 Result Diagram: 11/05/17 0555 11/05/17 0816 Objective Remarks GENERAL: SKIN: Warm and dry. HEAD: Atraumatic. Normocephalic. EYES: Pupils equal and round. No scleral icterus. No injection or drainage. ENT: No nasal bleeding or discharge. Mucous membranes pink and moist. NECK: Trachea midline. No JVD. CARDIOVASCULAR: Regular rate and rhythm. RESPIRATORY: No accessory muscle use. DECREASE BREATH SOUNDS AT BASIS to auscultation. Breath sounds equal bilaterally. GASTROINTESTINAL: Abdomen soft, non-tender, nondistended. Hepatic and splenic margins not palpable. MUSCULOSKELETAL: Extremities without clubbing, cyanosis, or edema. No obvious deformities. NEUROLOGICAL: Awake and alert. No obvious cranial nerve deficits. Motor grossly within normal limits. Five out of 5 muscle strength in the arms and legs. Normal speech. PSYCHIATRIC: Appropriate mood and affect; insight and judgment normal. Assessment and Plan Assessment and Plan ass respiratory failure copd loculated effusions, small BILATERAL CHEST YS = SMALL BIBASILAR EFFUSIONS plan o2 as needed bronchodilators INCREASE ACTIVITY OUTLOOK Sriknath Villafana MD Nov 05, 2017 18:39
[2017-11-05] MEDS: diphenhydrAMINE HCL 25 MG CAP PO PRN (22:09)
[2017-11-06] VITALS (16 sets, daily range): BP systolic 111–128; BP diastolic 56–66; PULSE 66–91; RESP 18–22; TEMP 97.2–97.6; O2SAT 92–97
[2017-11-06] MEDS: RESP: ALBUTEROL 2.5 MG/IPRATROPIUM 0.5 MG NEB (SCH) NEB ×6 (00:23→20:41)
[2017-11-06] MEDS ORDERED: hydrOXYzine HCL 10 MG TAB PO PRN (02:15)
[2017-11-06] MEDS: HEPARIN SODIUM - SQ 10,000 UNITS/ML VIAL SQ SCH ×2 (02:18→15:00)
--- NOTE | 2017-11-06 08:34 | HHI.PR ---
Subjective Remarks alert no sob at rest , positive with minimal exertion Objective Vital Signs Date Time Temp Pulse Resp B/P (MAP) Pulse Ox O2 Delivery O2 Flow Rate FiO2 11/06/17 04:46 97.3 79 18 123/59 (80) 96 11/06/17 03:56 78 11/06/17 00:45 97.6 75 18 111/66 (81) 97 11/06/17 00:01 77 11/05/17 22:02 Nasal Cannula 6.00 11/05/17 20:49 93 Nasal Cannula 5.00 11/05/17 20:16 97.8 77 18 102/51 (68) 97 11/05/17 19:57 78 11/05/17 16:00 97.9 85 19 110/63 (79) 91 11/05/17 12:00 97.9 71 18 122/58 (79) 92 11/05/17 08:43 93 Nasal Cannula 4.00 I/O 11/05/17 11/05/17 11/05/17 11/06/17 11/06/17 11/06/17 07:00 15:00 23:00 07:00 15:00 23:00 Intake Total 120 ml 960 ml 480 ml Balance 120 ml 960 ml 480 ml Intake Oral 120 ml 960 ml 480 ml # Voids 3 3 5 # Bowel Movements 1 2 1 Result Diagram: 11/05/17 0555 11/05/17 0816 Objective Remarks GENERAL: SKIN: Warm and dry. HEAD: Atraumatic. Normocephalic. EYES: Pupils equal and round. No scleral icterus. No injection or drainage. ENT: No nasal bleeding or discharge. Mucous membranes pink and moist. NECK: Trachea midline. No JVD. CARDIOVASCULAR: Regular rate and rhythm. RESPIRATORY: No accessory muscle use. DECREASE BREATH SOUNDS AT BASIS to auscultation. Breath sounds equal bilaterally. GASTROINTESTINAL: Abdomen soft, non-tender, nondistended. Hepatic and splenic margins not palpable. MUSCULOSKELETAL: Extremities without clubbing, cyanosis, or edema. No obvious deformities. NEUROLOGICAL: Awake and alert. No obvious cranial nerve deficits. Motor grossly within normal limits. Five out of 5 muscle strength in the arms and legs. Normal speech. PSYCHIATRIC: Appropriate mood and affect; insight and judgment normal. Assessment and Plan Assessment and Plan ass respiratory failure copd loculated effusions, small BILATERAL CHEST US = SMALL BIBASILAR EFFUSIONS IN BETTER SPIRITS TODAY plan o2 as needed bronchodilators INCREASE ACTIVITY OUTLOOK POOR Srikanth Duke MD Nov 06, 2017 08:34
[2017-11-06] MEDS: predniSONE 10 MG TAB PO SCH (09:00)
[2017-11-06] MEDS: DILTIAZEM-CD 180 MG CAP ER PO SCH (09:24)
[2017-11-06] MEDS: SODIUM CHLORIDE 0.9% FLUSH 10 ML FLUSH IV FLUSH SCH ×2 (09:24→19:48)
[2017-11-06] MEDS: FUROSEMIDE 20 MG TAB PO SCH ×2 (09:25→15:52)
[2017-11-06] MEDS: TIOTROPIUM BROMIDE 18 MCG INH INH SCH (09:26)
[2017-11-06 09:40] LABS: CREATININE 1.07 MG/DL (0.50-1.00)
--- NOTE | 2017-11-06 15:01 | HHI.PR ---
Subjective Remarks states she feels better, however still c/o bl lower extremity edema. afebrile. requiring more oxygen than previous days. fluid balance positive Objective Vitals Vital Signs Date Time Temp Pulse Resp B/P (MAP) Pulse Ox O2 Delivery O2 Flow Rate FiO2 11/06/17 12:06 97.3 77 22 122/58 (79) 96 11/06/17 12:02 92 Nasal Cannula 5.00 11/06/17 12:00 84 11/06/17 10:06 Nasal Cannula 6.00 11/06/17 08:07 97.3 91 21 124/59 (80) 95 11/06/17 08:00 66 11/06/17 04:46 97.3 79 18 123/59 (80) 96 11/06/17 03:56 78 11/06/17 00:45 97.6 75 18 111/66 (81) 97 11/06/17 00:01 77 11/05/17 22:02 Nasal Cannula 6.00 11/05/17 20:49 93 Nasal Cannula 5.00 11/05/17 20:16 97.8 77 18 102/51 (68) 97 11/05/17 19:57 78 11/05/17 16:00 97.9 85 19 110/63 (79) 91 I/O 11/05/17 11/05/17 11/05/17 11/06/17 11/06/17 11/06/17 07:00 15:00 23:00 07:00 15:00 23:00 Intake Total 120 ml 960 ml 480 ml Balance 120 ml 960 ml 480 ml Intake Oral 120 ml 960 ml 480 ml # Voids 3 3 5 # Bowel Movements 1 2 1 Result Diagram: 11/05/17 0555 11/06/17 0825 Imaging Last Impressions Chest X-Ray 11/05/17 0600 Signed Impressions: Service Date/Time: Sunday, November 05, 2017 06:11 - CONCLUSION: 1. Stable chest x-ray with bilateral pleural effusions with associated volume loss and/ or airspace consolidation. 2. Stable mildly enlarged cardiac silhouette. Kirt Anderson MD Renal Ultrasound 11/02/17 0000 Signed Impressions: Service Date/Time: Thursday, November 02, 2017 14:38 - CONCLUSION: Increased renal cortical echogenicity consistent with medical renal disease. No evidence of hydronephrosis. Kirt Hale MD Chest Ultrasound 11/02/17 0000 Signed Impressions: Service Date/Time: Thursday, November 02, 2017 10:20 - CONCLUSION: Small volume right pleural effusion Kirt Hale MD Abdomen/Pelvis CT 10/30/17 0000 Signed Impressions: Service Date/Time: Monday, October 30, 2017 11:57 - CONCLUSION: 1. Small loculated bilateral pleural effusions with basilar atelectasis. 2. Cardiomegaly. Mild anasarca. Trace free fluid in the abdomen and pelvis. 3. No bowel obstruction. Colonic diverticulosis without diverticulitis. Dat Whiteside MD Objective Remarks GENERAL: This is 87-year-old frail, cachectic and thin female. SKIN: No rashes, ecchymoses or lesions. Cool and dry. HEAD: Atraumatic. Normocephalic. No temporal or scalp tenderness. EYES: Pupils equal round and reactive. Extraocular motions intact. No scleral icterus. No injection or drainage. ENT: Nose without bleeding, purulent drainage or septal hematoma. Throat without erythema, tonsillar hypertrophy or exudate. Uvula midline. Airway patent. NECK: Trachea midline. No JVD or lymphadenopathy. Supple, nontender, no meningeal signs. CARDIOVASCULAR: Regular rate and rhythm without murmurs, gallops, or rubs. RESPIRATORY:Decreased air entry at BL bases. NO whezing, rales or rhonchi GASTROINTESTINAL: Abdomen soft, non-tender, nondistended. No hepato-splenomegaly , or palpable masses. No guarding. MUSCULOSKELETAL: Extremities without clubbing, cyanosis, (+) 2 edema in BL lower extremities. No joint tenderness, effusion, or edema noted. No calf tenderness. Negative Homans sign bilaterally. NEUROLOGICAL: Awake and alert. Cranial nerves II through XII intact. Motor and sensory grossly within normal limits. Five out of 5 muscle strength in all muscle groups. Normal speech Medications and IVs Current Medications Medications (Trade) Dose Ordered Sig/Madeleine Route Start Time Stop Time Status Last Admin (NS Flush) 2 ml UNSCH PRN IV FLUSH 10/30/17 14:30 (NS Flush) 2 ml BID IV FLUSH 10/30/17 21:00 11/06/17 09:24 (Zofran Inj) 4 mg Q6H PRN IVP 1/9/18 14:30 (Heparin Inj) 5,000 units Q12H SQ 10/30/17 15:00 11/03/17 03:38 (Narcan Inj) 0.4 mg UNSCH PRN IV PUSH 10/30/17 14:30 (Milk Of Magnesia Liq) 30 ml Q12H PRN PO 10/30/17 14:30 (Senokot) 17.2 mg Q12H PRN PO 10/30/17 14:30 (Dulcolax Supp) 10 mg DAILY PRN RECTAL 10/30/17 14:30 (Lactulose Liq) 30 ml DAILY PRN PO 10/30/17 14:30 (Cardizem Cd) 360 mg DAILY PO 10/31/17 09:00 11/06/17 09:24 (Protonix) 20 mg DAILY PRN PO 10/31/17 00:45 (Deltasone) 10 mg DAILY PO 10/31/17 09:00 11/05/17 11:23 (Spiriva Inh) 18 mcg DAILY INH 10/31/17 09:00 11/06/17 09:26 (Tears Naturale Opth Soln) 1 drop Q4H PRN EACH EYE 11/01/17 16:45 11/02/17 11:28 (Benadryl) 25 mg Q6H PRN PO 11/01/17 16:45 11/05/17 22:09 (Lasix) 20 mg BID@ PO 11/04/17 09:00 11/06/17 15:52 (Duoneb Neb) 1 ampule Q4HR NEB NEB 11/04/17 12:00 11/06/17 12:00 (Duoneb Neb) 1 ampule Q2HR NEB PRN NEB 11/04/17 10:00 (Atarax) 10 mg Q8H PRN PO 11/06/17 02:15 11/06/17 02:37 A/P Problem List: (1) Sepsis ICD Code: A41.9 - Sepsis, unspecified organism Status: Resolved (2) Bilateral pleural effusion ICD Code: J90 - Pleural effusion, not elsewhere classified Status: Acute (3) CKD (chronic kidney disease), stage III ICD Code: N18.3 - Chronic kidney disease, stage 3 (moderate) (4) Acute kidney injury ICD Code: N17.9 - Acute kidney failure, unspecified Status: Acute (5) Pneumonia ICD Code: J18.9 - Pneumonia, unspecified organism Status: Acute (6) Itching ICD Code: L29.9 - Pruritus, unspecified Status: Resolved Plan: I ordered Benadryl. Patient has history of multiple allergies. There is a macular rash on the patient's back. Patient is not receiving however any of the medications that could potentially cause a severe allergic reaction. 11/03 Resolved. Assessment and Plan 1. Sepsis Present on admission. likely 2/2 to suspected PNA. Patient with leukocytosis and tachycardia. Chest x-ray on admission reviewed by me showed mild basilar airspace disease bilaterally. Started on IV Aztreonam due to multiple allergies and on IV Vancomycin on 11/01. . Repeat chest x-ray obtained on 05/02/18 shows deterioration with increasing bibasilar parenchymal changes and effusion on the right. Chest ultrasound ordered to assess pleural effusions bilaterally. Chest ultrasound showed small volume right and left pleural effusion. 11/03 ID consulted, appreciate recommendations. Aztreonam discontinued. Monitor off antibiotics for now. Sputum culture ordered and pending. 11/04 Sputum culture with heavy growth of normal respiratory dipti. 11/06 sepsis clinically resolved. 2. Bilateral loculated pleural effusions. Antibiotics as above Consult pulmonology. 10/31 pulmonology consulted, appreciate recommendations. Loculated pleural effusions likely chronic. Recommendations are to observe at the present time. Pulmonology recommended to do it CT of the chest in a few days and if the effusions seem to be worsening or changing then we'll consider drainage or even surgical intervention. 3. Suspected lymphoma due to weight loss, patient reporting previous diagnosis. Consult oncology. Also check CA 125 10/31 Oncology consult pending. 11/01 appreciate oncology consultation. Patient seen by Dr. Aj. Patient has follicular lymphoma diagnosed in 2005. As per oncology the patient was lost to follow-up. As per oncology recommendations there is no significant adenopathy and patient does not seem to have bulky disease. Oncology recommends follow-up as an outpatient once discharged. Patient will likely need a PET scan as an outpatient. 4. Weight loss. Consult oncology as above. Check TSH, free T4, total T3. 10/31 TSH elevated but with normal free T3 and free T4. 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 5. CKD stage III. Upon review of records the patient has a baseline creatinine ranging from 1.0- 1.2. Creatinine likely has baseline. Continue to monitor BUN/creatinine, strict I's and O's and avoid nephrotoxins. 6. PNA - CAP As above. Wean o2 Cotntinue supplemental o2 to keep o2 sat >92%. 11/03 antibiotics discontinued. 7. TEDDY Creatinine trending up from 1.0 and admission to 1.5 on 04/10. I will consult nephrology. 11/03 appreciate nephrology recommendations. DC IV fluids. I will resume patient's home Lasix. Renal ultrasound shows signs of medical renal disease. No hydronephrosis observed. 11/04 creatinine continues to trend down. Continue to monitor BUN/creatinine, monitor strict I's and O's, avoid nephrotoxins. 8. Atrial fibrillation with RVR. Rate controlled now. Continue Cardizem CD. 9. Acute on chronic systolic heart failure. Echocardiogram shows a systolic function which is mildly reduced and estimated ejection fraction the range of 45-50%. Continue diuretics. 11/06 increase oral lasix from 20 mg po bid to 40 mg po bid. 10. Leukocytosis: Likely reactive. The following. Recommends following the patient off antibiotics and to start antibiotics only if the patient has a fever or leukocytosis continues and left shift becomes apparent on CBC. Continue to monitor CBC with differential. Palliative care consulted. Discharge Planning Continue to monitor in the medical floor. Patient on higher leve of o2. Poor nursing home prognosis. Problem Qualifiers (1) Sepsis: Qualified Codes: A41.9 - Sepsis, unspecified organism (2) Pneumonia: Qualified Codes: J18.9 - Pneumonia, unspecified organism Adonay Vásquez MD Nov 06, 2017 15:01
[2017-11-06 23:41] LABS: AUTOMATED NEUTROPHIL # 7.4 TH/MM3 (1.8-7.7); BASOPHIL # 0.2 TH/MM3 (0-0.2); BASOPHIL % 1.2 % (0.0-2.0); EOSINOPHIL # 0.5 TH/MM3 (0-0.4); EOSINOPHIL % 2.9 % (0.0-4.0); HEMATOCRIT 31.1 % (35.0-46.0); HEMOGLOBIN 10.5 GM/DL (11.6-15.3); LYMPH % 40.7 % (9.0-44.0); MEAN CELL VOLUME 91.5 FL (80.0-100.0); MEAN CORPUSCULAR HEMOGLOBIN 30.9 PG (27.0-34.0); MEAN CORPUSCULAR HGB CONC 33.8 % (32.0-36.0); MONOCYTE # 2.1 TH/MM3 (0-0.9); NEUT % 43.2 % (16.0-70.0); PLATELET COUNT 400 TH/MM3 (150-450); RED CELL DISTRIBUTION WIDTH 19.3 % (11.6-17.2); WHITE BLOOD COUNT 17.1 TH/MM3 (4.0-11.0)
[2017-11-06 23:55] LABS: INTERNATIONAL NORMALIZED RATIO 1.1 RATIO; PROTHROMBIN TIME - PATIENT 11.1 SEC (9.8-11.6)
--- NOTE | 2017-11-06 23:59 | RADRPT ---
EXAM DATE/TIME: 11/06/2017 23:24 [place] COMPARISON: No previous studies available for comparison. INDICATIONS : Left side weakness and droop. RADIATION DOSE: 56.35 CTDIvol (mGy) This report was called by Dr. Proctor to Dr. Curiel at 11: 45 PM MEDICAL HISTORY : Carcinoma, breast. SURGICAL HISTORY : Mastectomy, bilateral. ENCOUNTER: Initial ACUITY: 1 day PAIN SCALE: Non-responsive LOCATION: cranial TECHNIQUE: Multiple contiguous axial images were obtained of the head. Using automated exposure control and adj ustment of the mA and/or kV according to patient size, radiation dose was kept as low as reasonably a chievable to obtain optimal diagnostic quality images. DICOM format image data is available electro nically for review and comparison. FINDINGS: CEREBRUM: The ventricles and cortical sulci are widened. There is an area of encephalomalacia involving the lef t parietal lobe. There is a low-density extra-axial collection over the right parietal lobe and poste rior frontal lobe likely related to a chronic subdural hemorrhage or an asymmetric hygroma. This linsey ures up to 6 mm in thickness. No acute hemorrhage is seen. There is decreased density in the perivent ricular white matter and extending to the internal capsule regions. There is minimal increased densit y seen at the tip of the basal ganglia on the left. No evidence of midline shift, mass lesion, hemorr julisa or acute infarction. No extra-axial fluid collections are seen. POSTERIOR FOSSA: The cerebellum and brainstem are intact. The 4th ventricle is midline. The cerebellopontine angle i s unremarkable. EXTRACRANIAL: The visualized portion of the orbits is intact. SKULL: The calvaria is intact. No evidence of skull fracture. CONCLUSION: 1. No acute areas of definite hemorrhage or mass effect are seen. 2. Encephalomalacia involving the left parietal lobe. 3. 6 mm subdural collection over the posterior right frontal and the right parietal lobe likely relat ed to a prior subdural hemorrhage. No acute hemorrhage is seen in this region. An asymmetric hygroma could have a similar appearance. 4. Nonspecific small area of mildly increased density at the tip of the basal ganglia on the left. Th is is nonspecific. Typically, hemorrhages are more dense making hemorrhage less likely in this region . 5. Suspected small vessel ischemic change in the white matter. Kirt Proctor MD on November 06, 2017 at 23:42 Board Certified Radiologist. This report was verified electronically.
[2017-11-07] VITALS (11 sets, daily range): BP systolic 130–156; BP diastolic 60–74; PULSE 73–112; RESP 18–29; TEMP 96.4–98.2; O2SAT 88–100
[2017-11-07] MEDS ORDERED: ALTEPLASE BOLUS 9 MG/9 ML SYR IV ONE (00:15)
[2017-11-07] MEDS ORDERED: MISCELLANEOUS NURSING INFORMATION XX PRN (00:15)
[2017-11-07] MEDS ORDERED: ALTEPLASE DRIP IV ONE (00:15)
[2017-11-07] MEDS ORDERED: SODIUM CHLORIDE 0.9% 50 ML BAG IVF ONE (00:15)
[2017-11-07] MEDS: RESP: ALBUTEROL 2.5 MG/IPRATROPIUM 0.5 MG NEB (SCH) NEB ×4 (00:30→11:57)
[2017-11-07 01:31] LABS: CHOLESTEROL/ HDL RATIO 2.54 RATIO; HDL CHOLESTEROL 48.4 MG/DL (40.0-60.0)
[2017-11-07 01:33] LABS: TROPONIN I LESS THAN 0.02 NG/ML (0.02-0.05)
[2017-11-07 01:38] LABS: BANDS 5 % (0-6); BASOPHILS 1 % (0-2); LYMPHOCYTES 37 % (9-44); METAMYELOCYTES 1 % (0-1); MONOCYTES 8 % (0-8); MYELOCYTES 1 % (0-0); NEUTROPHIL # MANUAL DIFF 8.6 TH/MM3 (1.8-7.7); POLYS (SEG NEUTROPHILS) 43 % (16-70)
[2017-11-07 01:39] LABS: ACANTHOCYTES OCC (NORMAL); KERATOCYTES OCC (NORMAL)
--- NOTE | 2017-11-07 05:53 | HHI.CCPN ---
Subjective Remarks/Hospital Course 87-year-old female with past medical history of follicular lymphoma, COPD, CHF, atrial fibrillation (not on chronic anticoagulation), rheumatoid arthritis with Felty syndrome who is admitted to [facility] on by the hospitalist service. Ulthera stroke alert was called when she was found dysarthric with left hemiparesis. She was last seen normal at [address] brain report indicates 6 mm R subdural fluid collection which per report was subdural hemorrhage versus asymmetric hygroma. There was increased density in the L basal ganglia but hemorrhage was felt to be less likely. Dr. Carrasco had called patients granddaughter and discussed administration of TPA. He called me for patient transfer to ICU. Subjective 11/07: Post consultation follow-up. Patient with obvious left facial droop, left upper extremity flaccid with withdrawals left lower extremity. Adequate strength right upper lower extremity. Currently protecting airway. Doesn't open eyes to voice. Answers 1-2 word simple answers. Objective Vital Signs Date Time Temp Pulse Resp B/P (MAP) Pulse Ox O2 Delivery O2 Flow Rate FiO2 11/07/17 04:39 96 Nasal Cannula 3.00 11/07/17 02:00 84 11/07/17 01:00 97.6 18 134/74 (94) Manual Cuff/Auscultation Result Diagram: 11/06/17 2325 11/06/17 0825 Other Results Microbiology Date/Time Source Procedure Growth Status 10/30/17 11:45 Blood Peripheral Aerobic Blood Culture - Final NO GROWTH IN 5 DAYS Complete 10/30/17 11:45 Blood Peripheral Anaerobic Blood Culture - Final NO GROWTH IN 5 DAYS Complete 11/03/17 00:00 Sputum Expectorated Sputum Gram Stain - Final Complete 11/03/17 00:00 Sputum Expectorated Sputum Sputum Culture - Final HEAVY GROWTH NORMAL RESPIRATORY TRAN Complete 11/04/17 13:10 Urine Catheterized Urine Legionella Antigen - Final PRESUMPTIVE NEGATIVE FOR LEGIONELLA P... Complete 11/04/17 13:10 Urine Catheterized Urine Streptococcus pneumoniae Antigen (M - Final PRESUMPTIVE NEGATIVE FOR STREPTOCOCCU... Complete Imaging Last Impressions Head CT 11/06/17 0000 Signed Impressions: Service Date/Time: Monday, November 06, 2017 23:24 - CONCLUSION: 1. No acute areas of definite hemorrhage or mass effect are seen. 2. Encephalomalacia involving the left parietal lobe. 3. 6 mm subdural collection over the posterior right frontal and the right parietal lobe likely related to a prior subdural hemorrhage. No acute hemorrhage is seen in this region. An asymmetric hygroma could have a similar appearance. 4. Nonspecific small area of mildly increased density at the tip of the basal ganglia on the left. This is nonspecific. Typically, hemorrhages are more dense making hemorrhage less likely in this region. 5. Suspected small vessel ischemic change in the white matter. Kirt Proctor MD Chest X-Ray 11/05/17 0600 Signed Impressions: Service Date/Time: Sunday, November 05, 2017 06:11 - CONCLUSION: 1. Stable chest x-ray with bilateral pleural effusions with associated volume loss and/ or airspace consolidation. 2. Stable mildly enlarged cardiac silhouette. Kirt Anderson MD Renal Ultrasound 11/02/17 0000 Signed Impressions: Service Date/Time: Thursday, November 02, 2017 14:38 - CONCLUSION: Increased renal cortical echogenicity consistent with medical renal disease. No evidence of hydronephrosis. Kirt Hale MD Chest Ultrasound 11/02/17 0000 Signed Impressions: Service Date/Time: Thursday, November 02, 2017 10:20 - CONCLUSION: Small volume right pleural effusion Kirt Hale MD Abdomen/Pelvis CT 10/30/17 0000 Signed Impressions: Service Date/Time: Monday, October 30, 2017 11:57 - CONCLUSION: 1. Small loculated bilateral pleural effusions with basilar atelectasis. 2. Cardiomegaly. Mild anasarca. Trace free fluid in the abdomen and pelvis. 3. No bowel obstruction. Colonic diverticulosis without diverticulitis. Dat Whiteside MD Objective Remarks GENERAL: 87-year-old female currently resting in bed in mild respiratory distress SKIN: Lower extremity with erythematous scaly skin HEAD: Atraumatic. Normocephalic. EYES: Pupils equal and round about 2 mm bilaterally and sluggish. No scleral icterus. No injection or drainage. ENT: No nasal bleeding or discharge. Mucous membranes pink and moist. NECK: Trachea midline. No JVD. CARDIOVASCULAR: IRR. S1, S2 no S4. 1/6 systolic murmur at the apex RESPIRATORY: Diminished breath sounds throughout. Specifically in the bases bilaterally. No wheezing appreciated. Shallow breaths GASTROINTESTINAL: Abdomen soft, non-tender, nondistended. Hypoactive bowel sounds are appreciated MUSCULOSKELETAL: Extremities with 2+ bilateral lower extremity edema NEUROLOGICAL: Idealistic GCS 10 (E2, V3. M5) Arousable to loud voice in noxious stimulation. Left facial droop. Currently not protruding tongue. Left upper extremity appears flaccid. Withdraws to left lower x-ray. Strength 4-5 right upper and lower extremity. 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 fib Bilateral cataract with IOC CTA brain 11/06 revealed left parietal lobe. 6 mm subdural hygroma versus hematoma the posterior right frontal/parietal region. Left base again increased density. Small vascular ischemic changes. Follow-up CT brain this a.m. 11/07 revealed evolving right frontal CVA with cytogenic edema Received alteplase 5.2 mg 1 followed by 47 mg at 0020 on 11/[address] brain 11/08 at 0020 Goal keep systolic blood pressure less than 180, diastolic less than 105 Lipid panel as below NIH score every 4 hours Neurology/Dr. Carrasco is following Carotid Dopplers ordered Unable to do MRI/A due to incompatibility/pacemaker CV: Congestive heart failure/systolic appears chronic Atrial fibrillation - chronic rate controlled Hypertension Pacemaker in situ Echocardiogram 10/31 - EF 45-50%. Bilateral atrial dilatation. Pulmonary arterial Pressure 43 mmHg Goal keep systolic blood pressure was 180, diastolic pressure less than 105 post alteplase infusion 24 hours Home medications document is hydralazine 25 mg by mouth every 8 hours and diltiazem 240 mg by mouth daily Patient is on furosemide 20 mg by mouth twice a day and with potassium supplementation KCl 10 mEq twice a day Resp: Chronic respiratory insufficiency/COPD-home oxygen dependent 2 L Likely chronic right greater than left loculated pleural effusions Nasal cannula to maintain saturations greater than equal to 92% Holding tiotropium 18 g inhalation daily while on albuterol/ipratropium aerosols On albuterol inhaler every 6 hours at home with albuterol aerosols every 2 hours as needed for dyspnea Dr. Duke actively following. GI: Gastroesophageal reflux disease Hypoalbuminemia Status post post splenectomy Diverticulosis Nothing by mouth status On pantoprazole [address] abdomen/pelvis 10/31. Diverticulosis without diverticulitis. Bilateral loculated pleural effusions lower lobes. : Prabhakar catheter if indicated for accurate I's and O's in a critically ill patient Endo: History of partial thyroidectomy Hyperglycemia Elevated TSH 6.14/normal free T4 0.89 Chronic prednisone use Sliding scale with Accu-Cheks every 6 hours to maintain euglycemia Novulog low regimen Patient is currently on methylprednisolone 20 mg IV twice a day. On 10 mg daily chronically home with recent taper. Conversion factor will be 8 mg but appropriate this time Repeat TSH in 4-6 weeks Renal: Chronic kidney disease stage IIIa Acute kidney injury - resolved followed by Dr. 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 Singleton Outpatient PET scan per Dr. Aj recommendations History of breast cancer status post right mastectomy History of ovarian cancer status post resection Leukocytosis Normocytic anemia Elevated CA-125 Status post alteplase as above. 5.2 mg followed by 47 mg Follow-up CBC in a.m. 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 See orders PT/OT evaluate and treat Access - Utilize peripheral IV. Central line if indicated Prophylaxis - GI - pantoprazole - DVT - SCD/holding pharmacological prophylaxis 24 hours post alteplase infusion 35 additional minutes care time Agree patient has no comparisons for medical decision-making. At the present time, is designated healthcare proxy. Discussed with her stop her/ palliative care. He will discuss with family goals of care in this very dire situation. Her overall prognosis extremely poor with multiple comorbidities in the setting of this acute CVA with evolving cytotoxic edema in the right frontal lobe. Hospice is very appropriate in this instance Juan Miguel Montalvo MD Nov 07, 2017 05:53
--- NOTE | 2017-11-07 07:04 | PD.CONS ---
HPI Service Critical Care Medicine Consult Requested By Dr. Galvez Reason for Consult Acute stroke with intention to treat with TPA Primary Care Physician Manjit Hook MD History of Present Illness 87-year-old female with past medical history of follicular lymphoma, COPD, CHF, atrial fibrillation (not on chronic anticoagulation), rheumatoid arthritis with Felty syndrome who is admitted to [facility] on by the hospitalist service. Just[place] stroke alert was called when she was found dysarthric with left hemiparesis. She was last seen normal at [address] brain report indicates 6 mm R subdural fluid collection which per report was subdural hemorrhage versus asymmetric hygroma. There was increased density in the L basal ganglia but hemorrhage was felt to be less likely. Dr. Carrasco had called patients granddaughter and discussed administration of TPA. He called me for patient transfer to ICU. Review of Systems ROS Limitations: Clinical Condition Past Family Social History Allergies: Coded Allergies: budesonide (Unverified Allergy, Severe, Anaphylaxis, 10/30/17) cephalexin (Unverified Allergy, Severe, 10/30/17) clarithromycin (Unverified Allergy, Severe, Rash, 10/30/17) diphenhydramine (Unverified Allergy, Severe, Rash and hot all over, 10/30/17 ) formoterol (Unverified Allergy, Severe, Anaphylaxis, 10/30/17) iodine (Unverified Allergy, Severe, 10/30/17) iopamidol (Unverified Allergy, Severe, DO NOT PREMEDICATE-PT HAS ANAPHLYXIS, 10/30/17) levofloxacin (Unverified Allergy, Severe, SEVERE ITCHING, 10/30/17) oxycodone (Unverified Allergy, Severe, Itching, 10/30/17) penicillin G (Unverified Allergy, Severe, 10/30/17) potassium iodide (Unverified Allergy, Severe, 10/30/17) povidone-iodine (Unverified Allergy, Severe, 10/30/17) sodium iodide (Unverified Allergy, Severe, 10/30/17) fluticasone (Unverified Allergy, Intermediate, Edema-SPOKE TO YONATHAN HILLIARD SAID PT TAKE NO PROBLEM, 10/30/17) fluticasone furoate (Unverified Allergy, Intermediate, Edema-SPOKE TO YONATHAN HILLIARD SAID PT TAKE NO PROBLEM, 10/30/17) salmeterol (Unverified Allergy, Intermediate, Edema-SPOKE TO RN BABAK SAID PT TAKE NO PROBLEM, 10/30/17) azithromycin (Unverified Allergy, Unknown, 10/30/17) MRI PRECAUTION (Unverified Adverse Reaction, Severe, non compatible pacemaker, 11/07/17) non compatible pacemaker 11/07/17 vsv Uncoded Allergies: beef,pork,seafood (Adverse Reaction, Unknown, 10/30/17) Past Medical History Rheumatoid arthritis Atrial fibrillation Right breast cancer Throat cancer. Follicular lymphoma Chronic systolic Congestive heart failure Thyroid nodule Felty syndrome COPD Past Surgical History Right mastectomy Lymph node dissection History of ovarian mass resection Partial thyroidectomy Cholecystectomy Splenectomy. Pacemaker placement Reported Medications Spiriva 18 g inhaled daily Albuterol 2 puffs inhaled every 6 hours Hydralazine 25 mg by mouth every 8 hours Cardizem CD 360 mg daily Potassium chloride 10 mEq by mouth twice a day Lasix 20 mg by mouth twice a day Protonix 40 mg by mouth daily Prednisone to milligrams by mouth daily Family History Unable to obtain from patient due to clinical condition. Social History Unable to obtain social history from patient due to clinical condition. Review of EMR indicates: Nonsmoker. Patient reports that 2 tablespoons of vodka with honey helps treat pain; she uses on average every 3 days. Denies any illicit drug use. Her family states that she is unable to ambulate and moves around in a rolling chair at home. She does prepare meals and manage her finances. She was living at home with her who is 89 Physical Exam Vital Signs Vital Signs Date Time Temp Pulse Resp B/P (MAP) Pulse Ox O2 Delivery O2 Flow Rate FiO2 11/07/17 04:39 96 Nasal Cannula 3.00 11/07/17 04:00 97.6 80 18 150/74 (99) 95 11/07/17 02:00 84 11/07/17 01:00 80 11/07/17 01:00 97.6 80 18 134/74 (94) 97 Manual Cuff/Auscultation 11/07/17 00:07 87 11/06/17 23:17 93 6.00 11/06/17 23:15 93 6.00 11/06/17 20:51 95 Nasal Cannula 5.00 11/06/17 20:41 70 11/06/17 20:00 97.2 72 18 125/56 (79) 97 11/06/17 19:49 Nasal Cannula 6.00 11/06/17 16:09 97.5 76 21 128/59 (82) 96 11/06/17 16:00 73 11/06/17 12:06 97.3 77 22 122/58 (79) 96 11/06/17 12:02 92 Nasal Cannula 5.00 11/06/17 12:00 84 11/06/17 10:06 Nasal Cannula 6.00 11/06/17 08:07 97.3 91 21 124/59 (80) 95 11/06/17 08:00 66 Physical Exam GENERAL: Frail appearing elderly female SKIN: Warm and dry, there is scaling skin on her lower extremities. HEAD: Atraumatic. Normocephalic. EYES: Pupils equal and round, reactive 3 mm. . No scleral icterus. No injection or drainage. ENT: No nasal bleeding or discharge. Mucous membranes dry NECK: Trachea midline. No JVD. CARDIOVASCULAR: Irregularly irregular. No murmurs rubs or gallops. RESPIRATORY: Shallow respirations with diminished breath sounds bibasilar. No wheeze. GASTROINTESTINAL: Abdomen soft, non-tender, nondistended. MUSCULOSKELETAL: Extremities without clubbing, cyanosis. There are severe arthritic deformities of bilateral hands. 2+ edema BLE. NEUROLOGICAL: Awake, dysarthric speech. R gaze preference. Tongue deviates to right. L facial droop. Spontaneously moves right side but not fully cooperative with motor exam. L upper extremity with 1/5 biceps withdrawal to noxious stimuli. L leg weakly 1/5 withdrawal to noxious stimuli. Laboratory Laboratory Tests Test 11/06/17 08:25 11/06/17 23:25 11/07/17 01:15 Creatinine 1.07 Estimat Glomerular Filtration Rate 49 White Blood Count 17.1 Red Blood Count 3.40 Hemoglobin 10.5 Bedside Hemoglobin 10.9 Hematocrit 31.1 Bedside Hematocrit 32.0 Mean Corpuscular Volume 91.5 Mean Corpuscular Hemoglobin 30.9 Mean Corpuscular Hemoglobin Concent 33.8 Red Cell Distribution Width 19.3 Platelet Count 400 Mean Platelet Volume 8.0 Neutrophils (%) (Auto) 43.2 Lymphocytes (%) (Auto) 40.7 Monocytes (%) (Auto) 12.0 Eosinophils (%) (Auto) 2.9 Basophils (%) (Auto) 1.2 Neutrophils # (Auto) 7.4 Lymphocytes # (Auto) 7.0 Monocytes # (Auto) 2.1 Eosinophils # (Auto) 0.5 Basophils # (Auto) 0.2 CBC Comment AUTO DIFF Differential Total Cells Counted 100 Neutrophils % (Manual) 43 Band Neutrophils % 5 Lymphocytes % 37 Monocytes % 8 Eosinophils % 4 Basophils % 1 Neutrophils # (Manual) 8.6 Metamyelocytes 1 Myelocytes 1 Differential Comment FINAL DIFF MANUAL Platelet Estimate NORMAL Platelet Morphology Comment ENLARGED Acanthocytes OCC Keratocytes OCC Prothrombin Time 11.1 Prothromb Time International Ratio 1.1 Activated Partial Thromboplast Time 24.2 Bedside Sodium 139 Bedside Potassium 4.0 Bedside Chloride 98 Bedside Blood Urea Nitrogen 28 Bedside Creatinine 1.2 Bedside Glucose 149 Total Creatine Kinase 22 Troponin I LESS THAN 0.02 Triglycerides Level 58 Cholesterol Level 123 LDL Cholesterol 63 HDL Cholesterol 48.4 Cholesterol/HDL Ratio 2.54 Nasal Screen MRSA (PCR) MRSA NOT DETECTED Date/Time Source Procedure Growth Status 10/30/17 11:45 Blood Peripheral Aerobic Blood Culture - Final NO GROWTH IN 5 DAYS Complete 10/30/17 11:45 Blood Peripheral Anaerobic Blood Culture - Final NO GROWTH IN 5 DAYS Complete 11/03/17 00:00 Sputum Expectorated Sputum Gram Stain - Final Complete 11/03/17 00:00 Sputum Expectorated Sputum Sputum Culture - Final HEAVY GROWTH NORMAL RESPIRATORY TRAN Complete 11/04/17 13:10 Urine Catheterized Urine Legionella Antigen - Final PRESUMPTIVE NEGATIVE FOR LEGIONELLA P... Complete 11/04/17 13:10 Urine Catheterized Urine Streptococcus pneumoniae Antigen (M - Final PRESUMPTIVE NEGATIVE FOR STREPTOCOCCU... Complete Result Diagram: 11/06/17 5750 11/06/17 0833 Assessment and Plan Assessment and Plan NEURO: Acute ischemic stroke CT brain with fluid collection on the right which is either chronic right subdural or hygroma. Dr. Carrasco favors hygroma and states that hyperintense lesion of L basal ganglia is calcification. Unable to perform CTA due to renal function and unable to obtain MRI due to noncompatible pacemaker. Dr. Carrasco had already discussed with family and they accepted the risk of TPA. However, given patients age and CT findings she is at higher risk of hemorrhage even if this is hygroma. I discussed this with Dr. Carrasco and he feels should still proceed with TPA but also agrees with me speaking with family again to ensure that they understand this higher risk. Discussed with granddaughter who requested that I not call patients again because she states he is unable to process additional information and he has gone back to sleep after he was just woken up. She said she would not provide me with contact information for him. She states that when she spoke with him earlier about TPA he said "even if the medication kills her it is better to try it than to let her lie there unable to move or speak because of a severe stroke". I discussed with family that there is no guarantee TPA will provide benefit and if she has hemorrhagic complication she could or have further deterioration of her neurologic condition. They state that they accept these risks as they do not feel that her current condition following the stroke is an acceptable quality of life and they might as well try anything that may help her get better. Admit to [facility] for q1h neuro checks. Blood pressure management as per below antiplatelets or anticoagulants for 24 hours post TPA. Follow up CT brain Dr. Carrasco to follow. RESP: Loculated right pleural effusion COPD Chronic hypoxemic respiratory failure on home oxygen 2 L Hold Spiriva. DuoNeb every 6 hours. Albuterol every 2 hours as needed. She is currently protecting airway but is at high risk for loss of airway protection. Appears patient and family desire intubation if needed for respiratory failure. CV: Chronic atrial fibrillation Chronic systolic heart failure Pacemaker in place Rhythm is underlying A. fib, paced. She has not been on chronic anticoagulation. Cardizem 360 mg by mouth daily is on hold. Initiate Cardizem drip if needed for A. fib RVR Monitor blood pressure per TPA protocol. Labetalol as needed for systolic blood pressure greater than 180 or diastolic blood pressure greater than 105 Initiate Cardene drip if needed GI: GERD Nothing by mouth. She currently will not be able to swallow. She will eventually need speech therapy to evaluate when she is able to participate. No NGT at this time due to risk of epistaxis following TPA FEN/RENAL: Chronic kidney disease stage III Acute kidney injury improving DC po Lasix. Lasix 20 mg IV twice a day ID: Monitor for signs and symptoms of infection. Recently empirically treated for pneumonia with aztreonam 10/30-11/03. Blood and sputum cultures were negative. Urine Legionella and pneumococcal antigen were 11/04/17 Has persistent leukocytosis ?steroids HEME: Follicular lymphoma diagnosed in 2005. History of right breast cancer status post mastectomy Lymphoma was previously followed by Dr. Singleton. She was lost to follow-up. She has been seen by Dr. her earlier this admission and recommended outpatient PET scan and follow-up. 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 Unable to take po. Will replace with Solumedrol 20 mg IV daily while unable to take po. Monitor for e/o relative adrenal insufficiency. Acute hyperglycemia Low-dose insulin sliding scale AC/hs PROPH: SCD for DVT prophylaxis. No pharmacologic DVT prophylaxis for 24 hours post TPA. Normally on ppi due to h/o GERD. Unable to take po, doesnt have NGT so will use famotidine for now since Protonix IV on shortage. Can be transitioned to PPI via OGT if gets intubated. ACCESS: Peripheral IV providing adequate access. Patient previously stated she was full code when discussed with palliative care. She no longer has capacity for medical decision making. Family states she has been inconsistent regarding her desires for code status and her has advocated for aggressive care. She remains FULL CODE at this time. Her overall prognosis is poor and she would be appropriate for hospice if that was compatible with her wishes. Palliative care following. Level 3 Consult. Rosalina Moseley MD Nov 07, 2017 07:04
[2017-11-07] MEDS ORDERED: LABETALOL HCL 100 MG/20 ML VIAL IV PUSH PRN ×2 (07:15→09:15)
--- NOTE | 2017-11-07 07:57 | PD.CONS ---
History of Present Illness Service Neurology Consult Requested By medical Reason for Consult stroke alert Primary Care Physician Manjit Hook MD History of Present Illness 87 y/o f with multiple medical problems, recently evaluated by palliative care noted to have neuro changes at about midnight last night. stroke alert called. last seen normal at 10pm. was conversant and hoskins then noted to have speech changes and left sided weakness. ct brain naicp. unable to get cta's 2/2 contrast allergy. case d/w ccm and nursing multipkle times. case d/w radiology.tx options d/w pt's granddaughter/pt's spouse regarding iv tpa. d/w high risk for ich 10-20%. they felt the pt would want to take the chance in attempts to avoid paralysis. they understand she is very sick. pt tx'd to icu and iv tpa given. no known hx of ich. hx of chf, afib. not on any OAC. pmhx obtained from medical chart due to pt's mental status Review of Systems limited 2/2 mental status, rest as above Past Family Social History Past Medical History Rheumatoid arthritis Atrial fibrillation Asthma Right breast cancer throat cancer. Reportedly non-Hodgkin's lymphoma Congestive heart failure Thyroid nodule Felty syndrome COPD Past Surgical History Right mastectomy Lymph node dissection History of ovarian mass resection Partial thyroidectomy Cholecystectomy Splenectomy. Pacemaker placement Reported Medications Reported Meds & Active Scripts Active Oxygen tank (Oxygen) 1 Ea Tank 2 Liter SHARMAINE.CANULA CONTINUOUS Oxygen Concentrator Portable Gaseous 2 L/min via Nasal Cannula Continuous For 99 months Protonix (Pantoprazole Sodium) 20 Mg Tab 20 Mg PO DAILY PRN Prednisone 5 Mg Tab 5 Mg PO DAILY 30 Days 4 tablets (20 mg) daily x 3 days then 3 tabs (15 mg) daily x 3 days then 10 mg daily- maintenance dose Spiriva Handihaler (Tiotropium Inh) 18 Mcg Cap 18 Mcg INH DAILY 30 Days Cardizem CD 24 HR (Diltiazem CD 24 HR) 180 Mg Caper 360 Mg PO DAILY 30 Days Albuterol Neb (Albuterol Sulfate) 2.5 Mg/3 Ml Neb 2.5 Mg INH Q2HR NEB PRN 10 Days Ventolin Hfa 18 GM Inh (Albuterol Sulfate) 90 Mcg/Act Aer 2 Puff INH Q6H 30 Days Reported Hydralazine HCl 25 Mg Tablet 25 Mg PO Q8HR Prednisone 10 Mg Tab 10 Mg PO DAILY Lasix (Furosemide) 20 Mg Tab 20 Mg PO BID Potassium Chloride ER (Potassium Chloride) 10 Meq Cap 10 Meq PO BID Allergies: Coded Allergies: budesonide (Unverified Allergy, Severe, Anaphylaxis, 10/30/17) cephalexin (Unverified Allergy, Severe, 10/30/17) clarithromycin (Unverified Allergy, Severe, Rash, 10/30/17) diphenhydramine (Unverified Allergy, Severe, Rash and hot all over, 10/30/17 ) formoterol (Unverified Allergy, Severe, Anaphylaxis, 10/30/17) iodine (Unverified Allergy, Severe, 10/30/17) iopamidol (Unverified Allergy, Severe, DO NOT PREMEDICATE-PT HAS ANAPHLYXIS, 10/30/17) levofloxacin (Unverified Allergy, Severe, SEVERE ITCHING, 10/30/17) oxycodone (Unverified Allergy, Severe, Itching, 10/30/17) penicillin G (Unverified Allergy, Severe, 10/30/17) potassium iodide (Unverified Allergy, Severe, 10/30/17) povidone-iodine (Unverified Allergy, Severe, 10/30/17) sodium iodide (Unverified Allergy, Severe, 10/30/17) fluticasone (Unverified Allergy, Intermediate, Edema-SPOKE TO YONATHAN HILLIARD SAID PT TAKE NO PROBLEM, 10/30/17) fluticasone furoate (Unverified Allergy, Intermediate, Edema-SPOKE TO YONATHAN HILLIARD SAID PT TAKE NO PROBLEM, 10/30/17) salmeterol (Unverified Allergy, Intermediate, Edema-SPOKE TO YONATHAN HILLIARD SAID PT TAKE NO PROBLEM, 10/30/17) azithromycin (Unverified Allergy, Unknown, 10/30/17) Uncoded Allergies: beef,pork,seafood (Adverse Reaction, Unknown, 10/30/17) Family History noncontributory Social History Nonsmoker. lives with . Physical Exam Review of Systems All other ROS: ROS reviewed as documented in chart Past Family Social History Allergies: Coded Allergies: budesonide (Unverified Allergy, Severe, Anaphylaxis, 10/30/17) cephalexin (Unverified Allergy, Severe, 10/30/17) clarithromycin (Unverified Allergy, Severe, Rash, 10/30/17) diphenhydramine (Unverified Allergy, Severe, Rash and hot all over, 10/30/17 ) formoterol (Unverified Allergy, Severe, Anaphylaxis, 10/30/17) iodine (Unverified Allergy, Severe, 10/30/17) iopamidol (Unverified Allergy, Severe, DO NOT PREMEDICATE-PT HAS ANAPHLYXIS, 10/30/17) levofloxacin (Unverified Allergy, Severe, SEVERE ITCHING, 10/30/17) oxycodone (Unverified Allergy, Severe, Itching, 10/30/17) penicillin G (Unverified Allergy, Severe, 10/30/17) potassium iodide (Unverified Allergy, Severe, 10/30/17) povidone-iodine (Unverified Allergy, Severe, 10/30/17) sodium iodide (Unverified Allergy, Severe, 10/30/17) fluticasone (Unverified Allergy, Intermediate, Edema-SPOKE TO YONATHAN HILLIARD SAID PT TAKE NO PROBLEM, 10/30/17) fluticasone furoate (Unverified Allergy, Intermediate, Edema-SPOKE TO YONATHAN HILLIARD SAID PT TAKE NO PROBLEM, 10/30/17) salmeterol (Unverified Allergy, Intermediate, Edema-SPOKE TO YONATHAN HILLIARD SAID PT TAKE NO PROBLEM, 10/30/17) azithromycin (Unverified Allergy, Unknown, 10/30/17) Uncoded Allergies: beef,pork,seafood (Adverse Reaction, Unknown, 10/30/17) Active Ordered Medications Current Medications Medications (Trade) Dose Ordered Sig/Madeleine Route Start Time Stop Time Status Last Admin (NS Flush) 2 ml UNSCH PRN IV FLUSH 10/30/17 14:30 (NS Flush) 2 ml BID IV FLUSH 10/30/17 21:00 11/06/17 19:48 (Zofran Inj) 4 mg Q6H PRN IVP 10/30/17 14:30 (Narcan Inj) 0.4 mg UNSCH PRN IV PUSH 10/30/17 14:30 (Milk Of Magnesia Liq) 30 ml Q12H PRN PO 10/30/17 14:30 (Senokot) 17.2 mg Q12H PRN PO 10/30/17 14:30 (Dulcolax Supp) 10 mg DAILY PRN RECTAL 10/30/17 14:30 (Lactulose Liq) 30 ml DAILY PRN PO 10/30/17 14:30 (Cardizem Cd) 360 mg DAILY PO 10/31/17 09:00 Future Hold 11/06/17 09:24 (Protonix) 20 mg DAILY PRN PO 10/31/17 00:45 (Deltasone) 10 mg DAILY PO 10/31/17 09:00 11/05/17 11:23 (Spiriva Inh) 18 mcg DAILY INH 10/31/17 09:00 11/06/17 09:26 (Tears Naturale Opth Soln) 1 drop Q4H PRN EACH EYE 11/01/17 16:45 11/02/17 11:28 (Benadryl) 25 mg Q6H PRN PO 11/01/17 16:45 11/05/17 22:09 (Duoneb Neb) 1 ampule Q4HR NEB NEB 11/04/17 12:00 11/07/17 04:31 (Duoneb Neb) 1 ampule Q2HR NEB PRN NEB 11/04/17 10:00 (Atarax) 10 mg Q8H PRN PO 11/06/17 02:15 11/06/17 02:37 (Lasix Inj) 40 mg BID@ IV PUSH 11/07/17 09:00 Miscellaneous Information No Heparin, Warfarin, Aspir... UNSCH PRN XX 11/07/17 00:15 11/08/17 00:14 (Trandate Inj) 10 mg Q4H PRN IV PUSH 11/07/17 07:15 Exam I&O / VS Vital Signs Date Time Temp Pulse Resp B/P (MAP) Pulse Ox O2 Delivery O2 Flow Rate FiO2 11/07/17 04:39 96 Nasal Cannula 3.00 11/07/17 04:00 97.6 80 18 150/74 (99) 95 11/07/17 02:00 84 11/07/17 01:00 80 11/07/17 01:00 99 Nasal Cannula 2.00 11/07/17 01:00 97.6 80 18 134/74 (94) 97 Manual Cuff/Auscultation 11/07/17 00:07 87 11/06/17 23:17 93 6.00 11/06/17 23:15 93 6.00 11/06/17 20:51 95 Nasal Cannula 5.00 11/06/17 20:41 70 11/06/17 20:00 97.2 72 18 125/56 (79) 97 11/06/17 19:49 Nasal Cannula 6.00 11/06/17 16:09 97.5 76 21 128/59 (82) 96 11/06/17 16:00 73 11/06/17 12:06 97.3 77 22 122/58 (79) 96 11/06/17 12:02 92 Nasal Cannula 5.00 11/06/17 12:00 84 11/06/17 10:06 Nasal Cannula 6.00 11/06/17 08:07 97.3 91 21 124/59 (80) 95 11/06/17 08:00 66 Exam Comments drowsy, states name, dysarthric speech, mild rt gaze preference, ou 2mm sluggish , left lower facial weakness, left hemiplegia, withdraws to pin rt side >left. has severe arthritic changes, ulnar deviation in her hands limited ffm in both hands, nihss approx 18 Review/Management Diagnosis/Plan: (1) Acute right MCA stroke ICD Codes: I63.511 - Cerebral infarction due to unspecified occlusion or stenosis of right middle cerebral artery Status: Acute Plan: probable acute rt mca stroke etiology: cardioembolic 2/2 afib vs rt carotid stenosis echo 45% ct brain reviewed. suspect left bg calcification. possible old rt hygroma. lipids nml, ldl <70 recs no significant improvement s/p iv tpa at this point post tpa order set mri/mra brain carotid imaging palliative care following; overall prognosis with recent event appears poor over 90 mins spent with care co-ordination, d/w multiple md's, nursing, imaging data review (2) A-fib ICD Codes: I48.91 - Unspecified atrial fibrillation Status: Chronic (3) CKD (chronic kidney disease), stage III ICD Codes: N18.3 - Chronic kidney disease, stage 3 (moderate) Status: Chronic (4) congestive heart failure Status: Chronic Patrick Carrasco MD Nov 07, 2017 07:56
[2017-11-07] MEDS ORDERED: methylPREDNISolone SOD SUCC 40 MG/1 ML VIAL IV PUSH SCH (09:00)
[2017-11-07] MEDS ORDERED: FUROSEMIDE 40 MG/4 ML VIAL IV PUSH SCH (09:00)
[2017-11-07] MEDS ORDERED: RESP: ALBUTEROL 2.5 MG/3 ML NEB (PRN) NEB ×2 (09:00)
[2017-11-07] MEDS ORDERED: FUROSEMIDE 20 MG/2 ML VIAL IV PUSH SCH (09:00)
[2017-11-07] MEDS ORDERED: FUROSEMIDE 20 MG TAB PO SCH (09:00)
[2017-11-07] MEDS ORDERED: SODIUM CHLOR 0.9% 1000 ML INJ 1,000 ML IV SCH (09:11)
[2017-11-07] MEDS ORDERED: GLUCAGON 1 MG/ML VIAL OTHER PRN (09:15)
[2017-11-07] MEDS ORDERED: SODIUM CHLORIDE 0.9% FLUSH 10 ML FLUSH IV FLUSH PRN (09:15)
[2017-11-07] MEDS ORDERED: niCARdipine INJ 25 MG in SODIUM CHLOR 0.9% 250 ML INJ 240 ML IV PRN (09:15)
[2017-11-07] MEDS ORDERED: DEXTROSE 50% IN WATER 50 ML VIAL(D50) IV PUSH PRN (09:15)
[2017-11-07] MEDS ORDERED: FAMOTIDINE 20 MG/2 ML VIAL IV PUSH SCH (09:15)
--- NOTE | 2017-11-07 09:36 | RADRPT ---
EXAM DATE/TIME: 11/07/2017 09:16 [facility] COMPARISON: CT BRAIN W/O CONTRAST, November 06, 2017, 23:24. INDICATIONS : Follow up stroke, post TPA. RADIATION DOSE: 39.95 CTDIvol (mGy) MEDICAL HISTORY : Cardiovascular disease. Chronic obstructive pulmonary disease. Lymphoma. SURGICAL HISTORY : Mastectomy, right. Splenectomy.Cholecystectomy. ENCOUNTER: Initial ACUITY: 1 day PAIN SCALE: 0/10 LOCATION: cranial TECHNIQUE: Multiple contiguous axial images were obtained of the head. Using automated exposure control and adj ustment of the mA and/or kV according to patient size, radiation dose was kept as low as reasonably a chievable to obtain optimal diagnostic quality images. DICOM format image data is available electro nically for review and comparison. FINDINGS: There is mild generalized atrophy. Ventricles are normal. There is a new area of low density involvin g the right frontal lobe with effacement of the sulci and loss of cortes matter white matter differenti ation. No acute blood products are present. There is no midline shift or herniation. Stable encephalomalacia is present in the left parietal high and mid convexity. Posterior fossa demonstrates no abnormality. No acute osseous abnormality is iden tified. CONCLUSION: 1. There has been no hemorrhage since TPA administration. However, there is cytotoxic edema consisten t with recent ischemia in the right frontal lobe. 2. Otherwise, stable chronic changes, as above. Kirt Anderson MD on November 07, 2017 at 9:26 Board Certified Radiologist. This report was verified electronically.
--- NOTE | 2017-11-07 09:45 | EKG ---
Date Performed: 11/06/2017 Time Performed: 23:14:38 PTAGE: 87 years EKG: Atrial fibrillation with PVC(s). Lead(s) unsuitable for analysis: V4 V5 V6 Incomplete RBBB Possible anterior infarct - age undetermined Inferior T wave changes are nonspecific Abnormal ECG PREVIOUS TRACING : 10/30/2017 13.16 DOCTOR: Darrel Martinez Interpretating Date/Time 11/07/2017 09:44:26
--- NOTE | 2017-11-07 09:57 | RADRPT ---
EXAM DATE/TIME: 11/07/2017 09:24 [facility] COMPARISON: CHEST SINGLE AP, November 05, 2017, 6:11. INDICATIONS : Respiratory failure. MEDICAL HISTORY : Chronic obstructive pulmonary disease. Congestive heart failure. Dizziness. Right breast cancer. Thro at cancer. Non Hodgkins Lymphoma. Measles. Felty's syndrome. blood transfusion. SURGICAL HISTORY : Splenectomy. Cholecystectomy. Mastectomy, right. Bilateral lens replacement. Pacemaker. Partial thyro idectomy. Lymph node dissection. ENCOUNTER: Subsequent ACUITY: 4 - 6 days PAIN SCORE: Non-responsive. LOCATION: chest FINDINGS: A single view of the chest demonstrates again moderate sized bilateral pleural effusions similar to t he previous study. Left subclavian bipolar pacer in good position. The heart and mediastinum remains somewhat widened, similar to the previous study.. Osseous structures are intact. CONCLUSION: Large bilateral pleural effusions. There is fluid versus pleural thickening reaching the apices bilat erally. Pacemaker good position. Darrel Galo MD on November 07, 2017 at 9:52 Board Certified Radiologist. This report was verified electronically.
[2017-11-07] MEDS ORDERED: PANTOPRAZOLE SODIUM 40 MG VIAL IV PUSH SCH (10:00)
[2017-11-07] MEDS ORDERED: RESP: ALBUTEROL 2.5 MG/IPRATROPIUM 0.5 MG NEB (SCH) NEB (10:00)
--- NOTE | 2017-11-07 11:11 | RADRPT ---
EXAM DATE/TIME: 11/07/2017 09:29 [facility] COMPARISON: US KIDNEY/RENAL/BLADDER, November 02, 2017, 14:38. INDICATIONS : Cerebrovascular accident. MEDICAL HISTORY : Chronic obstructive pulmonary disease. Congestive heart failure. Dizziness. Right breast cancer. Thro at cancer. Non Hodgkins Lymphoma. Measles. Felty's syndrome. blood transfusion. SURGICAL HISTORY : Splenectomy. Cholecystectomy. Mastectomy, right. Bilateral lens replacement. Pacemaker. Partial thyro idectomy. Lymph node dissection. ENCOUNTER: Initial ACUITY: 1 day PAIN SCORE: Nonresponsive. LOCATION: Bilateral neck PEAK SYSTOLIC VELOCITIES (cm/sec): ICA/CCA RATIO: Right: 1.4 Left: 0.7 ICA: Right: 78 Left: 104 CCA: Right: 57 Left: 142 ECA: Right: 54 Left: 83 VERTEBRAL: Right: 67 antegrade Left: 70 antegrade Elevated flow velocities and ICA/CCA ratios have been found to correlate with increased degrees of vessel stenosis, calculated as percentage of diameter relative to a normal segment of distal ICA/CCA COMPLETE APPROPRIATE ITEMS PRE PROCEDURE: ID x 2: Complete NameDate of BirthPatient Name BandEducation: Nurse/Technologist explained procedur e to patient/family. Patient/family demonstrated understanding of procedure. FINDINGS: RIGHT CAROTID: No significant stenosis is visualized. There is minimal calcified atherosclerotic plaque at the bifurcation. The waveforms are within normal limits. LEFT CAROTID: No significant stenosis is visualized. Very minimal plaquing is seen at the bifurcation. The wav eforms are within normal limits. VERTEBRAL ARTERIES: Antegrade flow is seen in both vertebral arteries. MISCELLANEOUS: None. CONCLUSION: 1. No hemodynamically significant carotid artery stenosis identified. 2. There is antegrade flow in both vertebral arteries. Rob Valdivia MD on November 07, 2017 at 11:06 Board Certified Radiologist. This report was verified electronically.
--- NOTE | 2017-11-07 11:27 | HHI.HCPN ---
Reason for visit a. To assist with evaluation and management of symptoms including: Dyspnea , weakness, debility b. To assist medical decision maker(s) with: better understanding of current medical conditions; weighing benefits/burdens of medical treatment options; making medical treatment decisions. . Subjective/Interval History INTERVAL NOTE: The patient developed acute neurologic deficits last evening, and a Stroke Alert was called about midnight. A CT scan revealed an old left-sided stroke, and also a 3.6 mm hygroma versus old subdural, but no acute stroke. The neurologist spoke with the patient's granddaughter Eduarda and the patient's , and they elected to administer TPA. The patient has a flaccid left arm /leg and she is nonverbal. She does follow simple commands and moves her right side. Follow-up CT this morning is consistent with an evolving ischemic stroke involving the right frontal lobe; no new hemorrhage is noted. The patient's neurologic symptoms did not improve after thrombolysis attempt. . Family/friend interactions Lengthy discussion with granddaughter Eduarda and patient's in the conference room. They understand that the patient will not survive this stroke with her end-stage COPD. They requested DNR status and a transition to comfort , with hospice services. . Advance Directives Living Will: Never completed Health Care Surrogate: Never completed Durable Power of Electrical Technician: Never completed Advance Directive Specifics Significant change in goals: requests DNR and hospice . Objective Vital Signs Date Time Temp Pulse Resp B/P (MAP) Pulse Ox O2 Delivery O2 Flow Rate FiO2 11/07/17 10:00 84 11/07/17 08:18 92 Nasal Cannula 3.00 11/07/17 08:00 96.4 78 20 136/60 (85) 100 11/07/17 08:00 73 11/07/17 07:00 97 Nasal Cannula 2.00 11/07/17 04:39 96 Nasal Cannula 3.00 11/07/17 04:00 97.6 80 18 150/74 (99) 95 11/07/17 02:00 84 11/07/17 01:00 80 11/07/17 01:00 99 Nasal Cannula 2.00 11/07/17 01:00 97.6 80 18 134/74 (94) 97 Manual Cuff/Auscultation 11/07/17 00:07 87 11/06/17 23:17 93 6.00 11/06/17 23:15 93 6.00 11/06/17 20:51 95 Nasal Cannula 5.00 11/06/17 20:41 70 11/06/17 20:00 97.2 72 18 125/56 (79) 97 11/06/17 19:49 Nasal Cannula 6.00 11/06/17 16:09 97.5 76 21 128/59 (82) 96 11/06/17 16:00 73 11/06/17 12:06 97.3 77 22 122/58 (79) 96 11/06/17 12:02 92 Nasal Cannula 5.00 11/06/17 12:00 84 Intake & Output 11/07/17 11/07/17 07:00 19:00 Intake Total 0 ml Balance 0 ml Intake Oral 0 ml # Voids 2 # Bowel Movements 0 Physical Exam CONSTITUTIONAL/GENERAL: This is a lethargic, nonverbal patient. TUBES/LINES/DRAINS: Nasal oxygen, IV SKIN: No jaundice, rashes, or lesions, but has some scaly venous insufficiency changes of the lower legs. Ecchymoses on upper extremities. No wounds seen anteriorly. Skin temperature appropriate. Not diaphoretic. HEAD: Atraumatic. Normocephalic. NECK: Trachea midline. Supple, nontender. No palpable thyroid enlargement or nodularity. CARDIOVASCULAR: Irregular rhythm without murmurs, gallops, or rubs. No JVD. Unable to palpate posterior tibial pulses. RESPIRATORY/CHEST: Symmetric, mildly labored respirations. Diminished breath sounds bilateral, a couple rhonchi. GASTROINTESTINAL: Abdomen soft, non-tender, nondistended. No hepato-splenomegaly , or palpable masses. No guarding. Bowel sounds present. GENITOURINARY: Without palpable bladder distension. MUSCULOSKELETAL: Extremities without clubbing or cyanosis, but she has 1-2+ pitting edema below the knees. Marked changes of rheumatoid arthritis in both hands. No mottling or clubbing. LYMPHATICS: No palpable cervical or supraclavicular adenopathy. NEUROLOGICAL: Awake and alert. Flaccid left arm, slight withdrawal of the left foot but otherwise flaccid left leg. Moves right arm and leg. Nonverbal. Follows simple commands. PSYCHIATRIC: No obvious anxiety/depression. no apparent hallucinations or other psychotic thought process. . Diagnostic Tests Laboratory Laboratory Tests Test 11/05/17 05:55 11/05/17 08:16 11/06/17 08:25 11/06/17 23:25 White Blood Count 19.9 TH/MM3 (4.0-11.0) 17.1 TH/MM3 (4.0-11.0) Red Blood Count 3.65 MIL/MM3 (4.00-5.30) 3.40 MIL/MM3 (4.00-5.30) Hemoglobin 11.4 GM/DL (11.6-15.3) 10.5 GM/DL (11.6-15.3) Hematocrit 33.8 % (35.0-46.0) 31.1 % (35.0-46.0) Mean Corpuscular Volume 92.7 FL (80.0-100.0) 91.5 FL (80.0-100.0) Mean Corpuscular Hemoglobin 31.4 PG (27.0-34.0) 30.9 PG (27.0-34.0) Mean Corpuscular Hemoglobin Concent 33.8 % (32.0-36.0) 33.8 % (32.0-36.0) Red Cell Distribution Width 18.9 % (11.6-17.2) 19.3 % (11.6-17.2) Platelet Count 313 TH/MM3 (150-450) 400 TH/MM3 (150-450) Mean Platelet Volume 8.8 FL (7.0-11.0) 8.0 FL (7.0-11.0) Neutrophils (%) (Auto) 58.4 % (16.0-70.0) 43.2 % (16.0-70.0) Lymphocytes (%) (Auto) 27.1 % (9.0-44.0) 40.7 % (9.0-44.0) Monocytes (%) (Auto) 12.3 % (0.0-8.0) 12.0 % (0.0-8.0) Eosinophils (%) (Auto) 1.2 % (0.0-4.0) 2.9 % (0.0-4.0) Basophils (%) (Auto) 1.0 % (0.0-2.0) 1.2 % (0.0-2.0) Neutrophils # (Auto) 11.6 TH/MM3 (1.8-7.7) 7.4 TH/MM3 (1.8-7.7) Lymphocytes # (Auto) 5.4 TH/MM3 (1.0-4.8) 7.0 TH/MM3 (1.0-4.8) Monocytes # (Auto) 2.5 TH/MM3 (0-0.9) 2.1 TH/MM3 (0-0.9) Eosinophils # (Auto) 0.2 TH/MM3 (0-0.4) 0.5 TH/MM3 (0-0.4) Basophils # (Auto) 0.2 TH/MM3 (0-0.2) 0.2 TH/MM3 (0-0.2) CBC Comment AUTO DIFF AUTO DIFF Differential Total Cells Counted 100 100 Neutrophils % (Manual) 60 % (16-70) 43 % (16-70) Band Neutrophils % 7 % (0-6) 5 % (0-6) Lymphocytes % 24 % (9-44) 37 % (9-44) Monocytes % 8 % (0-8) 8 % (0-8) Neutrophils # (Manual) 13.5 TH/MM3 (1.8-7.7) 8.6 TH/MM3 (1.8-7.7) Metamyelocytes 1 % (0-1) 1 % (0-1) Differential Comment FINAL DIFF MANUAL FINAL DIFF MANUAL Platelet Estimate NORMAL (NORMAL) NORMAL (NORMAL) Platelet Morphology Comment NORMAL (NORMAL) ENLARGED (NORMAL) Target Cells 1+ (NORMAL) Ovalocytes 1+ (NORMAL) Acanthocytes OCC (NORMAL) OCC (NORMAL) Blood Urea Nitrogen 33 MG/DL (7-18) Creatinine 1.15 MG/DL (0.50-1.00) 1.07 MG/DL (0.50-1.00) Random Glucose 99 MG/DL (74-106) Calcium Level 9.1 MG/DL (8.5-10.1) Phosphorus Level 2.8 MG/DL (2.5-4.9) Magnesium Level 2.1 MG/DL (1.5-2.5) Sodium Level 138 MEQ/L (136-145) Potassium Level 4.6 MEQ/L (3.5-5.1) Chloride Level 103 MEQ/L (98-107) Carbon Dioxide Level 28.8 MEQ/L (21.0-32.0) Anion Gap 6 MEQ/L (5-15) Estimat Glomerular Filtration Rate 45 ML/MIN (>89) 49 ML/MIN (>89) Bedside Hemoglobin 10.9 G/DL (11.6-15.3) Bedside Hematocrit 32.0 % (35.0-46.0) Eosinophils % 4 % (0-4) Basophils % 1 % (0-2) Myelocytes 1 % (0-0) Keratocytes OCC (NORMAL) Prothrombin Time 11.1 SEC (9.8-11.6) Prothromb Time International Ratio 1.1 RATIO Activated Partial Thromboplast Time 24.2 SEC (24.3-30.1) Bedside Sodium 139 MMOL/L (137-144) Bedside Potassium 4.0 MMOL/L (3.6-5.0) Bedside Chloride 98 MMOL/L (102-111) Bedside Blood Urea Nitrogen 28 MG/DL (5-21) Bedside Creatinine 1.2 MG/DL (0.6-1.3) Bedside Glucose 149 MG/DL (68-110) Total Creatine Kinase 22 U/L (26-192) Troponin I LESS THAN 0.02 NG/ML Triglycerides Level 58 MG/DL (42-150) Cholesterol Level 123 MG/DL (120-200) LDL Cholesterol 63 MG/DL (0-99) HDL Cholesterol 48.4 MG/DL (40.0-60.0) Cholesterol/HDL Ratio 2.54 RATIO Test 11/07/17 01:15 11/07/17 08:30 Nasal Screen MRSA (PCR) MRSA NOT DETECTED (NOT Blood Gas Puncture Site LT RADIAL Blood Gas Patient Temperature 98.6 Blood Gas HCO3 33 mmol/L (22-26) Blood Gas Base Excess 7.8 mmol/L (-2-2) Blood Gas Oxygen Saturation 80 % (90-100) Arterial Blood pH 7.35 (7.380-7.420) Arterial Blood Partial Pressure CO2 62 mmHg (38-42) Arterial Blood Partial Pressure O2 51 mmHg (61-120) Arterial Blood Oxygen Content 12.3 Vol % (12.0-20.0) Arterial Blood Carboxyhemoglobin 1.2 % (0-4) Arterial Blood Methemoglobin 1.0 % (0-2) Blood Gas Hemoglobin 11.0 G/DL (12.0-16.0) Oxygen Delivery Device NASAL CANNULA Blood Gas Liter Flow 3 L/M Result Diagram: 11/06/17 2325 11/06/17 0825 Microbiology Microbiology Date/Time Source Procedure Growth Status 11/04/17 13:10 Urine Catheterized Urine Legionella Antigen - Final PRESUMPTIVE NEGATIVE FOR LEGIONELLA P... Complete 11/04/17 13:10 Urine Catheterized Urine Streptococcus pneumoniae Antigen (M - Final PRESUMPTIVE NEGATIVE FOR STREPTOCOCCU... Complete Imaging Last Impressions Head CT 11/07/17 0000 Signed Impressions: Service Date/Time: Tuesday, November 07, 2017 09:16 - CONCLUSION: 1. There has been no hemorrhage since TPA administration. However, there is cytotoxic edema consistent with recent ischemia in the right frontal lobe. 2. Otherwise, stable chronic changes, as above. Kirt Anderson MD Chest X-Ray 11/07/17 0000 Signed Impressions: Service Date/Time: Tuesday, November 07, 2017 09:24 - CONCLUSION: Large bilateral pleural effusions. There is fluid versus pleural thickening reaching the apices bilaterally. Pacemaker good position. Darrel Galo MD Renal Ultrasound 11/02/17 0000 Signed Impressions: Service Date/Time: Thursday, November 02, 2017 14:38 - CONCLUSION: Increased renal cortical echogenicity consistent with medical renal disease. No evidence of hydronephrosis. Kirt Hale MD Chest Ultrasound 11/02/17 0000 Signed Impressions: Service Date/Time: Thursday, November 02, 2017 10:20 - CONCLUSION: Small volume right pleural effusion Kirt Hale MD Abdomen/Pelvis CT 10/30/17 0000 Signed Impressions: Service Date/Time: Monday, October 30, 2017 11:57 - CONCLUSION: 1. Small loculated bilateral pleural effusions with basilar atelectasis. 2. Cardiomegaly. Mild anasarca. Trace free fluid in the abdomen and pelvis. 3. No bowel obstruction. Colonic diverticulosis without diverticulitis. Dat Whiteside MD Procedures tPA administration 11/07/17 . 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 2 sons (1 and one estranged). 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 Spiritual: The patient is [employer], but has been too ill last 4 years to attend [facility]. Clergy has visited her during this hospitalization from her [employer], and she does not desire division toll wire chief visits. Legal: The patient has capacity for decision-making. She would want her to make her decisions when she loses that capacity. Ethical issues impacting care: None . Important Contacts : Granddaughter: Eduarda Blood [phone] Reportedly lives in [place] . Prognosis This patient has end-stage COPD with pronounced debility, and also has CHF. Her overall prognosis is poor, and she would be appropriate for hospice services if the goals became comfort oriented. . Code Status: No Code Plan * DO NOT RESUSCITATE, per request of and granddaughter 11/07/17 * DECISION-MAKING: The patient has lost capacity for decision-making with the acute stroke, and it is quite unlikely that she will regain that capacity. She had previously identified her is the person that she would want to make her decisions when she is unable to make decisions herself. * GOALS: Transition to comfort, engage hospice services for end-of-life care * SYMPTOMS: The patient has some restlessness and dyspnea, and the symptoms will be managed via hospice services. * Hospice consult placed. * Palliative care will continue to follow the patient during this hospitalization. . Time Spent Total Floor Time (mins): 41 Face to Face Time (mins): 22 >50% Counseling/Coord of Care: Yes (d/w Dr. Montalvo) Attestation To help prompt me to consider important information that might be impacting today's encounter and assessment, information from prior notes written by myself or my colleagues may have been "brought forward" into today's note. My signature on this note, however, is an attestation that I personally performed the exam, history, and/or decision-making noted today, and, unless otherwise indicated, the interactions with patient, family, and staff as well as the review of records all occurred today. I also attest that the listed assessment and stated plan reflect my best clinical judgment today based on the combination of historical information, prior notes, and today's exam/ interactions. When time spent is documented, it refers only to time spent today by the signer, or if indicated, combined time spent today by collaborating physician/nurse practitioner. Usha Whalen MD Nov 07, 2017 11:27
[2017-11-07] MEDS ORDERED: INSULIN ASPART SUPPLEMENTAL SCALE SQ SCH (12:00)
--- NOTE | 2017-11-07 13:38 | HHI.DS ---
Discharge Summary Admission Date Oct 30, 2017 at 14:30 Discharge Date: Nov 07, 2017 Admitting Diagnosis sepsis, pleural effusions (1) acute right MCA ischemic stroke 11/07/17 Diagnosis: Principal Status: Acute (2) CKD (chronic kidney disease), stage III ICD Code: N18.3 - Chronic kidney disease, stage 3 (moderate) Diagnosis: Secondary Status: Chronic (3) Bilateral pleural effusion ICD Code: J90 - Pleural effusion, not elsewhere classified Diagnosis: Principal Status: Acute (4) Acute kidney injury ICD Code: N17.9 - Acute kidney failure, unspecified Diagnosis: Principal Status: Acute (5) Pneumonia ICD Code: J18.9 - Pneumonia, unspecified organism Diagnosis: Principal Status: Acute Procedures Status post alteplase 11/07/2017 Brief History Patient reporting vague abdominal distention and constant generalized abdominal discomfort for the past 10 days, also reporting decreased appetite, subjective weight loss over the past few months. Denies constipation or diarrhea. Denies any chest pain. She also reports progressive worsening of fatigue over the past month, now to the point where she cannot walk. She reports history of lymphoma which she says apparently cannot be treated, however is unsure of her oncologist's name. She reports many years ago having an ovarian cyst rupture with discomfort, , says feels similar. CBC/BMP: 11/06/17 2325 11/06/17 0825 Significant Findings Laboratory Tests Test 11/05/17 05:55 11/05/17 08:16 11/06/17 08:25 11/06/17 23:25 White Blood Count 19.9 TH/MM3 (4.0-11.0) 17.1 TH/MM3 (4.0-11.0) Red Blood Count 3.65 MIL/MM3 (4.00-5.30) 3.40 MIL/MM3 (4.00-5.30) Hemoglobin 11.4 GM/DL (11.6-15.3) 10.5 GM/DL (11.6-15.3) Hematocrit 33.8 % (35.0-46.0) 31.1 % (35.0-46.0) Red Cell Distribution Width 18.9 % (11.6-17.2) 19.3 % (11.6-17.2) Monocytes (%) (Auto) 12.3 % (0.0-8.0) 12.0 % (0.0-8.0) Neutrophils # (Auto) 11.6 TH/MM3 (1.8-7.7) Lymphocytes # (Auto) 5.4 TH/MM3 (1.0-4.8) 7.0 TH/MM3 (1.0-4.8) Monocytes # (Auto) 2.5 TH/MM3 (0-0.9) 2.1 TH/MM3 (0-0.9) Band Neutrophils % 7 % (0-6) Neutrophils # (Manual) 13.5 TH/MM3 (1.8-7.7) 8.6 TH/MM3 (1.8-7.7) Target Cells 1+ (NORMAL) Ovalocytes 1+ (NORMAL) Acanthocytes OCC (NORMAL) OCC (NORMAL) Blood Urea Nitrogen 33 MG/DL (7-18) Creatinine 1.15 MG/DL (0.50-1.00) 1.07 MG/DL (0.50-1.00) Estimat Glomerular Filtration Rate 45 ML/MIN (>89) 49 ML/MIN (>89) Bedside Hemoglobin 10.9 G/DL (11.6-15.3) Bedside Hematocrit 32.0 % (35.0-46.0) Eosinophils # (Auto) 0.5 TH/MM3 (0-0.4) Myelocytes 1 % (0-0) Platelet Morphology Comment ENLARGED (NORMAL) Keratocytes OCC (NORMAL) Activated Partial Thromboplast Time 24.2 SEC (24.3-30.1) Bedside Chloride 98 MMOL/L (102-111) Bedside Blood Urea Nitrogen 28 MG/DL (5-21) Bedside Glucose 149 MG/DL (68-110) Total Creatine Kinase 22 U/L (26-192) Troponin I LESS THAN 0.02 NG/ML Test 11/07/17 01:15 11/07/17 08:30 Blood Gas HCO3 33 mmol/L (22-26) Blood Gas Base Excess 7.8 mmol/L (-2-2) Blood Gas Oxygen Saturation 80 % (90-100) Arterial Blood pH 7.35 (7.380-7.420) Arterial Blood Partial Pressure CO2 62 mmHg (38-42) Arterial Blood Partial Pressure O2 51 mmHg (61-120) Blood Gas Hemoglobin 11.0 G/DL (12.0-16.0) Imaging Last Impressions Head CT 11/07/17 0000 Signed Impressions: Service Date/Time: Tuesday, November 07, 2017 09:16 - CONCLUSION: 1. There has been no hemorrhage since TPA administration. However, there is cytotoxic edema consistent with recent ischemia in the right frontal lobe. 2. Otherwise, stable chronic changes, as above. Kirt Anderson MD Chest X-Ray 11/07/17 0000 Signed Impressions: Service Date/Time: Tuesday, November 07, 2017 09:24 - CONCLUSION: Large bilateral pleural effusions. There is fluid versus pleural thickening reaching the apices bilaterally. Pacemaker good position. Darrel Galo MD Carotid Artery Ultrasound 11/07/17 0000 Signed Impressions: Service Date/Time: Tuesday, November 07, 2017 09:29 - CONCLUSION: 1. No hemodynamically significant carotid artery stenosis identified. 2. There is antegrade flow in both vertebral arteries. Rob Valdivia MD Renal Ultrasound 11/02/17 0000 Signed Impressions: Service Date/Time: Thursday, November 02, 2017 14:38 - CONCLUSION: Increased renal cortical echogenicity consistent with medical renal disease. No evidence of hydronephrosis. Kirt Hale MD Chest Ultrasound 11/02/17 0000 Signed Impressions: Service Date/Time: Thursday, November 02, 2017 10:20 - CONCLUSION: Small volume right pleural effusion Kirt Hale MD Abdomen/Pelvis CT 10/30/17 0000 Signed Impressions: Service Date/Time: Monday, October 30, 2017 11:57 - CONCLUSION: 1. Small loculated bilateral pleural effusions with basilar atelectasis. 2. Cardiomegaly. Mild anasarca. Trace free fluid in the abdomen and pelvis. 3. No bowel obstruction. Colonic diverticulosis without diverticulitis. Dat Whiteside MD PE at Discharge GENERAL: 87-year-old female currently resting in bed in mild respiratory distress SKIN: Lower extremity with erythematous scaly skin HEAD: Atraumatic. Normocephalic. EYES: Pupils equal and round about 2 mm bilaterally and sluggish. No scleral icterus. No injection or drainage. ENT: No nasal bleeding or discharge. Mucous membranes pink and moist. NECK: Trachea midline. No JVD. CARDIOVASCULAR: IRR. S1, S2 no S4. 1/6 systolic murmur at the apex RESPIRATORY: Diminished breath sounds throughout. Specifically in the bases bilaterally. No wheezing appreciated. Shallow breaths GASTROINTESTINAL: Abdomen soft, non-tender, nondistended. Hypoactive bowel sounds are appreciated MUSCULOSKELETAL: Extremities with 2+ bilateral lower extremity edema NEUROLOGICAL: Idealistic GCS 10 (E2, V3. M5) Arousable to loud voice in noxious stimulation. Left facial droop. Currently not protruding tongue. Left upper extremity appears flaccid. Withdraws to left lower x-ray. Strength 4-5 right upper and lower extremity. Transfer Summary Neuro/Psych: Probable right MCA CVA Cardioembolic with A. fib Bilateral cataract with IOC CTA brain 11/06 revealed left parietal lobe. 6 mm subdural hygroma versus hematoma the posterior right frontal/parietal region. Left base again increased density. Small vascular ischemic changes. Follow-up CT brain this a.m. 11/07 revealed evolving right frontal CVA with cytogenic edema Received alteplase 5.2 mg 1 followed by 47 mg at 0020 on 11/[address] brain 11/08 at 0020 Goal keep systolic blood pressure less than 180, diastolic less than 105 Lipid panel as below NIH score every 4 hours Neurology/Dr. Carrasco is following Carotid Dopplers ordered Unable to do MRI/A due to incompatibility/pacemaker CV: Congestive heart failure/systolic appears chronic Atrial fibrillation - chronic rate controlled Hypertension Pacemaker in situ Echocardiogram 10/31 - EF 45-50%. Bilateral atrial dilatation. Pulmonary arterial Pressure 43 mmHg Goal keep systolic blood pressure was 180, diastolic pressure less than 105 post alteplase infusion 24 hours Home medications document is hydralazine 25 mg by mouth every 8 hours and diltiazem 240 mg by mouth daily Patient is on furosemide 20 mg by mouth twice a day and with potassium supplementation KCl 10 mEq twice a day Resp: Chronic respiratory insufficiency/COPD-home oxygen dependent 2 L Likely chronic right greater than left loculated pleural effusions Nasal cannula to maintain saturations greater than equal to 92% Holding tiotropium 18 g inhalation daily while on albuterol/ipratropium aerosols On albuterol inhaler every 6 hours at home with albuterol aerosols every 2 hours as needed for dyspnea Dr. Duke actively following. GI: Gastroesophageal reflux disease Hypoalbuminemia Status post post splenectomy Diverticulosis Nothing by mouth status On pantoprazole [address] abdomen/pelvis 10/31. Diverticulosis without diverticulitis. Bilateral loculated pleural effusions lower lobes. : Prabhakar catheter if indicated for accurate I's and O's in a critically ill patient Endo: History of partial thyroidectomy Hyperglycemia Elevated TSH 6.14/normal free T4 0.89 Chronic prednisone use Sliding scale with Accu-Cheks every 6 hours to maintain euglycemia Novulog low regimen Patient is currently on methylprednisolone 20 mg IV twice a day. On 10 mg daily chronically home with recent taper. Conversion factor will be 8 mg but appropriate this time Repeat TSH in 4-6 weeks Renal: Chronic kidney disease stage IIIa Acute kidney injury - resolved followed by Dr. 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 Singleton Outpatient PET scan per Dr. Aj recommendations History of breast cancer status post right mastectomy History of ovarian cancer status post resection Leukocytosis Normocytic anemia Elevated CA-125 Status post alteplase as above. 5.2 mg followed by 47 mg Follow-up CBC in a.m. 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 See orders PT/OT evaluate and treat Access - Utilize peripheral IV. Central line if indicated Prophylaxis - GI - pantoprazole - DVT - SCD/holding pharmacological prophylaxis 24 hours post alteplase infusion 35 additional minutes care time Patients decided to make patient comfort care only/hospice. We'll transfer to care center today this afternoon. Agree patient has no comparisons for medical decision-making. At the present time, is designated healthcare proxy. Discussed with her stop her/ palliative care. He will discuss with family goals of care in this very dire situation. Her overall prognosis extremely poor with multiple comorbidities in the setting of this acute CVA with evolving cytotoxic edema in the right frontal lobe. Hospice is very appropriate in this instance Hospital Course 87-year-old female with past medical history of follicular lymphoma, COPD, CHF, atrial fibrillation (not on chronic anticoagulation), rheumatoid arthritis with Felty syndrome who is admitted to [facility] on by the hospitalist service. [employer] stroke alert was called when she was found dysarthric with left hemiparesis. She was last seen normal at [address] brain report indicates 6 mm R subdural fluid collection which per report was subdural hemorrhage versus asymmetric hygroma. There was increased density in the L basal ganglia but hemorrhage was felt to be less likely. Dr. Carrasco had called patients granddaughter and discussed administration of TPA. He called me for patient transfer to ICU 11/07: Post consultation follow-up. Patient with obvious left facial droop, left upper extremity flaccid with withdrawals left lower extremity. Adequate strength right upper lower extremity. Currently protecting airway. Doesn't open eyes to voice. Answers 1-2 word simple answers. Pt Condition on Discharge: Deteriorating Discharge Disposition: Hospice/Med Facility Discharge Instructions DIET: Follow Instructions for: Nothing By Mouth Activities you can perform: Continue Bedrest Juan Miguel Montalvo MD Nov 07, 2017 13:38
[2017-11-07] MEDS ORDERED: ARTIFICIAL TEARS OPTH SOLN 15 ML BTL EACH EYE SCH (14:00)
--- NOTE | 2017-11-07 16:39 | HHI.PR ---
Subjective Remarks UNRESPONSIVE CVA LAST NIGHT Objective Vital Signs Date Time Temp Pulse Resp B/P (MAP) Pulse Ox O2 Delivery O2 Flow Rate FiO2 11/07/17 16:00 98.2 92 22 130/60 (83) 96 11/07/17 16:00 92 11/07/17 14:00 87 11/07/17 12:00 97.9 112 29 156/65 (95) 88 11/07/17 12:00 112 11/07/17 10:00 84 11/07/17 08:18 92 Nasal Cannula 3.00 11/07/17 08:00 96.4 78 20 136/60 (85) 100 11/07/17 08:00 73 11/07/17 07:00 97 Nasal Cannula 2.00 11/07/17 04:39 96 Nasal Cannula 3.00 11/07/17 04:00 97.6 80 18 150/74 (99) 95 11/07/17 02:00 84 11/07/17 01:00 80 11/07/17 01:00 99 Nasal Cannula 2.00 11/07/17 01:00 97.6 80 18 134/74 (94) 97 Manual Cuff/Auscultation 11/07/17 00:07 87 11/06/17 23:17 93 6.00 11/06/17 23:15 93 6.00 11/06/17 20:51 95 Nasal Cannula 5.00 11/06/17 20:41 70 11/06/17 20:00 97.2 72 18 125/56 (79) 97 11/06/17 19:49 Nasal Cannula 6.00 I/O 11/06/17 11/06/17 11/06/17 11/07/17 11/07/17 11/07/17 07:00 15:00 23:00 07:00 15:00 23:00 Intake Total 480 ml 480 ml 0 ml Balance 480 ml 480 ml 0 ml Intake Oral 480 ml 480 ml 0 ml # Voids 5 2 2 # Bowel Movements 1 1 0 Result Diagram: 11/06/17 2321 11/06/17 0856 Objective Remarks GENERAL: SKIN: Warm and dry. HEAD: Atraumatic. Normocephalic. EYES: Pupils equal and round. No scleral icterus. No injection or drainage. ENT: No nasal bleeding or discharge. Mucous membranes pink and moist. NECK: Trachea midline. No JVD. CARDIOVASCULAR: Regular rate and rhythm. RESPIRATORY: No accessory muscle use. DECREASE BREATH SOUNDS AT BASIS to auscultation. Breath sounds equal bilaterally. GASTROINTESTINAL: Abdomen soft, non-tender, nondistended. Hepatic and splenic margins not palpable. MUSCULOSKELETAL: Extremities without clubbing, cyanosis, or edema. No obvious deformities. NEUROLOGICAL: Awake and alert. No obvious cranial nerve deficits. Motor grossly within normal limits. Five out of 5 muscle strength in the arms and legs. Normal speech. PSYCHIATRIC: Appropriate mood and affect; insight and judgment normal. Assessment and Plan Assessment and Plan ass ACUTE CVA respiratory failure copd loculated effusions, small BILATERAL CHEST US = SMALL BIBASILAR EFFUSIONS IN BETTER SPIRITS TODAY plan o2 as needed bronchodilators INCREASE ACTIVITY [facility] Srikanth Duke MD Nov 07, 2017 16:39
[2017-11-07] MEDS ORDERED: SODIUM CHLORIDE 0.9% FLUSH 10 ML FLUSH IV FLUSH SCH (21:00)
== END 2017-11-07 16:20 | disposition hospice, inpatient (51) | DRG 871 ==
LOC: NEDAMB 10:27 → NEDA 14:30 → N04B 17:16 → N03A 11-07 00:34
PROVIDERS: ADMIT Internal Medicine Critical Care Medicine; ATTEND Internal Medicine Critical Care Medicine
DX: A41.9 Sepsis, unspecified organism (principal); J18.9 Pneumonia, unspecified organism; I63.511 Cerebral infarction due to unspecified occlusion or stenosis of right middle cerebral artery; G93.6 Cerebral edema; N17.9 Acute kidney failure, unspecified; I50.23 Acute on chronic systolic (congestive) heart failure; J96.11 Chronic respiratory failure with hypoxia; C82.90 Follicular lymphoma, unspecified, unspecified site; J44.0 Chronic obstructive pulmonary disease with (acute) lower respiratory infection; I13.0 Hypertensive heart and chronic kidney disease with heart failure and stage 1 through stage 4 chronic kidney disease, or unspecified chronic kidney disease; R64 Cachexia; J44.1 Chronic obstructive pulmonary disease with (acute) exacerbation; G81.94 Hemiplegia, unspecified affecting left nondominant side; I42.9 Cardiomyopathy, unspecified; Z51.5 Encounter for palliative care; I48.2 Chronic atrial fibrillation; M06.9 Rheumatoid arthritis, unspecified; M05.00 Felty's syndrome, unspecified site; E07.81 Sick-euthyroid syndrome; N18.3 Chronic kidney disease, stage 3 (moderate); L29.9 Pruritus, unspecified; R47.1 Dysarthria and anarthria; K21.9 Gastro-esophageal reflux disease without esophagitis; R73.9 Hyperglycemia, unspecified; R21 Rash and other nonspecific skin eruption; D63.0 Anemia in neoplastic disease; T36.1X5A Adverse effect of cephalosporins and other beta-lactam antibiotics, initial encounter; E88.09 Other disorders of plasma-protein metabolism, not elsewhere classified; M41.9 Scoliosis, unspecified; R29.810 Facial weakness; F41.9 Anxiety disorder, unspecified; Y92.239 Unspecified place in hospital as the place of occurrence of the external cause; Z66 Do not resuscitate; Z85.3 Personal history of malignant neoplasm of breast; Z85.819 Personal history of malignant neoplasm of unspecified site of lip, oral cavity, and pharynx; Z85.43 Personal history of malignant neoplasm of ovary; Z87.891 Personal history of nicotine dependence; Z88.0 Allergy status to penicillin; Z88.1 Allergy status to other antibiotic agents; Z88.5 Allergy status to narcotic agent; Z90.11 Acquired absence of right breast and nipple; Z90.81 Acquired absence of spleen; Z95.0 Presence of cardiac pacemaker; Z99.81 Dependence on supplemental oxygen
CPT/HCPCS: 36600; 70450; 71045; 71046; 74176; 76604; 76775; 76937; 80048; 80053; 80061; 81001; 82550; 82565; 82805; 82948; 83605; 83690; 83735; 83880; 84100; 84439; 84443; 84480; 84484; 85007; 85025; 85027; 85610; 85730; 86304; 86850; 86900; 86901; 87040; 87070; 87205; 87449; 87641; 87804; 93005; 93306; 93880; 94640; 94664; 96365; C9113; J1644; J1940; J2920; J2997; J3370; J7030; J7050; J7512